=== PATIENT | male | born 1985 | race Caucasian/White ===

== ENCOUNTER 2016-09-21 17:49 | Inpatient (IN) | payer OTHER ==
[~2016-09-21] VITALS: Ht 182.9 cm; Wt 104.3 kg
--- NOTE | 2016-09-21 18:42 | ED PSYCHIATRIC COMPLAINT ---
History of Present Illness General Chief Complaint: Psychiatric Related Complaint Stated Complaint: PER PT DEPRESSED AND +SI Source: patient Exam Limitations: no limitations Allergies Coded Allergies: chlorpromazine (From THORAZINE) (Severe, ANAPHYLAXIS 09/21/16) fluphenazine (From PROLIXIN) (Severe, ANAPHYLAXIS 09/21/16) haloperidol (From HALDOL) (Severe, ANAPHYLAXIS 09/21/16) Uncoded Allergies: RESPERIDOL (Severe, ANAPHYLAXIS 09/21/16) Triage Note: PT TO ED WITH C/O "I HAVE BEEN VERY DEPRESSED AND HAVE BEEN PLANNING SUICIDE THE LAST WEEK OR TWO, I HAVE ATTEMPTED SUICIDE IN THE PAST BY TAKING ALL OF MY PILLS AND THEY FOUND ME UNRESPONSIVE, I HAVE BEEN LIVING IN A TENT, I CAN'T EVEN TALK TO MY 6 YEAR OLD SON, NO ONE SEEMS TO CAR, I WENT TO THE [email or web address] AND USED THE 3D PRINTER TO MAKE A PLASTIC GUN, THE ONLY THING I NEED TO GET IS BULLETS". Triage Nurses Notes Reviewed? yes HPI: This patient is a 30-year-old male with a past medical history including depression and anxiety who presented to the emergency department today for evaluation of suicidal ideations. The patient reported that his depression has been worsening over the last month. He reported that he did attempt suicide in the past by overdosing on Seroquel and prazosin. He was seen at [facility] at this time for an overdose when he was found unresponsive. He was seen a week later at [place] for continued symptoms of weakness after his overdose. The patient reported that [facility]. 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 The patient did admit that he still, "smokes crack." The patient reported that in June it was the anniversary of his father's from an overdose of alcohol, heroin, and benzodiazepine use. The patient reported that he has a mother who he does not talk to because, "she also has mental problems and it seems like when I'm around eye always make it worse for her." He reported that he has a sister who lives in [place], "but I burned some bridges but I was a heroin abuser and we do not talk very much anymore." The patient reported that he has a [id number] son, but he has not spoken to him in approximately 2 years because his son's mother won't let him. The patient reported, "I have been assembling a gun using the 3-D printer at the [employer] which I finished yesterday. I Only need the bullets." The patient reported that he was planning on committing suicide on [place]. The patient denied any homicidal ideation or audiovisual hallucinations. Patient denied any chest pain, difficulty breathing, abdominal pain, fevers, or chills. (DARIANA ROSALES,JJ) Vital Signs & Intake/Output Vital Signs & Intake/Output Vital Signs Date Time Temp Pulse Resp B/P Pulse O2 O2 Flow FiO2 Ox Delivery Rate 09/22 1236 97.0 62 18 132/65 96 Room Air 09/22 0906 98.7 74 20 108/70 96 Room Air 09/22 0646 98.5 65 18 118/66 98 Room Air 09/21 2244 98.3 54 18 110/54 93 09/21 2101 98.0 53 16 128/60 90 Room Air 09/21 2008 98 Room Air 09/21 1802 98.2 78 20 115/82 98 Room Air Room Air ED Intake and Output 09/22 0000 09/21 1200 Intake Total Output Total Balance Patient 230 lb Weight Reconcile Medications Escitalopram Oxalate (Lexapro) 20 MG TABLET 1 TAB PO DAILY DEPRESSION ( Reported) Ibuprofen 800 MG TABLET 1 TAB PO TID ANKLE PAIN (Reported) Three Rivers Carbonate (Three Rivers Carbonate ER) 450 MG TABLET.ER 1 TAB PO BID DEPRESSION (Reported) Lubiprostone (Amitiza) 24 MCG CAPSULE 1 CAP PO BID CONSTIPATION (Reported) Methadone Hydrochloride (Methadone HCl) 10 MG TABLET 1 TAB PO DAILY MOOD STABILITY (Reported) Pantoprazole Sodium (Protonix) 40 MG TABLET.DR 1 TAB PO DAILY GERD (Reported) Pantoprazole Sodium (Protonix) 40 MG TABLET.DR 1 TAB PO DAILY gastritis Prazosin HCl (Minipress) 5 MG CAPSULE 1 CAP PO QPM NIGHTMARES (Reported) Quetiapine Fumarate (Seroquel) 200 MG TABLET 1 TAB PO QPM DEPRESSION ( Reported) (DELMY FROST DO) Past History Travel History Traveled to [place] past 21 day No Medical History Any Pertinent Medical History? 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 No (JJ WESTBROOK PA-C) Review of Systems Review of Systems Constitutional: Reports: no symptoms. EENTM: Reports: no symptoms. Respiratory: Reports: no symptoms. Cardiovascular: Reports: no symptoms. GI: Reports: no symptoms. Genitourinary: Reports: no symptoms. Musculoskeletal: Reports: no symptoms. Skin: Reports: no symptoms. Neurological/Psychological: Reports: see HPI. All Other Systems: Reviewed and Negative (JJ WESTBROOK PA-C) Physical Exam Physical Exam General Appearance: well developed/nourished, alert, awake Neurological/Psychiatric: no motor/sensory deficits, awake, alert, calm, senior cognos developer II- XII nml as tested, depressed affect, oriented x 3 Comments: Well-developed well-nourished person in no acute distress HEENT: Normal EENT exam, head normocephalic, moist mucous membranes Pupils equally round and reactive to light. Nose is atraumatic. Neck: Supple Back: Normal gait Respiratory: No respiratory distress. Speaking in full sentences Extremity: Normal and equal pulses Neuro: Alert oriented x3, cranial nerves II through XII grossly intact. Skin: No appreciable rash on exposed skin, skin is warm and dry. Psych: Mood and affect is normal SAD PERSONS Done? yes (JJ WESTBROOK PA-C) Progress Differential Diagnosis: drug intoxication, drug overdose, drug withdrawal, electrolyte abnormality, encephalitis, hypoglycemia, IC hem/mass/tumor, ALCOHOL INTOXICATION, MAJOR DEPRESSIVE DISORDER, GENERALIZED ANXIETY DISORDER, BIPOLAR DISORDER, SCHIZOPHRENIA Hand-Off Endorsed To: MANDI GERBER,JAQUELIN Drake Endorsed Time: 1999 Pending: consult, labs (JJ WESTBROOK PA-C) Plan of Care: Orders Procedure Date/time Status Regular Diet 09/22 D Active Regular Diet 09/22 B Complete Patient Data - inpatient psych 09/22 1118 Active Admit to inpatient psych 09/22 1118 Active EKG 09/22 1118 Active Continuous Observation Monitor 09/22 0930 Active Continuous Observation Monitor 09/22 0534 Active Add-on Test (ER Only) 09/22 0316 Active Vital Signs 09/22 UNK Active Alternative Nursing Therapy 09/22 UNK Active Activity/Ambulation 09/22 UNK Active LITHIUM 09/21 1915 Complete ED CRISIS PSYCH CONSULT 09/21 1911 Active Continuous Observation Monitor 09/21 1814 Active URINE DRUGS OF ABUSE 09/21 1814 Complete ETHANOL 09/21 1814 Complete COMPREHENSIVE METABOLIC PANEL 09/21 1814 Complete CBC WITHOUT DIFFERENTIAL 09/21 1814 Complete Laboratory Tests 09/21/161914: Anion Gap 8, Estimated GFR > 60, BUN/Creatinine Ratio 18.8, Glucose 83, Calcium 9.4, Total Bilirubin 0.4, AST 62 H, ALT 128 H, Alkaline Phosphatase 77, Total Protein 7.1, Albumin 4.1, Globulin 3.0, Albumin/Globulin Ratio 1.4, CBC w Diff NO MAN DIFF REQ, RBC 4.67 L, MCV 91.9, MCH 30.4, RDW 15.1 H, MPV 10.2, Gran % 53.4, Lymphocytes % 34.7, Monocytes % 8.4, Eosinophils % 2.9, Basophils % 0.6, Absolute Granulocytes 3.6, Absolute Lymphocytes 2.4, Absolute Monocytes 0.6, Absolute Eosinophils 0.2, Absolute Basophils 0, PUBS MCHC 33.1, Three Rivers 0.4 L, Serum Alcohol < 10.0 09/21/16 1850: Urine Opiates Screen < 100.00, Methadone Screen > 735 H, Barbiturate Screen < 60, Ur Phencyclidine Scrn < 6.00, Amphetamines Screen < 100, U Benzodiazepines Scrn > 800 H, Urine Cocaine Screen 131, Urine Cannabis Screen 25.20 Hand-Off Endorsed To: DELMY FROST DO Endorsed Time: 0700 Pending: consult, labs (MANDI GERBER,JAQUELIN Drake) Initial ED EKG: SINUS BRADYCARDIA (DELMY FROST DO) Departure Departure Disposition: STILL A PATIENT Condition: Stable Clinical Impression Primary Impression: Suicidal ideation Referrals: ROSEANNA GERBER,DANDY Ndiaye (PCP/Family) Referred to [facility] as new patient No Departure Forms: Customer Survey General Discharge Information Psych Admission Note Psychiatric Admission: I have seen and evaluated CRISTHIAN ARAGON. I have also reviewed all the pertinent lab results and diagnostic results. CRISTHIAN ARAGON will be admitted to our inpatient Psychiatric unit for treatment and care. (DARIANA ROSALES,JJ) Departure Prescriptions: Current Visit Scripts Pantoprazole Sodium (Protonix) 1 TAB PO DAILY #30 TAB Comments 09/22/16 11 AM The patient has a abrasion between his second digit and the midfoot of the right foot. He also has some excoriated areas between the toes on the right foot. The findings are consistent with tinea pedis Psych Admission Note Psychiatric Admission: I have seen and evaluated CRISTHIAN ARAGON. I have also reviewed all the pertinent lab results and diagnostic results. CRISTHIAN ARAGON will be admitted to our inpatient Psychiatric unit for treatment and care. 09/22/16 Patient was admitted Inpatient Psychiatry. (DELMY FROST DO)
[2016-09-21 19:25] LABS: ABSOLUTE BASOPHIL COUNT 0 /CUMM (0.0-0.2); ABSOLUTE EOSINOPHIL COUNT 0.2 /CUMM (0.0-0.7); ABSOLUTE GRANULOCYTE CT 3.6 /CUMM (1.4-6.5); ABSOLUTE LYMPH COUNT 2.4 /CUMM (1.2-3.4); ABSOLUTE MONOCYTE COUNT 0.6 /CUMM (0.10-0.60); BASOPHIL % 0.6 % (0.0-2.0); EOSINOPHIL % 2.9 % (0-5); GRANULOCYTE % 53.4 % (42.2-75.2); HEMATOCRIT 42.9 % (42-52); MEAN CORPUSCULAR HGB 30.4 PG (27.0-31.0); MEAN CORPUSCULAR HGB CONC 33.1 G/DL (33.0-37.0); MEAN CORPUSCULAR VOLUME 91.9 FL (80.0-94.0); MEAN PLATELET VOLUME 10.2 FL (7.4-10.4); PLATELET COUNT 150 /CUMM (130-400); RBC DISTRIBUTION WIDTH 15.1 % (11.5-14.5); RED BLOOD CELL CT 4.67 /CUMM (4.70-6.10); WHITE BLOOD CELL COUNT 6.8 /CUMM (4.8-10.8)
[2016-09-21] MEDS ORDERED: IBUPROFEN800 M1 PO (19:49)
[2016-09-21] MEDS ORDERED: LITHIUM CARBON450 M1 PO (20:28)
[2016-09-21] MEDS ORDERED: SEROQUEL200 M1 PO (20:29)
[2016-09-21] MEDS ORDERED: LEXAPRO20 M1 PO (20:29)
[2016-09-21] MEDS ORDERED: PROTONIX40 M3 PO (20:30)
[2016-09-21] MEDS ORDERED: METHADONE HCL10 M1 PO (20:32)
[2016-09-21] MEDS ORDERED: MINIPRESS5 MG PO (20:42)
[2016-09-21] MEDS ORDERED: AMITIZA24 MC1 PO (20:43)
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
[2016-09-22 03:36] LABS: LITHIUM 0.4 mmol/L (0.6-1.2)
[2016-09-22] MEDS ORDERED: PROTONIX40 M3 PO (05:33)
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
[2016-09-22 15:33] VITALS: BP 120/77
--- NOTE | 2016-09-22 19:04 | CPS MD/APRN INITIAL ASSE PSYCH ---
Psychiatric Admission Tunnel Inspector's Note Reviewed: Yes Patient Seen and Examined: Yes Identifying Information: 30 y/o single, undomiciled, unemployed man Chief Complaint: "I'm really not doing well" Reaction to Hospitalization: Relieved History of Present Illness Onset of Illness: Chronic depressed mood and PTSD symptoms, insidious worsening of depression over past few weeks Circumstances Leading to Admission: Per notes, aj time is very challenging for him due to memories of spending holiday with his father. Also attempted to arrange contact with his 3 year old son but was not allowed by his son's mother Problem(s) Justifying Need for Admission: Suicidal ideation with plan and intent to harm himself; severe depressive symptoms Other HPI: See crisis SW note for additional information Past Psychiatric History Past Diagnosis(es)- if any: PTSD Major depressive disorder, severe, recurrent Opioid use disorder Benzodiazepine use disorder Past Precipitating Factors- if any: Homelessness, poor psychosocial supports, substance abuse - Include inpatient and outpatient treatment Treatment History: Multiple previous hospitalizations for depression with suicidal ideation. Currently in outpatient treatment at [facility] with Dr. Chidi Sandoval. Multipel previous inpatient substance abuse rehab episodes. History of Suicide Attempts or Gestures Yes: overdose on psych and medical meds Substance Abuse History: Opioid use disorder, last used 7 years ago, has been on methadone maintenance through [facility], now 90 mg daily Intermittent benzodiazepine use, no recent chronic use Denies EtOH or other substances currently Allergies: Coded Allergies: chlorpromazine (From THORAZINE) (Severe, ANAPHYLAXIS 09/21/16) fluphenazine (From PROLIXIN) (Severe, ANAPHYLAXIS 09/21/16) haloperidol (From HALDOL) (Severe, ANAPHYLAXIS 09/21/16) Uncoded Allergies: RESPERIDOL (Severe, ANAPHYLAXIS 09/21/16) Home Med List: Escitalopram Oxalate (Lexapro) 20 MG TABLET 1 TAB PO DAILY DEPRESSION ( Reported) Entered as Reported by LEONEL GOMEZ on 09/21/162028 Ibuprofen 800 MG TABLET 1 TAB PO TID ANKLE PAIN (Reported) Entered as Reported by ASHANTI CONDE on 09/21/161948 [place] Carbonate ([place] Carbonate ER) 450 MG TABLET.ER 1 TAB PO BID DEPRESSION (Reported) Entered as Reported by LEONEL GOMEZ on 09/21/162027 Lubiprostone (Amitiza) 24 MCG CAPSULE 1 CAP PO BID CONSTIPATION (Reported) Entered as Reported by LEONEL GOMEZ on 09/21/162042 Methadone Hydrochloride (Methadone HCl) 10 MG TABLET 1 TAB PO DAILY MOOD STABILITY (Reported) Entered as Reported by LEONEL GOMEZ on 09/21/162031 Pantoprazole Sodium (Protonix) 40 MG TABLET. 1 TAB PO DAILY GERD (Reported) Entered as Reported by LEONEL GOMEZ on 09/21/162029 Pantoprazole Sodium (Protonix) 40 MG TABLET. 1 TAB PO DAILY gastritis #30 TAB [facility] Prazosin HCl (Minipress) 5 MG CAPSULE 1 CAP PO QPM NIGHTMARES (Reported) Entered as Reported by LEONEL GOMEZ on 09/21/162041 Quetiapine Fumarate (Seroquel) 200 MG TABLET 1 TAB PO QPM DEPRESSION ( Reported) Entered as Reported by LEONEL GOMEZ on 09/21/162028 - Include any medical condition(s) that may - impact the patient's recovery/remission Past Medical History: Headaches, chronic MSK pain, IBS, opioid induced constipation Past History Medical History Neurological: seizure, (WITHDRAWL TO BENZOS) MIGRIAINE EENT: sinusitis, HX MRSA Cardiovascular: NONE Respiratory: asthma Gastrointestinal: constipation, GERD, irritable bowel syndrome Hepatic: NONE Renal: NONE Musculoskeletal: NONE Psychiatric: anxiety, depression, substance abuse, PTSD Endocrine: NONE Blood Disorders: NONE Cancer(s): NONE SUPERVISOR PAIRING AND INSPECTING/Reproductive: NONE History of MRSA: Yes Active MRSA Infection: No History of VRE: No History of CDIFF: No Isolation History: Standard Pneumonia Vaccine: 09/13/16 Influenza Vaccine: 09/13/16 Surgical History Surgical History: NONE Psychiatric Family/Social Hx Family History Psychiatric Illness: Unknown Substance Use: Father with opioid use disorder and from substance overdose Suicides: Unknown - father from substance overdose, unclear if suicide Social History Living Situation: Homeless - lives in tent [place] [facility] Significant Relationships (family/friends): None Education: Unknown Vocation/Occupation: Unemployed. Legal: None known. No records on [place] Judicial Other Social History: Has three year old son with whom he is not in contact Healthly Behaviors Screening Tobacco Screening Tobacco Use from ED Docu: Current Daily Use Daily Tobacco Use Amount/Type: => 5 Cigarettes daily - If tobacco counseling indicated - the following topics are required. - #1 Recognizing dangerous situations. - #2 Coping Skills. - #3 Basic information about quitting. Status of Tobacco Cessation Counseling: #1, #2 AND #3 Completed Cessation Med Status: Nicotine Patch Ordered Alcohol Screening - ETOH screen POS if BAL >=80 or Audit-C>= M4/F3 Audit-C Score from Diag Assess: 1 Blood Alcohol Level: Laboratory Tests 09/21 1915 Toxicology Serum Alcohol (<10 MG/DL) < 10.0 Alcohol Use Screening Results: Neg per Audit C &/or BAL - If ETOH counseling indicated - the following topics are required. - #1 Express concern about the patient's - drinking at unhealthy levels, include informing - of national norms for moderate drinking: - men <= 14 drinks/week, max 4 drinks/occasion - women <= 7 drinks/week, max 3 drinks/occasion - #2 Providing feedback, including linking alcohol to - negative physical effects (liver injury, hypertension) - negative emotional effects (relationship problems and - depression) - negative occupational consequences (reduced work - performance) - #3 Advising the patient to abstain from alcohol or - to drink below national norms for moderate drinking - (as listed above). Status of ETOH Use Counseling: N/A B/C NO ETOH Use Metabolic Screening - Screen if on a Neuroleptic Medication - Metabolic screening should include: - Blood Pressure, BMI, Glucose or Hgb A1c, & a - Lipid profile from within the past 365 days. Metabolic Screening () Patient on a neuroleptic(s) . Enter below results for Glucose or Hemoglobin A1C, and lipid panel if obtained during the last 365 days. BMI: Blood Pressure: 120/77 Laboratory Results (If applicable): Will order lipid panel - pending Exam and Plan Mental Status Examination Ambulation Status: Stable Appearance: Disheveled Attitude towards examiner: Pleasant and cooperative Psychomotor activity: Slowed Behavior: WNL Quality of speech: quiet, o/w wnl Affect: Blunted Mood: "depressed" Suicidal Ideation: Present Homicidal Ideation: Denies Hallucinations: Denies Paranoid/Delusional Material: Denies Difficulties with thought organization: None evidenced Insight: Fair Judgment: Fair Orientation: x4 Cognition: Intact Memory Function: Intact Estimate of intellectual functioning: Average Assets/Strengths Patient Identified Assets/Strengths: Involved with outpatient treatment at [facility] Impression/Plan Impression and Plan: 30 y/o man with severe recurrent major depressive disorder presenting with suicidal ideation with plan with essentially no protective factors or psychosocial supports. - Include all active medical diagnosis that require tx DSM 5 Diagnosis(es): Major depressive disorder, recurrent, severe PTSD Opioid use disorder (methadone maintenance) Benzodiazepine use disorder, moderate - Initial Tx Plan for Active Psych & Medical Conditions Treatment Plan: -admit CPS, 15 min checks -regular diet -f/u admit labs, order cholesterol panel -continue outpatient medications. His psychiatrist at [facility] is Dr. Chidi Sandoval - will be important to consult with her on Saturday regarding medication changes -social work assistance -monitor for improvement in mood - Factors that would help patient function - in a less restrictive setting. Factors: -improved mood, abolition of suicidal ideation
--- NOTE | 2016-09-23 00:07 | Admission Certification ---
Admission Certification Certification Statement - As attending physician, I certify that at the time of - admission, based on clinical presentation, severity of - symptoms, need for further diagnostic testing and - therapeutic interventions, and risk of adverse outcomes - without in-hospital treatment, in my clinical assessment, - this patient requires an acute hospital stay for a minimum - of two nights or longer. I have also considered psychsocial - factors such as support system, advanced age, financial - issues, cognitive issues, and failed out-patient treatments, - past re-admission history, safety of patient, and lack of - compliance as applicable. Specific rationale supporting this admission is: Depression, SI.
--- NOTE | 2016-09-23 00:15 | History & Physical ---
General Information and HPI MD Statement: I have seen and personally examined CRISTHIAN ARAGON and documented this H&P. The patient is a 30 year old M who presented with a patient stated chief complaint of [depression, SI]. Source of Information: patient Exam Limitations: no limitations History of Present Illness: 30 yo M with h/o IBS constipation type, activity induced asthma, polysubstance abuse on methadone, PTSD, is admitted to [facility] for depression and suicidal ideation. Patient is homeless, lives in a tent in [place]. Please check Psych H and P for further details. He reports a recent admission to [facility] for ankle sprain for which he is using Ibuprofen TID. He has a h/o MRSA infections to his face/nose. He has a h/o migraine but has not had an episode for many years now. He also reports that his seizure episode was secondary to withdrawal from benzos. He denies chest pain, dyspnea, nausea, vomiting, abdominal pain, chills, diarrhea or urinary symptoms. Allergies/Medications Allergies: Coded Allergies: chlorpromazine (From THORAZINE) (Severe, ANAPHYLAXIS 09/21/16) fluphenazine (From PROLIXIN) (Severe, ANAPHYLAXIS 09/21/16) haloperidol (From HALDOL) (Severe, ANAPHYLAXIS 09/21/16) Uncoded Allergies: RESPERIDOL (Severe, ANAPHYLAXIS 09/21/16) Home Med list Escitalopram Oxalate (Lexapro) 20 MG TABLET 1 TAB PO DAILY DEPRESSION ( Reported) Ibuprofen 800 MG TABLET 1 TAB PO TID ANKLE PAIN (Reported) [place] Carbonate ([place] Carbonate ER) 450 MG TABLET.ER 1 TAB PO BID DEPRESSION (Reported) Lubiprostone (Amitiza) 24 MCG CAPSULE 1 CAP PO BID CONSTIPATION (Reported) Pantoprazole Sodium (Protonix) 40 MG TABLET.DR 1 TAB PO DAILY gastritis Prazosin HCl (Minipress) 5 MG CAPSULE 1 CAP PO QPM NIGHTMARES (Reported) Quetiapine Fumarate (Seroquel) 200 MG TABLET 1 TAB PO QPM DEPRESSION ( Reported) Testosterone (Androgel) 20.25/1.25 GEL..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 MACHINE FEEDER 1.262 % TOP DAILY LOW TESTOSTERONE (Reported) Compliance With Home Meds: POOR Past History Travel History Traveled to [place] past 21 day No Medical History Neurological: seizure, (WITHDRAWL TO BENZOS) MIGRIAINE EENT: sinusitis, HX MRSA Cardiovascular: NONE Respiratory: asthma Gastrointestinal: constipation, GERD, irritable bowel syndrome Hepatic: NONE Renal: NONE Musculoskeletal: NONE Psychiatric: anxiety, depression, substance abuse, PTSD Endocrine: NONE Blood Disorders: NONE Cancer(s): NONE BACK TENDER CYLINDER/Reproductive: NONE History of MRSA: Yes Active MRSA Infection: No History of VRE: No History of CDIFF: No Isolation History: Standard Pneumonia Vaccine: 09/13/16 Influenza Vaccine: 09/13/16 Surgical History Surgical History: non-contributory Past Family/Social History Family History Relations & Conditions if any Relation not specified for: *No pertinent family history Psychosocial History Where do you live? Other Who Do You Live With? self Services at Home: None Primary Language: Croatian Smoking Status: Current Everyday Smoker ETOH Use: denies use Illicit Drug Use: benzodiazepines Functional Ability ADLs Independent: dressing, eating, toileting, bathing. Ambulation: independent IADLs Independent: telephone, medication admin. 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 EENTM: Reports: no symptoms. Cardiovascular: Denies: chest pain, edema, palpitations, syncope. Respiratory: Denies: cough, orthopnea, short of breath, wheezing. GI: Denies: abdominal pain, diarrhea, nausea, vomiting. Genitourinary: Denies: dysuria, frequency, nocturia. Musculoskeletal: Reports: no symptoms. Neurological/Psychological: Reports: see HPI. All Other Systems: Reviewed and Negative Exam & Diagnostic Data Last 24 Hrs of Vital Signs/I&O Vital Signs Date Time Temp Pulse Resp B/P Pulse O2 O2 Flow FiO2 Ox Delivery Rate 09/22 2126 61 120/77 09/22 1533 96.7 61 120/77 09/22 1236 97.0 62 18 132/65 96 Room Air 09/22 0906 98.7 74 20 108/70 96 Room Air 09/22 0646 98.5 65 18 118/66 98 Room Air Intake & Output 09/23 0800 09/23 0000 09/22 1600 Intake Total Output Total Balance Patient 230 lb Weight Physical Exam General Appearance Alert, Oriented X3, Cooperative, No Acute Distress Skin No Breakdown, No Significant Lesion HEENT PERRLA, EOMI, Mucous Membr. moist/pink Neck Supple Cardiovascular Regular Rate, Normal S1, Normal S2, No Murmurs Lungs Clear to Auscultation, Normal Air Movement Abdomen Normal Bowel Sounds, Soft, No Tenderness Neurological Exam Findings: Normal Gait, Normal Speech, Sensation Intact, Cranial Nerves 3 -12 NL, Reflexes 2+ Cranial Nerves II through XII: Intact Extremities No Edema, Normal Pulses, No Tenderness/Swelling Last 24 Hrs of Labs/Ward: Laboratory Tests 09/21 09/21 1915 1850 Chemistry Sodium (137 - 145 mmol/L) 140 Potassium (3.5 - 5.1 mmol/L) 4.8 Chloride (98 - 107 mmol/L) 99 Carbon Dioxide (22 - 30 mmol/L) 32 H Anion Gap (5 - 16) 8 BUN (9 - 20 mg/dL) 15 Creatinine (0.7 - 1.2 mg/dL) 0.8 Estimated GFR (>60 ml/min) > 60 BUN/Creatinine Ratio (7 - 25 %) 18.8 Glucose (65 - 99 mg/dL) 83 Calcium (8.4 - 10.2 mg/dL) 9.4 Total Bilirubin (0.2 - 1.3 mg/dL) 0.4 AST (17 - 59 U/L) 62 H ALT (21 - 72 U/L) 128 H Alkaline Phosphatase (< 127 U/L) 77 Total Protein (6.3 - 8.2 g/dL) 7.1 Albumin (3.5 - 5.0 g/dL) 4.1 Globulin (1.9 - 4.2 gm/dL) 3.0 Albumin/Globulin Ratio (1.1 - 2.2 %) 1.4 Hematology CBC w Diff NO MAN DIFF REQ WBC (4.8 - 10.8 /CUMM) 6.8 RBC (4.70 - 6.10 /CUMM) 4.67 L Hgb (14.0 - 18.0 G/DL) 14.2 Hct (42 - 52 %) 42.9 MCV (80.0 - 94.0 FL) 91.9 MCH (27.0 - 31.0 PG) 30.4 RDW (11.5 - 14.5 %) 15.1 H Plt Count (130 - 400 /CUMM) 150 MPV (7.4 - 10.4 FL) 10.2 Gran % (42.2 - 75.2 %) 53.4 Lymphocytes % (20.5 - 51.1 %) 34.7 Monocytes % (1.7 - 9.3 %) 8.4 Eosinophils % (0 - 5 %) 2.9 Basophils % (0.0 - 2.0 %) 0.6 Absolute Granulocytes (1.4 - 6.5 /CUMM) 3.6 Absolute Lymphocytes (1.2 - 3.4 /CUMM) 2.4 Absolute Monocytes (0.10 - 0.60 /CUMM) 0.6 Absolute Eosinophils (0.0 - 0.7 /CUMM) 0.2 Absolute Basophils (0.0 - 0.2 /CUMM) 0 PUBS MCHC (33.0 - 37.0 G/DL) 33.1 Toxicology Urine Opiates Screen (>2000 NG/ML) < 100.00 Methadone Screen (>300 NG/ML) > 735 H Barbiturate Screen (>200 NG/ML) < 60 Ur Phencyclidine Scrn (>25 NG/ML) < 6.00 Amphetamines Screen (>1000 NG/ML) < 100 U Benzodiazepines Scrn (>200 NG/ML) > 800 H [place] (0.6 - 1.2 mmol/L) 0.4 L Urine Cocaine Screen (>300 NG/ML) 131 Urine Cannabis Screen (>50 NG/ML) 25.20 Serum Alcohol (<10 MG/DL) < 10.0 Diagnostic Data EKG Results Sinus rhythm. CXR Results -- Assessment/Plan Assessment: 30 yo M with h/o IBS constipation type, activity induced asthma, polysubstance abuse on methadone, PTSD, is admitted to [facility] for depression and suicidal ideation. 1. Management per Psych team. Ct. methadone 90 (which he gets from [facility]). 2. IBS constipation type. Ct. Amitiza. 3. Activity induced asthma. Ct. albuterol as needed. Patient reports he has not used one for many years. 4. GERD. Ct. protonix. 5. Ankle sprain. Ct. Tylenol PRN for pain. Hold off on ibuprofen. DVT prophylaxis - low risk, early ambulation. As Ranked By This Provider Problem List: 1. Suicidal ideation 2. Irritable bowel syndrome with constipation 3. GERD (gastroesophageal reflux disease) 4. Depression Miscellaneous Miscellaneous Documentation Attending Case Discussed With: ERNA GERBER PHD,VERONA GARDNER Primary Care Physician: ROSEANNA GERBER,DANDY Ndiaye Patient sees these Specialists -- Level of Patient Care: ESMER Antonio Attending MD Review Statement Attending Statement Attending MD Statement: examined this patient
[2016-09-23 12:16] VITALS: BP 149/68
--- NOTE | 2016-09-23 16:14 | CP SOUTH PROGRESS NOTE PSYCH ---
Psych (Inpt) Progress Note Progress Note Include the following elements, when applicable: Involvement in the active treatment of the patient with behavioral observations of the patient and the patient's response to the treatment. Review of the ongoing treatment process in the context of the treatment plan. Indication of how multi-disciplinary staff members are carrying out the treatment plan. Plans for future interventions and recommendations for revision of the treatment plan. Liaison with other physicians/providers. Progress Note: D/w nursing staff. Examined this morning. Sleeping. SAys having intense ankle pain for which as outpatient he takes chronic ibuprofen 800 mg TID. Otherwise continues to have thoughts of being and feels he has nothing to live for. We discussed whether he has ever had ECT which he denies having though he is interested in trying for his depression. Vitals wnl. Labs reviewed with hypertriglyceridemia. MSE: Disheveled CM resting on hospital bed, cooperative with interview with poor eye contact. Speech wnl. Mood "still really down". Affect blunted, mildly irritable. TP log/dillon, content with + SI without plan, denies HI. Cognition grossly intact. I/J fair. A/P: Continue current medications. Contact hatch tender at [facility] on Saturday. Consider ECT for prolonged, treatment refractory depression. Re: ibuprofen, patient states takes on chronic basis as outpatient without detriment to lithium level. Appreciate that NSAIDs can impair lithium clearance - will order ibuprofen for short time period to treat acute ankle pain then d/c.
[2016-09-23 20:15] VITALS: BP 151/68
[2016-09-24 07:59] VITALS: BP 115/64
--- NOTE | 2016-09-24 11:34 | CP SOUTH PROGRESS NOTE PSYCH ---
Psych (Inpt) Progress Note Progress Note Include the following elements, when applicable: Involvement in the active treatment of the patient with behavioral observations of the patient and the patient's response to the treatment. Review of the ongoing treatment process in the context of the treatment plan. Indication of how multi-disciplinary staff members are carrying out the treatment plan. Plans for future interventions and recommendations for revision of the treatment plan. Liaison with other physicians/providers. Progress Note: D/w nursing staff. Examined this morning. Sleeping. Ankle pain has improved. Continues to feel depressed and has frequent thoughts of without a plan to kill self. Vitals wnl. Labs reviewed. MSE: Disheveled, slightly malodorous CM resting on hospital bed, cooperative with interview with poor eye contact. Speech wnl. Mood "still depressed". Affect blunted, mildly irritable. TP log/dillon, content with + SI without plan, denies HI. Cognition grossly intact. I/J fair. A/P: Continue current medications. Contact house designer at [facility] on Saturday. Consider ECT for prolonged, treatment refractory depression. Might be good candidate for [facility] 5th floor transitional living program.
[2016-09-24 12:28] VITALS: BP 119/65
--- NOTE | 2016-09-24 14:28 | SOCIAL WORKER PROG NOTE PSYCH ---
Social Work Progress Note Progress Note Patient seen in his room where he retreated after lunch. He seemed calm, and was likely happy to be in a bed, after having slept outside for some time. He said his mood was much better today than it had been yesterday, when he said he felt it had been a big mistake coming here in first place, and wished that he had completed effort to suicide. Patient said that he met a fellow patient that he had known from a previous psych admission at [facility], and that, plus listening to others talk has given him some optimistic feelings which he cant really explain, but he said he is glad that he came here and that he is not feeling suicidal at present. Patient said that he wanted to get in touch with his treaters at [facility], but he knew it was holiday, so he was not able to do so. Patient did not mention whether yesterday being [place] had anything to do with negative feelings yesterday; however talking with someone he knew seemed to have a positive effect, Patient also has a state [facility] rn case mgr; but [facility] it difficult for people to get him engaged. Wonder if a penitentiary is possible for this man who is so disconnected, but it does not seem to be his choice, as much as circumstances.
[2016-09-24 16:39] VITALS: BP 102/60
[2016-09-24 19:59] VITALS: BP 133/76
[2016-09-25 07:54] VITALS: BP 103/75
[2016-09-25 12:19] VITALS: BP 133/68
--- NOTE | 2016-09-25 14:24 | CP SOUTH PROGRESS NOTE PSYCH ---
Psych (Inpt) Progress Note Progress Note Include the following elements, when applicable: Involvement in the active treatment of the patient with behavioral observations of the patient and the patient's response to the treatment. Review of the ongoing treatment process in the context of the treatment plan. Indication of how multi-disciplinary staff members are carrying out the treatment plan. Plans for future interventions and recommendations for revision of the treatment plan. Liaison with other physicians/providers. Progress Note: [I discussed this patient's progress to date, current mental status, treatment process in the context of the treatment plan, and discharge planning with staff/ team in the daily morning inpatient team meeting. I also met with the patient myself in individual session.] SUBJECTIVE: "I'm not taking Trail anymore." OBJECTIVE: Current Medications Sig/Mike Start time Last Medication Dose Route Stop Time Status Admin Clotrimazole 1 AUSTIN BID 09/22 1311 AC 09/23 TOP 1033 Escitalopram Oxalate 20 MG DAILY 09/23 1000 AC 09/25 PO 0931 Ibuprofen 400 MG TID PRN 09/25 1530 UNVr PO Ibuprofen 800 MG TID PRN 09/23 1430 DC 09/[address] Carbonate 450 MG BID 09/22 2200 DC 09/25 PO 0931 Lubiprostone 24 MCG BID 09/22 1000 AC 09/25 PO 0931 Methadone HCl 90 MG DAILY 09/23 1000 AC 09/25 PO 0933 Nicotine 21 MG DAILY 09/23 1000 AC 09/25 TOP 0931 Nicotine 4 MG Q2 HRS NEEDED PRN 09/22 1645 AC 09/25 PO 1253 Omeprazole 40 MG DAILY AC 09/23 0700 AC 09/25 PO 0656 Prazosin HCl 5 MG QPM 09/22 2200 AC 09/24 PO 2135 Quetiapine Fumarate 50 MG 0800,1400 09/26 0800 UNVr PO Quetiapine Fumarate 200 MG AT BEDTIME 09/22 2200 AC 09/24 PO 2135 Sodium Chloride 2 SPRAY Q4P PRN 09/24 1945 AC 09/25 ROMERO 0933 Vital Signs Date Time Temp Pulse Resp B/P Pulse O2 O2 Flow FiO2 Ox Delivery Rate 09/25 1219 74 133/68 09/25 0754 96.6 66 103/75 09/24 2135 78 133/76 09/24 1959 97.5 78 133/76 09/24 1639 93 102/60 ASSESSMENT: Patient is a 30-year old single, male with a history of PTSD, MDD recurrent severe, Benzodiazepine use disorder moderate, and opiate use disorder severe (on Methadone maintenance from [facility]), who presented to ED with suicidal ideation in the context of multiple stressors, including Lee approaching and his father being x 8 years;having no contact with his 3 year old son; homelessness and living in a tent in [facility]. He reported using a 3D printer at a [employer] in [place] to print a pistol, which he assembled and wanted to use to shoot himself. He reported he did not use the pistol because he had no bullets. The patient spoke about this nonchalantly, and could not identify protective factors to live. He expressed reduced motivation, reduced energy, anxiety and depression. He reported being on multiple trials of Trail since 16 years old, with maximum daily dose up to 1800mg. He reported Trail had been ineffective on targeting his depression, since starting at 16 years old. He reported previous failed trials of Depakote, Tegretol, Abilify, Zoloft and other SSRIs (unknown to patient) and Wellbutrin. He was not agreeable to trial any of these again, given past failed efficacy. Patient however did report a past efficacious trial on Prozac approx 7 years ago and is willing to retrial. This was this commercial real estate underwriter's first encounter with the patient today, since initial [facility] hospitalization. He appeared A&Ox4. Speech was normal in rate, tone and volume. Eye contact was appropriate. He reported passive suicidal ideation, denied plans or intent. He denied feeling worthless or helpless, but reported feeling hopeless. He reported reduced motivation and energy. He reported his sleep and appetite were good. There was no evidence of underlying psychotic thought process, or evidence of paranoia or nadira delusions. He denied auditory and visual hallucinations. IVONE was obtained by this commercial real estate underwriter to contact the patient's outpatient psychiatrist Dr. Chidi Sandoval from [facility]. Collateral was obtained from Dr. Sandoval (T#[phone]) who reported the patient has a history of PTSD, Borderline personality disorder, and Cocaine use disorder. She reported that he has a history of homelessness and refused to stay at shelters. Because of this, [facility] had discontinued his visiting nurse service. He had been in treatment as an outpatient at [facility] over the past year, and treated by Dr. Sandoval. She reported that he historically has not responded well to current psychotropic medications (Trail 450mg BID, Prazosin 5mg at HS, Seroquel 200mg at HS, Lexparo 20mg QAM), and questioned his medication adherence, as well as the efficacy of Trail on the patient's depression. Dr. Sandoval reported that much of his stress is related to his unstable housing situation. This commercial real estate underwriter expressed to Dr. Sandoval, that the patient was refusing to continue Trail. Dr. Sandoval denied that the patient had a known history of bipolar disorder, and reported that Trail had been used to target the patient's depression. She additionally added that the patient's housing dispo would likely be a problem on discharge for the patient. PLAN: 1. Discontine Trail, as the patient adamently refuses to continue taking it. Patient additonally refused to start alternative mood stabilizers such as Depakote or Tegretol despite this commercial real estate underwriter's recommendation to further target depression, and questionable mood instability. 2. Trail level ordered for tomorrow morning at 0600, as the patient had been receiving Ibuprofen 800mg TID for pain concomitantly with Trail over the weekend. 3. Increase Seroquel to 50mg BID, and 200mg at HS for mood stabilization. 4. Continue other medications for now. Will consider switching from Lexapro to Prozac to further target depression given patient's report of past positive efficacy on Prozac. 5. Continue monitoring the patient on unit for safety, mood, and suicidal ideation. 6. Dispo planning per primary team.
[2016-09-25 15:46] VITALS: BP 138/68
[2016-09-25 20:28] VITALS: BP 143/79
[2016-09-26 08:10] VITALS: BP 111/74
--- NOTE | 2016-09-26 11:25 | CP SOUTH PROGRESS NOTE PSYCH ---
Psych (Inpt) Progress Note Progress Note Include the following elements, when applicable: Involvement in the active treatment of the patient with behavioral observations of the patient and the patient's response to the treatment. Review of the ongoing treatment process in the context of the treatment plan. Indication of how multi-disciplinary staff members are carrying out the treatment plan. Plans for future interventions and recommendations for revision of the treatment plan. Liaison with other physicians/providers. Progress Note: [I discussed this patient's progress to date, current mental status, treatment process in the context of the treatment plan, and discharge planning with staff/ team in the daily morning inpatient team meeting. I also met with the patient myself in individual session.] SUBJECTIVE: "I guess I'm okay." OBJECTIVE: Current Medications Sig/Mike Start time Last Medication Dose Route Stop Time Status Admin Clotrimazole 1 AUSTIN BID 09/22 1311 DC 09/23 TOP 1033 Escitalopram Oxalate 20 MG DAILY 09/23 1000 DC 09/26 PO 0844 Fluoxetine HCl 20 MG 0800 09/27 0800 AC PO Ibuprofen 600 MG TID PRN 09/26 1530 AC PO Ibuprofen 400 MG TID PRN 09/25 1530 DC 09/26 PO 1314 Lubiprostone 24 MCG BID 09/22 1000 AC 09/26 PO 0845 Methadone HCl 90 MG DAILY 09/23 1000 AC 09/26 PO 0847 Nicotine 21 MG DAILY 09/23 1000 AC 09/26 TOP 0845 Nicotine 4 MG Q2 HRS NEEDED PRN 09/22 1645 AC 09/26 PO 1315 Omeprazole 40 MG DAILY AC 09/23 0700 AC 09/26 PO 0844 Prazosin HCl 5 MG QPM 09/22 2200 AC 09/25 PO 2136 Quetiapine Fumarate 50 MG Q8P PRN 09/26 1245 AC PO Quetiapine Fumarate 50 MG 0800,1400 09/26 0800 DC PO Quetiapine Fumarate 200 MG AT BEDTIME 09/22 2200 AC 09/25 PO 2136 Sodium Chloride 2 SPRAY Q4P PRN 09/24 1945 AC 09/26 ROMERO 0849 Testosterone 5 GM 0800 09/26 1400 AC 09/26 TOP 1523 Vital Signs Date Time Temp Pulse Resp B/P Pulse O2 O2 Flow FiO2 Ox Delivery Rate 09/26 1224 76 121/65 09/26 0810 96.2 78 111/74 12/27 2136 84.0 84 18 143/79 09/25 2028 84.0 84 143/79 09/25 1546 98 138/68 ASSESSMENT: Met with the patient today, who presented A&Ox4. Speech was normal in rate, tone and volume. Eye contact was appropriate. He reported his sleep and appetite were good. He reported attending accupuncture group today, which had a positive effect on his depression. He reported current depression of 6/10 (10 being the worst) and anxiety of 0/10 (10 being the worst). He reported much of his depression is related to unstable housing and having no contact with his 3 y/o son. He expressed motivation to work on obtaining an apartment (and reported previously initiating this process with Dianne from [facility] in [place]) , and had some insight into the possibility of his ex allowing him to see his son, if he stayed on the right track. He denied feeling worthless, and expressed some feelings of hopelessness and helplessness. He denied passive and active suicidal ideation today, denied plans and intent. He further denied homicidal ideation, plans and intent. There was no evidence of an underlying psychotic process. Thought content was appropriate. He denied auditory and visual hallucinatons. Patient reported that since admission he has not been receiving prescribed Androgel 1.62% topical. Medication was last prescribed by Dr. Sandoval at [facility]. Medication was verified by [facility] in [place], [place]. Patient last filled and picked up prescription on 09/06/16. Spoke to inpatient pharmacist Idris who reported hospital only has 1% topical. Order placed. Reviewed with the patient psychotropic options to further target his depression. Patient reported having a positive response to Prozac (up to 40mg daily) during his late teens and early 20's. Patient was agreeable to discontinue Lexapro, and retrial Prozac. The risk/benefit/SE profiles of Prozac were reviewed with the patient. The patient verbalized understanding of all education and was agreeable to trial. PLAN: 1. Discontinue Lexapro 20mg daily. 2. Start Prozac 20mg daily to further target anxiety/depression. 3. Continue current medications. 4. Start Androgel 1% topical every morning as prescribed. 5. Continue monitoring the patient on unit for safety, mood and suicidal ideation. 6. Dispo planning per primary team.
[2016-09-26 12:24] VITALS: BP 121/65
[2016-09-26 16:15] VITALS: BP 118/61
[2016-09-27 08:13] VITALS: BP 111/71
[2016-09-27 12:15] VITALS: BP 125/71
--- NOTE | 2016-09-27 14:45 | SOCIAL WORKER PROG NOTE PSYCH ---
Social Work Progress Note Progress Note Mark expressed a decrease in his suicidal thoughts today. He states that this change has happened since yesterday. He attributes this to attending groups here on the unit and doing accupuncture. He would like increased services from [facility] when he leaves here. He stated that he goes there for med management, but that is all that is offered to him right now. He used to have a therapist there , but that was taken away after cut backs from the state. He feels he does well one on one. There are groups there as well that he seems interested in, but he stated that he was told he can't participate in those groups without having a clinician. He is open to me contacting [facility] to see what can be worked out. He told me that he has been working with a woman Dianne Jacobs from [facility] that is supposedly helping him with housing. He signed a release for me to call her, as well as his [facility] worker Joy. He reports that he is depressed often and that he has experienced this on and off for the last 7 and half years. Basically since his Dad , he feels his life has changed for the worse. Dad of an overdose of medications. He does have a sister, but they don't have a close relationship and she lives in [place]. Mark reports living on the [address] over the past few years. He currently lives in a tent [facility] in [place] and shares it with a 70 something year old man. Mark has a 6 year old son, but he has not talked with him in 2 1/2 years. He reports that his Mother had stopped communication with him and he has not had contact since. He has not pursued anything legally. Mark goes to [facility] in [place] for Methadone daily. He admits to sporadic benzo use and crack cocaine. 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 He does not have any outstanding legal issues at this point in time. I gave him some information about [facility] in [place], which offers a variety of housing options for homeless individuals. He does not have an income though, other than the food stamps he receives. I called and left a message for Dianne at [facility] [phone].
--- NOTE | 2016-09-27 14:45 | SOCIAL WORKER TX PLAN PSYCH ---
Treatment Plan - Please Document: - Evidence that there is ongoing collaboration between - the patient and the interdisciplinary team, - including the patient's active participation and - responsibility for engaging in the treatment regimen, - and that the treatment plan is individualized and - relevant to the patient's conditions. - Treatment plan should reflect documentation indicating - that all active therapeutic efforts are included. Strengths/Capabilities: Pt is motivated for treatment Physical Limitations (Interventions): None reported Patient Identified Trmt Goals: I need help with my depression Discharge Plan: Patient will return to [facility] in [place] Problem/Goals #1 Problem #1: suicidal ideation Goal (Short Term): Patient will be able to verbalize diminished thoughts of suicide Goal (Grab Operator): patient will be able to identify resources to use for ongoing support in the community Interventions: patient will be offered medication management, groups on symptom management, coping skills group, focus group, accupuncture, recovery, relaxation. Adhesion Tester will help coordinate aftercare needs. DSM5/PS Stressors/Medical Prob Diagnosis' (DSM 5, Stressors, Medical): Major Depression recurrent, severe, F33.1, Cocaine Use Disorder Mild, F43.12 PTSD [id number] Inadequate Housing, Z63.4 Uncomplicated Bereavement Current GAF: 20 Treatment Team - Responsibilities of members of the treatment team include: - Medication Management- MD or GLASS VIAL FILLER - Medication Administration and Monitoring- Nurse - Group Therapy- Occupational Therapist - 1:1 Therapy,Disch Planning,family involvement-Adhesion Tester
--- NOTE | 2016-09-27 15:12 | CP SOUTH PROGRESS NOTE PSYCH ---
Psych (Inpt) Progress Note Progress Note Include the following elements, when applicable: Involvement in the active treatment of the patient with behavioral observations of the patient and the patient's response to the treatment. Review of the ongoing treatment process in the context of the treatment plan. Indication of how multi-disciplinary staff members are carrying out the treatment plan. Plans for future interventions and recommendations for revision of the treatment plan. Liaison with other physicians/providers. Progress Note: Medication list reviewed. Case and treatment plan discussed in team meeting. Staff reports that the patient is entitled. Irritable and rude toward staff. Withdrawn and isolative. Refused labs. Complained of ankle pain. Requesting change in Motrin order. Remains depressed, withdrawn and irritable. Patient seen at 1:47 pm. Ambulatory WM. States he is here because "well I've been struggling with suicidality and depression for almost the past 8 years." Talked about father dying from polydrug overdose. Affect is depresssed. Reports SI and depression returned about 2 weeks ago but he has had SI only once in the past 2 days. Notices no change off of lithium. Started Prozac today. Sad ~4/10. Anxiety 2/10. Denies feeling hopeless, helpless or guilty. Feels worthless. Denies active SI. Has intermittent passive SI. Denies HI, AH and VH. Reports he had some bad dreams last night about his father. Ox3. Sleep: reports MNA due to weird dreams. Appetite okay. Energy groggy in the mornings. Reports he hs homeless and lives in a tent. IMPRESSION: Slow progress. Continue present treatment plan. Monitor response to initiation of Prozac. Continues to require inpatient level of care. I have changed Motrin to 800 mg q6h prn NTE 3x/24 hours.
[2016-09-27 15:52] VITALS: BP 125/69
[2016-09-27 20:29] VITALS: BP 132/76
[2016-09-28 08:32] VITALS: BP 116/69
--- NOTE | 2016-09-28 10:53 | CP SOUTH PROGRESS NOTE PSYCH ---
Psych (Inpt) Progress Note Progress Note Include the following elements, when applicable: Involvement in the active treatment of the patient with behavioral observations of the patient and the patient's response to the treatment. Review of the ongoing treatment process in the context of the treatment plan. Indication of how multi-disciplinary staff members are carrying out the treatment plan. Plans for future interventions and recommendations for revision of the treatment plan. Liaison with other physicians/providers. Progress Note: [I discussed this patient's progress to date, current mental status, treatment process in the context of the treatment plan, and discharge planning with staff/ team in the daily morning inpatient team meeting. I also met with the patient myself in individual session.] SUBJECTIVE: "I'm hanging in." OBJECTIVE: Current Medications Sig/Mike Start time Last Medication Dose Route Stop Time Status Admin Fluoxetine HCl 20 MG 0800 09/27 0800 AC 09/28 PO 0823 Ibuprofen 800 MG Q6P PRN 09/27 1400 AC 09/27 PO 1547 Ibuprofen 600 MG Q8P PRN 09/26 1830 DC 09/27 PO 0759 Lubiprostone 24 MCG BID 09/22 1000 AC 09/28 PO 0823 Methadone HCl 90 MG DAILY 09/23 1000 AC 09/28 PO 0823 Nicotine 21 MG DAILY 09/23 1000 AC 09/28 TOP 0822 Nicotine 4 MG Q2 HRS NEEDED PRN 09/22 1645 AC 09/28 PO 0828 Omeprazole 40 MG DAILY AC 09/23 0700 AC 09/28 PO 0823 Prazosin HCl 5 MG QPM 09/22 2200 AC 09/27 PO 2117 Quetiapine Fumarate 50 MG Q8P PRN 09/26 1245 AC PO Quetiapine Fumarate 200 MG AT BEDTIME 09/22 2200 AC 09/27 PO 2117 Sodium Chloride 2 SPRAY Q4P PRN 09/24 1945 AC 09/28 ROMERO 0829 Testosterone 5 GM 0800 09/26 1400 AC 09/28 TOP 0823 Vital Signs Date Time Temp Pulse Resp B/P Pulse O2 O2 Flow FiO2 Ox Delivery Rate 09/28 0832 97.1 77 116/69 09/27 2117 96.9 61 18 132/76 09/27 2029 96.9 61 132/76 09/27 1552 60 125/69 09/27 1215 64 125/71 Lab ALT 128 U/L H 09/21/16 1915 AST 62 U/L H 09/21/161914 ASSESSMENT: Met with the patient today, who was A&Ox4. Speech was normal in rate, tone and volume. Eye contact was mostly appropriate. He reported intermittent passive suicidal ideation, denied plans and intent. He reported feeling hopeless, helpless, and worthless. He was unable to clearly identify the triggers to these feelings, and reported "it's just my life situation." He reported sleep and appetite were good. He reported his depression as 4-5/10 (10 being the worst), and anxiety of 0/10 (10 being the worst). He denied homicidal ideation, plans and intent. He denied auditory and visual hallucinations. He reported improved energy on Prozac, and denied symptoms of hypomania/annita. There was no evidence of signs/symptoms of hypomania/annita. There was no evidence of paranoia or of nadira delusions. Thought process was organized and linear. Thought content was appropriate. Insight and judgement were poor. The patient reported tolerating all medications well and denied untoward medications effects. He reported that increased Ibuprofen to 800mg TID had good effect on ankle pain. Patient was agreeable to continue current medications. Reviewed with the patient elevated ALT and AST lab results (see results in above objective section) from hospital admission. Patient reported no prior history of hepatic disorder or Hepatits. He reported a past history of IVDU, but denied current IVDU. Patient was educated on hepatitis testing, verbalized understanding of education and verbally consented to hepatitis testing. Order placed. PLAN: 1. Continue current medications. 2. Continue monitoring the patient on unit for safety, mood and suicidal ideation. 3. Hepatitis panel, repeat ALT/AST ordered. TSH ordered as it was not collected on admission. 4. Dispo planning per primary team.
--- NOTE | 2016-09-28 11:24 | SOCIAL WORKER PROG NOTE PSYCH ---
Social Work Progress Note Progress Note Called [facility] [phone] to try and speak with someone in regards to Mark's treatment. I was transferred to a wet pour supervisor's voicemail (Jennifer Maxwell? ). I left a message. Also left another message for Dianne Jacobs. Prompted Mark out of bed to meet. He was not asleep, but resting due to having a bad headache. I encouraged him not to isolate today and to get to some groups. He said he would, he was just hoping his headache would go away. Encouraged him to stay hydrated, as he said he had a nose bleed and the air in here is dry. Informed him of the follow up phone calls I've made. He said he has been trying to call his [facility] worker as well and has not gotten an answer. I told him that the treatment team at this point is looking at Saturday as a possible discharge. We talked about what the plan would be if he didn't have a place to go. He said he will most likely go to an overflow care home again in [place]. I asked if he had gone through . He said that he did that a couple of months ago, but they didn't do anything for him and he doesn't have a phone for them to contact him. He doesn't want to call them again. Asked about his mood today, he stated it's getting better. Denies any suicidal thoughts today. Received a call from Evelyn Johnson at [facility]. She works with Dr. Sandoval. She is not a therapist, she's a nurse. I asked about additional services for Mark, stating he could benefit from a therapist and case management. She said she will pass this along to Dr. Sandoval. They don't have counter caser right now and she and the therapists help out in that way. We talked about housing and there didn't seem to be anything they could help with. He is allowed to come to their groups without having a clinician and she can refer him to any group he feels he would benefit from. She and Dr. Sandoval will see him on 10/04 at 1pm. Mark spoke with Dianne Jacobs and came to my office frustrated after the call, stating that Dianne is giving him the "run around". Apparently she told him that she will need to get records from the hospitals and all the places he has been in the past year to verify that he has been homeless. He reported giving her a timeline of all of this history and felt frustrated that things haven't progressed at this point.
[2016-09-28 12:15] VITALS: BP 115/73
[2016-09-28 15:59] VITALS: BP 123/88
[2016-09-28 19:49] VITALS: BP 130/63
[2016-09-29 07:57] VITALS: BP 122/72
[2016-09-29 12:11] VITALS: BP 111/62
--- NOTE | 2016-09-29 12:30 | CP SOUTH PROGRESS NOTE PSYCH ---
Psych (Inpt) Progress Note Progress Note Include the following elements, when applicable: Involvement in the active treatment of the patient with behavioral observations of the patient and the patient's response to the treatment. Review of the ongoing treatment process in the context of the treatment plan. Indication of how multi-disciplinary staff members are carrying out the treatment plan. Plans for future interventions and recommendations for revision of the treatment plan. Liaison with other physicians/providers. Progress Note: Medication list reviewed. Patient known to me from my having recently rounded on him. Case discussed with nurse, who reported that the patient was out in the milieu last night. Staff asked him to change the channel on the TV because there was content with drugs and violence. Patient became verbally abusive towards staff. He was isolating in his room this morning. TSH this morning was high at 4.8. Patient was asleep in his room at 11:06 AM but was easily awakened and met with me in the office. Reports he is okay. Appears mildly fatigued. Reports he was taking a nap and is feeling tired. Complains of dry air and dry mouth. Affect is calm and blunted. Mood is good. Reports he had brief suicidal ideation yesterday; it lasted a couple of minutes. He reports he was stressed because a staff member irritated the patient about needing to change the TV channel. Mood is okay. Rates sad mood 4/10 and anxiety 2/10. Denies feeling hopeless, helpless, worthless or guilty. Denies active and passive suicidal ideation. Denies homicidal ideation. Denies auditory and visual hallucinations and paranoid ideation. Reports sleep was okay but he still has some nightmares, dreams about his father. Nonetheless, patient thinks that his prazosin is helping. Appetite is good. Describes energy as "it's actually been a lot better lately." Tolerating medications except for constipation. MiraLAX is helping and patient has been continued on Amitiza, a home medication. IMPRESSION: Slow progress. Continue present treatment plan. Continues to require inpatient level of care. Patient will need follow-up for elevated TSH.
[2016-09-29 15:56] VITALS: BP 134/62
[2016-09-29 19:51] VITALS: BP 138/82
[2016-09-30 07:44] VITALS: BP 127/71
--- NOTE | 2016-09-30 11:25 | CP SOUTH PROGRESS NOTE PSYCH ---
Psych (Inpt) Progress Note Progress Note Include the following elements, when applicable: Involvement in the active treatment of the patient with behavioral observations of the patient and the patient's response to the treatment. Review of the ongoing treatment process in the context of the treatment plan. Indication of how multi-disciplinary staff members are carrying out the treatment plan. Plans for future interventions and recommendations for revision of the treatment plan. Liaison with other physicians/providers. Progress Note: Case discussed with RN, who reported that the patient slept well but awoke with irritable affect. Patient seen at 10:27 a.m. Was asleep in bed but got up and met with me in office. Reports doing ok. Has no complaints besides dry nose (despite saline spray). Appears to have bilateral perleches and reports using Vaseline for them. Affect is calm and blunted. Reports mood is good. Sad 3/10. Anxiety 0/ 10. Denies feeling hopeless, helpless, worthless or guilty. Denies active and passive SI, HI, AH, VH and PI. Reports he slept but still had really weird dreams. Appetite good. Energy "pretty good." IMPRESSION: Slow progress. Continue present treatment plan. Will increase prazosin to 6 mg qhs to address nightmares.
[2016-09-30 12:20] VITALS: BP 116/65
[2016-09-30 15:29] VITALS: BP 127/82
[2016-09-30 20:14] VITALS: BP 125/76
[2016-10-01 07:54] VITALS: BP 131/64
[2016-10-01 12:04] VITALS: BP 123/76
--- NOTE | 2016-10-01 14:20 | CP SOUTH PROGRESS NOTE PSYCH ---
Psych (Inpt) Progress Note Progress Note Include the following elements, when applicable: Involvement in the active treatment of the patient with behavioral observations of the patient and the patient's response to the treatment. Review of the ongoing treatment process in the context of the treatment plan. Indication of how multi-disciplinary staff members are carrying out the treatment plan. Plans for future interventions and recommendations for revision of the treatment plan. Liaison with other physicians/providers. Progress Note: Case and treatment plan discussed in team meeting. Staff reports that the patient has been refusing groups. Refused blood work this morning. Interacts with peers. Patient seen. He was resting in bed 11:31 AM but got up and met with me in the office. Affect is calm and blunted to euthymic. Reports he is doing all right. Reports he did not get a lot of sleep last night. Reports he was up and down a lot, about 4-5 times, and he does not know why. He did not recall any nightmares. Reports that dry mouth might have awakened him. Mood is decent. Rates sad mood 3/10 and anxiety 1/10. Denies feeling hopeless, helpless, worthless or guilty. Denies active and passive suicidal ideation. Denies homicidal ideation. Denies auditory and visual hallucinations and paranoid ideation. Reports appetite is decent, normal. Describes energy as normal. Tolerating medications well, without complaint. Patient is reluctant to discharge tomorrow. I reviewed patient's high TSH with him, and he is now agreeable to having a blood draw. IMPRESSION: Slow progress. Continue present treatment plan. Anticipate likely discharge tomorrow.
[2016-10-01 15:41] VITALS: BP 131/79
--- NOTE | 2016-10-01 15:42 | SOCIAL WORKER PROG NOTE PSYCH ---
Social Work Progress Note Progress Note Patient reports feeling better. He stays to himself much of the time, and I spoke to him in his room. Patient states not a lot was able to be accomplished due to State holidays, and so, no contact with [facility] or [facility] worker. Patient is hopeful to get appointments; and respite housing if he can, as opposed to having to stay in the [facility]. He hopes bernard more progress tomorrow.
[2016-10-01 19:51] VITALS: BP 141/77
[2016-10-02 07:59] VITALS: BP 128/77
--- NOTE | 2016-10-02 08:17 | CP SOUTH PROGRESS NOTE PSYCH ---
Psych (Inpt) Progress Note Progress Note Include the following elements, when applicable: Involvement in the active treatment of the patient with behavioral observations of the patient and the patient's response to the treatment. Review of the ongoing treatment process in the context of the treatment plan. Indication of how multi-disciplinary staff members are carrying out the treatment plan. Plans for future interventions and recommendations for revision of the treatment plan. Liaison with other physicians/providers. Progress Note: [Chart, medications, and labs reviewed.I discussed this patient's progress to date, current mental status, treatment process in the context of the treatment plan, and discharge planning with staff/ team in the daily morning inpatient team meeting. I also met with the patient myself in individual session.] SUBJECTIVE: "I feel good." OBJECTIVE: Current Medications Sig/Mike Start time Last Medication Dose Route Stop Time Status Admin Fluoxetine HCl 20 MG 0800 09/27 0800 AC 10/02 PO 0810 Ibuprofen 800 MG Q6P PRN 09/27 1400 AC 10/02 PO 1109 Lubiprostone 24 MCG BID 09/22 1000 AC 10/02 PO 0810 Methadone HCl 90 MG DAILY 10/01 1000 AC 10/02 PO 0810 Nicotine 21 MG DAILY 09/23 1000 AC 10/02 TOP 0811 Nicotine 4 MG Q2 HRS NEEDED PRN 09/22 1645 AC 10/02 PO 1110 Omeprazole 40 MG DAILY AC 09/23 0700 AC 10/02 PO 0703 Polyethylene Glycol 17 GM 0800 PRN 10/02 1126 AC PO Polyethylene Glycol 17 GM 0800 10/01 0800 DC PO Prazosin HCl 6 MG QPM 09/30 2200 AC 10/01 PO 2222 Quetiapine Fumarate 50 MG Q8P PRN 09/26 1245 AC 09/28 PO 1213 Quetiapine Fumarate 200 MG AT BEDTIME 09/22 2200 AC 10/01 PO 2222 Sodium Chloride 2 SPRAY Q4P PRN 09/24 1945 AC 10/02 ROMERO 0904 Testosterone 5 GM 0800 09/26 1400 AC 10/02 TOP 0811 Vital Signs Date Time Temp Pulse Resp B/P Pulse O2 O2 Flow FiO2 Ox Delivery Rate 10/02 1230 81 138/79 10/02 0759 97.0 88 128/77 10/01 2222 97.0 76 18 141/77 10/01 1951 97.0 76 141/77 10/01 1541 67 131/79 ASSESSMENT: Met with the patient today, on the date of discharge. He appeared alert and oriented to person, place, time and situation. He had no complaints. He reported his mood as "good." Affect appeared calm and blunted. He showed appropriate eye contact. He reported his depression 0/10 (10 being the worst) and his anxiety 2/ 10 (10 being the worst). He denied feeling hopeless, helpless, and worthless. He denied passive and active suicidal ideation, plans and intent. He identified the protective factors of his "son" and to "work toward getting an apartment." He denied homicidal ideation. He stated and also believes he will not harm himself or others. There was no evidence of psychosis, paranoid ideation or nadira delusions. Thought process was organized, linear and goal-directed. Thought content was appropriate. Patient denied auditory and visual hallucinations. The patient appeared motivated to continue taking prescribed medications, and to follow-up with Dr. Sandoval at [facility] on , 10/04/16 at 1PM for medication management. He was also scheduled an appointment with PCP Dr. Saenz at [facility] in [place], [place] on 10/10/16 at 10:40AM to follow-up regarding abnormal TFTs. The patient verbalized understanding of all scheduled appointments. He reported tolerating all medications well, and denied untoward medication effects. Patient reported feeling safe and ready for discharge. PLAN: 1. [facility]. 2. Follow-up for medication management at [facility] on , 10/04/16 at 1PM. 3. Follow-up with PCP Dr. Saenz at [facility] in [place], [place] on at 10:40AM for abnormal TFTs. 4. All discharge prescriptions were printed, reviewed, and provided to the patient on discharge. 5. In the event of an emergency, call [phone] to nearest emergency department. Patient verbalized understanding of all instruction.
--- NOTE | 2016-10-02 10:34 | SOCIAL WORKER PROG NOTE PSYCH ---
Social Work Progress Note Progress Note Mark was in bed this morning. I talked with him about discharging today. He seemed slightly irritated and stated nothing has been set up for him yet. I told him about the conversation that I had with his clinician at [facility] on Saturday and informed him that I did advocate for him to get an individual therapist. Informed him that he can attend any groups there and that he will need to be referred by his clinician. She said she would be happy to do that for him and she will see him at his appt. this 10/[address] Sandoval. He [facility] I told him that I didn't realize that he wanted a referral there and I thought he had refused when I asked him last week. I told him we could make the referral today, but he would need to follow up after discharge. A call was made to [facility] in [place] and we were told that Mark was not welcome back to their program or [facility], but they did not give the specific as to why. I mentioned this to Mark, who seemed surprised and stated he didn't know why. He was ok with the idea of needing to go to the [facility] today. He was given bus fare and a bus schedule. He said he probably would head over to [facility] and to the [facility]. He was also given a follow up appt. for Dr. Saenz at [facility] in [place]. Appt. is 10/10/16 10:40am.
[2016-10-02] MEDS ORDERED: FLUOXETINE HCL20 M2 PO (11:21)
[2016-10-02] MEDS ORDERED: PRAZOSIN HCL2 M1 PO (11:21)
[2016-10-02] MEDS ORDERED: OMEPRAZOLE20 M2 PO (11:21)
[2016-10-02] MEDS ORDERED: QUETIAPINE FUM100 M1 PO (11:21)
[2016-10-02] MEDS ORDERED: IBUPROFEN800 M1 PO (11:21)
[2016-10-02] MEDS ORDERED: NICOTINE PATCH1 EAC3 TOP (11:21)
[2016-10-02] MEDS ORDERED: NICORELIEF4 MG PO (11:21)
[2016-10-02] MEDS ORDERED: AMITIZA24 MC1 PO (11:21)
[2016-10-02] MEDS ORDERED: PROTONIX40 M3 PO (11:24)
--- NOTE | 2016-10-02 11:38 | DISCHARGE SUMMARY REPORT-PSYCH ---
Visit Information Visit Dates/Diagnosis' Admission Date: 09/22/16 Discharge Date: 10/02/16 Reason for Admission: Suicidal ideation Psy Discharge Primary Diag: MDD, recurrent, severe Psy Discharge Secondary Diag: PTSD; Opioid use disorder, severe (on methadone maintenance); Benzodiazepine use disorder, moderate; IBS; GERD. Hospital Course Significant Lab Findings: Lab Cholesterol 217 MG/DL H 09/23/16 0632 Free T4 0.74 ng/dL L 10/01/16 1158 TSH 4.800 uIU/mL H 09/29/16 0645 TSH &T3 &Free T4 Intrp 4.980 uIU/mL H 10/01/16 1158 Triglycerides 258 mg/dL H 09/23/16 0632 Hep B Core IgM Ab Conf NONREACTIVE 09/29/16 0645 Hep Bs Antigen NONREACTIVE 09/29/16 0645 Hepatitis A IgM Ab NONREACTIVE 09/29/16 0645 Hepatitis C Antibody NONREACTIVE 09/29/16 0645 Course Complications: None. Consultations: The patient was seen for admission history and physical by Dr. Jasmin Mccarthy. Please see MD note for additional information. Allergies: Coded Allergies: chlorpromazine (From THORAZINE) (Severe, ANAPHYLAXIS 09/21/16) fluphenazine (From PROLIXIN) (Severe, ANAPHYLAXIS 09/21/16) haloperidol (From HALDOL) (Severe, ANAPHYLAXIS 09/21/16) Uncoded Allergies: RESPERIDOL (Severe, ANAPHYLAXIS 09/21/16) Hospital Course/TX Response: The patient was monitored on the unit for safety, suicidal ideation, and mood. He participated in multimodal treatments on the unit. Once admitted to [facility], he refused to continue Marblemount Carbonate 450mg BID, as he felt it was not effective on targeting his depression. Marblemount Carbonate 450mg BID was discontinued, in addition to Lexapro 20mg every morning, as he felt Lexapro was also not helping target his depression. He had expressed that in the past he did well on Prozac ( up to 40mg daily). Prozac 20mg was started and maintained during hospital course. Additionally, the patient's home medications including Methadone 90mg daily, Seroquel 200mg at bedtime, Amitiza 24mcg twice a day and Androgel topical were continued. Home Prazosin was increased from 5mg to 6mg at bedtime to target nightmares. Prilosec 40mg was substituted for home Protonix 40mg due to being non-formulary in hospital. The patient tolerated medication well and denied untoward medication effects. During hospital course, the patient's mood and affect improved. Suicidal ideation remitted. He could not identify any family or friends to be involved in a family meeting. Collateral information was obtained from his outpatient psychiatrist at [facility] Dr. Sandoval. Please see this movie writer's progress notes for additional information on collateral. The patient was in favor of continuing aftercare treatment at [facility] with Dr. Sandvoal for medication management, and returning to a snf in [place], [place]. An appointment was scheduled for the patient with Dr. Sandoval at [facility] on 10/04/16 at 1PM. The patient was agreeable to following up with [facility], and continuing Methadone maintenance at [facility] in [place], [place]. On the date of discharge, 10/02/16, the patient was alert and oriented to person, place, time and situation. He had no complaints. He reported his mood as "good. " Affect appeared calm and blunted. He showed appropriate eye contact. He reported his depression 0/10 (10 being the worst) and his anxiety 2/10 (10 being the worst). He denied feeling hopeless, helpless, and worthless. He denied passive and active suicidal ideation, plans and intent. He identified the protective factors of his "son" and to "work toward getting an apartment." He denied homicidal ideation. He stated and also believed he will not harm himself or others. There was no evidence of psychosis, paranoid ideation or nadira delusions. Thought process was organized, linear and goal-directed. Thought content was appropriate. Patient denied auditory and visual hallucinations. The patient appeared motivated to continue taking prescribed medications, and to follow-up with Dr. Sandoval at [facility] on , 10/04/16 at 1PM for medication management. He was also scheduled an appointment with PCP Dr. Saenz at [facility] in [place], [place] on 10/10/16 at 10:40AM to follow-up regarding abnormal TFTs and elevated cholesterol and triglycerides. The patient verbalized understanding of all scheduled appointments. He reported tolerating all medications well, and denied untoward medication effects. Patient reported feeling safe and ready for discharge. Discharge HBIPS - Tobacco Use Treatment Offered Post DC Medications Offered: Script Given-See Med List Post DC Tobacco Treatment Plan: Refused Tobcco Tx Pgm - EtOH/Drug Use D/O Treatment Offered Post DC Medications Offered: Med Not Indicated for D/O Post DC EtOH/SubAbuse TX Plan: Other SubAbuse/Dual Pgm Program Appt Date: 10/04/16 Program Appt Time: 1300 Metabolic Screening - Screen if on a Neuroleptic Medication - Metabolic screening should include: - Blood Pressure, BMI, Glucose or Hgb A1c, & a - Lipid profile from within the past 365 days. Metabolic Screening () Not Applicable, patient not on a neuroleptic. OR ([X]) Patient on a neuroleptic(s) . Enter below results for Glucose or Hemoglobin A1C, and lipid panel if obtained during the last 365 days. BMI: Blood Pressure: 138/79 Laboratory Results (If applicable): Lab Cholesterol 217 MG/DL H 09/23/16 0632 Cholesterol/HDL Ratio 5 % H 09/23/16 0632 Glucose 83 mg/dL 09/21/16 1915 HDL Cholesterol 47 mg/dL 09/23/16 0632 LDL Cholesterol, Calc 119 mg/dL 09/23/16 0632 Triglycerides 258 mg/dL H 09/23/16 0632 Discharge Instructions General Discharge Information Discharge Medications: Discharge Medications- (Dose, route, freq, indication): HOME MEDICATION LIST START taking these NEW Home Medications: Nicotine Polacrilex Dose: ORAL, EVERY 2 HOURS Qty: 30 Printed (Nicorelief) 4 MG 4 Milligram NEEDED as needed for Refills: 0 GUM tobacco craving Take 1 piece by mouth every 2 hours as needed for tobacco craving. Last Taken:10/02/16 Time:1110 Nicotine (Nicotine Dose: On the skin, DAILY for Qty: 14 Printed Patch) 21 MG/24 HOUR 21 Milligram smoking cessation Refills: 0 PATCH.TD24 Apply 1 patch topically every morning and remove before bedtime. Last Taken:10/02/16 Time:0810 Prazosin HCl Dose: ORAL, Every night for Qty: 42 Printed (Prazosin HCl) 2 MG 6 Milligram nightmares Refills: 0 CAPSULE Take 3 capsules (6mg) by mouth at bedtime. Last Taken:10/01/16 Time:2222 Ibuprofen Dose: ORAL, EVERY SIX HOURS Qty: 42 Printed (Ibuprofen) 800 MG 800 Milligram NEEDED as needed for Refills: 0 TABLET PAIN SCALE 4-6 (MODERATE) Take 1 tablet (800mg) by mouth every 6 hours as needed for moderate pain. Do not exceed 3 doses in 24 hours. Last Taken:10/02/16 Time:1109 Fluoxetine HCl Dose: ORAL, DAILY @8 AM for Qty: 14 Printed (Fluoxetine HCl) 20 20 Milligram depression/anxiety Refills: 0 MG CAPSULE Take 1 capsule by mouth every morning. Last Taken:10/02/16 Time:0810 Quetiapine Fumarate Dose: ORAL, AT BEDTIME for Qty: 28 Printed (Quetiapine 200 Milligram insomnia/mood Refills: 0 Fumarate) 100 MG stabilization TABLET Take 2 tablets (200mg) by mouth at bedtime. Last Taken:10/01/16 Time:2221 Lubiprostone Dose: ORAL, TWICE DAILY for IBS Qty: 28 Printed (Amitiza) 24 MCG 24 Microgram Take 1 capsule by mouth Refills: 0 CAPSULE twice a day. Last Taken:10/02/16 Time:08 Pantoprazole Sodium Dose: ORAL, DAILY BEFORE Qty: 14 Printed (Protonix) 40 MG 40 Milligram BREAKFAST for GERD Refills: 0 TABLET.DR Take 1 tablet by mouth every morning before breakfast. NOT TAKEN IN HOSPITAL All above prescription were printed and reviewed with patient today, 10/02/16, prior to discharge. Patient verbalized understanding of all prescriptions. CONTINUE taking these Home Medications: Testosterone (Androgel) Dose: On the skin, DAILY for 20.25/1.25 GEL..[employer] 1.262 Percent LOW TESTOSTERONE Last Taken:10/02/16 Time:0810 Methadone HCl (Methadone Dose: ORAL, DAILY for HCl) 5 MG TABLET 90 Milligram methadone maintenance Last Taken:10/02/16 Time:08 STOP taking these DISCONTINUED Home Medications: Methadone Hydrochloride Dose: ORAL, DAILY for MOOD STABILITY (Methadone HCl) 10 MG TABLET 1 Tablet Reason Stopped: Changed Dose Marblemount Carbonate (Marblemount Dose: ORAL, TWICE DAILY for DEPRESSION Carbonate ER) 450 MG TABLET.ER 1 Tablet Reason Stopped: Per Doctor Decision Escitalopram Oxalate (Lexapro) Dose: ORAL, DAILY for DEPRESSION 20 MG TABLET 1 Tablet Reason Stopped: Per Doctor Decision Multiple Neuroleptics: ([X]) Not Applicable OR Document below three failed attempts at monotherapy, or a plan to taper to monotherapy, or augmentation of Clozapine. () Patient's Diet: Regular. Patient's Activity: No restrictions. DC Disposition: Patient to return to snf in [place], [place]. Recommendations: The patient was advised to please take medications. He was advised to abstain from all substances. He was advised to follow-up with [facility] in [place], [place] to continue methadone manitenance. He was advised to follow-up with appointment with Dr. Sandoval on 10/04/16 at 1PM. He was advised to follow-up with PCP Dr. Campa at [facility] in [place], [place] on 10/10/16 at 10:40AM regarding abnormal TFTs and elevated cholesterol and triglycerides. Patient was advised that in the event of an emergency, to call 211/[phone]/ or go to nearest emergency department. Patient verbalized understanding of all instructions. Referred To: [facility] [address] [place] [address] (t) [phone] Medication management appointment scheduled on 10/04/[address] Sandoval. [facility] [address] [place] [address] [phone])[phone] Appointment scheduled on 10/10/16 at 10:40AM with PCP Dr. Saenz. [address] [address] [phone])[phone] Walk-in to resume daily methadone maintenance on 10/03/16. Copies To: [facility]; Dr. Sandoval; Dr. Saenz
[2016-10-02] MEDS ORDERED: METHADONE HCL5 MG PO (11:54)
[2016-10-02 12:30] VITALS: BP 138/79
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
== END 2016-10-02 13:30 | DRG 751 ==
LOC: ERH 17:49 → CP SOUTH 09-22 11:18 → ERHI 09-22 11:18 → CP SOUTH 09-22 14:58
PROVIDERS: Physician Assistant; Psychiatry & Neurology Psychiatry; ADMIT Psychiatry & Neurology Psychiatry
DX: F33.9 Major depressive disorder, recurrent, unspecified (principal); F43.10 Post-traumatic stress disorder, unspecified; F11.90 Opioid use, unspecified, uncomplicated; F13.90 Sedative, hypnotic, or anxiolytic use, unspecified, uncomplicated; K58.9 Irritable bowel syndrome, unspecified; K21.9 Gastro-esophageal reflux disease without esophagitis
CPT/HCPCS: 36415; 93005; 93010; G0463; G0479; G0480; J1885

== ENCOUNTER 2017-01-11 13:36 | Inpatient (IN) | payer OTHER ==
[~2017-01-11] VITALS: Ht 184.2 cm; Wt 116.3 kg
[~2017-01-11 13:36] MED LIST: AMITIZA24 MC1 PO; FLUOXETINE HCL20 M2 PO; IBUPROFEN800 M1 PO; LEXAPRO20 M1 PO; LITHIUM CARBON450 M1 PO; METHADONE HCL10 M1 PO; METHADONE HCL5 MG PO; MINIPRESS5 MG PO; NICORELIEF4 MG PO; NICOTINE PATCH1 EAC3 TOP; OMEPRAZOLE20 M2 PO; PRAZOSIN HCL2 M1 PO; PROTONIX40 M3 PO; QUETIAPINE FUM100 M1 PO; SEROQUEL200 M1 PO
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
--- NOTE | 2017-01-11 13:59 | NUR ---
Informed waiting has been performed.
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
[2017-01-11 14:51] LABS: ABSOLUTE BASOPHIL COUNT 0 /CUMM (0.0-0.2); ABSOLUTE EOSINOPHIL COUNT 0.1 /CUMM (0.0-0.7); ABSOLUTE MONOCYTE COUNT 0.2 /CUMM (0.10-0.60); BASOPHIL % 0.4 % (0.0-2.0); EOSINOPHIL % 1.6 % (0-5); GRANULOCYTE % 55.8 % (42.2-75.2); MEAN CORPUSCULAR HGB 29.7 PG (27.0-31.0); MEAN CORPUSCULAR HGB CONC 33.3 G/DL (33.0-37.0); MEAN CORPUSCULAR VOLUME 89.1 FL (80.0-94.0); MEAN PLATELET VOLUME 9.4 FL (7.4-10.4); PLATELET COUNT 164 /CUMM (130-400); RBC DISTRIBUTION WIDTH 15.2 % (11.5-14.5); WHITE BLOOD CELL COUNT 5.4 /CUMM (4.8-10.8)
--- NOTE | 2017-01-11 14:57 | NUR ---
PT EVALUATED BY DR MAXWELL. BLOODWORK AND URINE TRIO SENT TO LAB BY [facility] [[email or web address] PT REMAINS CALM AND COOPERATIVE, NO COMPLAINTS AT THIS TIME.
[2017-01-11] MEDS ORDERED: PROZAC40 M1 PO (15:22)
[2017-01-11] MEDS ORDERED: MIRTAZAPINE15 M2 PO (15:23)
[2017-01-11] MEDS ORDERED: HYDROXYZINE HCL50 M1 PO (15:25)
[2017-01-11] MEDS ORDERED: NICOTINE LOZENGE4 MG PO (15:28)
--- NOTE | 2017-01-11 15:30 | NUR ---
RECEIVED REPORT ON PT FROM NURSE KRUSE, PT NOTED RESITING ON STRETCHER AND REQUESTING FOR SOMETHING TO EAT. PT INFORMED MEAL WILL BE GIVEN SOON AT ABOUT 1600
--- NOTE | 2017-01-11 15:52 | NUR ---
PT OFFERED MEAL TRAY AND REQUESTING A NICOTINE PATCH WILL INFORM
--- NOTE | 2017-01-11 17:47 | NUR ---
PT MEDICATED ORDERED WITH INCOTINE PATCH TO RT SHOULDER
--- NOTE | 2017-01-11 19:06 | NUR ---
CRISTHI[facility] ARAGON Nurse Note by: STEPHANIA MILTON I agree with the LASTING ROOM MACHINE OPERATOR findings/evaluation of this patient's condition. Entered by: STEPHANIA MILTON Date: 01/11/17 Time: 2125
--- NOTE | 2017-01-11 19:20 | NUR ---
PT LYING ON SIDE OF BED. NO COMPLAINTS OFFERED AT THIS TIME. SITTER IN PLACE. WILL CONTINUE TO MONITOR.
--- NOTE | 2017-01-11 19:32 | NUR ---
CRISIS COUNSELOR AT BEDSIDE.
--- NOTE | 2017-01-11 20:04 | NUR ---
BOXED LUNCH GIVEN
--- NOTE | 2017-01-11 20:05 | ED PSYCH CRISIS CONSULTATION ---
See Addendum Crisis Consult Basic Assessment Date of Consult: 01/11/17 Responsible Person/Accompanied By: Self Insurance Authorization: Insurance #1: Insurance name: KRISTOPHER CAUSEY Phone number: Policy number: [id number] Group number: Authorization number: ED Provider: Patient's ED Provider: DELMY MAXWELL MD Primary Care Physician: Patient's PCP: DANDY CONDON MD PCP's Current Psychiatrist: Dr. Delmy Horowitz Chief Complaint: Psychiatric Related Complaint Patient's Quote: " I will take pills and kill myself" Present Illness: Pt is a 31 year old homeless single male BIBA for suicidal ideation. Pt reports he will overdose by taking medication" I will go to and gets pills and kill myself". Pt has was recently treated at [facility] for suicide ideation on Sunday January 08, 2017. He reports being treated and discharge, the PT then reports returning to the emergency room for suicidal ideation discharge and then went to the Methadone clinic [facility] to be medicated for Opiate addiction. He reports being on 90 mg of Methadone. Pt reports still having suicidal ideation and the [facility] called 911 BIBA to the emergency room. Pt denies any homicidal ideation, denies and auditory or visual hallucination. He was oriented x3. Pt reports a history of Opiate use, Cocaine use, and Benzodiazepine use. Patient's Address: [address] [place] [address] Other Phone Number: Who Do You Live With? Other (see notes) (homeless) Family/Informants Interviewed: cannot be obtained due to (Pt homeless and reports no fa) Allergies - Coded Allergies: chlorpromazine (From THORAZINE) (Severe, ANAPHYLAXIS 01/11/17) fluphenazine (From PROLIXIN) (Severe, ANAPHYLAXIS 01/11/17) haloperidol (From HALDOL) (Severe, ANAPHYLAXIS 01/11/17) risperidone (TUNNEL VISION 01/11/17) Current Medications - Scheduled Medications Fluoxetine HCl (Prozac) 40 MG CAPSULE 1 CAP PO DAILY MENTAL HEALTH (Reported) Entered as Reported by JAVON FLORES on 01/11/17 3750 Lubiprostone (Amitiza) 24 MCG CAPSULE 24 MCG PO BID IBS #28 CAP Prescribed by LEYDI RYAN APRN on 10/02/16 Methadone HCl 5 MG TABLET 90 MG PO DAILY methadone maintenance (Reported) Entered as Reported by LEYDI RYAN APRN on 10/02/16 1154 Mirtazapine 15 MG TABLET 1 TAB PO QPM SLEEP (Reported) Entered as Reported by JAVON FLORES on 01/11/17 1523 Last Taken: 01/10/17 Nicotine (Nicotine Patch) 21 MG/24 HOUR PATCH.TD24 21 MG TOP DAILY smoking cessation #14 PATCH Prescribed by LEYDI RYAN APRN on 10/02/16 Nicotine Polacrilex (Nicotine Lozenge) 4 MG LOZENGE 10 ALAN PO DAILY SMOKING CESSATION (Reported) Entered as Reported by JAVON FLORES on 01/11/17 1528 Pantoprazole Sodium (Protonix) 40 MG TABLET.DR 40 MG PO DAILY AC GERD #14 TAB Prescribed by LEYDI RYAN APRN on 10/02/16 Prazosin HCl 2 MG CAPSULE 6 MG PO QPM nightmares #42 CAP Prescribed by LEYDI RYAN APRN on 10/02/16 Last Taken: Unknown Dose at an unknown date and time Quetiapine Fumarate 100 MG TABLET 200 MG PO AT BEDTIME insomnia/mood stabilization #28 TAB Prescribed by LEYDI RYAN APRN on 10/02/16 Last Taken: Unknown Dose at an unknown date and time Testosterone (Androgel) (Unknown Strength) 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[place] TOP DAILY LOW TESTOSTERONE (Reported) Entered as Reported by DEREK GEIGER on 09/22/16 1602 Scheduled PRN Medications Hydroxyzine HCl 50 MG TABLET 1 TAB PO TID PRN ANXIETY (Reported) Entered as Reported by JAVON FLORES on 01/11/17 1525 Ibuprofen 800 MG TABLET 800 MG PO Q6P PRN PAIN SCALE 4-6 (MODERATE) #42 TAB Prescribed by LEYDI RYAN APRN on 10/02/16 Laboratory Results: Laboratory Tests 01/11/17 1450: Urine Opiates Screen < 100.00, Methadone Screen > 735 H, Barbiturate Screen < 60, Ur Phencyclidine Scrn 7.60, Amphetamines Screen < 100, U Benzodiazepines Scrn < 85, Urine Cocaine Screen 94, Urine Cannabis Screen < 5.00 01/11/17 1440: Anion Gap 12, Estimated GFR > 60, BUN/Creatinine Ratio 20.0, Glucose 126 H, Calcium 9.9, CBC w Diff NO MAN DIFF REQ, RBC 4.60 L, MCV 89.1, MCH 29.7, RDW 15.2 H, MPV 9.4, Gran % 55.8, Lymphocytes % 38.0, Monocytes % 4.2, Eosinophils % 1.6, Basophils % 0.4, Absolute Granulocytes 3.0, Absolute Lymphocytes 2.0, Absolute Monocytes 0.2, Absolute Eosinophils 0.1, Absolute Basophils 0, PUBS MCHC 33.3, Serum Alcohol < 10.0 Past History Past Medical History Neurological: migraine, seizure, (WITHDRAWL TO BENZOS) EENT: sinusitis, HX MRSA Cardiovascular: NONE Respiratory: asthma Gastrointestinal: constipation, GERD, irritable bowel syndrome Hepatic: NONE Renal: NONE Musculoskeletal: NONE Psychiatric: anxiety, depression, opioid dependence, substance abuse, PTSD SI Endocrine: NONE Blood Disorders: NONE Cancer(s): NONE 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 Past Surgical History Surgical History: non-contributory Psychosocial History Strengths/Capabilities: Pt is motivated for treatment Physical Limitations (Interventions): None reported Psychiatric Treatment History Psych Treatment Psychiatric Treatment Yes Inpatient Treatment Yes Outpatient Treatment Yes Location of Treatment [facility] Reason for Treatment Suicidal ideation and Opaite Use Dates of Treatment 01/08/2017 Response to Treatment poor return to the emeregency room (poor) Diagnosis by History: Major Depressive disorder, severe, recurrent F 32.2 Substance Use/Abuse History Drug Use/Abuse 1 Substances Used/Abused Yes Substance Used/Abused Crack Cocaine First Use 15 years old Last Used Sunday, January 08, 2017 How much used/taken 10.00 How often occassionally. For how long since age 15 Route of use smoking Drug Use/Abuse 2 Substances Used/Abused Yes Substance Used/Abused Benzodiazepines First Use 15 year old Last Used Sunday January 08, 2017 How much used/taken 8 mg Klonopin How often occassionally For how long since age 15 Route of use oral Drug Use/Abuse 3 Substances Used/Abused Yes Substance Used/Abused Heroin First Use 17 years old Last Used 2008 How much used/taken various amount IV How often OCCASSIONALLY For how long 16 YEARS TO 2009 Route of use IV Substance Abuse Treatment Substance Abuse Treatment Past Substance Abuse TX Yes Inpatient Treatment No Outpatient Treatment Yes Location of Treatment [place], [place] Reason for Treatment Opiate Dependence Dates of Treatment 2008 to the present Response to Treatment good affect with Methadone Treatment Current Mental Status Mental Status Orientation: Person, Place, Situation Affect: Depressed, Hopeless, Sad Speech: WNL Neuro-vegetative: Energy Decreased, Helpless, Loss of Interest, Sleep Disturbance Appearance Appearance- Dress/Hygiene: Dressed in hospital clothing Behaviors Thought Process: WNL Thought Content: WNL Memory: WNL Insight: Poor SI/HI Risk Assessment Past Suicidal Ideation/Attempts Yes Current Suicidal Ideation/Att Yes Past Homicidal Ideation/Att: No Current Homicidal Ideation/Attempts No Degree of Intent: Plan, States Intent, I will go to the pharmacy and gets my meds, and overdose Danger To: Self Gravely Disabled: Lack of Insight, Poor Impulse Control, Poor Judgment Risk Factors: history of suicide atmpts, SA/MH hospitalized, substance abuse, isolate/no social support, poor impulse control, lives alone, limited support Lethality Ratin PTSD Checklist PTSD Score: PTSD Score: Response Value Disturbing memories,thoughts,images of stressful experience? Quite a bit 4 Disturbing dreams of stressful experience from past? Quite a bit 4 Suddenly acting/feeling as if reliving stressful experience? Quite a bit 4 Total 12 PTSD Done? pt unable to participate ED Management Sitter: Yes Restraints: No DSM5/PS Stressors/Medical Prob Diagnosis' (DSM 5, Stressors, Medical): Major Depressive Daisorder, recurrent servere without psychotic symptoms F32.2. Opiod Dependence F11.21 treated with Methadone,. Current GAF: 23 Comments: Pt was BIBA into the emregency room for suicide ideation. Pt was previously treated this week at [facility] for suicide ideation, Pt reports he will committ suicide by taking pills today. Pt has suicide ideation with a plan, consulted with Dr. Delmy Horowitz for inpatient psychiatric treatment to be stabilzed. Departure Disposition Psych Medical Clearance Date: 01/11/17 Medically Cleared at: 1844 Time Started: 1844 Time Ended: 1944 Psychiatrist Consulted: Dr. Delmy Horowitz Date Disposition Established: 01/11/17 Time Disposition Established: 1944 Plan for Disposition - Modality: Inpatient Psychiatry Facility: [facility] Rationale for Disposition: Pt was BIBA into the emregency room for suicide ideation. Pt was previously treated this week at [facility] for suicide ideation, Pt reports he will committ suicide by taking pills today. Pt has suicide ideation with a plan, consulted with Dr. Delmy Horowitz for inpatient psychiatric treatment to be stabilzed. Type of IP Admission: Voluntary Referrals ROSEANNA GERBER,DANDY Ndiaye (PCP/Family)
--- NOTE | 2017-01-11 20:17 | NUR ---
PT EATING FOOD TRAY ON BED. OFFERS NO COMPLAINTS AT THIS TIME. VITALS STABLE. SITTER REMAINS IN PLACE. WILL CONTINUE TO MONITOR.
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
--- NOTE | 2017-01-11 20:42 | SOCIAL WORKER SOCIAL HX PSYCH ---
Social History Basic Assessment Insurance Authorization: Insurance #1: Insurance name: KRISTOPHER CAUSEY Phone number: Policy number: [id number] Group number: Authorization number: Curr Source of Income/Entitlements: food stamps Primary Care Physician: Patient's PCP: DANDY CONDON MD PCP's Present Problem: Pt is a 31 year old homeless single male BIBA for suicidal ideation with a plan. The pt presented as sad, depressed, tearful, hopless and helpless. Pt reports worsening depression, decreased energy and motivation, normal appetite and interrupted sleep (2-3 hours per night). Pt reports current suicidal ideation with a plan. He states that he will overdose by taking medications. "I will go to the pharmacy and get pills and kill myself". Pt was recently evaluated at [facility] for suicidal ideation today and released. He reports being treated in the [facility] on 01/08/2017 for sucidal ideation and discharged on 01/10/17. Following today's dicharge, he went to the [facility] for Methadone Maintenance. He reports being on "90 mg" of Methadone and the dose was verified with [facility]. Pt reported to clinicians at [facility] that he had suicidal ideation and the [facility] called 911. He was brought in by ambulance to the [facility] ED. Pt denies any homicidal ideation and auditory or visual hallucinations. Pt reports a history of Opiate use, Cocaine use, and Benzodiazepine use. The patient continues to report worsening depression and ongoing suicidal ideation. The patient is of acute risk to self and in need of inpatietn admission. This report prepared by Altagracia Ward MSW [employer]otive [employer] Counter Person and signed off by Tomeka Echeverria LCSW Primary Language? American Language(s) Spoken At Home: American Living Situation Other Living Arrangement: homeless living w/friend, homeless in snf, Patient reports he is homeless and stays in snf or with friends Residential Care/Treatment Fac N/A Feel Safe Where You Are Living Yes Feel Safe in Relationships? Yes Comments: N/A Allergies - Coded Allergies: chlorpromazine (From THORAZINE) (Severe, ANAPHYLAXIS 01/11/17) fluphenazine (From PROLIXIN) (Severe, ANAPHYLAXIS 01/11/17) haloperidol (From HALDOL) (Severe, ANAPHYLAXIS 01/11/17) risperidone (TUNNEL VISION 01/11/17) Current Medications - Scheduled Medications Fluoxetine HCl (Prozac) 40 MG CAPSULE 1 CAP PO DAILY MENTAL HEALTH (Reported) Entered as Reported by JAVON FLORES on 01/11/17 1522 Lubiprostone (Amitiza) 24 MCG CAPSULE 24 MCG PO BID IBS #28 CAP Prescribed by LEYDI RYAN APRN on 10/02/16 Methadone HCl 5 MG TABLET 90 MG PO DAILY methadone maintenance (Reported) Entered as Reported by LEYDI RYAN APRN on 10/02/16 1154 Mirtazapine 15 MG TABLET 1 TAB PO QPM SLEEP (Reported) Entered as Reported by JAVON FLORES on 01/11/17 1523 Last Taken: 01/10/17 Nicotine (Nicotine Patch) 21 MG/24 HOUR PATCH.TD24 21 MG TOP DAILY smoking cessation #14 PATCH Prescribed by LEYDI RYAN APRN on 10/02/16 Nicotine Polacrilex (Nicotine Lozenge) 4 MG LOZENGE 10 ALAN PO DAILY SMOKING CESSATION (Reported) Entered as Reported by JAVON FLORES on 01/11/17 1528 Pantoprazole Sodium (Protonix) 40 MG TABLET.DR 40 MG PO DAILY AC GERD #14 TAB Prescribed by LEYDI RYAN APRN on 10/02/16 Prazosin HCl 2 MG CAPSULE 6 MG PO QPM nightmares #42 CAP Prescribed by LEYDI RYAN APRN on 10/02/16 Last Taken: Unknown Dose at an unknown date and time Quetiapine Fumarate 100 MG TABLET 200 MG PO AT BEDTIME insomnia/mood stabilization #28 TAB Prescribed by LEYDI RYAN APRN on 10/02/16 Last Taken: Unknown Dose at an unknown date and time Testosterone (Androgel) (Unknown Strength) 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 2 [place] TOP DAILY LOW TESTOSTERONE (Reported) Entered as Reported by DEREK GEIGER on 09/22/16 1602 Scheduled PRN Medications Hydroxyzine HCl 50 MG TABLET 1 TAB PO TID PRN ANXIETY (Reported) Entered as Reported by JAVON FLORES on 01/11/17 1525 Ibuprofen 800 MG TABLET 800 MG PO Q6P PRN PAIN SCALE 4-6 (MODERATE) #42 TAB Prescribed by LEYDI RYAN APRN on 10/02/16 Consequences of Psych Med Use: N/A Comments: None Past History Past Medical History Neurological: migraine, seizure, (WITHDRAWL TO BENZOS) EENT: sinusitis, HX MRSA Cardiovascular: NONE Respiratory: asthma Gastrointestinal: constipation, GERD, irritable bowel syndrome Hepatic: NONE Renal: NONE Musculoskeletal: NONE Psychiatric: anxiety, depression, opioid dependence, substance abuse, PTSD SI Endocrine: NONE Blood Disorders: NONE Cancer(s): NONE TELEHEALTH CASE MANAGER/Reproductive: NONE Past Surgical History Surgical History: non-contributory /Family History Place/Country of Origin: [place], [place] Childhood Family Constellation: mom dad and older sister Primary Childhood Caretakers: father, mother Family Life During Childhood: poor father in and out of fdc mother depressed and isolated both used drugs wound up in DCF care and iresidential DCF Involvement? Yes Explain: Parents when he was in 3rd grade and he stopped caring about school Mother's Age (Current/): 62 Relationship w/Mother: None for years. Never good Father's Age (Current/): 50 () Relationship w/Father: on/off father jailed many times father wound up taking pt to [facility] where he facilitated pts relapse to drugs Any Sibling(s)? Yes Sibling's Gender(s)/Age(s): female Sibling 1:, female Sibling 2: Relationship w/Sibling(s): Estranged from older sister who cared for him for a while, but he relapsed and she kicked him out and no contact Relationship w/Friends: No friends Family Psych/Sub Abuse/Add Hx: drug of choice Other Comments: N/A Abuse/Trauma History Trauma History/Current Trauma: PTSD symptoms, witnessed Victim or Perpretator? victim Patient's Age at Time of Trauma: 26 History of Trauma/Abuse Treatment? Yes Abuse/Trauma Treatment: Not specifically Legal History Legal Guardian/Address/Phone: Past was DCF Current Legal Status: none Pending Court Dates: None Have you ever been arrested No Number of Arrests: 0 Hx of Juvenile Legal Charges? No Hx of Adult Legal Charges? No If Yes: N/A List/Date Most Recent Lgl Chgs: N/A Chgs/Dts/Incarcerations/Sentnc N/A Civil Proceedings: None noted Domestic Relations Court: N/A Child Protective Serv Involvmnt Patient was in DCF care for years starting at age 15 Yarn Inspector none Psychosocial History Primary Support System: [facility] Strengths/Capabilities: Pt is motivated for treatment Weaknesses: Patient has lack of insight into triggers and lack of coping skills. Physical Limitations (Interventions): None reported Last Physical: 2 months ago History of Seizures? Yes (2012 benzos) Last Seizure: 2013 History of Blackouts? 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 No Patient's Ethnicity: Turkish, Maltese Cultural/Ethnic Issues: None Are There Developmental Issues? No Milestones Achieved: WNL Psychiatric Treatment History Psych Treatment Inpatient Treatment Yes Outpatient Treatment Yes Location of Treatment [place], [facility], [facility] Reason for Treatment Suicidal ideation and Opaite Use Dates of Treatment 01/08/2017 Response to Treatment poor return to the emeregency room (poor) Precipitating Factors: Homeless Current Webfocus Developer: [facility] Treatment of Prior Episodes: Multiple hospitalizations over 12 yr period Diagnosis: F 32.2 Major Depressive disorder, severe, recurrent Psychodynamic Issues: Homeless and not attached to treaters as hard to contact Risk Factors: history of suicide atmpts, SA/MH hospitalized, substance abuse, isolate/no social support, poor impulse control, lives alone, limited support Substance Use/Abuse History Drug Use/Abuse 1 Substance Used/Abused Heroin First Use 17 years old Last Used 2008 How much used/taken various amount IV How often OCCASSIONALLY For how long 16 YEARS TO 2009 Route of use IV Drug Use/Abuse 2 Substance Used/Abused Crack Cocaine First Use 15 years old Last Used Saturday01/08/17 How much used/taken $10 worth How often Occassionally For how long Since age 15 Route of use Smoke Drug Use/Abuse 3 Substance Used/Abused Benzodiazepines First Use 15 years old Last Used Saturday01/08/17 How much used/taken 8mg Klonipin How often Occassionally For how long Since age 15 Route of use Oral Have Had Periods of Sobriety? Yes Explain: Patient has been abstinent from heroin since 2008 sicne being on Methadone Maintenance Relapse History? Yes Explain: Patient has relapsed currently on benzodiazepines and crack cocaine Have You Ever Attended AA? Yes Do You Attend AA Currently? No Do You Have a Sponsor? No Other Community Resources Used: None noted Symptoms of Use: Patient reports anxiety/depression partially attributable to substance use Substance Abuse Treatment Substance Abuse Treatment Inpatient Treatment No Outpatient Treatment Yes Location of Treatment [place], [place] Reason for Treatment Opiate Dependence, Methadone Maintenance Dates of Treatment 2008 to the present Response to Treatment Good affect with Methadone Treatment. Pateient reports to have not used heroin since 2008. Comments: None Sexual History Sexually Active Yes # of partners 0 Sexual Orientation Heterosexual Use of Protection Yes Sometimes Sexual Concerns: No partner now but has had several in past Education History Highest Level of Education: high school/GED Highest Grade Completed: GED-no school since 8th grade then computer Vocational Year Completed: computer training Number of College Years: 0 College Degree/Major: N/A Other Degree(s): knowledge of computer Preferred Learning Style: auditory HX of Learning Difficulties: None reported Barriers to Learning: homeless Special Communication Needs: None reported Employment History Employment Unemployed Not in Labor Force: Not in labor force Vocation/Occupational Hx: N/A No. of Jobs in Last 5 Years: 0 Attendance: Absenteeism Performance: Below Average Comments: None History Have You Been in The ? No If Yes, Explain: N/A Type of Discharge: N/A Date of Discharge: N/A Current Mental Status Mental Status Orientation: Person, Place, Situation Affect: Depressed, Hopeless, Sad Speech: WNL Neuro-vegetative: Energy Decreased, Helpless, Loss of Interest, Sleep Disturbance Appearance Appearance- Dress/Hygiene: Dressed in hospital clothing Behaviors Thought Process: WNL Thought Content: WNL Memory: WNL Insight: Poor SI/HI Risk Assessment Past Suicidal Ideation/Attempts Yes Current Suicidal Ideation/Att Yes (Pt. reports current SI w/plan) Past Homicidal Ideation/Att: No Current Homicidal Ideation/Attempts No Degree of Intent: Plan, States Intent, I will go to the pharmacy and gets my meds, and overdose Danger To: Self Gravely Disabled: Lack of Insight, Poor Impulse Control, Poor Judgment Risk Factors: High Anxiety/Distress, SA/MH Hospitalization(s), Hx of suicide attempt(s), Isolated/no social suppor, Lives alone, Male, Poor impulse control, Substance Abuse Lethality Ratin - Conclusion and Recommendations for treatment - and discharge planning Summary: Patient presents with worsening depression and suicidal ideation with plan. Patient found to be of acute risk to self requiring inpatient hospitalization. Patient will undergo psychiatric evaluation, medication evaluation, group therapy, individual therapy and discharge planning.
--- NOTE | 2017-01-11 22:15 | NUR ---
REPORT GIVEN TO CHANCE REED ON [facility].
--- NOTE | 2017-01-11 22:26 | NUR ---
SECURITY CALLED FOR TRANSPORT TO [facility]. 1 VALUABLE BAG AND 2 BELONGING BAGS IN ATTENDANCE.
[2017-01-11 22:49] VITALS: BP 124/57
[2017-01-12] VITALS (7 sets, daily range): BP systolic 118–137; BP diastolic 57–70
--- NOTE | 2017-01-12 01:45 | NUR ---
31 YEAR OLD MALE PATIENT ADMITTED TO [facility] WITH DIAGNOSIS OF MAJOR DEPRESSION AND SUICIDAL IDEATION; PATIENT PRESENTS HOPELESS, FLAT; HE DENIES INTENT TO HARM HIMSELF WHILE IN THE HOSPITAL; PATIENT WAS TREATED BY [facility] RECENTLY AND DISCHARGED; PATIENT ATTEMPTED TO OVERDOSE YESTERDAY ON SEVERAL OF HIS MEDICATIONS; PATIENT WAS EVALUATED IN THE EMERGENCY DEPARTMENT BUT APPEARED TO BE MEDICALLY STABLE WITH NO AFTER-EFFECTS; PATIENT IS HOMELESS, AND IS ON METHADONE MAINTENANCE FOR OPIATE DEPENDENCE; HE REPORTED USING A SMALL TO MODERATE AMOUNT OF BENZODIAZEPINES; ADMISSION VITAL SIGNS WNL; PATIENT IS MEDICALLY STABLE AT THIS TIME; SKIN INTACT; SMALL BRUISES ON LEFT ANTECUBITAL AREA FROM PERIPHERAL BLOOD DRAWS; DR. FONTANA NOTIFIED FOR H&P; DR. RAUSCH WRITING ADMISSION ORDERS.
--- NOTE | 2017-01-12 05:45 | NUR ---
PATIENT SLEPT ALL NIGHT.
--- NOTE | 2017-01-12 11:46 | CPS MD/APRN INITIAL ASSE PSYCH ---
Psychiatric Admission Spa Director/Finance's Note Reviewed: Yes Patient Seen and Examined: Yes Identifying Information: 31yoM with MDD Chief Complaint: "I just want to " Reaction to Hospitalization: positive History of Present Illness Onset of Illness: age 22yo Circumstances Leading to Admission: worsening depression Problem(s) Justifying Need for Admission: +SI Other HPI: Pt with hx of MDD who notes that mood sx started after the of his father by OD on alcohol, cocaine, and heroin when pt was 22yo. He [facility] his [facility] family [facility] in [place]. He continues to feel guilty about buying the cocaine and heroin for his dad (dad got DUI two days before and not allowed to drive). He also feels guilty that he did not give his CPR though notes he was "cold, he was ." Pt cannot seem to get this ruminative thoughts out of his head. He notes that recently at [facility] for SI and discharged. Feels continues SI and overdosed but sought help immediately. Denies active SI but notes, "I just want to , I'm not going to do thing to kill myself, I just want to ." Denies AVHs. Notes NMs with trazodone. Wants to restart home meds as were helpful but then pt got overwhelmed. Past Psychiatric History Past Diagnosis(es)- if any: MDD PSD- alcohol, BDZ, opiates, cocaine Past Precipitating Factors- if any: homelessness and no employent few supports - Include inpatient and outpatient treatment Treatment History: APT History of Suicide Attempts or Gestures Overdose Substance Abuse History: Tobacco: smokes daily Alcohol: denies Illicts: +klonopin up to 8-10mg daily past month until four days ago, heroin, clean for years on MM, + mj, cocaine in the past Allergies: Coded Allergies: chlorpromazine (From THORAZINE) (Severe, ANAPHYLAXIS 01/11/17) fluphenazine (From PROLIXIN) (Severe, ANAPHYLAXIS 01/11/17) haloperidol (From HALDOL) (Severe, ANAPHYLAXIS 01/11/17) loxapine (ANAPHYLAXIS 01/11/17) risperidone (TUNNEL VISION 01/11/17) Home Med List: see ED note - Include any medical condition(s) that may - impact the patient's recovery/remission Past Medical History: GERD Past History Medical History Neurological: migraine, seizure, (WITHDRAWL TO BENZOS) EENT: sinusitis, HX MRSA Cardiovascular: NONE Respiratory: asthma Gastrointestinal: constipation, GERD, irritable bowel syndrome Hepatic: NONE Renal: NONE Musculoskeletal: NONE Psychiatric: anxiety, depression, opioid dependence, substance abuse, PTSD SI Endocrine: NONE Blood Disorders: NONE Cancer(s): NONE 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: LOW TESTOSTERONE History of MRSA: Yes History of VRE: No History of CDIFF: No Isolation History: Standard Influenza Vaccine: 07/31/16 Surgical History Surgical History: NONE Psychiatric Family/Social Hx Family History Psychiatric Illness: depression and anxiety in father Substance Use: father by OD of alcohol cocaine and heroin Suicides: denied Social History Living Situation: homeless Significant Relationships (family/friends): none Education: HS Vocation/Occupation: unemployed Legal: denied Health[employer] Behaviors Screening Tobacco Screening Tobacco Use from ED Docu: Current Daily Use Daily Tobacco Use Amount/Type: Smokeless tobacco daily - If tobacco counseling indicated - the following topics are required. - #1 Recognizing dangerous situations. - #2 Coping Skills. - #3 Basic information about quitting. Status of Tobacco Cessation Counseling: #1, #2 AND #3 Completed Cessation Med Status: Nicotine Patch Ordered Alcohol Screening - ETOH screen POS if BAL >=80 or Audit-C>= M4/F3 Audit-C Score from Diag Assess: 0 Blood Alcohol Level: Laboratory Tests 01/11 1440 Toxicology Serum Alcohol (<10 MG/DL) < 10.0 Alcohol Use Screening Results: Neg per Audit C &/or BAL - If ETOH counseling indicated - the following topics are required. - #1 Express concern about the patient's - drinking at unhealthy levels, include informing - of national norms for moderate drinking: - men <= 14 drinks/week, max 4 drinks/occasion - women <= 7 drinks/week, max 3 drinks/occasion - #2 Providing feedback, including linking alcohol to - negative physical effects (liver injury, hypertension) - negative emotional effects (relationship problems and - depression) - negative occupational consequences (reduced work - performance) - #3 Advising the patient to abstain from alcohol or - to drink below national norms for moderate drinking - (as listed above). Status of ETOH Use Counseling: N/A B/C NO ETOH Use Metabolic Screening - Screen if on a Neuroleptic Medication - Metabolic screening should include: - Blood Pressure, BMI, Glucose or Hgb A1c, & a - Lipid profile from within the past 365 days. Metabolic Screening () Not Applicable, patient not on a neuroleptic. OR () Patient on a neuroleptic(s) . Enter below results for Glucose or Hemoglobin A1C, and lipid panel if obtained during the last 365 days. BMI: 34.300 Blood Pressure: 118/57 Labs Laboratory Tests 01/11 01/11 1450 1440 Chemistry Sodium (137 - 145 mmol/L) 142 Potassium (3.5 - 5.1 mmol/L) 4.7 Chloride (98 - 107 mmol/L) 100 Carbon Dioxide (22 - 30 mmol/L) 29 Anion Gap (5 - 16) 12 BUN (9 - 20 mg/dL) 16 Creatinine (0.7 - 1.2 mg/dL) 0.8 Estimated GFR (>60 ml/min) > 60 BUN/Creatinine Ratio (7 - 25 %) 20.0 Glucose (65 - 99 mg/dL) 126 H Calcium (8.4 - 10.2 mg/dL) 9.9 Hematology CBC w Diff NO MAN DIFF REQ WBC (4.8 - 10.8 /CUMM) 5.4 RBC (4.70 - 6.10 /CUMM) 4.60 L Hgb (14.0 - 18.0 G/DL) 13.7 L Hct (42 - 52 %) 41.0 L MCV (80.0 - 94.0 FL) 89.1 MCH (27.0 - 31.0 PG) 29.7 RDW (11.5 - 14.5 %) 15.2 H Plt Count (130 - 400 /CUMM) 164 MPV (7.4 - 10.4 FL) 9.4 Gran % (42.2 - 75.2 %) 55.8 Lymphocytes % (20.5 - 51.1 %) 38.0 Monocytes % (1.7 - 9.3 %) 4.2 Eosinophils % (0 - 5 %) 1.6 Basophils % (0.0 - 2.0 %) 0.4 Absolute Granulocytes (1.4 - 6.5 /CUMM) 3.0 Absolute Lymphocytes (1.2 - 3.4 /CUMM) 2.0 Absolute Monocytes (0.10 - 0.60 /CUMM) 0.2 Absolute Eosinophils (0.0 - 0.7 /CUMM) 0.1 Absolute Basophils (0.0 - 0.2 /CUMM) 0 PUBS MCHC (33.0 - 37.0 G/DL) 33.3 Toxicology Urine Opiates Screen (>2000 NG/ML) < 100.00 Methadone Screen (>300 NG/ML) > 735 H Barbiturate Screen (>200 NG/ML) < 60 Ur Phencyclidine Scrn (>25 NG/ML) 7.60 Amphetamines Screen (>1000 NG/ML) < 100 U Benzodiazepines Scrn (>200 NG/ML) < 85 Urine Cocaine Screen (>300 NG/ML) 94 Urine Cannabis Screen (>50 NG/ML) < 5.00 Serum Alcohol (<10 MG/DL) < 10.0 Exam and Plan Mental Status Examination Ambulation Status: freely without impairment Appearance: younger than stated age Attitude towards examiner: cooperative Psychomotor activity: retardation Behavior: cooperative, engaged Quality of speech: low volume, nl r/r/p Affect: sad, depressed, non-labile, appropriate Mood: "OK..." Suicidal Ideation: + passive SI Homicidal Ideation: denied Hallucinations: denied Paranoid/Delusional Material: denied Difficulties with thought organization: none noted Insight: limited Judgment: fair Orientation: a/o x4 Cognition: grossly intact Memory Function: grossly intact Estimate of intellectual functioning: average Assets/Strengths Patient Identified Assets/Strengths: wishes for improvement Impression/Plan Impression and Plan: A/P: Pt with MDD with worsening SI in the setting of mulitple psychosocial stressors and extreme guilt over the of his father. - Restart fluoxetine at 10mg daily, can increase to 20mg on Saturday - Restarted mirtazapine at 15mg nightly - D/C trazodone as +NMs - Continue other home meds - Needs SW with housing placement and IOP - Encourage groups - Include all active medical diagnosis that require tx DSM 5 Diagnosis(es): Major Depressive Disorder - Initial Tx Plan for Active Psych & Medical Conditions Treatment Plan: as above - Factors that would help patient function - in a less restrictive setting. Factors: homelessness, unemployment, no support
--- NOTE | 2017-01-12 12:46 | NUR ---
PT HAS BEEN ISOLATIVE TO ROOM AND WITHDRAWN YET ABLE TO VERBALIZE NEEDS, VITALS HAVE BEEN STABLE IS ON CIWA Q4WA WITH NO SCORING THUS FAR, RESTING OFTEN IN BEST, DID NOT ATTEND ANY GROUPS TODAY, MOOD OVERALL APPEARS STABLE WITH CONSTRICTED AFFECT.
--- NOTE | 2017-01-12 12:47 | NUR ---
DR. RAUSCH AWARE OF EKG RESULTS, NO FURTHER ORDERS.
--- NOTE | 2017-01-12 13:49 | NUR ---
HOD DR. GRANDE NOTIFIED (REMINDED) FOR THE NEED OF H&P.
--- NOTE | 2017-01-12 17:35 | History & Physical ---
General Information and HPI MD Statement: I have seen and personally examined CRISTHIAN ARAGON and documented this H&P. The patient presented on the day of admission in the ED with C/O depression and suicidal ideation. Source of Information: patient, old records Exam Limitations: no limitations History of Present Illness: The patient is a 31 yo male with h/o IBS, asthma, PTSD, and polysubstance abuse (on methadone maintenance) who presented on the day of admission in the [place] ED with c/o severe depression and suicidal ideation. He had recently been admitted to [facility] and discharged. He is homeless and after discharge again called 911 with c/o suicidal ideation. At present the patient has no c/o other than some mild constipation. Allergies/Medications Allergies: Coded Allergies: chlorpromazine (From THORAZINE) (Severe, ANAPHYLAXIS 01/11/17) fluphenazine (From PROLIXIN) (Severe, ANAPHYLAXIS 01/11/17) haloperidol (From HALDOL) (Severe, ANAPHYLAXIS 01/11/17) loxapine (ANAPHYLAXIS 01/11/17) risperidone (TUNNEL VISION 01/11/17) Home Med list Fluoxetine HCl (Prozac) 40 MG CAPSULE 1 CAP PO DAILY MENTAL HEALTH (Reported) Hydroxyzine HCl 50 MG TABLET 1 TAB PO TID PRN ANXIETY (Reported) Ibuprofen 800 MG TABLET 800 MG PO Q6P PRN PAIN SCALE 4-6 (MODERATE) Take 1 tablet (800mg) by mouth every 6 hours as needed for moderate pain. Do not exceed 3 doses in 24 hours. Lubiprostone (Amitiza) 24 MCG CAPSULE 24 MCG PO BID IBS Take 1 capsule by mouth twice a day. Methadone HCl 5 MG TABLET 90 MG PO DAILY methadone maintenance (Reported) Mirtazapine 15 MG TABLET 1 TAB PO QPM SLEEP (Reported) Compliance With Home Meds: UNKNOWN Past History Travel History Traveled to [place] past 21 day No Medical History Neurological: migraine, seizure, (WITHDRAWL TO BENZOS) EENT: sinusitis, HX MRSA Cardiovascular: NONE Respiratory: asthma Gastrointestinal: constipation, GERD, irritable bowel syndrome Hepatic: NONE Renal: NONE Musculoskeletal: NONE Psychiatric: anxiety, depression, opioid dependence, substance abuse, PTSD SI Endocrine: NONE Blood Disorders: NONE Cancer(s): NONE SENIOR MEDICAL TECHNOLOGIST/Reproductive: LOW TESTOSTERONE History of MRSA: Yes History of VRE: No History of CDIFF: No Isolation History: Standard Influenza Vaccine: 07/31/16 Surgical History Surgical History: non-contributory Past Family/Social History Family History Relations & Conditions if any Relation not specified for: *No pertinent family history Psychosocial History Where do you live? Other Who Do You Live With? self Services at Home: None Primary Language: Wallisian Smoking Status: Current Everyday Smoker ETOH Use: denies use Illicit Drug Use: cocaine, benzodiazepines Functional Ability ADLs Independent: dressing, eating, toileting, bathing. Ambulation: independent IADLs Independent: telephone, medication admin. Employment History Employment Unemployed Profession/Employer N/A Review of Systems Review of Systems Constitutional: Denies: no symptoms. EENTM: Denies: no symptoms, visual changes. Cardiovascular: Denies: no symptoms. Respiratory: Denies: no symptoms. GI: Reports: constipation. Genitourinary: Denies: no symptoms. Musculoskeletal: Denies: no symptoms, neck pain. Skin: Denies: no symptoms. Neurological/Psychological: Reports: anxiety. Hematologic/Endocrine: Denies: no symptoms. Immunologic/Allergic: Denies: no symptoms. Exam & Diagnostic Data Last 24 Hrs of Vital Signs/I&O Vital Signs Date Time Temp Pulse Resp B/P Pulse O2 O2 Flow FiO2 Ox Delivery Rate 01/12 1951 75 137/70 01/12 1950 96.5 75 137/70 01/12 1612 76 132/69 01/12 1606 76 132/69 01/12 1216 72 127/63 01/12 1201 72 127/63 01/12 0804 97.8 71 118/57 01/11 2249 96.9 75 124/57 Intake & Output 01/12 1600 01/12 0800 01/12 0000 Intake Total Output Total Balance Patient 116.346 kg 116.346 kg Weight Physical Exam General Appearance Alert, Oriented X3, Cooperative, Mild Distress Skin No Rashes, No Breakdown, No Significant Lesion HEENT Atraumatic, PERRLA, EOMI, Mucous Membr. moist/pink Neck Supple, No JVD, No thryomegaly, +2 Carotid Pulse wo Bruit, No LAD Cardiovascular Regular Rate, Normal S1, Normal S2, No Murmurs Lungs Clear to Auscultation, Normal Air Movement Abdomen Normal Bowel Sounds, Soft, No Tenderness, No Hepatospenomegaly, No Masses Neurological Exam Findings: Normal Gait, Normal Speech, Strength at 5/5 X4 Ext, Normal Tone, Sensation Intact, Cranial Nerves 3-12 NL, Reflexes 2+ Cranial Nerves II through XII: INTACT Extremities No Clubbing, No Cyanosis, No Edema, Normal Pulses, No Tenderness/ Swelling Vascular Normal Pulses, Pulses Symmetrical Assessment/Plan Assessment: Impression/Plan: #Depression/Suicidal Ideation- seen by crisis intervention. Recent [place] admit for same. Plan: As per psychiatry. #GERD/Constipation- constipation caused by Methadone and other chronic meds. Plan: Will continue PPI and use prn stool sofene, etc. #Polysubstance Abuse- recently used. Doing well with detox. Plan: Continue detox using Methadone. Will need to decide on further plan. Will discuss with family. #IBS- on chronic meds for this. Plan: Continue his Amitza. As Ranked By This Provider Problem List: 1. Suicidal ideation 2. Depression Qualifiers Depression Type: unspecified Qualified Code: F32.9 - Major depressive disorder, single episode, unspecified 3. GERD (gastroesophageal reflux disease) 4. Irritable bowel syndrome with constipation 5. Anxiety Miscellaneous Miscellaneous Documentation Attending Case Discussed With: MIRACLE GERBER,IJEOMA Clark Primary Care Physician: ROSEANNA GERBER,DANDY Ndiaye Patient sees these Specialists none Level of Patient Care: ESMER Antonio Resident Review Statement Resident Statement: examined this patient, discussed with help desk internship, agreed with help desk internship, discussed with family, reviewed EMR data (avail), discussed with nursing , amended to note Attending MD Review Statement Attending Statement Attending MD Statement: examined this patient, discussed with nursing, amended to note Attending Assessment/Plan: The patient was seen as above.
--- NOTE | 2017-01-12 20:21 | NUR ---
PT IS APPROPRIATE TO THE UNIT, COMPLIANT, COOPERATIVE. WITHDRAWN AND ISOLATED IN HIS ROOM. PT WILL COME OUT INTO THE COMMUNITY FOR FOOD AND THEN RETURN TO HIS ROOM IMMEDIATELY AFTER. MINIMALLY INTERACTS WITH PEERS/STAFF MEMBERS. VS ARE STABLE AND DENIES ANY SI/HI TO THIS MHW.
[2017-01-13] VITALS (8 sets, daily range): BP systolic 104–132; BP diastolic 61–72
--- NOTE | 2017-01-13 06:08 | NUR ---
PATIENT SLEPT ALL NIGHT.
--- NOTE | 2017-01-13 09:45 | CP SOUTH PROGRESS NOTE PSYCH ---
Psych (Inpt) Progress Note Progress Note Include the following elements, when applicable: Involvement in the active treatment of the patient with behavioral observations of the patient and the patient's response to the treatment. Review of the ongoing treatment process in the context of the treatment plan. Indication of how multi-disciplinary staff members are carrying out the treatment plan. Plans for future interventions and recommendations for revision of the treatment plan. Liaison with other physicians/providers. Progress Note: Pt notes that he did not sleep as well as he had hoped. He notes DIAS as well. Still reporting passive wish for . Denies active SI. Denies AVHs. Current Medications Sig/Mike Start time Last Medication Dose Route Stop Time Status Admin Al Hydroxide/Mg 30 ML .STK-MED ONE 01/12 1036 DC Hydroxide PO 01/12 1037 Al Hydroxide/Mg 30 ML Q4-6 PRN PRN 01/12 1030 AC 01/12 Hydroxide PO 1041 Calcium Carbonate 500 MG Q8P PRN 01/12 1030 AC 01/12 PO 1517 Fluoxetine HCl 20 MG DAILY 01/14 1000 AC PO Fluoxetine HCl 10 MG DAILY 01/12 1000 AC 01/13 PO 01/13 1200 0752 Hydroxyzine HCl 50 MG TID PRN 01/12 0900 AC PO Ibuprofen 800 MG Q8P PRN 01/12 0900 AC 01/13 PO 0550 Lubiprostone 24 MCG BID 01/12 1000 AC 01/13 PO 0752 Melatonin 5 MG AT BEDTIME 01/13 2200 UNVr PO Methadone HCl 90 MG DAILY AC 01/12 0700 AC 01/13 PO 0550 Mirtazapine 15 MG QPM 01/12 2200 AC 01/12 PO 2127 Nicotine 21 MG DAILY 01/12 1000 AC 01/13 TOP 0751 Nicotine 2 MG Q2P PRN 01/11 1930 AC 01/13 PO 0836 Omeprazole 40 MG DAILY AC 01/12 0849 AC 01/13 PO 0551 Testosterone 5 GM DAILY 01/12 1400 AC 01/13 TOP 0753 Trazodone HCl 100 MG AT BEDTIME 01/12 2200 CAN PO Laboratory Tests 01/11 01/11 1450 1440 Chemistry Sodium (137 - 145 mmol/L) 142 Potassium (3.5 - 5.1 mmol/L) 4.7 Chloride (98 - 107 mmol/L) 100 Carbon Dioxide (22 - 30 mmol/L) 29 Anion Gap (5 - 16) 12 BUN (9 - 20 mg/dL) 16 Creatinine (0.7 - 1.2 mg/dL) 0.8 Estimated GFR (>60 ml/min) > 60 BUN/Creatinine Ratio (7 - 25 %) 20.0 Glucose (65 - 99 mg/dL) 126 H Calcium (8.4 - 10.2 mg/dL) 9.9 Hematology CBC w Diff NO MAN DIFF REQ WBC (4.8 - 10.8 /CUMM) 5.4 RBC (4.70 - 6.10 /CUMM) 4.60 L Hgb (14.0 - 18.0 G/DL) 13.7 L Hct (42 - 52 %) 41.0 L MCV (80.0 - 94.0 FL) 89.1 MCH (27.0 - 31.0 PG) 29.7 RDW (11.5 - 14.5 %) 15.2 H Plt Count (130 - 400 /CUMM) 164 MPV (7.4 - 10.4 FL) 9.4 Gran % (42.2 - 75.2 %) 55.8 Lymphocytes % (20.5 - 51.1 %) 38.0 Monocytes % (1.7 - 9.3 %) 4.2 Eosinophils % (0 - 5 %) 1.6 Basophils % (0.0 - 2.0 %) 0.4 Absolute Granulocytes (1.4 - 6.5 /CUMM) 3.0 Absolute Lymphocytes (1.2 - 3.4 /CUMM) 2.0 Absolute Monocytes (0.10 - 0.60 /CUMM) 0.2 Absolute Eosinophils (0.0 - 0.7 /CUMM) 0.1 Absolute Basophils (0.0 - 0.2 /CUMM) 0 PUBS MCHC (33.0 - 37.0 G/DL) 33.3 Toxicology Urine Opiates Screen (>2000 NG/ML) < 100.00 Methadone Screen (>300 NG/ML) > 735 H Barbiturate Screen (>200 NG/ML) < 60 Ur Phencyclidine Scrn (>25 NG/ML) 7.60 Amphetamines Screen (>1000 NG/ML) < 100 U Benzodiazepines Scrn (>200 NG/ML) < 85 Urine Cocaine Screen (>300 NG/ML) 94 Urine Cannabis Screen (>50 NG/ML) < 5.00 Serum Alcohol (<10 MG/DL) < 10.0 Vital Signs Date Time Temp Pulse Resp B/P Pulse O2 O2 Flow FiO2 Ox Delivery Rate 01/13 0757 97.0 86 104/70 01/13 0748 97.0 86 104/70 01/12 1951 75 137/70 01/12 1950 96.5 75 137/70 01/12 1612 76 132/69 01/12 1606 76 132/69 01/12 1216 72 127/63 01/12 1201 72 127 MSE Appears as stated age. Cooperative behavior, good, appropriate eye contact. Nl speech rate and prosody. + psychomotor retardation . Mood didn't sleep well Affect very irritable, depressed, constricted, appropriate, non-liable. Linear and goal directed thought process. Denies SI or HI. Does not appear to be responding to internal stimuli. Denies AVHs, paranoia, or delusions. I/J: limited A/P: Pt with MDD with worsening SI in the setting of mulitple psychosocial stressors and extreme guilt over the of his father. - Restart fluoxetine at 10mg daily, increase to 20mg on Saturday - Continue mirtazapine at 15mg nightly - D/C trazodone as +NMs - Melatonin 5mg qhs added - Continue other home meds - Needs SW with housing placement and IOP - Encourage groups
--- NOTE | 2017-01-13 13:41 | NUR ---
PT HAS BEEN LESS IRRITABLE & ISOLATIVE COMPARED TO YESTERDAY, NO ISSUES OR COMPLAINTS REPORTED OR OBSERVED, + APPETITE, MOOD STABLE WITH APPROPRIATE AFFECT, MEDICATION COMPLAINT ALTHOUGH DID NOT ATTEND GROUPS, VITAL SIGNS STABLE, MINIMAL INTERACTIONS WITH PEERS AND STAFF.
--- NOTE | 2017-01-13 19:40 | NUR ---
PT IS WITHDRAWN AND ISOLATED TO PT ROOM, MINIMAL INTERACTIONS WITH PEERS/STAFF, REMAINS ON THE PERIPHERY OF THE COMMUNITY WHEN HE IS OUT. PT IS APPROPRIATE YET RESPONDS VAGUELY AND SUPERFICIALLY TO ANY QUESTIONS. VS ARE STABLE, PT IS NOT SCORING ON CIWA, DENIES ANY SI/HI TO THIS MHW.
[2017-01-14] VITALS (8 sets, daily range): BP systolic 137–145; BP diastolic 60–73
--- NOTE | 2017-01-14 07:07 | NUR ---
PATIENT SLEPT ALL NIGHT.
--- NOTE | 2017-01-14 11:14 | SOCIAL WORKER PROG NOTE PSYCH ---
Social Work Progress Note Progress Note CRISTHIAN ARAGON [id number] 1985 CRISTHIAN ARAGON [id number] Pended Authorization # Client Authorization # Type of Request [id number] CONCURRENT
--- NOTE | 2017-01-14 11:41 | CP SOUTH PROGRESS NOTE PSYCH ---
Psych (Inpt) Progress Note Progress Note Include the following elements, when applicable: Involvement in the active treatment of the patient with behavioral observations of the patient and the patient's response to the treatment. Review of the ongoing treatment process in the context of the treatment plan. Indication of how multi-disciplinary staff members are carrying out the treatment plan. Plans for future interventions and recommendations for revision of the treatment plan. Liaison with other physicians/providers. Progress Note: I discussed this patient's progress to date, current mental status, treatment process in the context of the treatment plan, and discharge planning with staff/ team in the daily morning inpatient team meeting. I also met with the patient myself in individual session. S: "I feel more depressed today." Patient is a 31-year old male with a history of PTSD, MDD and polysubstance abuse who presented to ED on 01/11/17 endorsing SI with plan to OD on pills. Patient with a history of prior suicide attempts by overdose; was previously hospitalized on [facility] from 09/22/16 - 10/02/16. Primary stressors include unemployment, homelessness and treatment nonadherence. Reported nonadherence to Prozac for approximately 4 weeks. Today, patient reports feeling "more depressed." Reports lethargy, despite sleeping "ok" overnight. Denied anxiety. Remains concerned over housing post- discharge and where he will go. Feels hopeless and helpless over homelessness. Reported being on a waiting list for a housing voucher but unclear when he will receive it. Attending some groups, reported (+) participation in accupuncture. Denied passive and active suicidal ideation, plans and intent. Denied homicidal ideation, auditory and visual hallucinations. Denied PI, AVH, delusions. Reported tolerating medications well and denied untoward medication effects. He is agreeable to continue taking meds. O: Current Medications Sig/Mike Start time Last Medication Dose Route Stop Time Status Admin Al Hydroxide/Mg 30 ML Q4-6 PRN PRN 01/12 1030 AC 01/12 Hydroxide PO 1041 Calcium Carbonate 500 MG Q8P PRN 01/12 1030 AC 01/12 PO 1517 Fluoxetine HCl 20 MG DAILY 01/14 1000 AC 01/14 PO 0756 Hydroxyzine HCl 50 MG TID PRN 01/12 0900 AC PO Ibuprofen 800 MG Q8P PRN 01/12 0900 AC 04/17 PO 0756 Lubiprostone 24 MCG BID 01/12 1000 AC 01/13 PO 2205 Melatonin 5 MG AT BEDTIME 01/13 2200 AC 01/13 PO 2205 Methadone HCl 90 MG .STK-MED ONE 01/14 0557 DC PO 01/14 0558 Methadone HCl 90 MG DAILY AC 01/12 0700 AC 01/14 PO 0603 Mirtazapine 15 MG QPM 01/12 2200 AC 01/13 PO 2205 Nicotine 21 MG DAILY 01/12 1000 AC 01/14 TOP 0756 Nicotine 2 MG Q2P PRN 01/11 1930 AC 01/14 PO 1513 Omeprazole 40 MG DAILY AC 01/12 0849 AC 01/14 PO 0603 Testosterone 5 GM DAILY 01/12 1400 AC 01/14 TOP 0758 Vital Signs Date Time Temp Pulse Resp B/P Pulse O2 O2 Flow FiO2 Ox Delivery Rate 01/14 1224 84 137/60 01/14 1207 84 137/60 01/14 0802 97.4 82 145/73 01/14 0756 97.4 82 145/73 01/13 1931 97.0 80 112/72 01/13 1928 97.0 80 112/72 01/13 1559 72 132/66 01/13 1557 72 132/66 Lab TSH 1.180 uIU/mL 01/11/17 1440 A: Chart, progress notes, labs, VS and medication list reviewed. Vital signs within normal limits. Add-on TSH resulted within normal limits. Patient appears to be making slow progress. A&Ox3. Speech normal in rate, tone and volume. Affect calm and constricted. Showed good behavioral and physical control. Mood "more depressed" but cooperative on encounter. Thought process was linear, goal-directed. Motivated to make changes surrounding his outpatient treatment, however feels hopeless and helpless over current homelessness. Denied SI/HI/AVH/PI. No evidence of paranoia or nadira delusions. Prozac was increased from 10mg daily to 20mg daily today. Will continue to monitor patient's response and if well tolerated will increase on for depression. P: 1. Continue monitoring patient on unit for safety, mood and suicidal ideation. 2. Prozac increased to 20mg QAM today for depression. 3. Continue all other home and psychotropic meds. 4. Will consider IOP and housing options if patient agreeable. 5. Encourage milieu therapy.
--- NOTE | 2017-01-14 13:49 | NUR ---
PT ISOLATES IN HIS ROOM MOST OF THIS SHIFT. HE DID NOT ATTEND GROUPS. HE IS COMPLIANT WITH HIS MED REGIME AND WHEN ASKED HE DENIED ANY THOUGHTS OF SUICIDE OR SELF HARM
--- NOTE | 2017-01-14 14:35 | SOCIAL WORKER PROG NOTE PSYCH ---
Social Work Progress Note Progress Note Pt continues to have suicidal thoughts and is sad, not hopeful. Pt wants to get back tog group. States he may have been approved for a voucher, and is hoping once he has a place to live he will be able to deal with his depression and would like to work. He states he has chronic reoccurring thoughts of suicide and was his 5th si attempt, "because I have no one and its so lonely". His father and his Mom and sister he doesn't speak with.
--- NOTE | 2017-01-14 16:36 | SOCIAL WORKER PROG NOTE PSYCH ---
Social Work Progress Note Progress Note Received voicemail from Jeannette at 2:19pm, indicating she needed more information regarding the concurrent review or Auth. I called her back and left a voicemail that I am here (although I didn't follow patient today), and Hollie Hudson LCSW is returning tomorrow, 01/15/17.
--- NOTE | 2017-01-14 21:23 | NUR ---
PT IS AT TIMES COOPERATIVE WITH STAFF AND PEERS. AT TIMES PT BECOMES EASILY AGIATED BY STAFF, ESPECIALLY WHEN BEING ASKED QUESTIONS DURING VITALS. PT REMAINS IN MILIEU FOR EXTENDED PERIODS OF TIME SOCIALIZING WITH OTHERS, BUT WILL RETIRE TO PT ROOM, ISOLATING AT TIMES. MOOD IS STABLE, AFFECT IS EUTHYMIC TO FULL RANGE, COMMUNICATION IS ORGANIZED AND APPEARS NORMAL IN ALL RESPECTS, AND APPETITE IS NORMAL. PT DENIES SI AT THIS TIME.
--- NOTE | 2017-01-15 06:27 | NUR ---
PT UP X 1. PT APPEARED TO SLEEP, THOUGH HE REPORTS HIS SLEEP "SO-SO". PT RECEIVED METHADONE 90 AT 0615.
--- NOTE | 2017-01-15 11:05 | SOCIAL WORKER PROG NOTE PSYCH ---
Social Work Progress Note Progress Note aMrk was in bed this morning. Got up when prompted around 10:15 to meet. Shared/ talked about the frequency of his instability being homeless. Discussed the stess/ depression that he is experiencing. Wasn't taking medications as prescribed due to his instability. He reports having been accepted for a housing voucher, but there are none available right now and he needs to keep checking in. Reported that he got a therapist at [facility], but then missed his appt. at the end of Oct/ early November and hasn't gone back since due to feeling embarrassed/ ashamed over missing his appt. He signed a release for [facility] and would like appts. to be scheduled to go back. I told him I will check to see if he can go to the [facility]. I remember the last time he was here there was a problem with referring him there. He is feeling a little sick to his stomach today and reports a headache. These symptoms are new for him. Mood is down, reports SI over the weekend, but not today. I gave him the number for the [facility] so he could speak with the medical staffing coordinator there Dianne Jacobs. She will be able to let him know where he is on the voucher list. I called and left a message for Joshua at [facility]. Patient signed releases for [facility], [facility], and [facility]. Left a message for clinician at [facility].
--- NOTE | 2017-01-15 11:43 | NUR ---
PT IS STABLE WITH FULL RANGE OF AFFECT, PRESENT WITHIN THE COMMUNITY, INTERACTS MINIMALLY WITH PEERS/STAFF MEMBERS, APPROPRIATE, COMPLIANT, COOPERATIVE. PT REFUSED PLANNING MEETING AND FOCUS GROUP BUT IS CURRENTLY ATTENDING ACUPUNCTURE. VS ARE STABLE AND DENIES ANY SI/HI TO THIS MHW.
[2017-01-15 12:08] VITALS: BP 138/68
[2017-01-15 12:09] VITALS: BP 138/68
--- NOTE | 2017-01-15 14:41 | CP SOUTH PROGRESS NOTE PSYCH ---
Psych (Inpt) Progress Note Progress Note Include the following elements, when applicable: Involvement in the active treatment of the patient with behavioral observations of the patient and the patient's response to the treatment. Review of the ongoing treatment process in the context of the treatment plan. Indication of how multi-disciplinary staff members are carrying out the treatment plan. Plans for future interventions and recommendations for revision of the treatment plan. Liaison with other physicians/providers. Progress Note: I discussed this patient's progress to date, current mental status, treatment process in the context of the treatment plan, and discharge planning with staff/ team in the daily morning inpatient team meeting. I also met with the patient myself in individual session. S: "I feel like I want to crawl out of my skin." Patient noted to feel internally restless and more anxious today. Reported first occurence of nightmares last night on unit of prior traumatic events involving encounters with police. Patient was agreeable to retrial Prazosin for nightmares. Patient was also informed of ordered prn Atarax which he has not used to date for anxiety. He reported minimal effect from prn Atarax in the past and was agreeable to discontinuing and starting prn gabapentin for anxiety. Patient remains focused on housing issues and aftercare plans. Attended accupuncture today, but no other groups. Reported feeling physically unwell, nausea, lightheadedness and diarrhea. Informed patient that symptoms may be SEs from restarting Prozac. He verbalized understanding, was agreeable to continue taking; reported in the past experiencing SEs when restarting Prozac. Reported continued depression. Expressed suicidal ideation today with plan to overdose on pills. Denied suicidal intent. Gave safety promise on unit. Denied homicidal ideation, auditory and visual hallucinations. O: Current Medications Sig/Mike Start time Last Medication Dose Route Stop Time Status Admin Al Hydroxide/Mg 30 ML Q4-6 PRN PRN 01/12 1030 AC 01/15 Hydroxide PO 0838 Calcium Carbonate 500 MG Q8P PRN 01/12 1030 AC 01/15 PO 1014 Fluoxetine HCl 20 MG DAILY 01/14 1000 AC 01/15 PO 0833 Gabapentin 300 MG Q8P PRN 01/15 1445 AC PO Hydroxyzine HCl 50 MG TID PRN 01/12 0900 DC PO Ibuprofen 800 MG .STK-MED ONE 01/14 1954 DC PO 01/14 1955 Ibuprofen 800 MG Q8P PRN 01/12 0900 AC 01/15 PO 0832 Loperamide HCl 2 MG Q6P PRN 01/15 1445 AC PO Lubiprostone 24 MCG BID 01/12 1000 AC 01/14 PO 2149 Melatonin 5 MG AT BEDTIME 01/13 2200 AC 01/14 PO 2149 Methadone HCl 90 MG .STK-MED ONE 01/15 0611 DC PO 01/15 0612 Methadone HCl 90 MG DAILY AC 01/12 0700 AC 01/15 PO 0617 Mirtazapine 15 MG QPM 01/12 2200 AC 01/14 PO 2149 Nicotine 21 MG DAILY 01/12 1000 AC 01/15 TOP 0832 Nicotine 2 MG Q2P PRN 01/11 1930 AC 01/15 PO 1445 Omeprazole 40 MG DAILY AC 01/12 0849 AC 01/15 PO 0617 Prazosin HCl 1 MG AT BEDTIME 01/15 2200 AC PO Sodium Chloride 2 SPRAY Q4P PRN 01/15 1145 AC 01/15 ROMERO 1445 Testosterone 5 GM DAILY 01/12 1400 AC 01/15 TOP 0834 Vital Signs Date Time Temp Pulse Resp B/P Pulse O2 O2 Flow FiO2 Ox Delivery Rate 01/15 1209 78 138/68 01/15 1208 78 138/68 01/14 1944 96.8 83 142/65 01/14 1938 96.8 83 142/65 01/14 1626 80 145/73 01/14 1621 80 145/73 A: Chart, progress notes, VS, labs, and medication list were reviewed. No new lab results today. Vital signs within normal limits. Patient remained isolated in room today with c/o of GI issues. Likey due to restarting prozac. Ox3. Speech soft, somewhat mumbled. Mood "depressed." Affect constricted. Anxiety: 5/10 (10 being worst). Depression: 6/10 (10 being worst). Endorsed SI and plan since early this morning to overdose on pills. Denied intent to act on plan. Gave safety promise on unit. Expressed hopelessness over housing situation. Denied helplessness, however appears helpless. Little motivation to engage in milieu or groups. Denied HI/AVH. Denied PI. No evidence of delusions. Insight and judgement limited. P: 1. Continue monitoring patient on unit for safety, mood and suicidal ideation. 2. Monitor response to medications. Continue Prozac at 20mg daily. If tolerating Prozac will consider increase on to further target mood symptoms. 3. Discontinue Atarax prn, start Gabapentin prn for anxiety. 4. Start prn Imodium for diarrhea. 5. Start Prazosin 1mg QHS for nightmares. 6. Dispo planning per primary team.
[2017-01-15 20:23] VITALS: BP 118/64
[2017-01-15 20:24] VITALS: BP 118/64
--- NOTE | 2017-01-15 21:49 | NUR ---
PT IS COOPERATIVE MOST OF THE TIME WITH STAFF AND PEERS, AND COMPLIANT WITH UNIT RULES. PT IS BOTH IN AND OUT OF MILIEU, AT TIMES IOSLATING IN PT ROOM. WHEN IN MILIEU PT IS SOCIAL AND INTERACTS WELL WITH PEERS. AT TIMES PT CAN BECOME AGIATED WITH STAFF. MOOD IS STBALE, AFFECT IS EUTHYMIC TO FULL RANGE, COMMUNICATION IS ORGANIZED AND APPEARS NORMAL IN ALL RESPECTS, AND APPETITE IS NORMAL. PT DENIES SI AT THIS TIME.
--- NOTE | 2017-01-16 03:01 | NUR ---
Slept well, no complaints offered.
[2017-01-16 07:58] VITALS: BP 138/71
[2017-01-16 08:00] VITALS: BP 138/71
--- NOTE | 2017-01-16 10:59 | NUR ---
PT IS ISOALTIVE IN ROOM FOR MOST OF THE DAY, SLEEPING IN BED. PT IS COMPLIANT WITH STAFF WHEN ASKED BUT DOES HAVE AN IRRITABLE MOOD AT TIMES. PT IS NOT ATTENDING GROUPS. PT MOOD IS STABLE WTIH A CONSTRICTED AFFECT. PT DENIES SI THOUGHTS.
--- NOTE | 2017-01-16 11:57 | SOCIAL WORKER PROG NOTE PSYCH ---
Social Work Progress Note Progress Note Mark was in bed around 10:30a. He got up when prompted to meet. Still have a migraine that is bothering him and a stuffy/ congested nose. Stated he got little sleep last night. He was encouraged to stay out of bed a majority of the day today, so he can get better sleep tonight. He restarted minipress last night and he was concerned that it was causing his stuffiness. Apparently this was a symptom that he felt he had last time he took it. He opened up today about his reoccurring nightmares. Talked about some specifics of them and then shared how he has flashbacks of them during the day, which cause increased fear and anxiety. Talked about his intrusive suicidal thoughts that have worsened over the past several months. He says he thinks about ways he can kill himself by buying pills and overdosing. He can often work past these thoughts and tell himself that "it's a crazy thought" and not rational. He has acted on the thought though 2x's in the past 6 months. Spent alot of time talking about how trauma effects our brain and that we have to work on retraining the brain to think differently. Mark was tearful during the meeting. He feels that individual therapy will be good for him. He talked about how he needs to work on getting past his anxiety, feelings of embarrasment/ shame regarding avoiding certain situations.
[2017-01-16 12:18] VITALS: BP 108/52
--- NOTE | 2017-01-16 14:09 | CP SOUTH PROGRESS NOTE PSYCH ---
Psych (Inpt) Progress Note Progress Note Include the following elements, when applicable: Involvement in the active treatment of the patient with behavioral observations of the patient and the patient's response to the treatment. Review of the ongoing treatment process in the context of the treatment plan. Indication of how multi-disciplinary staff members are carrying out the treatment plan. Plans for future interventions and recommendations for revision of the treatment plan. Liaison with other physicians/providers. Progress Note: Case and treatment plan discussed in team meeting. The patient is a 31-year-old white male admitted on 01/11/17 with suicidal ideation. The patient carries the diagnosis of major depressive disorder. Medication list reviewed. Staff reported that CIWA scores were low, so I discontinued CIWA. Described as irritable and somatic. Complained of stomach ache, headache and diarrhea. Amitiza was held yesterday. Patient seen at 12:43 PM. He is an ambulatory, overweight, casually dressed, bearded white male sitting in a chair in no acute distress. He is calm, polite and cooperative. There is no psychomotor agitation or retardation. Speech is normal in volume, rate and tone. Affect is calm and blunted. Patient reports he feels so-so today. He is feeling kind of anxious. Reports he has been dealing with really bad headaches despite ibuprofen 800 mg. States he has been having headaches all week. He thinks headaches could be due to restarting medications or from being stressed out or from not eating the greatest. Reports he resumed prazosin last night for nightmares but he states that prazosin clogs his nose. Nonetheless, wants to take prazosin 1 mg again tonight. Reports he had a good talk with Hollie Hudson LCSW today. Rates sad mood and anxiety both / 10. Feels hopeless but not helpless. Denies feeling worthless. Feels ashamed of the things he has done in his life. States he has no family anymore. Talked about his father dying from heart failure and from overdosing with drugs that the patient had gotten for him. Reports he gets suicidal thoughts when his mind becomes stagnant, for example while in acupuncture. I informed Madison Diehl RN about this. Patient gives a safety promise for here. Denies homicidal ideation. Denies auditory and visual hallucinations and paranoid ideation. Reports sleep is not very great. He had middle of the night awakenings 2 and reports that he has been up since 4:15 AM. Reports appetite is okay, normal. Reports energy is low. IMPRESSION: Slow progress. Continue present treatment plan. Continues to require inpatient level of care.
[2017-01-16 16:17] VITALS: BP 140/73
[2017-01-16 19:37] VITALS: BP 126/74
--- NOTE | 2017-01-16 21:24 | NUR ---
PT IS VISIBLE ON UNIT, SOCIALIZING WITH PEERS AND WATCHING TV IN KITCHEN. COOPERATIVE AND COMPLIANT WITH STAFF. ATTENDED WRAP UP MEETING. NO COMPLAINTS OR SI REPORTED. PT HAS A STABLE MOOD AND FULL RANGE AFFECT.
--- NOTE | 2017-01-17 07:21 | NUR ---
PATIENT AWAKE X1 DUE TO HEADACHE, GIVEN PRN IBUPROFEN AND NASAL SPRAY AT 0412, RETURNED TO SLEEP.
[2017-01-17 08:21] VITALS: BP 138/76
[2017-01-17 12:01] VITALS: BP 138/77
--- NOTE | 2017-01-17 13:12 | NUR ---
PT IS CONPLIANT AND COOPERATIVE WITH UNIT RULES. PT IS OUT IN COMMUNITY INTERACTING WELL WITH STAFF AND PEERS. PT IS ACTIVE IN MOST GROUPS. PT MOOD IS STABLE WITH A FULL RANGE AFFECT. PT IS STARTING TO FIGURE OUT DISCHARGE PLANS. PT DENIES SI THOUGHTS.
--- NOTE | 2017-01-17 15:58 | SOCIAL WORKER PROG NOTE PSYCH ---
Social Work Progress Note Progress Note Talked to Lavonne at [facility], who gave Mark an appt. to see Dr. Sandoval and his clinician Nighat on 01/23 at 10am. Lavonne will try and see Mark tomorrow if possible. Spoke with Mark, who reports having a better day today than yesterday. Less SI, but did have a discussion with another peer on the unit about choosing assisted if he had the choice. He talked about not have anything in his life to give him meaning. Brought up the fact that he has a 6 year old son that needs a Dad. He talked about feeling like he wanted to have a home and not look like a "jerk" in front of the molecular biology professor. He would have to go to court to try and have contact with his son. He was tearful. Talked about the pattern of avoidance in his life and how he needs to start acting on things in order to make change. Doing nothing doesn't change anything for him. Worked on the referral to [facility]. Faxed it to the program late this afternoon.
[2017-01-17 16:04] VITALS: BP 139/83
--- NOTE | 2017-01-17 16:05 | CP SOUTH PROGRESS NOTE PSYCH ---
Psych (Inpt) Progress Note Progress Note Include the following elements, when applicable: Involvement in the active treatment of the patient with behavioral observations of the patient and the patient's response to the treatment. Review of the ongoing treatment process in the context of the treatment plan. Indication of how multi-disciplinary staff members are carrying out the treatment plan. Plans for future interventions and recommendations for revision of the treatment plan. Liaison with other physicians/providers. Progress Note: I discussed this patient's progress to date, current mental status, treatment process in the context of the treatment plan, and discharge planning with staff/ team in the daily morning inpatient team meeting. I also met with the patient myself in individual session. S: "Talking about my son today got me upset." O: Current Medications Sig/Mike Start time Last Medication Dose Route Stop Time Status Admin Al Hydroxide/Mg 30 ML Q4-6 PRN PRN 01/12 1030 AC 01/15 Hydroxide PO 0838 Calcium Carbonate 500 MG Q8P PRN 01/12 1030 AC 01/15 PO 1014 Fluoxetine HCl 20 MG DAILY 01/14 1000 AC 01/17 PO 0806 Gabapentin 300 MG Q8P PRN 01/15 1445 DC 01/17 PO 1449 Ibuprofen 800 MG .STK-MED ONE 01/17 0406 DC PO 01/17 0407 Ibuprofen 800 MG Q8P PRN 01/12 0900 AC 01/17 PO 0412 Loperamide HCl 2 MG Q6P PRN 01/15 1445 AC 01/15 PO 1732 Lubiprostone 24 MCG BID 01/12 1000 AC 01/17 PO 0806 Melatonin 5 MG AT BEDTIME 01/13 2200 AC 01/16 PO 2145 Methadone HCl 90 MG DAILY AC 01/17 0700 AC 01/17 PO 0638 Mirtazapine 15 MG QPM 01/12 2200 AC 01/16 PO 2145 Nicotine 21 MG DAILY 01/12 1000 AC 01/17 TOP 0805 Nicotine 2 MG Q2P PRN 01/11 1930 AC 01/17 PO 1449 Olanzapine 2.5 MG 01/17 2200 UNVr PO Omeprazole 40 MG DAILY AC 01/12 0849 AC 01/17 PO 0637 Prazosin HCl 1 MG AT BEDTIME 01/15 2200 DC 01/15 PO 2214 Propranolol HCl 10 MG Q8P PRN 01/17 1615 UNVr PO Sodium Chloride 2 SPRAY Q4P PRN 01/15 1145 AC 01/17 ROMERO 0412 Testosterone 5 GM DAILY 01/12 1400 AC 01/17 TOP 0806 Vital Signs Date Time Temp Pulse Resp B/P B/P Pulse O2 O2 Flow FiO2 Mean Ox Delivery Rate 01/17 1201 74 138/77 01/17 0821 96.9 83 138/76 01/16 2146 97.6 81 16 126/74 01/16 1937 97.6 81 126/74 01/16 1617 67 140/73 A: Chart, progress notes, VS and medication list were reviewed. Patient presented alert and oriented x 3 on encounter. Speech was normal in rate , tone and volume. Affect was mostly constricted with episodic periods of crying. Mood was sad/depressed. He shared a conversation he had with another patient today about choosing assisted suicide if he had the choice. He also reported sharing this conversation with Hollie Hudson LCSW. He reported that sometimes he feels this way. He reported passive intermittent SI, no plan or intent today. He reported his son as being a protective factor; reported he woud not want his son to be fatherless like he had after his own father's overdose and . The patient however reported feeling overwhelmed by the court process of obtaining visiting privileges, and additionally expressed fear of being judged for being homeless by the court. He reported sleeping poorly last night and having a nightmare which he chose not to elaborate on. Of note, patient last took prazosin on 01/15/17. When this was brought up, he stated prazosin clogged his nose. He additionally stated that gabapentin was ineffective on his anxiety. He elected to discontinue both gabapentin and prazosin. He stated in the past inderal was helpful for anxiety/insomnia and elected to retrial. Also recommended a trial of low-dose Zyprexa at bedtime to adjunct prozac for tx resistent MDD. Reviewed the risk/benefit/se profiles of Zyprexa and Inderal with the patient. Patient verbalized understanding and was agreeable to trials. He denied AVH, HI and PI. There was no evidence of paranoia or nadira delusions. He reported stable appetite. He also reported low energy which he attributed to sleeping poorly last night. Thought process was linear. Cognition was grossly intact. He reported tolerating medications well and denied untoward medication effects. P: 1. Continue monitoring patient on unit for safety, mood and suicidal ideation. 2. Discontinue Gabapentin prn for anxiety given poor effect. Discontinue Prazosin 1mg QHS for nightmares given reported intolerance. 3. 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 SE of sedation may target insomnia. 4. Start Inderal 10mg Q8H prn for anxiety per pt request. 5. Dispo planning per primary team.
[2017-01-17 20:00] VITALS: BP 117/72
--- NOTE | 2017-01-17 21:47 | NUR ---
PT IS CALM, COOPERATOVE WITH STAFF AND PEERS, AND COMPLIANT WITH UNIT RULES. PT IS OFTEN IN MILIEU AND INTERACTING WELL WITH OTHERS. MOOD IS STBALE, AFFECT IS EUTHYMIC TO FULL RNAGE, COMMUNICATION IS ORGANIZED AND APPEARS NORMAL IN ALL RESPECTS, AND DENIES SI AT THIS TIME.
[2017-01-18 07:51] VITALS: BP 133/73
--- NOTE | 2017-01-18 11:49 | CP SOUTH PROGRESS NOTE PSYCH ---
See Addendum Psych (Inpt) Progress Note Progress Note Include the following elements, when applicable: Involvement in the active treatment of the patient with behavioral observations of the patient and the patient's response to the treatment. Review of the ongoing treatment process in the context of the treatment plan. Indication of how multi-disciplinary staff members are carrying out the treatment plan. Plans for future interventions and recommendations for revision of the treatment plan. Liaison with other physicians/providers. Progress Note: I discussed this patient's progress to date, current mental status, treatment process in the context of the treatment plan, and discharge planning with staff/ team in the daily morning inpatient team meeting. I also met with the patient myself in individual session. S: "I'm feeling a little down today, probably from the rainy weather." O: Vital Signs Date Time Temp Pulse Resp B/P B/P Pulse O2 O2 Flow FiO2 Mean Ox Delivery Rate 01/18 0751 98.4 87 133/73 01/17 2216 83 117/72 01/18 2000 97.6 83 117/72 01/17 1723 86 139/83 01/17 1604 86 139/83 01/17 1201 74 138/77 Current Medications Sig/Mike Start time Last Medication Dose Route Stop Time Status Admin Al Hydroxide/Mg 30 ML Q4-6 PRN PRN 01/12 1030 AC 01/15 Hydroxide PO 0838 Calcium Carbonate 500 MG Q8P PRN 01/12 1030 AC 01/15 PO 1014 Fluoxetine HCl 20 MG DAILY 01/14 1000 AC 01/18 PO 0808 Gabapentin 300 MG Q8P PRN 01/15 1445 DC 01/17 PO 1449 Ibuprofen 800 MG .STK-MED ONE 01/18 1956 DC PO 01/17 195 Ibuprofen 800 MG Q8P PRN 01/12 0900 AC 01/17 PO 2002 Loperamide HCl 2 MG Q6P PRN 01/15 1445 DC 01/15 PO 1732 Lubiprostone 24 MCG BID 01/12 1000 AC 01/18 PO 0807 Melatonin 5 MG AT BEDTIME 01/13 2200 AC 01/17 PO 2216 Methadone HCl 90 MG DAILY AC 01/17 0700 AC 01/18 PO 0619 Mirtazapine 15 MG QPM 01/12 2200 AC 01/17 PO 2216 Nicotine 21 MG DAILY 01/12 1000 AC 01/18 TOP 0807 Nicotine 2 MG Q2P PRN 01/11 1930 AC 01/18 PO 1010 Olanzapine 2.5 MG 2200 01/17 2200 AC 01/17 PO 2216 Omeprazole 40 MG DAILY AC 01/12 0849 AC 01/18 PO 0618 Prazosin HCl 1 MG AT BEDTIME 01/15 2200 DC 01/15 PO 2214 Propranolol HCl 10 MG Q8P PRN 01/17 1615 AC 01/17 PO 2216 Psyllium Hydrophilic 1 PAC BID 01/18 1200 UNVr Mucilloid PO Sodium Chloride 2 SPRAY Q4P PRN 01/15 1145 AC 01/17 ROMERO 1722 Testosterone 5 GM DAILY 01/12 1400 AC 01/18 TOP 0808 A: Chart, progress notes, labs, VS and medication list were reviewed. Vital signs within normal limits. No new lab results tody. Met with patient individually at 11:45 AM. He presented A&Ox3. Speech was normal in rate, tone and volume. Affect was calm and constricted. Mood was "a little down." Eye contact was appropriate. He reported not having a BM x 3 days. Believes this is due to lack of exercise on unit. Reported staying well hydrated. Appeared less somatic today. Denied N/V/D/DIAS. Reported sleep was "ok. " Energy level "so-so." Denied NMAs last night. Reported stable appetite. He shared that a case manager from [facility] visited him today and will get him a voucher for eyeglasses. He appeared hopeful for this. No psychomotor retardation or agitation was noted. Reported sadness/depression and anxiety both a 5/10 (10 being the worst). He reported feeling helpess and hopeless surrounding chronic lack of housing. Continues to feel ashamed over homelessness. Denied feeling worthless. He denied passive/active suicidal ideation, plans and intent. Denied homicidal ideation, auditory and visual hallucinations. He denied paranoid thoughts. There was no evidence of delusions. Thought process was linear, organized. Cognition was grossly intact. He reported tolerating medications well and denied untoward medication effects. P: 1. Continue monitoring patient on unit for safety, mood, suicidal ideation. 2. Continue meds. Consider increasing Prozac. 3. Start Metamucil BID for constipation. 4. Dispo planning per primary team - likely d/c Saturday with f/u to [facility] services.
--- NOTE | 2017-01-18 12:04 | SOCIAL WORKER PROG NOTE PSYCH ---
Social Work Progress Note Progress Note Lavonne from [facility] came to see Mark this morning. Asked how the visit went? He said it was short, but good. He stated she explained some services at [facility] that he could take advantage of that would help with some case management. She also informed him that she would prefer that if he misses an appt. to continue to reach out and not feel ashamed/ embarrassed. Mark is experiencing some constipation today. Waiting to get something prescribed to help his stomach feel better. He talked to Tracey Waldrop APRN about it. Asked if he wanted to give [facility] a call about their residential rehab today? He said he would. I provided him with the phone number. I also told him I would follow up with [facility] to see about doing his phone screening. Left a message with Joshua from [facility] to follow up on Mark's screening. Mark was not able to speak with anyone from [facility] residential, the person was out today. He will call back on Saturday.
[2017-01-18 12:08] VITALS: BP 129/59
--- NOTE | 2017-01-18 12:52 | NUR ---
PT HAS VISIBLE SOME OF THE DAY IN THE [place]. HE DID NOT ATTEND PLANNING MEETING THIS MORNING BUT DID GO TO [employer]. PT HAS SOME INTERACTIONS WITH HIS PEERS, AND STAFF. IN THE MILIEU PT HAS BEEN COOPERATIVE WITH THE RULES OF THE UNIT, AND DENIES THOUGHTS OF HURTING HIMSELF WHEN ASKED.
[2017-01-18 18:02] VITALS: BP 133/72
[2017-01-18 20:19] VITALS: BP 123/85
--- NOTE | 2017-01-18 22:23 | NUR ---
PT HAD SOME OUTBURTS WITH STAFF REGARDING THE TV CHANNEL AND GETTING VITALS. WAS UPSET THAT [facility] COULD NOT BE ON AND THAT HE WAS DENIED GETTING A PRN BECAUSE HIS VITALS WERE NOT TAKEN. SPENT TIME WATCHING TV OR ASLEEP IN BED. PT CLAIMED TO NOT FEEL GOOD AND THAT HE HAD A HEADACHE. PT DENIES ANY THOUGHTS OF SI AT THIS TIME.
[2017-01-19 07:58] VITALS: BP 111/72
[2017-01-19 12:24] VITALS: BP 139/90
--- NOTE | 2017-01-19 13:17 | CP SOUTH PROGRESS NOTE PSYCH ---
Psych (Inpt) Progress Note Progress Note Include the following elements, when applicable: Involvement in the active treatment of the patient with behavioral observations of the patient and the patient's response to the treatment. Review of the ongoing treatment process in the context of the treatment plan. Indication of how multi-disciplinary staff members are carrying out the treatment plan. Plans for future interventions and recommendations for revision of the treatment plan. Liaison with other physicians/providers. Progress Note: Stated that he is tired, that he has trouble staying asleep. Gets up at same time in middle of the night. Declined anything else to help him sleep frustrated w/ his progress, irritable and dismissive at times. Stated that he continues to have passive suicidal thoughts, that they have been largely unchangewd. Stated that he feels comfortable here, no intention of trying to when probed more about suicide currently; but that if given a choice, he would prefer to re-evaluated his active thoughts and he continued to deny active thoughts, stating that these are always there, look at my chart and that he has had no significant change. MSE: young aged man, fair hygiene and grooming. Poor eye contact, irritable at times. No psychomotor changes noted. Affect constricted to blunted, mood neutral to dysphoric, appears irritable. Speech is wnl. Thought process is linear. Thought content positive for depressed mood, passive thoughts of not wanting to be alive, anhedonia. Denied hallucinations currently. Fair insight; fair judgment. A: 31 y/o man w/ hx dx of MDD, substance use hx, withdrawn, depressed overall. P: Target risk factors/active sx (residual depressive sx,) w// medication changes (increase prozac back to 40mg/day); re-eval regularly, engage in groups. Also discussed increasing day time activity; avoiding day time sleeping. Re-eval self harm and depressive thoughts regularly.
[2017-01-19 16:08] VITALS: BP 113/58
[2017-01-19 19:47] VITALS: BP 142/66
--- NOTE | 2017-01-19 21:27 | NUR ---
PT IS OFTEN COOPERATIVE WITH STAFF AND PEERS, AND COMPLIANT WITH UNIT RULES. PT CAN BE SLIGHTLY IRRITABLE, ABD BECOME AGIATED AT TIMES, THOUGH THIS QUICKLY PASSES. OFTEN IN MILIEU, INTERACTING WELL WITH PEERS. PT ONCE IN A WHILE WILL ISOLATE IN PT ROOM. MOOD IS STABLE, AFFECT IS EUTHYMIC TO FULL RANGE, COMMUNICATION IS ORGANIZED AND APPEARS NORMAL IN ALL RESPECTS, AND APPETITE IS NORMAL. PT DENIES SI AT THIS TIME.
--- NOTE | 2017-01-20 05:36 | NUR ---
PT APPEARED TO SLEEP. PT COMPLAINS OF STOMACH UPSET. MAALOX PRN. PT C REGULAR NICOTINE GUM REQUESTS.
[2017-01-20 07:47] VITALS: BP 119/73
--- NOTE | 2017-01-20 11:55 | NUR ---
Mark was slightly irritable this shift. Denies SH/HI/SI. Was informed his testerone cream needed to be re-ordered and this is still pending. Both groups were not attended today. Isolative and spent all am in his room despite encouragement.
[2017-01-20 12:11] VITALS: BP 130/69
--- NOTE | 2017-01-20 13:02 | CP SOUTH PROGRESS NOTE PSYCH ---
Psych (Inpt) Progress Note Progress Note Include the following elements, when applicable: Involvement in the active treatment of the patient with behavioral observations of the patient and the patient's response to the treatment. Review of the ongoing treatment process in the context of the treatment plan. Indication of how multi-disciplinary staff members are carrying out the treatment plan. Plans for future interventions and recommendations for revision of the treatment plan. Liaison with other physicians/providers. Progress Note: Feels better today compared to yesterday; said that he slept better than he had since admission, only waking once. C/o constipation, said he generally has a problem but being here makes it worse. Mood is even, denied suicidal thuoghts today - Said that he has suicidal thoughts when he is stagnant and has nothign else to concentrate on; that he has been telling staff when he is more upset and depressed and feels comfortable telling staff about suicidal thoughts as well. Said that prozac usually makes him more irritable initially then improves his mood. No issues w/ increased prozac dose. MSE: young aged man, well groomed, adequate hygiene. Eye contact better today, better related. Some psychomotor slowing. AFfect more full and reactive though still constricted; mood neutral. Speech normal. Thought process is linear. Thought content negative for depressed mood or SI/HI. No evidence of internal preoccupation or AH/VH. Fair insight; fair judgment. A: 31 y/o man w/ hx dx of MDD, substance use hx, withdrawn, depressed overall. P: Target risk factors/active sx (residual depressive sx,) w// medication changes (increased prozac back to 40mg/day); re-eval regularly, engage in groups. Constipation - increased colace to tid; prune juice and exercise to stimulate bowels.
[2017-01-20 15:58] VITALS: BP 142/75
[2017-01-20 20:03] VITALS: BP 137/81
--- NOTE | 2017-01-20 22:00 | NUR ---
PT IS COOPERATIVE WITH STAFF AND PEERS, AND COMPLIANT WITH UNI8T RULES. PT IS BOTH IN AND OUT OF MILIEU, SOMETIMES ISOLATING IN PT ROOM. WHILE IN MILIEU, PT INETRACTS WELL WITH OTHERS. PT CAN BE IRRIATBLE AT TIME. MOOD IS STABLE, AFFECT IS EUTHYMIC TO FULL RANGE, COMMUNICATION IS ORGANZIED AND APPEARS NORMAL IN ALL RESPECTS, AND APPETITE IS NORMAL. PT DENIES SI AT THIS TIME.
--- NOTE | 2017-01-21 07:11 | NUR ---
PT APPEARED TO SLEEP WELL. PT CONTINUES SOMATIC. PT COMPLAINS OF CONSTIPATION CONTINUING- 2 GLASSES OF PRUNE JUICE ON EVENINGS.
[2017-01-21 07:44] VITALS: BP 139/68
--- NOTE | 2017-01-21 11:43 | NUR ---
PT HAS BEEN ISOATLIVE IN ROOM FOR THE WHOLE SHIFT. PT DOES COME OUT WHEN ASKED FOR VITALS AND MEALS. PT MOOD IS STABLE WITH A CONSTRICTED AFFECT. PT IS NOT ATTENDING GROUPS TODAY. PT DENIES SI THOUGHTS.
[2017-01-21 12:20] VITALS: BP 136/61
--- NOTE | 2017-01-21 13:41 | CP SOUTH PROGRESS NOTE PSYCH ---
Psych (Inpt) Progress Note Progress Note Include the following elements, when applicable: Involvement in the active treatment of the patient with behavioral observations of the patient and the patient's response to the treatment. Review of the ongoing treatment process in the context of the treatment plan. Indication of how multi-disciplinary staff members are carrying out the treatment plan. Plans for future interventions and recommendations for revision of the treatment plan. Liaison with other physicians/providers. Progress Note: I discussed this patient's progress to date, current mental status, treatment process in the context of the treatment plan, and discharge planning with staff/ team in the daily morning inpatient team meeting. I also met with the patient myself in individual session. S: "I'm feeling alright today." O: Current Medications Sig/Mike Start time Last Medication Dose Route Stop Time Status Admin Al Hydroxide/Mg 30 ML .STK-MED ONE 01/21 0233 DC Hydroxide PO 01/21 0234 Al Hydroxide/Mg 30 ML Q4-6 PRN PRN 01/12 1030 AC 01/21 Hydroxide PO 1213 Calcium Carbonate 500 MG Q8P PRN 01/12 1030 AC 01/15 PO 1014 Docusate Sodium 100 MG TID 01/20 1600 AC 01/21 PO 0840 Fluoxetine HCl 40 MG DAILY 01/20 1000 AC 01/21 PO 0840 Ibuprofen 800 MG .STK-MED ONE 01/21 0236 DC PO 01/21 0237 Ibuprofen 800 MG Q8P PRN 01/12 0900 AC 01/21 PO 0242 Lubiprostone 24 MCG BID 01/12 1000 AC 01/21 PO 0840 Melatonin 5 MG AT BEDTIME 01/13 2200 AC 01/20 PO 2216 Methadone HCl 90 MG DAILY AC 01/17 0700 AC 01/21 PO 0621 Mirtazapine 15 MG QPM 01/12 2200 AC 01/20 PO 2215 Nicotine 21 MG DAILY 01/12 1000 AC 01/21 TOP 0841 Nicotine 2 MG Q2P PRN 01/11 1930 AC 01/21 PO 1213 Olanzapine 2.5 MG 2200 01/17 2200 AC 01/20 PO 2215 Omeprazole 40 MG DAILY AC 01/12 0849 AC 01/21 PO 0619 Polyethylene Glycol 17 GM DAILY 01/18 1900 DC 01/20 PO 0801 Propranolol HCl 10 MG Q8P PRN 01/17 1615 AC 01/20 PO 2215 Senna/Docusate Sodium 1 TAB BID 01/21 1345 UNVr PO Senna/Docusate Sodium 1 TAB BID 01/21 1315 CAN PO Sodium Chloride 2 SPRAY Q4P PRN 01/15 1145 AC 01/20 ROMERO 2230 Testosterone 5 GM DAILY 01/20 1130 AC 01/21 TOP 0841 Vital Signs Date Time Temp Pulse Resp B/P B/P Pulse O2 O2 Flow FiO2 Mean Ox Delivery Rate 01/21 1220 75 136/61 01/21 0744 97.4 86 139/68 01/20 2215 97.9 100 16 137/81 01/20 2003 97.9 100 137/81 01/20 1558 91 142/75 A: Chart, progress notes, labs, VS and medication list were reviewed. Met with patient today, together with Hollie Hudson LCSW. Patient initially complained of constipation. Reported difficulty passing stool over the weekend, despite regimen of miralax and colace. Colace was increased to 100mg TID (from BID). He reported passing "small" BMs on Saturday and Saturday of "hard" stool. He has been drinking prune juice daily since the weekend. Reported feeling abd pressure, however abd did not appear distended. He shared that his mood over the weekend was irritable, stated temporary irritability frequently occurs with increase in Prozac. Denied present irritability. Reported his mood as somewhat improved. Rated depression today a 2 /10 (10 being the worst) and anxiety today a 3/10 (10 being the worst). He denied passive and active suicidal ideation, plans and intent. He denied homicidal ideation. He reported his 6 y/o son as a protective factor, and shared he would like to be present in his life. He reported fair sleep over the weekend with intermittent nightmares which he cannot remember. He had no interest in restarting Prazosin for NMAs given reported SE of "nasal clogging." Thought process was linear and goal-directed. He denied auditory and visual hallucinations and paranoid thoughts. There was no evidence of delusions. He reported tolerating medications well and denied untoward effects. P: 1. Continue monitoring patient on unit for safety, mood and suicidal ideation. 2. Discontinue Miralax daily. Start Senna-S 1 tab BID for constipation. Continue Colace 100mg TID, prune juice, increased po fluids for bowel support. 3. Continue current psych meds. 4. Discharge likely tomorrow with f/u at [facility]. Awaiting bed availability at [facility].
--- NOTE | 2017-01-21 13:42 | SOCIAL WORKER PROG NOTE PSYCH ---
Social Work Progress Note Progress Note Mark has been in his room most of the morning. He is complaining of abdominal pain related to consitipation. Met with Tracey Waldrop APRN and I together. Tracey may start him on a new laxative. Mark reports that his mood was somewhat irritable on Saturday, but improving yesterday and today. No SI today and reports minimal depression and worry. He was able to say that thoughts about his son came up for him when he had some SI yesterday. Stated he wouldn't want to do that to his son. He feels that gives him some more meaning in his life. Encouraged him to reach out to [facility] again today regarding a referral for rehab. I told him I was still in the process of trying to connect with the [employer] from [facility]. He is feeling somewhat anxious about where he would go tomorrow once discharged. Reminded him of his appt. on at [facility] and that from there, he would schedule one on one sessions with his therapist. He is looking forward to receiving those services. Mark called [facility], but the person was already gone for the day. He will try again tomorrow morning. Left another message with Joshua from [facility].
[2017-01-21 15:49] VITALS: BP 128/92
[2017-01-21 20:07] VITALS: BP 121/75
--- NOTE | 2017-01-22 04:53 | NUR ---
Slept well, no complaints offered.
[2017-01-22 07:48] VITALS: BP 118/69
--- NOTE | 2017-01-22 10:25 | CP SOUTH PROGRESS NOTE PSYCH ---
Psych (Inpt) Progress Note Progress Note Include the following elements, when applicable: Involvement in the active treatment of the patient with behavioral observations of the patient and the patient's response to the treatment. Review of the ongoing treatment process in the context of the treatment plan. Indication of how multi-disciplinary staff members are carrying out the treatment plan. Plans for future interventions and recommendations for revision of the treatment plan. Liaison with other physicians/providers. Progress Note: I discussed this patient's progress to date, current mental status, treatment process in the context of the treatment plan, and discharge planning with staff/ team in the daily morning inpatient team meeting. I also met with the patient myself in individual session. S:"Having no place to go is like having a black hole in my mind." O: Current Medications Sig/Mike Start time Last Medication Dose Route Stop Time Status Admin Al Hydroxide/Mg 30 ML .STK-MED ONE 01/21 1207 DC Hydroxide PO 01/21 1208 Al Hydroxide/Mg 30 ML Q4-6 PRN PRN 01/12 1030 AC 01/21 Hydroxide PO 1213 Calcium Carbonate 500 MG Q8P PRN 01/12 1030 AC 01/15 PO 1014 Docusate Sodium 100 MG TID 01/20 1600 AC 01/22 PO 0802 Fluoxetine HCl 40 MG DAILY 01/20 1000 AC 01/22 PO 0801 Ibuprofen 800 MG Q8P PRN 01/12 0900 AC 01/21 PO 0242 Lubiprostone 24 MCG BID 01/12 1000 AC 01/22 PO 1025 Melatonin 5 MG AT BEDTIME 01/13 2200 AC 01/21 PO 2249 Methadone HCl 90 MG DAILY AC 01/17 0700 AC 01/22 PO 0627 Mirtazapine 15 MG QPM 01/12 2200 AC 01/21 PO 2249 Nicotine 2 MG .STK-MED ONE 01/21 2014 DC PO 01/21 2015 Nicotine 2 MG .STK-MED ONE 01/21 1730 DC PO 01/21 1731 Nicotine 21 MG DAILY 01/12 1000 AC 01/22 TOP 0802 Nicotine 2 MG Q2P PRN 01/11 1930 AC 01/22 PO 1005 Olanzapine 5 MG 01/22 2200 AC PO Olanzapine 2.5 MG 01/17 2200 DC 01/21 PO 2251 Omeprazole 40 MG DAILY AC 01/12 0849 AC 01/21 PO 2246 Polyethylene Glycol 17 GM DAILY 01/18 1900 DC 01/20 PO 0801 Propranolol HCl 10 MG Q8P PRN 01/17 1615 AC 01/20 PO 2215 Senna/Docusate Sodium 1 TAB BID 01/21 1345 AC 01/22 PO 0802 Senna/Docusate Sodium 1 TAB BID 01/21 1315 CAN PO Sodium Chloride 2 SPRAY Q4P PRN 01/15 1145 AC 01/21 ROMERO 2319 Sodium Phosphate 1 UNIT ONCE ONE 01/21 2200 DC 01/21 DC 01/21 2201 2247 Testosterone 5 GM DAILY 01/20 1130 AC 01/22 TOP 0801 Vital Signs Date Time Temp Pulse Resp B/P B/P Pulse O2 O2 Flow FiO2 Mean Ox Delivery Rate 01/23 748 97.2 87 118/69 01/21 2007 98.5 85 121/75 01/21 1549 81 128/92 01/21 1220 75 136/61 A: Chart, progress notes, labs, VS, and medication list reviewed. Patient received a 1 x fleet enema last evening with good effect. Patient reported having adequate BM last night. Met with patient today together with Hollie Hudson LCSW at 10:10AM. Patient shared he felt nervous about not having a place to return to post-discharge. Reported not sleeping at all last night due to racing thoughts/anxiety. Reported he spent all night planning suicide once discharged. He endorsed suicidal ideation with plan to overdose on pills and intent if he were discharged today. He gave a safety promise while on unit and reported feeling safe here. Denied homicidal ideation. Mood was depressed. Affect was constricted and tearful at times. Speech was normal in rate, tone and volume. Thought process linear. Thought content depressed. Denied AH/VH/PI. No evidence of delusions. Appetite stable. Reported tolerating medications well and denied untoward medication effects. Discussed option of increasing Zyprexa to 5mg QHS to target racing thoughts, adjunct antidepressant effect of Prozac, and SE of sedation which may help with insomnia. Med education was provided including the risks/benefits/SEs of increasing Zyprexa. Patient was initially hesitant, then agreed to increase in Zyprexa. P: 1. Continue monitoring patient on unit for mood, racing thoughts, suicidal ideation, safety. 2. Increase Zyprexa from 2.5mg QHS to 5mg QHS for racing thoughts/adjunct antidepressant effect/insomnia. 3. Continue other medications. 4. Continue to explore placement options - [facility] residential, [facility].
--- NOTE | 2017-01-22 11:48 | SOCIAL WORKER PROG NOTE PSYCH ---
Social Work Progress Note Progress Note Tracey Waldrop APRN and I met with Mark this morning. Mark said the constipation was improving. He reported not sleeping last night, due to anxiety over where he would be going to stay today and thoughts of how he would end his life. He said he has been over the steps and would overdose on his medications. Mostly these feelings are stemmed from his lack of housing. Mark was tearful during the meeting. Tracey explored raising the Zyprexa that he is currently on to 5mg at night, to help with racing thoughts and anxiety. He is fearful of side effects, but agreed to the increase at this time. Tracey and I agreed that he was not safe to discharge today. Encouraged him to attend group and call [facility]. I called [facility] and left a message with Lavonne Kim about canceling Mark's appt. for tomorrow and rescheduling it. Called Joshua a couple of times to do the phone screening for [facility], but was still unable to connect.
[2017-01-22 12:13] VITALS: BP 141/69
--- NOTE | 2017-01-22 13:15 | NUR ---
PT IS ISOALTIVE IN ROOM, SLEEPING FOR MOST OF THE SHIFT. PT IS OUT IN COMMUNITY AT TIMES, ATTENDING SOME GROUPS. PT MOOD IS STABLE WITH A CONSTRIACTED AFFECT. PT DENIES SI THOUGHTS.
[2017-01-22 15:54] VITALS: BP 118/80
[2017-01-22 20:35] VITALS: BP 131/68
--- NOTE | 2017-01-22 22:30 | NUR ---
PATIENT ISOLATIVE IN ROOM ALL SHIFT; VITAL SIGNS WNL; PATIENT DENIES S/I AT THIS TIME; CALM, COOPERATIVE MOOD WHEN APPROACHED.
--- NOTE | 2017-01-23 07:11 | NUR ---
PATIENT AWAKE AT 0200 WITH [facility]; GIVEN PRN MAALOX FOR INDIGESTION AND NICOTINE GUM; PATIENT SLEPT REST OF NIGHT.
[2017-01-23 08:11] VITALS: BP 138/77
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
[2017-01-23 12:41] VITALS: BP 117/69
--- NOTE | 2017-01-23 13:35 | NUR ---
PT HAS BEEN WITHDRAWN AND ISOLATIVE IN ROOM, SLEEPING MUCH OF DAY. PT MOOD IS STABLE WITH A EUTHYMIC AFFECT. PT DENIES SI AT THIS TIME, NO COMPLAINTS OFFERED. PT PRESENT ON UNIT FOR MEALS AND VITALS. PT HAS MINIMAL INTERACTION WITH PEERS AND STAFF. PT HAS REFUSED GROUPS. VITALS ARE STABLE, APPETITE IS GOOD.
[2017-01-23 16:27] VITALS: BP 135/77
[2017-01-23 20:04] VITALS: BP 126/56
--- NOTE | 2017-01-23 21:31 | NUR ---
PT IS VISIBLE ON UNIT, SOCIAL WITH PEERS AND WATCHING TV IN KITCHEN. COOPERATIVE AND COMPLAINT WITH STAFF. REFUSED WRAP UP MEETING. NO COMPLAINTS OR SI REPORTED. PT HAS A STABLE MOOD AND FULL RANGE AFFECT.
--- NOTE | 2017-01-24 06:12 | NUR ---
PT UP X 1. SOMATIC. PT APPEARED TO SLEEP. PPD PLACE RIGHT FOREARM.
[2017-01-24 07:55] VITALS: BP 130/68
--- NOTE | 2017-01-24 12:01 | NUR ---
PT ATTENDED 2 GROUPS THIS MORNING AND VERBALIZED HIS CONVCERNS APPROPRIATELY. HE DENIED ANY THOUGHTS OF SUICIDE OR SELF HARM AT THIS TIME. HE IS COMPLIANT WITH HIS MED REGIME
[2017-01-24 12:12] VITALS: BP 110/74
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
--- NOTE | 2017-01-24 14:42 | CP SOUTH PROGRESS NOTE PSYCH ---
Psych (Inpt) Progress Note Progress Note Progress Note: I discussed this patient's progress to date, current mental status, treatment process in the context of the treatment plan, and discharge planning with staff/ team in the daily morning inpatient team meeting. I also met with the patient myself in individual session. SUBJECTIVE: "I'm not having suicidal thoughts today. Suicide would be my easy way out. If I could, I'd rather be . I've lost hope." OBJECTIVE: Current Medications Sig/Mike Start time Last Medication Dose Route Stop Time Status Admin Al Hydroxide/Mg 30 ML Q4-6 PRN PRN 01/12 1030 AC 01/24 Hydroxide PO 1216 Calcium Carbonate 500 MG Q8P PRN 01/12 1030 AC 01/15 PO 1014 Docusate Sodium 100 MG TID 01/20 1600 AC 01/23 PO 2203 Fluoxetine HCl 40 MG DAILY 01/20 1000 AC 01/24 PO 1014 Ibuprofen 800 MG Q8P PRN 01/12 0900 AC 01/24 PO 1337 Lubiprostone 24 MCG BID 01/12 1000 AC 01/24 PO 1014 Magnesium Citrate 300 ML ONE ONE 01/24 1400 DC PO 01/24 1401 Melatonin 5 MG AT BEDTIME 01/13 2200 AC 01/23 PO 2203 Methadone HCl 90 MG DAILY AC 01/17 0700 AC 01/24 PO 0717 Mirtazapine 15 MG 01/24 2100 UNVr PO Mirtazapine 15 MG QPM 01/12 2200 DC 01/23 PO 2203 Nicotine 21 MG DAILY 01/12 1000 AC 01/24 TOP 1014 Nicotine 2 MG Q2P PRN 01/11 1930 AC 01/24 PO 1415 Olanzapine 5 MG 01/24 2100 UNVr PO Olanzapine 5 MG 01/22 2200 DC 01/23 PO 2203 Omeprazole 40 MG DAILY AC 01/12 0849 AC 01/24 PO 1014 Prazosin HCl 2 MG 01/24 2100 UNVr PO Prazosin HCl 1 MG AT BEDTIME 01/23 2200 DC 01/23 PO 2203 Senna/Docusate Sodium 1 TAB BID 01/21 1345 AC 01/22 PO 0802 Sodium Chloride 2 SPRAY Q4P PRN 01/15 1145 AC 01/24 ROMERO 1216 Testosterone 5 GM DAILY 01/20 1130 AC 01/24 TOP 1014 Vital Signs Date Time Temp Pulse Resp B/P B/P Pulse O2 O2 Flow FiO2 Mean Ox Delivery Rate 01/24 1212 94 110/74 01/24 0755 97.2 78 130/68 01/23 2203 126/56 01/24 2004 96.7 77 12656 01/23 1627 73 135/77 ASSESSMENT: Patient's chief complaint today is lower abdominal pain/ constipation. Reports having one small bowel movement yesterday. States has been feeling constipated for the past few days. Patient requesting additional medications. After discussion with Dr. Howell, we will prescribe one bottle of magnesium citrate today for continuing constipation. Patient presents today as calm and cooperative, tearful. Patient recounted stories about his relationship with his father, and his father's 8 years ago from drug overdose. The patient and his father had long history of substance abuse together. Depression:5/10; Anxiety:5/10 (with 10 the worst.) Denies suicidal ideation, homicidal ideation, auditory hallucinations, visual hallucinations, paranoid ideation. He reports that he has a long history of depression, "I'm always depressed." Although the patient states that he would rather be , he has no current plan or intent to harm himself. Denies having suicidal thoughts today. Complains of nightmares since prazosin was discontinued prior to arrival in the hospital. We will increase prazosin from 1 mg to 2 mg tonight. Speech is well articulated, goal-directed, average in rate, volume and tone. Alert and oriented to person, place, time and situation. Logical. Cooperative. The patient understands the risks/benefits/side effects of the medication and is agreeable to continue taking them. PLAN: Anticipate discharge in the near future. Patient has an approved state housing voucher, otherwise he is homeless, considering living in a tent after discharge. Prazosin 2 mg at bedtime for nightmares. Continue with current management as patient is improving. Continue to provide support and encouragement.
[2017-01-24 15:31] VITALS: BP 111/65
[2017-01-24 20:08] VITALS: BP 140/72
--- NOTE | 2017-01-24 22:29 | NUR ---
PT IS CALM, COOPERATIVE WITH STAFF AND PEERS, AND COMPLIANT WITH UNIT RULES. PT IS OFTEN IN [place], INTERACTING WELL WITH OTHERS. CAN AT TIMES BE SLIGHTLY IRRITABLE, BUT THIS QUICKLY PASSES. MOOD IS STABLE, AFFECT APPEARS EUTHYMIC TO FULL RANGE, COMMUNICATION IS ORGANIZED AND APPEARS NORMAL IN ALL RESPECTS, AND APPETITE IS NORMAL. PT DENIES SI AT THIS TIME.
--- NOTE | 2017-01-25 05:35 | NUR ---
PT SAD, FORLORN LOOKING. PT COMPALINS OF BOWEL BACKUP. PT UP X 2. PT SLEPT- UP EARLY.
[2017-01-25 08:15] VITALS: BP 117/60
[2017-01-25 12:45] VITALS: BP 123/80
--- NOTE | 2017-01-25 13:56 | SOCIAL WORKER PROG NOTE PSYCH ---
Social Work Progress Note Progress Note Mark participated in groups this morning. Early afternoon he was reading in his room. He continues to complain of sharp pains in his lower abdominal area. Mood seems a little better today. He reported no nightmares, which seems to help his day go better. Continues to complain of nasal congestion, possibly from the minipress. I told him that I continue to have difficulty connecting with Joshua at [facility]. I told him that I left a message with [facility] about follow up on his referral. Encouraged him to try [facility] again. I told him that we will look at discharge for Saturday. He seemed ambivalent stating he won't have his foodstamps until Saturday. I reminded him that his new appt. with Dr. Sandoval is Tuesday 01/30. Mark talked about groups he has been doing. He described the art group he went to. Focus was on drawing things that he would like to nourish/ grow and the other side is drawing the things to trash/ dump. He seemed to enjoy this project and another one that was done. He said he has been doing more drawing since he has been here. Mark went for an xray later of his abdominal area.
--- NOTE | 2017-01-25 14:10 | NUR ---
PT HAS BEEN WITHDRAWN AND ISOLATIVE IN ROOM FOR THE MAJORITY OF THE DAY, SLEEPING. PT DENIES SI AT THIS TIME, NO COMPLAINTS OFFERED. PT HAS A FLAT AFFECT WITH AN IRRITABLE EDGE. PT PRESENT MORE ON UNIT AFTER LUNCH. PT HAS SOME INTERACTION WITH PEERS AND STAFF. PT HAS ATTENDED ONE GROUP TODAY. VITALS ARE STABLE, APPETITE IS GOOD.
--- NOTE | 2017-01-25 14:13 | CP SOUTH PROGRESS NOTE PSYCH ---
Psych (Inpt) Progress Note Progress Note Include the following elements, when applicable: Involvement in the active treatment of the patient with behavioral observations of the patient and the patient's response to the treatment. Review of the ongoing treatment process in the context of the treatment plan. Indication of how multi-disciplinary staff members are carrying out the treatment plan. Plans for future interventions and recommendations for revision of the treatment plan. Liaison with other physicians/providers. Progress Note: OBJECTIVE: Current Medications Sig/Mike Start time Last Medication Dose Route Stop Time Status Admin Al Hydroxide/Mg 30 ML .STK-MED ONE 01/25 0219 DC Hydroxide PO 01/25 0220 Al Hydroxide/Mg 30 ML Q4-6 PRN PRN 01/12 1030 AC 01/25 Hydroxide PO 0916 Calcium Carbonate 500 MG Q8P PRN 01/12 1030 AC 01/15 PO 1014 Docusate Sodium 100 MG TID 01/20 1600 AC 01/25 PO 0916 Fluoxetine HCl 40 MG DAILY 01/20 1000 AC 01/25 PO 0916 Ibuprofen 800 MG Q8P PRN 01/12 0900 AC 01/25 PO 1109 Lubiprostone 24 MCG BID 01/12 1000 AC 01/25 PO 0916 Melatonin 5 MG AT BEDTIME 01/13 2200 AC 01/24 PO 2216 Methadone HCl 90 MG DAILY AC 01/17 0700 AC 01/25 PO 0631 Mirtazapine 15 MG 01/24 2100 AC 01/24 PO 2018 Mirtazapine 15 MG QPM 01/12 2200 DC 01/23 PO 2203 Nicotine 2 MG .STK-MED ONE 01/24 1801 DC PO 01/24 1802 Nicotine 2 MG .STK-MED ONE 01/24 1410 DC PO 01/24 1411 Nicotine 21 MG DAILY 01/12 1000 AC 01/25 TOP 0916 Nicotine 2 MG Q2P PRN 01/11 1930 AC 01/25 PO 1231 Olanzapine 5 MG 01/24 AC 01/24 PO 2018 Olanzapine 5 MG 01/22 2200 DC 01/23 PO 2203 Omeprazole 40 MG DAILY AC 01/12 0849 AC 01/25 PO 0631 Prazosin HCl 2 MG 01/24 2100 AC 01/24 PO 2018 Prazosin HCl 1 MG AT BEDTIME 01/23 2200 DC 01/23 PO 2203 Senna/Docusate Sodium 1 TAB BID 01/21 1345 AC 01/25 PO 0916 Sodium Chloride 2 SPRAY Q4P PRN 01/15 1145 01/25 ROMERO 1230 Testosterone 5 GM DAILY 01/20 1130 01/25 TOP 0915 Vital Signs Date Time Temp Pulse Resp B/P B/P Pulse O2 O2 Flow FiO2 Mean Ox Delivery Rate 01/25 1245 75 123/80 01/25 0815 97.0 84 117/60 01/24 2018 75 140/72 01/25 2008 97.2 75 140/72 01/24 1531 72 111/65 ASSESSMENT: Chart, progress notes, labs, VS and medication list were reviewed. Patient reported continued abd pain and constipation as of yesterday. Received dose of magnesium citrate yesterday for constipation. Reported this morning having small , hard BM, still c/o abd pain. Reviewed in team with Dr. Howell, will order an abd xr. Met with patient this afternoon. He presented alert and oriented x 3. Speech was average in rate, tone and volume. Eye contact was overall appropriate. Affect was blunted. He had no complaints besides for bowel issues and nasal "stuffiness ". Asked to switch from saline nasal spray to Afrin nasal spray given past positive efficacy. Denied presence of NMAs last night on increased Prazosin (2mg QHS) and this being the result of his "better" mood today; reported that typically his NMAs linger throughout the day and he has difficulty letting them go. Depression: 3/10 (10 being the worst). Anxiety: 3/10 (10 being the worst). Denied feeling helpless and worthless. Reported feeling hopeless over homelessnes. Denied passive and active suicidal ideation, plans, intent. Reported last endorsing SI on 01/23/17. Denied homicidal ideation, racing thoughts, auditory/visual hallucinations, paranoid thoughts. No evidence of delusions. Reported sleep was fair and appetite was good. Thought process was linear. Cognition grossly intact. Reported tolerating medications well and denied untoward medication effects; agreeable to continue taking. PLAN: 1. Continue monitoring on unit for safety, suicidal ideation, mood and constipation. 2. ABD XR ordered to r/o bowel impaction. 3. Discontinue saline nasal spray. Start Afrin nasal spray bid for nasal congestion. 4. Continue current psych meds. 5. Discharge likely Saturday with f/u to [facility].
[2017-01-25 16:08] VITALS: BP 120/75
--- NOTE | 2017-01-25 16:08 | RADIOLOGY REPORT ---
EXAMINATION: XR ABDOMEN CLINICAL INDICATION: Constipation, abdominal pain. COMPARISON: None TECHNIQUE: AP view of the abdomen. FINDINGS: Extensive fecal residual is noted throughout the entire large bowel. There is nonspecific bowel gas pattern present. No abnormal soft tissue mass or calcification present. Incidental note is made of partial sacralization of the right-sided L5 transverse process. IMPRESSION: Partial sacralization of L5 on the right. Extensive fecal residual within the large bowel.
[2017-01-25 20:05] VITALS: BP 139/77
--- NOTE | 2017-01-25 21:45 | NUR ---
Pt is out in the community affect is flat interacts with his peers. No behavioral issues noted during the day. Vital signs are stable appetite good. Will continue to monitor the pt overnight.
--- NOTE | 2017-01-26 06:41 | NUR ---
PATIENT GIVEN IBUPROFEN 800MG FOR PAIN AND NICOTINE GUM AT 0030 HOURS, AND SLEPT ALL NIGHT AFTER 0100.
[2017-01-26 07:47] VITALS: BP 134/78
[2017-01-26 12:15] VITALS: BP 122/63
--- NOTE | 2017-01-26 13:44 | CP SOUTH PROGRESS NOTE PSYCH ---
Psych (Inpt) Progress Note Progress Note Include the following elements, when applicable: Involvement in the active treatment of the patient with behavioral observations of the patient and the patient's response to the treatment. Review of the ongoing treatment process in the context of the treatment plan. Indication of how multi-disciplinary staff members are carrying out the treatment plan. Plans for future interventions and recommendations for revision of the treatment plan. Liaison with other physicians/providers. Progress Note: Pt notes that having some trouble sleeping but it has been getting better. Does not want further action. Denies SI or HI. Denies AVHs. Requested nasal spray. Current Medications Sig/Mike Start time Last Medication Dose Route Stop Time Status Admin Al Hydroxide/Mg 30 ML Q4-6 PRN PRN 01/12 1030 AC 01/25 Hydroxide PO 0916 Calcium Carbonate 500 MG Q8P PRN 01/12 1030 AC 01/15 PO 1014 Docusate Sodium 100 MG TID 01/20 1600 AC 01/25 PO 0916 Fluoxetine HCl 40 MG DAILY 01/20 1000 01/26 PO 0901 Ibuprofen 800 MG .STK-MED ONE 01/26 0023 DC PO 01/26 0024 Ibuprofen 800 MG Q8P PRN 01/12 0900 01/26 PO 0028 Lubiprostone 24 MCG BID 01/12 1000 01/26 PO 0901 Melatonin 5 MG AT BEDTIME 01/13 2200 AC 01/25 PO 2220 Methadone HCl 90 MG DAILY AC 01/17 0700 AC 01/26 PO 0609 Mirtazapine 15 MG 01/24 2100 01/25 PO 2159 Nicotine 2 MG .STK-MED ONE 01/25 1724 DC PO 01/25 1725 Nicotine 21 MG DAILY 01/12 1000 01/26 TOP 0901 Nicotine 2 MG Q2P PRN 01/11 1930 01/26 PO 1218 Olanzapine 5 MG 01/24 2100 01/25 PO 2158 Omeprazole 40 MG DAILY AC 01/12 0849 01/26 PO 0609 Oxymetazoline HCl 2 SPRAY BID 01/25 1414 01/26 ROMERO 0901 Prazosin HCl 2 MG 01/24 2100 01/25 PO 2217 Senna/Docusate Sodium 1 TAB BID 01/21 1345 AC 01/25 PO 0916 Sodium Chloride 2 SPRAY TIDPRN 01/26 1345 UNVr ROMERO Sodium Chloride 2 SPRAY Q4P PRN 01/15 1145 DC 01/25 ROMERO 1230 Testosterone 5 GM DAILY 01/20 1130 AC 01/26 TOP 0902 Vital Signs Date Time Temp Pulse Resp B/P B/P Pulse O2 O2 Flow FiO2 Mean Ox Delivery Rate 01/26 1215 93 122/63 01/26 0747 97.7 72 134/78 01/25 2005 97.2 96 139/77 01/25 1608 81 120/75 01/25 1420 Room Air Room Air MSE Appears as stated age. Cooperative behavior, good, little eye contact. Nl speech rate and prosody. No psychomotor retardation or agitation. Mood fine Affect flat, constricted, appropriate, non-liable. Linear and goal directed thought process. Denies SI or HI. Does not appear to be responding to internal stimuli. Denies AVHs, paranoia, or delusions. I/J: limited A/P: Pt with MDD and recent SI as well as polysubstance use now with improved mood. - Continue current medication regimen - Added nasal spray PRN - Encourage groups
--- NOTE | 2017-01-26 14:30 | NUR ---
PT ISOLATIVE IN ROOM FOR MOST OF THE SHIFT. PT DOES COME OUT WHEN ASKED AND FOR MEALS/VITALS. PT IS NOT ATTENDING GROUPS. PT MOOD IS STABLE WITH A CONSTRICTED AFFECT. PT DENIES SI THGOUHTS.
[2017-01-26 15:37] VITALS: BP 132/78
--- NOTE | 2017-01-26 18:58 | NUR ---
PT HAS BEEN ISOALTIVE IN ROOM FOR MOST OF THE SHIFT. PT IS OUT IN THE COMMUNITY FOR VITALS AND MEALS. PT MOOD IS STABLE WITH A CONSTICTED AFFECT. PT DENIES SI THOUGHTS
[2017-01-26 20:28] VITALS: BP 122/76
--- NOTE | 2017-01-27 05:22 | NUR ---
PATIENT SLEPT ALL NIGHT.
[2017-01-27 07:48] VITALS: BP 108/67
--- NOTE | 2017-01-27 11:40 | CP SOUTH PROGRESS NOTE PSYCH ---
Psych (Inpt) Progress Note Progress Note Include the following elements, when applicable: Involvement in the active treatment of the patient with behavioral observations of the patient and the patient's response to the treatment. Review of the ongoing treatment process in the context of the treatment plan. Indication of how multi-disciplinary staff members are carrying out the treatment plan. Plans for future interventions and recommendations for revision of the treatment plan. Liaison with other physicians/providers. Progress Note: Pt notes that he slept well with "fine" mood. Spending day reading in room. Denies SI or HI. Current Medications Sig/Mike Start time Last Medication Dose Route Stop Time Status Admin Al Hydroxide/Mg 30 ML .STK-MED ONE 01/27 0121 DC Hydroxide PO 01/27 0122 Al Hydroxide/Mg 30 ML Q4-6 PRN PRN 01/12 1030 AC 01/27 Hydroxide PO 0127 Calcium Carbonate 500 MG Q8P PRN 01/12 1030 AC 01/15 PO 1014 Docusate Sodium 100 MG TID 01/20 1600 AC 01/27 PO 0753 Fluoxetine HCl 40 MG DAILY 01/20 1000 AC 01/27 PO 0752 Ibuprofen 800 MG Q8P PRN 01/12 0900 AC 01/27 PO 1103 Lubiprostone 24 MCG BID 01/12 1000 AC 01/27 PO 0753 Melatonin 5 MG AT BEDTIME 01/13 2200 AC 01/26 PO 2204 Methadone HCl 90 MG DAILY AC 01/17 0700 AC 01/27 PO 0610 Mirtazapine 15 MG 2100 01/24 2100 AC 01/26 PO 2204 Nicotine 21 MG DAILY 01/12 1000 AC 01/27 TOP 0755 Nicotine 2 MG Q2P PRN 01/11 1930 AC 01/27 PO 1102 Olanzapine 5 MG 2100 01/24 2100 AC 01/26 PO 2204 Omeprazole 40 MG DAILY AC 01/12 0849 AC 01/27 PO 0610 Oxymetazoline HCl 2 SPRAY BID 01/25 1414 AC 01/27 ROMERO 0751 Prazosin HCl 2 MG 01/24 2100 AC 01/26 PO 2208 Senna/Docusate Sodium 1 TAB BID 01/21 1345 AC 01/25 PO 0916 Sodium Chloride 2 SPRAY TIDPRN PRN 01/26 1345 AC 01/26 ROMERO 2205 Testosterone 5 GM DAILY 01/28 1000 UNVr TOP Testosterone 5 GM DAILY 01/20 1130 DC 01/27 TOP 0755 Vital Signs Date Time Temp Pulse Resp B/P B/P Pulse O2 O2 Flow FiO2 Mean Ox Delivery Rate 01/27 0748 98.7 98 108/67 01/26 2208 88 122/76 01/26 2028 98.7 88 122/76 01/26 1537 95 132/78 01/26 1215 93 122/63 MSE Appears as stated age. Cooperative behavior, good, little eye contact. Nl speech rate and prosody. No psychomotor retardation or agitation. Mood fine Affect flat, constricted, appropriate, non-liable. Linear and goal directed thought process. Denies SI or HI. Does not appear to be responding to internal stimuli. Denies AVHs, paranoia, or delusions. I/J: limited A/P: Pt with MDD and recent SI as well as polysubstance use now with improved mood. - Continue current medication regimen - Encourage groups
[2017-01-27 12:28] VITALS: BP 127/79
--- NOTE | 2017-01-27 12:53 | NUR ---
PT IS COMPLIANT AND COOPERATIVE WITH UNIT RULES. PT IS ISOLATIVE IN ROOM FOR MOST OF THE MORNING SHIFT. PT IS NOT ACTIVE IN GROUPS. PT MOOD IS STABLE WITH A CONSTRICTED AFFECT. PT DENIES SI THOUGHTS.
[2017-01-27 15:50] VITALS: BP 135/77
[2017-01-27 20:10] VITALS: BP 130/76
--- NOTE | 2017-01-27 22:28 | NUR ---
Pt is out of his room at times for vital signs and meals and to watch some TV, no issues or complaints reported or observed, mood is overall stable with constricted affect, vital signs stable, + appetite.
--- NOTE | 2017-01-28 06:23 | NUR ---
PATIENT SLEPT ALL NIGHT.
[2017-01-28 07:53] VITALS: BP 121/71
--- NOTE | 2017-01-28 10:21 | CP SOUTH PROGRESS NOTE PSYCH ---
Psych (Inpt) Progress Note Progress Note Include the following elements, when applicable: Involvement in the active treatment of the patient with behavioral observations of the patient and the patient's response to the treatment. Review of the ongoing treatment process in the context of the treatment plan. Indication of how multi-disciplinary staff members are carrying out the treatment plan. Plans for future interventions and recommendations for revision of the treatment plan. Liaison with other physicians/providers. Progress Note: I discussed this patient's progress to date, current mental status, treatment process in the context of the treatment plan, and discharge planning with staff/ team in the daily morning inpatient team meeting. I also met with the patient myself in individual session. OBJECTIVE: Current Medications Sig/Mike Start time Last Medication Dose Route Stop Time Status Admin Al Hydroxide/Mg 30 ML .STK-MED ONE 01/28 0024 DC Hydroxide PO 01/28 0025 Al Hydroxide/Mg 30 ML Q4-6 PRN PRN 01/12 1030 AC 01/28 Hydroxide PO 0031 Calcium Carbonate 500 MG Q8P PRN 01/12 1030 AC 01/15 PO 1014 Docusate Sodium 100 MG TID 01/20 1600 AC 01/28 PO 0759 Fluoxetine HCl 40 MG DAILY 01/20 1000 AC 01/28 PO 0759 Ibuprofen 800 MG .STK-MED ONE 01/27 1057 DC PO 01/27 1058 Ibuprofen 800 MG Q8P PRN 01/12 0900 AC 01/27 PO 1103 Lubiprostone 24 MCG BID 01/12 1000 01/28 PO 0758 Melatonin 5 MG AT BEDTIME 01/13 2200 01/27 PO 2149 Methadone HCl 90 MG DAILY AC 01/17 0700 AC 01/28 PO 0612 Mirtazapine 15 MG 01/24 2100 01/27 PO 2149 Nicotine 2 MG .STK-MED ONE 01/28 0025 DC PO 01/28 0026 Nicotine 21 MG DAILY 01/12 1000 01/28 TOP 0758 Nicotine 2 MG Q2P PRN 01/11 1930 AC 01/28 PO 0612 Olanzapine 5 MG 01/24 2100 01/27 PO 2150 Omeprazole 40 MG DAILY AC 01/12 0849 AC 01/28 PO 0612 Oxymetazoline HCl 2 SPRAY BID 01/25 1414 AC 01/28 ROMERO 0758 Prazosin HCl 2 MG 01/24 2100 AC 01/27 PO 2149 Senna/Docusate Sodium 1 TAB BID 01/21 1345 AC 01/25 PO 0916 Sodium Chloride 2 SPRAY TIDPRN PRN 01/26 1345 AC 01/26 ROMERO 2205 Testosterone 5 GM DAILY 01/28 1000 AC 01/28 TOP 0758 Testosterone 5 GM DAILY 01/20 1130 DC 01/27 TOP 0755 Vital Signs Date Time Temp Pulse Resp B/P B/P Pulse O2 O2 Flow FiO2 Mean Ox Delivery Rate 01/28 075 97.5 92 121/71 01/27 2149 94 130/76 01/27 2010 97.6 94 130/76 01/27 1550 96 135/77 01/27 1228 92 127/79 ASSESSMENT: Chart, progress notes, labs, VS and medication list were reviewed. Vital signs within normal limits. Patient reported daily BMs over last 4-5 days. Denied abdominal pain/discomfort. Met with the patient today on the date of discharge. He presented alert and oriented to person, place, time and situation. He reported having an uneventful weekend. He had no complaints. He reported his sleep and appetite were improved. He also reported nightmares were improved. He reported feeling anxious today with anxiety of 5/10 (10 being the worst) and depression of 3/10 (10 being the worst). He denied passive and active suicidal ideation, plans and intent. He denied homicidal ideation. He stated and also believed he will not harm himself or others. He denied feeling hopeless, helpless, or worthless. He appeared motivated to follow-up at [facility] for therapy and medication management. He denied auditory and visual hallucinations. He denied paranoid ideation. There was no evidence of delusions. Thought process was linear and goal-directed. Cognition was grossly intact. He reported tolerating all medications well and denied untoward medication effects. He reported feeling safe and ready for discharge. 1. Discharge today into self-care. 2. F/u at [facility] on 01/30/17 at [address] Sandoval and Clinician Nighat. 3. F/u at [facility] in [place], [place] with PCP. 4. Abstain from all illict substances. F/u with [facility] in [place] to resume methadone maintenance. 5. All discharge prescriptions were printed, reviewed with patient and provided to him on discharge. 6. In the event of an emergency, call 911/go to nearest emergency department. Patient verbalized understanding of instructions.
--- NOTE | 2017-01-28 10:49 | SOCIAL WORKER PROG NOTE PSYCH ---
Social Work Progress Note Progress Note Called [facility] this morning to follow up on Mark's referral. Left a message. MarkTracey APRN and I met this morning. Mark reported that he still has some abdominal pain, but he is passing his bowels. Xray showed a build up of stool. Nightmares have improved some on the minipress. He reported 1 nightmare over the weekend. He reports some fleeting SI thoughts yesterday, but able to work through it. Is able to have some hope over the thought that he will be getting individual therapy and will eventually get a housing voucher. He is worried about where he will stay tonight. Advocates to discharge earlier today, rather than later so he can try and make arrangements of some kind. [facility] not [facility] the [facility]. Talked about following up at [facility] in [place] for his abdominal pain. He signed a relase for me to set up an appt., but I was not able to get through and needed to leave a message. I told Mark he would need to follow up. 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 Mark is planning to take the bus to [place]. Given bus fare from here.
[2017-01-28] MEDS ORDERED: REMERON15 M2 PO (10:52)
[2017-01-28] MEDS ORDERED: NICOTINE PATCH1 EAC3 TOP (10:52)
[2017-01-28] MEDS ORDERED: FLUOXETINE HCL40 M1 PO (10:52)
[2017-01-28] MEDS ORDERED: DOCUSATE SODIU100 M3 PO (10:52)
[2017-01-28] MEDS ORDERED: OMEPRAZOLE20 M2 PO (10:52)
[2017-01-28] MEDS ORDERED: OLANZAPINE5 M2 PO (10:52)
[2017-01-28] MEDS ORDERED: NASAL DECONGEST30 M1 NAS (10:52)
[2017-01-28] MEDS ORDERED: NICORELIEF2 MG PO (10:52)
[2017-01-28] MEDS ORDERED: PRAZOSIN HCL2 M1 PO (10:52)
[2017-01-28] MEDS ORDERED: MELATONIN5 M7 PO (10:52)
[2017-01-28] MEDS ORDERED: SENNA PLUS TAB1 EACH PO (10:52)
[2017-01-28] MEDS ORDERED: ANDROGEL75 G1 TOP (10:55)
--- NOTE | 2017-01-28 11:04 | DISCHARGE SUMMARY REPORT-PSYCH ---
See Addendum Visit Information Visit Dates/Diagnosis' Admission Date: 01/11/17 Discharge Date: 01/28/17 Reason for Admission: Exacerbation in depression and suicidal ideation. Psy Discharge Primary Diag: Major Depressive Disorder, recurrent, severe Psy Discharge Secondary Diag: R/O Bipolar Disorder; Opiate use disorder (on methadone maintenance); PTSD; IBS with intermittent constipation ; GERD; Hx Benzodiazepine use disorder. Hospital Course Significant Lab Findings: Lab Cholesterol 217 MG/DL H 09/23/16 0632 Cholesterol/HDL Ratio 5 % H 09/23/16 0632 Glucose 126 mg/dL H 01/11/17 1440 HDL Cholesterol 47 mg/dL 09/23/16 0632 Hemoglobin A1c 5.4 09/23/16 0632 LDL Cholesterol, Calc 119 mg/dL 09/23/16 0632 Triglycerides 258 mg/dL H 09/23/16 0632 Methadone Screen > 735 NG/ML H 01/11/17 1450 01/12/17 EKG: Sinus rhythm with rate of 60. IN: 164. QRSD: 100. QT: 452. QTc: 452. P: 37. QRS: 9. T: 11. 01/25/17 Abdominal XR: FINDING: Extensive fecal residual is noted throughout the large bowel. There is nonspecific bowel gas patter present. No abnormal soft tissue mass or calcification present. Partial sacralization of the right-sided L5 transverse process. IMPRESSION: Partial sacralization of L5 on the right. Extensive fecal residual within the large bowel. Course Complications: None. Consultations: The patient was seen for admission history and physical by magnetic prospector Dr. Odilon Cruz. Please see his note for additional information. Allergies: Coded Allergies: chlorpromazine (From THORAZINE) (Severe, ANAPHYLAXIS 01/11/17) fluphenazine (From PROLIXIN) (Severe, ANAPHYLAXIS 01/11/17) haloperidol (From HALDOL) (Severe, ANAPHYLAXIS 01/11/17) loxapine (ANAPHYLAXIS 01/11/17) risperidone (TUNNEL VISION 01/11/17) Hospital Course/TX Response: The patient was monitored on the unit for safety, mood and suicidal ideation. He participated minimally in multimodal treatments on the unit. He had been nonadherent to prescribed medications prior to this hospital admission. He was restarted on Prozac 10mg daily for depression which was gradually increased to 40mg daily. Zyprexa 2.5mg QHS was started for mood stabilization/racing thoughts and to augment antidepressant; this was increased to 5mg QHS. Mirtazapine 15mg was restarted for insomnia. Melatonin 5mg was started at bedtime for sleep induction/difficulty falling asleep. Prazosin 1mg QHS was additionally restarted for nightmares and increased to 2mg QHS. He was continued on home medications of Amitiza 24mcg BID for IBS, Androgel for low testosterone, and Methadone 90mg daily for opiate maintenance. Patient tolerated all medications well and denied untoward medication effects. During the hospital course, the patient's mood and affect improved. Suicidal ideation remitted. He did not allow any supports in his life to be involved during his inpatient level of care. He was resistent to discharging to [facility] level of care, but was in favor of resuming outpatient psychiatric services at [facility] in [place] for medication management and individual therapy. During his inpatient stay, he was referred to [facility] and residential rehab programs given that his major barrier of unstable housing. None of these referrals were successful prior to discharge. He was strongly advised to call 211 and discharge to a detention. However, he was resistent to discharging to a [place] detention. On the date of discharge, 01/28/17, the patient presented alert and oriented to person, place, time and situation. He reported having an uneventful weekend. He had no complaints. He reported his sleep and appetite were improved. He also reported nightmares were improved with retrial of Prazosin. He reported feeling anxious today with anxiety of 5/10 (10 being the worst) and depression of 3/10 ( 10 being the worst). He denied passive and active suicidal ideation, plans and intent. He denied homicidal ideation. He stated and also believed he will not harm himself or others. He denied feeling hopeless, helpless, or worthless. He appeared motivated to follow-up at [facility] for therapy and medication management. He denied auditory and visual hallucinations. He denied paranoid ideation.He denied racing thoughts. There was no evidence of delusions. Thought process was linear and goal-directed. Cognition was grossly intact. He reported tolerating all medications well and denied untoward medication effects. He reported feeling safe and ready for discharge. Discharge HBIPS - Tobacco Use Treatment Offered Post DC Medications Offered: Script Given-See Med List Post DC Tobacco Treatment Plan: Refused Tobcco Tx Pgm - EtOH/Drug Use D/O Treatment Offered Post DC Medications Offered: Med Not Indicated for D/O Post DC EtOH/SubAbuse TX Plan: Refused Post DC Tx Pgm Metabolic Screening - Screen if on a Neuroleptic Medication - Metabolic screening should include: - Blood Pressure, BMI, Glucose or Hgb A1c, & a - Lipid profile from within the past 365 days. Metabolic Screening () Not Applicable, patient not on a neuroleptic. OR ([X]) Patient on a neuroleptic(s) . Enter below results for Glucose or Hemoglobin A1C, and lipid panel if obtained during the last 365 days. BMI: 34.300 Blood Pressure: 121/71 Laboratory Results (If applicable): Lab Cholesterol 217 MG/DL H 09/23/16 0632 Cholesterol/HDL Ratio 5 % H 09/23/16 0632 Glucose 126 mg/dL H 01/11/17 1440 HDL Cholesterol 47 mg/dL 09/23/16 0632 Hemoglobin A1c 5.4 09/23/16 0632 LDL Cholesterol, Calc 119 mg/dL 09/23/16 0632 Triglycerides 258 mg/dL H 09/23/16 0632 Discharge Instructions General Discharge Information Discharge Medications: Discharge Medications- (Dose, route, freq, indication): HOME MEDICATION LIST START taking these NEW Home Medications: Nicotine Dose: ORAL, EVERY 2 HOURS Qty: 30 Printed (Nicorelief) 2 MG 2 Milligram NEEDED as needed for Refills: 0 GUM nicotine cravings Nicotine (Nicotine Dose: On the skin, DAILY for Qty: 14 Printed Patch) 21 MG/24 HOUR 21 Milligram tobacco cessation Refills: 0 PATCH.TD24 Apply 1 patch topically QAM and remove before HS. Last Taken:01/28/17 Time:8am Prazosin HCl Dose: ORAL, 2100 for nightmares Qty: 14 Printed (Prazosin HCl) 2 MG 2 Milligram Take 1 cap po at bedtime. Refills: 0 CAPSULE Last Taken:01/27/17 Time:10pm Fluoxetine HCl Dose: ORAL, Every Morning for Qty: 14 Printed (Fluoxetine HCl) 40 40 Milligram depression/anxiety Refills: 0 MG CAPSULE Take 1 cap po every morning. Last Taken:01/28/17 Time:8am Mirtazapine Dose: ORAL, AT BEDTIME for Qty: 14 Printed (Remeron) 15 MG 15 Milligram depression/insomnia Refills: 0 TABLET Take 1 tablet po at bedtime. Last Taken:01/27/17 Time:10pm Olanzapine Dose: ORAL, 2100 for mood Qty: 14 Printed (Olanzapine) 5 MG 5 Milligram stabilization Refills: 0 TABLET Take 1 tablet po at bedtime. Last Taken:01/27/17 Time:10pm Oxymetazoline HCl Dose: In the nose, TWICE DAILY Qty: 1 Printed (Nasal Decongestant) 2 [place] for nasal congestion Refills: 0 0.05 % SPRAY Take 2 spray intranasally BID. Last Taken:01/28/17 Time:8am Docusate Sodium Dose: ORAL, THREE TIMES DAILY Qty: 42 Printed (Docusate Sodium) 100 Milligram for constipation Refills: 0 100 MG CAPSULE Take 1 cap po TID. Last Taken:01/28/17 Time:8am Omeprazole Dose: ORAL, DAILY BEFORE Qty: 28 Printed (Omeprazole) 20 MG 40 Milligram BREAKFAST for GERD Refills: 0 CAPSULE.DR Take 2 caps po daily AC. Last Taken:01/28/17 Time:6am Melatonin Dose: ORAL, AT BEDTIME for Qty: 14 Printed (Melatonin) 5 MG 5 Milligram sleep induction Refills: 0 TABLET Take 1 tab po at bedtime. 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 Do not exceed 3 doses in 24 hours. Last Taken:10/02/16 Time:1109 Lubiprostone (Amitiza) Dose: ORAL, TWICE DAILY for 24 MCG CAPSULE 24 Microgram IBS Take 1 capsule by mouth twice a day. Last Taken:01/28/17 Time:8am Methadone HCl (Methadone Dose: ORAL, DAILY for HCl) 5 MG TABLET 90 Milligram methadone maintenance Last Taken:01/28/17 Time:6am STOP taking these DISCONTINUED Home Medications: Prazosin HCl (Prazosin HCl) 2 Dose: ORAL, Every night for nightmares MG CAPSULE 6 Milligram Take 3 capsules (6mg) by mouth at bedtime. Reason Stopped: Pt Decision, not taking Quetiapine Fumarate Dose: ORAL, AT BEDTIME for (Quetiapine Fumarate) 100 MG 200 Milligram insomnia/mood stabilization TABLET Take 2 tablets (200mg) by mouth at bedtime. Reason Stopped: Pt Decision, not taking Pantoprazole Sodium (Protonix) Dose: ORAL, DAILY BEFORE BREAKFAST for 40 MG TABLET. 40 Milligram GERD Take 1 tablet by mouth every morning before breakfast. Reason Stopped: Med no longer needed Nicotine Polacrilex (Nicotine Dose: ORAL, DAILY for SMOKING CESSATION Lozenge) 4 MG LOZENGE 10 Lozenge Reason Stopped: Pt Decision, not taking Multiple Neuroleptics: ([X]) Not Applicable OR Document below three failed attempts at monotherapy, or a plan to taper to monotherapy, or augmentation of Clozapine. () Patient's Diet: Regular. Patient's Activity: No restrictions. DC Disposition: Patient to return to [place] into self care. He was strongly advised to call 211 for detention placement. Recommendations: The patient was advised to please take his medications as prescribed. He was advised to abstain from all substances. He was advised to resume daily Methadone maintenance at [facility] in [place] and to follow-up with outpatient psychiatric appointment at [facility]. Primary treatment team offered to make the patient an appointment with his PCP given intermittent bouts of constipation, however he reported he sees him on a weekly basis and would follow-up on his own. He was advised that in the event of an emergency to call 911/go to nearest emergency department. Patient verbalized understanding of instructions. Referred To: Post Discharge Referrals Provider Referral Service Date: 01/30/17 Referred To: [[facility]] Notes: [facility] Dr. Sandoval and Clinician Nighat 01/30/17 10:00am [address] [place] [address] Copies To: Dr. Sandoval
--- NOTE | 2017-01-28 11:27 | NUR ---
will be discharged today to [facility] with follow up at [facility]. mood is stable, euthymic affect. denied thoughts of self harm when asked. given education on suicide prevention, depression, benzo and cocaine abuse.
== END 2017-01-28 11:42 | DRG 751 ==
LOC: ENRESERVTM → ENRESERVDT → ERH 13:36 → CP SOUTH 22:25 → ERHI 22:25 → CP SOUTH 22:46
PROVIDERS: Emergency Medicine; ADMIT Student in an Organized Health Care Education/Training Program
DX: F33.2 Major depressive disorder, recurrent severe without psychotic features (principal); F11.90 Opioid use, unspecified, uncomplicated; F43.10 Post-traumatic stress disorder, unspecified; K58.9 Irritable bowel syndrome, unspecified; K21.9 Gastro-esophageal reflux disease without esophagitis
CPT/HCPCS: 74000; 80307; 93005; 93010; G0480

== ENCOUNTER 2017-01-30 10:57 | Inpatient (IN) | payer OTHER ==
[~2017-01-30] VITALS: Ht 182.9 cm; Wt 121.2 kg
[~2017-01-30 10:57] MED LIST changes: +ANDROGEL75 G1 TOP; +DOCUSATE SODIU100 M3 PO; +FLUOXETINE HCL40 M1 PO; +HYDROXYZINE HCL50 M1 PO; +MELATONIN5 M7 PO; +MIRTAZAPINE15 M2 PO; +NASAL DECONGEST30 M1 NAS; +NICORELIEF2 MG PO; +NICOTINE LOZENGE4 MG PO; +OLANZAPINE5 M2 PO; +PROZAC40 M1 PO; +REMERON15 M2 PO; +SENNA PLUS TAB1 EACH PO
[2017-01-30 11:27] LABS: ABSOLUTE BASOPHIL COUNT 0 /CUMM (0.0-0.2); ABSOLUTE EOSINOPHIL COUNT 0.1 /CUMM (0.0-0.7); ABSOLUTE GRANULOCYTE CT 4.2 /CUMM (1.4-6.5); ABSOLUTE LYMPH COUNT 1.9 /CUMM (1.2-3.4); ABSOLUTE MONOCYTE COUNT 0.7 /CUMM (0.10-0.60); BASOPHIL % 0.3 % (0.0-2.0); EOSINOPHIL % 1.1 % (0-5); GRANULOCYTE % 60.6 % (42.2-75.2); HEMATOCRIT 36.3 % (42-52); MEAN CORPUSCULAR HGB 30.2 PG (27.0-31.0); MEAN CORPUSCULAR VOLUME 88.7 FL (80.0-94.0); MEAN PLATELET VOLUME 9.2 FL (7.4-10.4); PLATELET COUNT 165 /CUMM (130-400); RED BLOOD CELL CT 4.09 /CUMM (4.70-6.10)
--- NOTE | 2017-01-30 13:06 | ED PSYCHIATRIC COMPLAINT ---
See Addendum History of Present Illness General Chief Complaint: Psychiatric Related Complaint Stated Complaint: BIBA DEPRESSION, +SI Source: patient Exam Limitations: no limitations Vital Signs & Intake/Output Vital Signs & Intake/Output Vital Signs Date Time Temp Pulse Resp B/P B/P Pulse O2 O2 Flow FiO2 Mean Ox Delivery Rate 01/31 0838 98.8 82 18 115/72 98 Room Air / 0608 98.6 52 18 108/53 96 Room Air / 0221 96.5 60 18 125/44 96 Room Air 05/ 2346 97.3 05/03 2333 Room Air 05/ 2250 97.3 69 18 105/56 96 Room Air 05/ 2053 Room Air 05/ 2053 98.0 78 16 111/64 99 Room Air 05/03 1805 97.0 80 18 108/58 96 Room Air 05/03 1555 96.0 70 20 112/60 100 Room Air 05/ 1444 97 Room Air 05/03 1444 95.4 75 18 100/40 97 Room Air 05/03 1230 97.0 80 20 110/66 96 Room Air 05/03 1101 99.0 100 22 128/69 96 Room Air ED Intake and Output 01/31 0000 01/30 1200 Intake Total Output Total Balance Patient 260 lb Weight Weight Reported by Patient Measurement Method Allergies Coded Allergies: chlorpromazine (From THORAZINE) (Severe, ANAPHYLAXIS 01/11/17) fluphenazine (From PROLIXIN) (Severe, ANAPHYLAXIS 01/11/17) haloperidol (From HALDOL) (Severe, ANAPHYLAXIS 01/11/17) loxapine (ANAPHYLAXIS 01/11/17) risperidone (TUNNEL VISION 01/11/17) Reconcile Medications Docusate Sodium 100 MG CAPSULE 100 MG PO TID constipation Take 1 cap po TID. Fluoxetine HCl 40 MG CAPSULE 40 MG PO QAM depression/anxiety Take 1 cap po every morning. Ibuprofen 800 MG TABLET 800 MG PO Q6P PRN PAIN SCALE 4-6 (MODERATE) Take 1 tablet (800mg) by mouth every 6 hours as needed for moderate pain. Do not exceed 3 doses in 24 hours. Lubiprostone (Amitiza) 24 MCG CAPSULE 24 MCG PO BID IBS Take 1 capsule by mouth twice a day. Melatonin 5 MG TABLET 5 MG PO AT BEDTIME sleep induction Take 1 tab po at bedtime. Methadone HCl 5 MG TABLET 90 MG PO DAILY methadone maintenance (Reported) Mirtazapine (Remeron) 15 MG TABLET 15 MG PO AT BEDTIME depression/insomnia Take 1 tablet po at bedtime. Nicotine (Nicorelief) 2 MG GUM 2 MG PO Q2P PRN nicotine cravings Nicotine (Nicotine Patch) 21 MG/24 HOUR PATCH.TD24 21 MG TOP DAILY tobacco cessation Apply 1 patch topically QAM and remove before HS. Olanzapine 5 MG TABLET 5 MG PO 2100 mood stabilization Take 1 tablet po at bedtime. Omeprazole 20 MG CAPSULE.DR 40 MG PO DAILY AC GERD Take 2 caps po daily AC. Oxymetazoline HCl (Nasal Decongestant) 0.05 % SPRAY 2 SPRAY ROMERO BID nasal congestion Take 2 spray intranasally BID. Prazosin HCl 2 MG CAPSULE 2 MG PO 2100 nightmares Take 1 cap po at bedtime. 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 STATES WAS DISCHARGED FROM [facility] ON SATURDAY. REPORTS FEELING DEPRESSED WITH SI. STATES THAT HE TAKES HIS MEDS. RESPIRATIONS EVEN UNLABORED. EVEN UNLABORED Triage Nurses Notes Reviewed? yes Onset: Abrupt Duration: week(s):, constant, continues in ED Timing: recent history Severity: moderate, severe HPI: 31-year-old male comes into the emergency room with complaints of suicidal ideation. Patient reports that he isn't feeling depressed for many weeks. Last night he had thoughts of taking all his medication dose. Patient has a history of previous suicide attempts. Patient is currently homeless. Denies any supportive care. Single. Drug use. Denies any alcohol use. Patient complains of some mild lower abdominal pain but reports that he has been constipated. Denies any other associated symptoms. (YAQUELIN SOUTH) Past History Travel History Traveled to [place] past 21 day No Medical History Any Pertinent Medical History? see below for history Neurological: migraine, seizure, (WITHDRAWL TO BENZOS) EENT: sinusitis, HX MRSA Cardiovascular: NONE Respiratory: asthma Gastrointestinal: constipation, GERD, irritable bowel syndrome Hepatic: NONE Renal: NONE Musculoskeletal: NONE Psychiatric: anxiety, depression, opioid dependence, substance abuse, PTSD SI Endocrine: NONE Blood Disorders: NONE Cancer(s): NONE PHARMACIST CRITICAL CARE/Reproductive: LOW TESTOSTERONE History of MRSA: Yes History of VRE: No History of CDIFF: No Isolation History: Standard Surgical History Surgical History: non-contributory Psychosocial History Who do you live with Other (see notes) Services at Home None What is your primary language Yi Tobacco Use: Current Daily Use Daily Tobacco Use Amount/Type: => 5 Cigarettes daily ETOH Use: denies use Illicit Drug Use: cocaine, AND CLONOPIN Family History Family History, If Any: Relation not specified for: *No pertinent family history Hx Contributory? No (YAQUELIN SOUTH) Review of Systems Review of Systems Constitutional: Reports: no symptoms. EENTM: Reports: no symptoms. Respiratory: Reports: no symptoms. Cardiovascular: Reports: no symptoms. GI: Reports: see HPI. Genitourinary: Reports: no symptoms. Musculoskeletal: Reports: no symptoms. Skin: Reports: no symptoms. Neurological/Psychological: Reports: see HPI. Hematologic/Endocrine: Reports: no symptoms. Immunologic/Allergic: Reports: no symptoms. All Other Systems: Reviewed and Negative (YAQUELIN SOUTH) Physical Exam Physical Exam General Appearance: well developed/nourished, mild distress Head: atraumatic Eyes: Bilateral: normal appearance, EOMI. Ears, Nose, Throat: normal ENT inspection, hearing grossly normal Neck: normal inspection, supple Respiratory: no respiratory distress Cardiovascular: regular rate/rhythm Gastrointestinal: soft, mild tenderness left lower abdomen Extremities: normal range of motion Neurological/Psychiatric: awake, alert, normal mood/affect, calm Appearance/Memory/Insight: appropriate appearance Skin: intact, normal color, warm/dry SAD PERSONS SAD PERSONS Response Value Male Sex? yes 1 Depression/Hopelessness? yes 2 Previous Attempts/Psych Care yes 1 Excessive Ethanol/Drug Use? yes 1 Rational Thinking Loss? yes 2 Single//? yes 1 Social Support? has no support 1 Total 9 SAD PERSONS Done? yes (YAQUELIN SOUTH) Progress Differential Diagnosis: dementia, drug intoxication, drug overdose, drug withdrawal, electrolyte abnormality, encephalitis, hypoglycemia, hypothyroidism, IC hem/mass/tumor, meningitis, diverticulitis Plan of Care: Orders Procedure Date/time Status Regular Diet 01/31 B Active Continuous Observation Monitor 01/30 1221 Active ED CRISIS PSYCH CONSULT 01/30 1148 Active URINE DRUGS OF ABUSE 01/30 1103 Complete ETHANOL 01/30 1103 Complete COMPREHENSIVE METABOLIC PANEL 01/30 1103 Complete CBC WITHOUT DIFFERENTIAL 01/30 1103 Complete Current Medications Sig/Mike Start time Last Medication Dose Stop Time Status Admin Melatonin 5 MG AT BEDTIME 01/31 2200 UNVr (Melatonin) Mirtazapine 15 MG AT BEDTIME 01/31 2200 UNVr (Remeron) Laboratory Tests 01/30/17 1113: Anion Gap 14, Estimated GFR > 60, BUN/Creatinine Ratio 31.1 H, Glucose 109 H, Calcium 9.0, Total Bilirubin 0.5, AST 110 H, ALT 59, Alkaline Phosphatase 71, Total Protein 7.0, Albumin 4.2, Globulin 2.8, Albumin/Globulin Ratio 1.5, CBC w Diff NO MAN DIFF REQ, RBC 4.09 L, MCV 88.7, MCH 30.2, RDW 15.0 H, MPV 9.2, Gran % 60.6, Lymphocytes % 27.8, Monocytes % 10.2 H, Eosinophils % 1.1, Basophils % 0.3, Absolute Granulocytes 4.2, Absolute Lymphocytes 1.9, Absolute Monocytes 0.7 H, Absolute Eosinophils 0.1, Absolute Basophils 0, PUBS MCHC 34.0 , Serum Alcohol < 10.0 01/30/17 1110: Urine Opiates Screen < 100.00, Methadone Screen > 735 H, Barbiturate Screen < 60, Ur Phencyclidine Scrn < 6.00, Amphetamines Screen < 100, U Benzodiazepines Scrn < 85, Urine Cocaine Screen > 1000 H, Urine Cannabis Screen < 5.00 7:42 PM PATIENT SIGNED OUT TO ME BY SARY PEARSON. PENDING CRISIS EVALUATION. (IBAN JAVIER MD) Hand-Off Endorsed To: IBAN JAVIER MD Endorsed Time: 1724 Pending: consult (crisis) (YAQUELIN SOUTH) Hand-Off Endorsed To: JAVIER ANDERSON MD Endorsed Time: 2331 Pending: consult (IBAN JAVIER MD) Hand-Off Endorsed To: DELMY FROST DO Endorsed Time: 0700 Pending: consult (JAVIER ANDERSON MD) Departure Departure Disposition: STILL A PATIENT Condition: Stable Clinical Impression Primary Impression: Major depression Secondary Impressions: Suicidal ideation Referrals: DANDY CONDON MD (PCP/Family) Departure Forms: Customer Survey General Discharge Information (YAQUELIN SOUTH) PA/MANAGER ELECTRICAL Co-Sign Statement Statement: ED Attending supervision documentation- [X] I saw and evaluated the patient. I have also reviewed all the pertinent lab results and diagnostic results. I agree with the findings and the plan of care as documented in the PA's/MANAGER ELECTRICAL's documentation. [X] I have reviewed the ED Record and agree with the PA's/MANAGER ELECTRICAL's documentation. [] Additions or exceptions (if any) to the PAs/MANAGER ELECTRICAL's note and plan are summarized below: [] (CONCEPCION GERBER,IBAN) Departure Comments 01/31/17 10 AM Patient signed out to me by Dr. Anderson. He is pending disposition and evaluation by crisis. (DELMY FROST DO)
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
[2017-02-01] MEDS ORDERED: COLACE100 M1 PO (19:03)
[2017-02-01] MEDS ORDERED: FLUOXETINE HCL40 M1 PO (19:06)
[2017-02-01] MEDS ORDERED: IBUPROFEN800 M1 PO (19:07)
[2017-02-01] MEDS ORDERED: AMITIZA24 MC1 PO (19:09)
[2017-02-01] MEDS ORDERED: MELATONIN3 M4 PO (19:12)
[2017-02-01] MEDS ORDERED: REMERON15 M2 PO (19:13)
[2017-02-01] MEDS ORDERED: NICORELIEF2 MG PO (19:14)
[2017-02-01] MEDS ORDERED: NICOTINE PATCH1 EAC3 TOP (19:15)
[2017-02-01] MEDS ORDERED: ZYPREXA5 M1 PO (19:17)
[2017-02-01] MEDS ORDERED: OMEPRAZOLE40 M1 PO (19:18)
[2017-02-01] MEDS ORDERED: AFRIN15 ML NAS (19:19)
[2017-02-01] MEDS ORDERED: MINIPRESS2 M1 PO (19:21)
[2017-02-01 20:00] VITALS: BP 143/69
[2017-02-02 08:07] VITALS: BP 135/66
[2017-02-02 12:23] VITALS: BP 136/66
--- NOTE | 2017-02-02 13:42 | CPS MD/APRN INITIAL ASSE PSYCH ---
Psychiatric Admission Foundation Director's Note Reviewed: Yes Patient Seen and Examined: Yes Identifying Information: 31yoM with hx of unspecified mood disorder likely MDD and PSD Chief Complaint: "everything fell apart" Reaction to Hospitalization: positive History of Present Illness Onset of Illness: years Circumstances Leading to Admission: substance use, unstable housing, and poor support Problem(s) Justifying Need for Admission: +SI Other HPI: Pt notes that "everything fell apart" when discharged from [facility]. The plan was for him to take meds, obtain a tent, and life in the [facility] and f/u with [facility]. The pt insisted on d/c to live in the [facility]. Pt did not fill prescriptions but had old ones except zyprexa and did take meds this week. He spent night of discharge walking around [place]. He eventually sold his food stamps and bought cocaine and 6mg klonopin, all of which he used at once. He then started to feel suicidal. He went to see Dr. Sandoval at [facility] and reported SI. Taken back to . Now wants treatment program and to find stable long-term housing (not in tent). Pt denies SI currently. Feels made mistake of relapse. Past Psychiatric History Past Diagnosis(es)- if any: MDD PSD Past Precipitating Factors- if any: unstable housing substance use - Include inpatient and outpatient treatment Treatment History: Multiple inpatient admissions recently Dr. Sandoval at [facility] History of Suicide Attempts or Gestures multiple times, mostly passive SI usually Substance Abuse History: Alcohol, crack, cocaine, heroin, opiates, and BDZ Most recent relapse on crack cocaine and klonopin Allergies: Coded Allergies: chlorpromazine (From THORAZINE) (Severe, ANAPHYLAXIS 01/11/17) fluphenazine (From PROLIXIN) (Severe, ANAPHYLAXIS 01/11/17) haloperidol (From HALDOL) (Severe, ANAPHYLAXIS 01/11/17) loxapine (ANAPHYLAXIS 01/11/17) risperidone (TUNNEL VISION 01/11/17) Home Med List: Discharged on 01/28: Psych meds Methadone 90mg daily Melatonin 5mg QHS Zyprexa 5mg nightly Mirtazapine 15mg nightly Prozac 40mg daily Prazosin 2mg nightly - Include any medical condition(s) that may - impact the patient's recovery/remission Past Medical History: see H&P Past History Medical History Neurological: migraine, seizure, (WITHDRAWL TO BENZOS) EENT: sinusitis, HX MRSA Cardiovascular: NONE Respiratory: asthma Gastrointestinal: constipation, GERD, irritable bowel syndrome Hepatic: NONE Renal: NONE Musculoskeletal: NONE Psychiatric: anxiety, depression, opioid dependence, substance abuse, PTSD SI Endocrine: NONE Blood Disorders: NONE Cancer(s): NONE CASHIER ASSOCIATE/Reproductive: LOW TESTOSTERONE History of MRSA: Yes History of VRE: No History of CDIFF: No Isolation History: Standard Surgical History Surgical History: NONE Psychiatric Family/Social Hx Family History Psychiatric Illness: +dep/anxiety Substance Use: +PSD Suicides: denied Social History Living Situation: homeless, prefers to live in tent [place] the [facility] Significant Relationships (family/friends): none Education: completed HS Vocation/Occupation: unemployed Legal: denied [employer] Behaviors Screening Tobacco Screening Tobacco Use from ED Docu: Current Daily Use Daily Tobacco Use Amount/Type: => 5 Cigarettes daily - If tobacco counseling indicated - the following topics are required. - #1 Recognizing dangerous situations. - #2 Coping Skills. - #3 Basic information about quitting. Status of Tobacco Cessation Counseling: #1, #2 AND #3 Completed Cessation Med Status: Nicotine Patch Ordered Alcohol Screening - ETOH screen POS if BAL >=80 or Audit-C>= M4/F3 Audit-C Score from Diag Assess: 2 Blood Alcohol Level: none done Alcohol Use Screening Results: Pos per Audit C &/or BAL - If ETOH counseling indicated - the following topics are required. - #1 Express concern about the patient's - drinking at unhealthy levels, include informing - of national norms for moderate drinking: - men <= 14 drinks/week, max 4 drinks/occasion - women <= 7 drinks/week, max 3 drinks/occasion - #2 Providing feedback, including linking alcohol to - negative physical effects (liver injury, hypertension) - negative emotional effects (relationship problems and - depression) - negative occupational consequences (reduced work - performance) - #3 Advising the patient to abstain from alcohol or - to drink below national norms for moderate drinking - (as listed above). Status of ETOH Use Counseling: #1, #2 AND #3 Completed. Metabolic Screening - Screen if on a Neuroleptic Medication - Metabolic screening should include: - Blood Pressure, BMI, Glucose or Hgb A1c, & a - Lipid profile from within the past 365 days. Metabolic Screening () Not Applicable, patient not on a neuroleptic. OR () Patient on a neuroleptic(s) . Enter below results for Glucose or Hemoglobin A1C, and lipid panel if obtained during the last 365 days. BMI: 36.200 Blood Pressure: 136/66 Exam and Plan Mental Status Examination Ambulation Status: walking freely Appearance: disheveled Attitude towards examiner: cooperative Psychomotor activity: no retardation or agitation Behavior: cooperative, friendly Quality of speech: nl r/r/p/v Affect: slightly irritable, non-labile, appropriate, congruent Mood: "OK" Suicidal Ideation: passive SI resolved Homicidal Ideation: denied Hallucinations: denied Paranoid/Delusional Material: denied Difficulties with thought organization: none noted, linear and goal directed Insight: poor Judgment: very poor Orientation: a/o x4 Cognition: grossly intact Memory Function: grossly intact Estimate of intellectual functioning: average Assets/Strengths Patient Identified Assets/Strengths: able to communicate, able to seek help Impression/Plan Impression and Plan: Pt with MDD and PSD with poor mood and SI in the setting of medication noncompliance and relapse on substances. 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 - Pt now wants to go to treatment program and pursue stable housing illustrating better judgement than living in the [place]. - Need collateral from Dr. Sandoval. - Encourage intergration into the milieu. - Factors that would help patient function - in a less restrictive setting. Factors: more support
[2017-02-02 15:51] VITALS: BP 100/59
[2017-02-02 19:50] LABS: ABSOLUTE BASOPHIL COUNT 0 /CUMM (0.0-0.2); ABSOLUTE EOSINOPHIL COUNT 0.2 /CUMM (0.0-0.7); ABSOLUTE GRANULOCYTE CT 3.7 /CUMM (1.4-6.5); ABSOLUTE LYMPH COUNT 2.7 /CUMM (1.2-3.4); ABSOLUTE MONOCYTE COUNT 0.6 /CUMM (0.10-0.60); BASOPHIL % 0.3 % (0.0-2.0); EOSINOPHIL % 2.5 % (0-5); GRANULOCYTE % 51.9 % (42.2-75.2); HEMATOCRIT 40.8 % (42-52); MEAN CORPUSCULAR HGB 30.4 PG (27.0-31.0); MEAN CORPUSCULAR HGB CONC 33.3 G/DL (33.0-37.0); MEAN CORPUSCULAR VOLUME 91.2 FL (80.0-94.0); MEAN PLATELET VOLUME 9.9 FL (7.4-10.4); PLATELET COUNT 176 /CUMM (130-400); RBC DISTRIBUTION WIDTH 15.3 % (11.5-14.5); RED BLOOD CELL CT 4.48 /CUMM (4.70-6.10); WHITE BLOOD CELL COUNT 7.1 /CUMM (4.8-10.8)
[2017-02-02 19:51] VITALS: BP 144/66
--- NOTE | 2017-02-02 20:22 | PN- Att Addend ---
Attending Addendum Attending Brief Note 31M PMH IBS, asthma, PTSD, polysubstance abuse on Methadone admitted to [facility] for depression and suicidal ideation. No physical complaints at this time. No acute medical issues. ROS normal AFVSS NAD NCAT Supple RRR CTAB Soft No c/c/e Pulses intact A&Ox3 Current Medications Sig/Mike Start time Last Medication Dose Route Stop Time Status Admin Al Hydroxide/Mg 30 ML Q4-6 PRN PRN 02/02 1330 AC Hydroxide PO Al Hydroxide/Mg 30 ML ONCE ONE 02/02 0215 DC 02/02 Hydroxide PO 02/02 0216 0215 Docusate Sodium 100 MG TID 01/31 1140 AC 02/02 PO 1508 Fluoxetine HCl 40 MG DAILY 02/03 1000 AC PO Fluoxetine HCl 30 MG ONCE ONE 02/02 1330 DC 02/02 PO 02/02 1331 1414 Fluoxetine HCl 10 MG DAILY 02/02 1000 DC 02/02 PO 0955 Gabapentin 300 MG TID 02/03 1000 AC PO Gabapentin 300 MG BID 02/02 1326 AC 02/02 PO 02/02 2201 1414 Ibuprofen 800 MG Q12P PRN 02/02 1330 AC 02/02 PO 1415 Ibuprofen 800 MG ONCE ONE 02/01 2245 DC 02/01 PO 02/01 2246 2244 Lubiprostone 24 MCG BID 02/01 2245 AC 02/02 PO 0954 Lubiprostone 24 MCG BID 01/31 2258 DC 02/01 PO 1058 Melatonin 5 MG AT BEDTIME 01/31 2200 AC 02/01 PO 2230 Methadone HCl 90 MG 0700 02/02 0700 02/02 PO 0953 Mirtazapine 15 MG AT BEDTIME 01/31 2200 AC 02/01 PO 2230 Nicotine 2 MG Q2P PRN 02/02 1330 AC 02/02 PO 1952 Nicotine 21 MG DAILY 02/02 1000 AC 02/02 TOP 0955 Nicotine 2 MG .STK-MED ONE 02/02 05 DC PO 02/02 05 Nicotine 2 MG .STK-MED ONE 02/016 DC PO 02/01 2227 Nicotine 2 MG 4 TIMES/DAY PRN 01/31 1417 DC 02/02 PO 1306 Olanzapine 7.5 MG AT BEDTIME 02/02 220 AC PO Olanzapine 5 MG AT BEDTIME 02/01 220 DC 02/01 PO 2228 Omeprazole 40 MG DAILY AC 02/02 0700 AC 02/02 PO 0514 Oxymetazoline HCl 2 SPRAY BID 02/01 2200 AC 02/02 ROEMRO 02/04 2201 0954 Prazosin HCl 2 MG 02/02 DC PO Prazosin HCl 2 MG 02/01 223 AC 02/01 PO 2243 Senna 187 MG DAILY 02/02 1914 AC PO Testosterone 5 GM DAILY 02/02 1000 AC 02/02 TOP 0955 Laboratory Tests 02/02 1800 Chemistry Sodium (137 - 145 mmol/L) 139 Potassium (3.5 - 5.1 mmol/L) 4.7 Chloride (98 - 107 mmol/L) 98 Carbon Dioxide (22 - 30 mmol/L) 28 Anion Gap (5 - 16) 13 BUN (9 - 20 mg/dL) 21 H Creatinine (0.7 - 1.2 mg/dL) 0.9 Estimated GFR (>60 ml/min) > 60 BUN/Creatinine Ratio (7 - 25 %) 23.3 Hematology CBC w Diff NO MAN DIFF REQ WBC (4.8 - 10.8 /CUMM) 7.1 RBC (4.70 - 6.10 /CUMM) 4.48 L Hgb (14.0 - 18.0 G/DL) 13.6 L Hct (42 - 52 %) 40.8 L MCV (80.0 - 94.0 FL) 91.2 MCH (27.0 - 31.0 PG) 30.4 RDW (11.5 - 14.5 %) 15.3 H Plt Count (130 - 400 /CUMM) 176 MPV (7.4 - 10.4 FL) 9.9 Gran % (42.2 - 75.2 %) 51.9 Lymphocytes % (20.5 - 51.1 %) 37.4 Monocytes % (1.7 - 9.3 %) 7.9 Eosinophils % (0 - 5 %) 2.5 Basophils % (0.0 - 2.0 %) 0.3 Absolute Granulocytes (1.4 - 6.5 /CUMM) 3.7 Absolute Lymphocytes (1.2 - 3.4 /CUMM) 2.7 Absolute Monocytes (0.10 - 0.60 /CUMM) 0.6 Absolute Eosinophils (0.0 - 0.7 /CUMM) 0.2 Absolute Basophils (0.0 - 0.2 /CUMM) 0 PUBS MCHC (33.0 - 37.0 G/DL) 33.3 Plan - Admit to [facility] - Management by psychiatry - Ambulatory for DVT PPx
[2017-02-03 08:16] VITALS: BP 125/77
--- NOTE | 2017-02-03 12:06 | CP SOUTH PROGRESS NOTE PSYCH ---
Psych (Inpt) Progress Note Progress Note Include the following elements, when applicable: Involvement in the active treatment of the patient with behavioral observations of the patient and the patient's response to the treatment. Review of the ongoing treatment process in the context of the treatment plan. Indication of how multi-disciplinary staff members are carrying out the treatment plan. Plans for future interventions and recommendations for revision of the treatment plan. Liaison with other physicians/providers. Progress Note: Pt notes that very tired today and attributes it to increase dose of zyprexa but does not want to decrease dose. Plans to doing AA today. Feels that he is irritable today. Denies SI or HI. Denies AVHs. Current Medications Sig/Mike Start time Last Medication Dose Route Stop Time Status Admin Al Hydroxide/Mg 30 ML .STK-MED ONE 02/020 DC Hydroxide PO 02/02 2351 Al Hydroxide/Mg 30 ML Q4-6 PRN PRN 02/02 1330 AC 02/02 Hydroxide PO 2355 Docusate Sodium 100 MG TID 01/31 1140 AC 02/03 PO 0907 Fluoxetine HCl 40 MG DAILY 02/03 1000 AC 02/03 PO 0907 Fluoxetine HCl 30 MG ONCE ONE 02/02 1330 DC / PO 02/02 1331 1414 Fluoxetine HCl 10 MG DAILY 02/02 1000 DC 02/02 PO 0955 Gabapentin 300 MG TID 02/03 1000 AC 02/03 PO 0907 Gabapentin 300 MG BID 02/02 1326 DC 05/ PO 02/02 2201 2225 Ibuprofen 800 MG Q12P PRN 02/02 1330 AC 02/02 PO 1415 Lubiprostone 24 MCG BID 02/01 2245 AC 02/03 PO 0907 Melatonin 5 MG AT BEDTIME 01/31 2200 AC 02/02 PO 2225 Methadone HCl 90 MG 0700 02/02 0700 AC 02/03 PO 0632 Mirtazapine 15 MG AT BEDTIME 01/31 2200 AC 02/02 PO 2225 Nicotine 2 MG Q2P PRN 02/02 1330 AC 02/03 PO 1202 Nicotine 21 MG DAILY 02/02 1000 AC 02/03 TOP 0907 Nicotine 2 MG 4 TIMES/DAY PRN 01/31 1417 DC 02/02 PO 1306 Olanzapine 7.5 MG AT BEDTIME 02/02 2200 AC 02/02 PO 2225 Olanzapine 5 MG AT BEDTIME 02/01 2200 DC 02/01 PO 2228 Omeprazole 40 MG DAILY AC 02/02 07 AC 02/03 PO 0631 Oxymetazoline HCl 2 SPRAY BID 02/01 2200 AC 02/03 ROMREO 02/04 2201 09 Prazosin HCl 2 MG 02/02 DC PO Prazosin HCl 2 MG 02/01 223 AC 02/02 PO 2228 Senna 187 MG DAILY 02/02 1914 AC PO Testosterone 5 GM DAILY 02/02 1000 AC 02/03 TOP 0908 Laboratory Tests 02/02 1800 Chemistry Sodium (137 - 145 mmol/L) 139 Potassium (3.5 - 5.1 mmol/L) 4.7 Chloride (98 - 107 mmol/L) 98 Carbon Dioxide (22 - 30 mmol/L) 28 Anion Gap (5 - 16) 13 BUN (9 - 20 mg/dL) 21 H Creatinine (0.7 - 1.2 mg/dL) 0.9 Estimated GFR (>60 ml/min) > 60 BUN/Creatinine Ratio (7 - 25 %) 23.3 Hematology CBC w Diff NO MAN DIFF REQ WBC (4.8 - 10.8 /CUMM) 7.1 RBC (4.70 - 6.10 /CUMM) 4.48 L Hgb (14.0 - 18.0 G/DL) 13.6 L Hct (42 - 52 %) 40.8 L MCV (80.0 - 94.0 FL) 91.2 MCH (27.0 - 31.0 PG) 30.4 RDW (11.5 - 14.5 %) 15.3 H Plt Count (130 - 400 /CUMM) 176 MPV (7.4 - 10.4 FL) 9.9 Gran % (42.2 - 75.2 %) 51.9 Lymphocytes % (20.5 - 51.1 %) 37.4 Monocytes % (1.7 - 9.3 %) 7.9 Eosinophils % (0 - 5 %) 2.5 Basophils % (0.0 - 2.0 %) 0.3 Absolute Granulocytes (1.4 - 6.5 /CUMM) 3.7 Absolute Lymphocytes (1.2 - 3.4 /CUMM) 2.7 Absolute Monocytes (0.10 - 0.60 /CUMM) 0.6 Absolute Eosinophils (0.0 - 0.7 /CUMM) 0.2 Absolute Basophils (0.0 - 0.2 /CUMM) 0 PUBS MCHC (33.0 - 37.0 G/DL) 33.3 Vital Signs Date Time Temp Pulse Resp B/P B/P Pulse O2 O2 Flow FiO2 Mean Ox Delivery Rate 02/03 0816 97.8 96 125/77 05/06 2228 97.4 91 16 144/66 05/06 1951 97.4 91 144/66 05/06 1551 78 100/59 05/06 1223 95 136/66 MSE Appears as stated age. Cooperative behavior, good, appropriate eye contact. Nl speech rate and prosody. No psychomotor retardation or agitation. Mood ttired and irritable Affect irritable, depressed, constricted, appropriate, non- liable. Linear and goal directed thought process. Denies SI or HI. Does not appear to be responding to internal stimuli. Denies AVHs, paranoia, or delusions. I/J: limited Pt with MDD and PSD with poor mood and SI in the setting of medication noncompliance and relapse on substances. 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 - Senna and colace added for constipation, pt has small BM, does not want miralax or mag citrate - Pt now wants to go to treatment program and pursue stable housing illustrating better judgement than living in the [facility]. - Need collateral from Dr. Sandoval. - Encourage intergration into the milieu.
[2017-02-03 12:07] VITALS: BP 126/64
[2017-02-03 16:06] VITALS: BP 126/76
[2017-02-03 19:53] VITALS: BP 141/73
[2017-02-04 08:00] VITALS: BP 105/57
[2017-02-04 12:30] VITALS: BP 126/77
--- NOTE | 2017-02-04 14:43 | SOCIAL WORKER PROG NOTE PSYCH ---
Social Work Progress Note Progress Note Mark attended group this afternoon. Talked with him about what happened from the time he was discharged on Sunday 01/28 til he showed up in the ER Saturday. He said that Saturday he had no money and basically roamed around and slept outside. Come Saturday he got food stamps and sold his food stamps for glass with intent to by a tent. On his way he passed by some people who he got drugs from in the past and ended up using crack cocaine and some Klonopin. Saturday night he continued to have no where to go and reports he slept outside again on a card board box. He reported wanting to by OD on his meds. He reports that he had left over meds at the pharmacy that he had filled. He then knew he would be seeing Dr. Sandoval at [facility] the next day. He went into see her and shared he was feeling suicidal. She then requested an ambulance to have him brought to the hospital. Mark stated he requested to come to [place]. He signed releases for [facility], Alpesh Monterroso and said he would like to continue to follow up at [facility]. I gave him the number to call Alpesh Monterroso. He was able to get through to the admission coordinator and she shared that they may have an opening early next week and she said she will call back shortly to do his phone screening. I called Joshua at [facility] to see if he still had Mark's referral from a week ago. He did. We completed his screening. Joshua has no current openings and said to just start calling daily. Called Alpesh Monterroso and left a message. At 5pm Mark completed his phone screening.
--- NOTE | 2017-02-04 14:43 | SOCIAL WORKER TX PLAN PSYCH ---
Treatment Plan - Please Document: - Evidence that there is ongoing collaboration between - the patient and the interdisciplinary team, - including the patient's active participation and - responsibility for engaging in the treatment regimen, - and that the treatment plan is individualized and - relevant to the patient's conditions. - Treatment plan should reflect documentation indicating - that all active therapeutic efforts are included. Strengths/Capabilities: Pt is motivated for treatment Pt participates in outpatient services at [facility] in [place]. Physical Limitations (Interventions): None reported DSM5/PS Stressors/Medical Prob Diagnosis' (DSM 5, Stressors, Medical): F33.2 Major Depressive Disorder Severe, F14.10 Cocaine Use Disorder Mild, Benzos Use Disorder (Klonopin), Hx PTSD, (Methadone Maintainance current), Z59.9 Unspecified Housing & Economic Problems Z65.9 Unspecified Problems Related to Unspecified Psychosocial Circumstances Current GAF: 21 Treatment Team - Responsibilities of members of the treatment team include: - Medication Management- MD or CHOPPER OPERATOR - Medication Administration and Monitoring- Nurse - Group Therapy- Occupational Therapist - 1:1 Therapy,Disch Planning,family involvement-Direct Marketing Executive
--- NOTE | 2017-02-04 15:34 | CP SOUTH PROGRESS NOTE PSYCH ---
Psych (Inpt) Progress Note Progress Note Include the following elements, when applicable: Involvement in the active treatment of the patient with behavioral observations of the patient and the patient's response to the treatment. Review of the ongoing treatment process in the context of the treatment plan. Indication of how multi-disciplinary staff members are carrying out the treatment plan. Plans for future interventions and recommendations for revision of the treatment plan. Liaison with other physicians/providers. Progress Note: PSYCHIATRIST NOTE, 02/04/2017: I discussed this patient's (re-)presentation, progress thus far, current mental status, treatment and discharge planning with staff team today in the daily morning ITTM and also met with him myself in individual session after reviewing some of the clinical information from his two recent [facility] admissions, in 08/2016 and 12/2016 (most recently discharged on 01/28/2017), returning to the E.D. within 2 days, via ambulance directly FROM his initial f/u appointment with his psychiatrist at [facility], [place], [place]. Patient recounted to me that his first bout of depression was when he was only [id number] and that he had spent almost two years of his adolescence at [facility]. He had had multiple medication trials with less than striking results though recalled "doing best on Prozac at 40mg a day." His periods of depression are very anergic and amotivational with almost phobic avoidance of any activity which might improve his situation or even basic self-care and functioning; he denied ever having experienced any episodes which could be considered even hypomanic or even elated, much less manic; for him "even feeling regular" has been rare. Nonetheless, he has apparently had more than one trial on [place] for augmentation of anti-depressant therapy with indifferent results (though it is not clear that he was on enough long enough or his degree of compliance). Patient did report that he was feeling a little more positive and focused today and expressed positive motivation to enter residential treatment (?[facility] ) which he acknowledged not having during his recent [facility] admissions "though I don't know how long it will last." I have asked that the discharge summaries from patient's last 3 inpatient admissions prior to 08/2016 be requested once he signs [facility]'s for these records.
[2017-02-04 16:23] VITALS: BP 130/74
[2017-02-04 19:58] VITALS: BP 142/72
[2017-02-05 07:42] VITALS: BP 115/67
[2017-02-05 12:47] VITALS: BP 132/76
--- NOTE | 2017-02-05 15:14 | SOCIAL WORKER PROG NOTE PSYCH ---
Social Work Progress Note Progress Note Mark was in his room resting this afternoon. He reports feeling very drowsy. Attended groups this morning. Asked if he had an ID? He does have one that he uses for APT. Bhargavi at [facility] wanted to know, because it will help get him get methadone there. Encouraged Mark to call crisis and respite today to check bed availability. Having some stomach distress this afternoon, complaining of diahrrea.
--- NOTE | 2017-02-05 15:44 | CP SOUTH PROGRESS NOTE PSYCH ---
Psych (Inpt) Progress Note Progress Note Include the following elements, when applicable: Involvement in the active treatment of the patient with behavioral observations of the patient and the patient's response to the treatment. Review of the ongoing treatment process in the context of the treatment plan. Indication of how multi-disciplinary staff members are carrying out the treatment plan. Plans for future interventions and recommendations for revision of the treatment plan. Liaison with other physicians/providers. Progress Note: The patient is a 31-year-old white man who was admitted on 02/01/17. He is known to me from his prior treatment on [facility]. He carries the diagnosis major depressive disorder and polysubstance dependence. Case and treatment plan discussed in team meeting. Staff reports that the patient has been attending groups. Seeming more hopeful. sanitation worker is presenting the patient for screening by [facility] and by [facility]. Medication list reviewed. Patient was resting in bed at 1:23 p.m. He got up and met with me in the office. He feels tired/drowsy. Affect is calm and blunted. He is requesting Afrin because prazosin causes him congestion. I informed him that I am reluctant to order Afrin, because it can be addictive. I offered nasal saline, and he responded that saline does not work. Does not want to come off of prazosin. Reports tolerating medications except for nasal congestion. Affect is calm and blunted to depressed. Mood: "I would say good. I felt really good the last 2 days, to be honest. I'm just drowsy for some reason." Rates sad mood 3/10 and anxiety 2/10. Denies feeling hopeless, helpless or worthless. Feels guilty about his father's . Denies active suicidal ideation. Reports passive suicidal ideation. Gives a safety promise for here. Denies homicidal ideation. Denies auditory and visual hallucinations and paranoid ideation. Reports sleep is pretty good but he has some nightmares. Describes appetite as "I would say normal." Energy: groggy and he feels this may be due to a recent increase in Zyprexa dose. IMPRESSION: Slow progress. Continue present treatment plan.
[2017-02-05 15:59] VITALS: BP 126/64
[2017-02-05 19:52] VITALS: BP 138/77
[2017-02-06 08:04] VITALS: BP 133/84
[2017-02-06 12:16] VITALS: BP 150/66
--- NOTE | 2017-02-06 13:44 | SOCIAL WORKER PROG NOTE PSYCH ---
Social Work Progress Note Progress Note Talked to Mark this morning. He is continuing to complain of stomach ailments. He mentioned a fever last night as well. Encouraged him to get up and make some calls. I Called Bhargavi at [facility] this morning. She said Mark will most likely be accepted to the program, he's been there before but she will present his information to the clinical team today. She thinks that the first available male bed would be 02/18, although stated it could happen sooner. She asked me to fax physical, PPD, and copy of his ID. I checked in with him an hour later and he was still in his room. Prompted him to get up and meet. We called [facility] together and spoke with Joshua. There is still no bed availablilty and he is not sure when there would be. He was informed that Mark would most likely be going to [facility] when a bed opened. Mark and I then called his [facility] worker Joy Chong and left a message. Mark reports that he slept well last night. No nightmares and slept through the night. He reports some depression. On a scale of 1-10 (10 being worst) a 4. Anxiety a 3. I let him know that I called Lavonne at [facility] this morning and left a message about what we are working on. He talked about how [facility] has talked about getting him in on the 5th floor there, but they have never come through with that plan. I told him that I would ask about it. Encouraged him to go to groups today.
[2017-02-06 16:13] VITALS: BP 141/65
[2017-02-06 20:08] VITALS: BP 139/67
--- NOTE | 2017-02-06 20:58 | CP SOUTH PROGRESS NOTE PSYCH ---
Psych (Inpt) Progress Note Progress Note Include the following elements, when applicable: Involvement in the active treatment of the patient with behavioral observations of the patient and the patient's response to the treatment. Review of the ongoing treatment process in the context of the treatment plan. Indication of how multi-disciplinary staff members are carrying out the treatment plan. Plans for future interventions and recommendations for revision of the treatment plan. Liaison with other physicians/providers. Progress Note: PSYCHIATRIST NOTE, 02/06/2017: I discussed this patient's slow progress to date, current mental status, treatment and discharge planning with staff team today in the daily morning ITTM and also met with him again myself in individual session. Patient continues to experience low energy, inability to mobilize himself despite improving sleep; he continues to endorse suicidality if outside of a structured, supportive setting. Patient had told me previously that when he was younger Adderall had helped him to focus and get more done. I spoke with him about a possible trial of Wellbutrin augmentation of Prozac; he noted having been on Wellbutrin in the past (?to 300mg/day) but had not taken it together with Prozac (or any other SSRI). I discussed with him a possible retrial on Wellbutrin at this time; following further description of R/B/SE of Wellbutrin and possible interactions with Prozac patient agreed to start Wellbutrin tomorrow morning, 02/07/2017; I will begin him on 150mg of SR formulation daily.
[2017-02-07 08:26] VITALS: BP 126/63
[2017-02-07 12:04] VITALS: BP 129/82
--- NOTE | 2017-02-07 15:22 | SOCIAL WORKER PROG NOTE PSYCH ---
Social Work Progress Note Progress Note Mark went to some groups this afternoon. He shared that he was feeling emotional after the last group. Discussed looking at things that prevent people from moving forward. He feels his anxiety prevents him, but he often doesn't get to work through that because he hasn't felt comfortable with anyone to do that. He said his stomach feels a little better today. He was wondering what his labwork was, because he had a high white cell count when he came in. I told him to follow up with the doctor about it. He talked about his Mom having Celiac disease and he feels worried that he could develop something like that. Second night that he reports good sleep. Told me that he will be trying a new medication (Wellbutrin). He's hoping it will help with his level of motivation. Mark and I called Lavonne at [facility]. I left a message inquiring if she was working on anything for Mark as an interim placement until [facility]. Question 5th floor availability? Called Joshua at [facility]. Left a message asking about bed availability.
--- NOTE | 2017-02-07 15:52 | CP SOUTH PROGRESS NOTE PSYCH ---
Psych (Inpt) Progress Note Progress Note Include the following elements, when applicable: Involvement in the active treatment of the patient with behavioral observations of the patient and the patient's response to the treatment. Review of the ongoing treatment process in the context of the treatment plan. Indication of how multi-disciplinary staff members are carrying out the treatment plan. Plans for future interventions and recommendations for revision of the treatment plan. Liaison with other physicians/providers. Progress Note: PSYCHIATRIST NOTE, 02/07/2017: I discussed this patient's very slow progress to date, current mental status, treatment and discharge planning with staff team today in the daily morning ITTM and also met with him again myself in individual session. Patient coninues to sleep better at night despite starting on the Wellbutrin and said he actually feels "a little more energy" though this is undoubtedly a placebo effect this early on in the trial. Patient denied feeling jittery or overactivated and certainly did not present to me as in any way overstimulated or of his mood "shifting." After further discussion and description of the R/B/ SE of Wellbutrin at higher doses (including the risk of seizures) patient agreed to increase in dose of Wellbutrin SR to 200mg/day as of tomorrow morning, 2016. Ms. Hudson is working diligently on possible alternatives for short-term/ respite placement until a bed opens up for patient at [facility] in [place], [place].; she is looking at [facility] (venues in [place] as welll as [place]). Patient continues to express positive motivation to attend residential rehab at [facility], says he would be comfortable with the environment there.
[2017-02-07 16:13] VITALS: BP 138/67
[2017-02-07 19:49] VITALS: BP 149/90
[2017-02-08 07:56] VITALS: BP 127/60
--- NOTE | 2017-02-08 10:58 | SOCIAL WORKER PROG NOTE PSYCH ---
Social Work Progress Note Progress Note SW met with pt to discuss discharge planning. Pt was isolating in his room in bed and not participating in any groups. Pt presents as depressed and withdrawn. Pt expresses that he does not feel that he is ready for discharge today and says that he will kill himself by overdosing if discharged today. Pt is declining a referral to [facility] while he waits to get into [facility] and refused to sign the release, stating that he would not be able to get his methadone if he went there. Pt is agreeable to a referral to [facility] in [place] to wait for [facility] since the one in [place] is full, but he reinforced that he is not ready to go there today. Referral made and faxed to [facility] and places in paper chart with the release.
[2017-02-08 12:38] VITALS: BP 115/74
[2017-02-08 15:55] VITALS: BP 130/68
--- NOTE | 2017-02-08 17:45 | SOCIAL WORKER PROG NOTE PSYCH ---
Social Work Progress Note Progress Note Next appt. at [facility] with Dr. Sandoval is on 02/14 at 1pm.
--- NOTE | 2017-02-08 18:50 | CP SOUTH PROGRESS NOTE PSYCH ---
Psych (Inpt) Progress Note Progress Note Include the following elements, when applicable: Involvement in the active treatment of the patient with behavioral observations of the patient and the patient's response to the treatment. Review of the ongoing treatment process in the context of the treatment plan. Indication of how multi-disciplinary staff members are carrying out the treatment plan. Plans for future interventions and recommendations for revision of the treatment plan. Liaison with other physicians/providers. Progress Note: PSYCHIATRIST NOTE, 02/08/2017: I discussed this patient's slow progress to date, current mental status, treatment and discharge planning with staff team today in the daily morning ITTM and also met with him again myself in individual session. Staff report patient to be less somatizing, slightly more social and participatory generally and sleeping and eating well. Patient told me he has felt some sustained improvement in energy (though slight to this point) with introduction and upward titration of Wellbutrin SR (now at 200mg/day) but is still feeling suicidal and doesn't trust himself outside of a structured/protected setting at this time; he denies any side effects, increased anxiety, jitteriness, over stimulation/ overactivation, etc., and told me in the past he had been on Wellbutrin SR up to 300mg daily (as 150mg 2x/day) but without concomitant treatment on Prozac; after further discussion and description of possible R/B/SE of Wellbutrin at higher dosage, patient agreed to titrate up to a total of 300mg/day over the coming weekend. Patient continues to be positive about transition to [facility] until he can enter residential treatment at [facility]; he will be referred to their facilities both in [place] and [place]; patient is confident in being able to get from [place] to [place], if necessary.
[2017-02-08 19:57] VITALS: BP 112/72
[2017-02-09 08:09] VITALS: BP 147/67
[2017-02-09 12:20] VITALS: BP 149/71
--- NOTE | 2017-02-09 16:00 | CP SOUTH PROGRESS NOTE PSYCH ---
Psych (Inpt) Progress Note Progress Note Include the following elements, when applicable: Involvement in the active treatment of the patient with behavioral observations of the patient and the patient's response to the treatment. Review of the ongoing treatment process in the context of the treatment plan. Indication of how multi-disciplinary staff members are carrying out the treatment plan. Plans for future interventions and recommendations for revision of the treatment plan. Liaison with other physicians/providers. Progress Note: The patient was seen for follow-up during continuum of care. He was discussed with the unit staff and seen 1:1. He continues to complain of depressed mood, feeling worthless, helpless, hopeless. He expresses the wish to change his life but is not sure how. He seems to be motivated for sobriety and recovery and we discussed about this as being a good place to start his "new life". According to the nursing staff, the patient has been appropriate with peers and staff members, nevertheless having limited interactions with them. He sleeps and eats well, VS have bee WNL. The patient denies suicidal/homicidal ideation, auditory/visual hallucinations or side effects from the medications. The patient agrees to participate more in activities on the unit, and to continue discharge planning to work on intensive outpatient or inpatient rehabilitation. Continues to need observation, symptom monitoring and medication management on an inpatient unit. He will be followed up daily.
[2017-02-09 16:07] VITALS: BP 149/67
--- NOTE | 2017-02-09 16:14 | CP SOUTH PROGRESS NOTE PSYCH ---
Psych (Inpt) Progress Note Progress Note Include the following elements, when applicable: Involvement in the active treatment of the patient with behavioral observations of the patient and the patient's response to the treatment. Review of the ongoing treatment process in the context of the treatment plan. Indication of how multi-disciplinary staff members are carrying out the treatment plan. Plans for future interventions and recommendations for revision of the treatment plan. Liaison with other physicians/providers. Progress Note: The patient is a 31 years old, , single male, unemployed, currently homeless, was admitted for depressed mood with suicidal ideation and plan. The patient was discussed with unit staff and interviewed individually. As per the nursing staff he has been appropriately interacting with staff members, has limited interactions with peers, is compliant with medication and does not have any physical complaints. He has been having normal vital signs, eating and sleeping well, only complaining of depression. The patient is a tall, strongly built male looking stated age, fairly well groomed, reports depressed mood, feeling worthless, hopeless and helpless. He feels that the medication he has started is helpful and currently denies suicidal ideation. He does not have any homicidal ideation. The patient's thought process is linear, there is no delusional ideation, he denies auditory/visual hallucinations, does not have any side effects from the medication and is willing to continue taking it as prescribed. He has an extensive history of substance use/abuse/dependence, has been clean and sober since he was admitted into the hospital . He states: " I don't want to do this anymore. I don't like where I am, I really want to do something with my life, it's just that I don't seem to be able to go anywhere." The patient is willing to pursue recovery and outpatient psychiatric treatment. We will continue present management, observation, symptom monitoring. The patient is slowly improving, he continues to need inpatient care. We will follow-up daily.
[2017-02-09 20:09] VITALS: BP 138/70
[2017-02-10 07:52] VITALS: BP 100/61
[2017-02-10 12:01] VITALS: BP 126/58
--- NOTE | 2017-02-10 13:38 | CP SOUTH PROGRESS NOTE PSYCH ---
Psych (Inpt) Progress Note Progress Note Include the following elements, when applicable: Involvement in the active treatment of the patient with behavioral observations of the patient and the patient's response to the treatment. Review of the ongoing treatment process in the context of the treatment plan. Indication of how multi-disciplinary staff members are carrying out the treatment plan. Plans for future interventions and recommendations for revision of the treatment plan. Liaison with other physicians/providers. Progress Note:
[2017-02-10 15:47] VITALS: BP 133/72
[2017-02-10 20:31] VITALS: BP 144/78
[2017-02-11 08:08] VITALS: BP 141/79
[2017-02-11 12:13] VITALS: BP 136/75
--- NOTE | 2017-02-11 13:31 | SOCIAL WORKER PROG NOTE PSYCH ---
Social Work Progress Note Progress Note Faxed referral to [facility]. Mark went to group this morning. When we met in the afternoon, he presented as hopeless about his life and tearful. He is worried about not being able to have a place to stay inbetween here and bed at [facility]. He stated he has been thinking about just ending his life, stating "I feel like a fuck up." States he can't do anything and he becomes paralyzed. Tried to provide some hope reminding him that he is close to going to a rehab and that he has been approved for a housing voucher that he is waiting for. He asked for his [facility] worker's number and for [facility]'s number to speak with the humidifier maintenance worker there. Mark reports that he is feeling restless/ jittery. He thinks this is from the Wellbutrin that was started. He is interested in speaking with Dr. Howell further about it. I also encouraged him to follow up with Bhargavi at [facility] to see if the bed availability as changed. Mark was given numbers to follow up with. Mark was able to reach his [facility] Worker Joy. He said she would like to see him here. He asked me to also give her a call, which I did. I left a voicemail. Mark was also able to get a hold of Dianne Jacobs the humidifier maintenance worker at [facility] and she would like to see him as well.
[2017-02-11 16:36] VITALS: BP 123/59
[2017-02-11 19:58] VITALS: BP 137/80
--- NOTE | 2017-02-11 21:37 | CP SOUTH PROGRESS NOTE PSYCH ---
Psych (Inpt) Progress Note Progress Note Include the following elements, when applicable: Involvement in the active treatment of the patient with behavioral observations of the patient and the patient's response to the treatment. Review of the ongoing treatment process in the context of the treatment plan. Indication of how multi-disciplinary staff members are carrying out the treatment plan. Plans for future interventions and recommendations for revision of the treatment plan. Liaison with other physicians/providers. Progress Note: PSYCHIATRIST NOTE, 02/11/2017: I discussed this patient's slow progress to date, current mental status, treatment and discharge planning with staff team today in the daily morning ITTM and also met with him again myself in individual session. Patient noted feeling more jittery over the weekend after dose of Wellbutrin SR was titrated up from 200mg to 300mg daily; dose has been returned to 200mg with some improvement in overstimulated feeling already; I split up the dose at well, to 100mg 2x/day. Otherwise, patient feels the addition of Wellbutrin to the Prozac may be helpful ; other than a restless feeling he has been generally a little less sullen and depressed, amotivated and negativistic (though only slightly so by objective outside observations). Patient reports persistent nasal stuffiness despite saline nasal spray, Flonase; he told me that in the past Afrin has worked better for him; after cautioning him about possible rebound nasal stuffiness from prolonged Afrin use I, with his agreement I prescribed a dose Q12H PRN for now.
[2017-02-12 08:18] VITALS: BP 131/72
[2017-02-12 12:31] VITALS: BP 122/90
--- NOTE | 2017-02-12 13:29 | SOCIAL WORKER PROG NOTE PSYCH ---
Social Work Progress Note Progress Note Called [facility]. Spoke with Gisele (director). Gisele offered to do his screening, but then added that he wouldn't be accepted to the program based on past hx there. I asked what specific problems there were? She couldn't answer that and said that the "team" would not approve of his admission there. I didn't bother doing the screening. Mark had a visit from his [facility] worker Joy today. I spoke with Lavonne at [facility]. She received the consent that Mark signed yesterday for [facility] to talk at their community care meeting to other providers about his current situation. Mark, Dr. Howell, Lizeth Gutierrez LINE ASSEMBLER, and I met together today. Mark reports doing better today. He feels more hopeful than yesterday. Stated he has not had any suicidal thoughts today. He slept well and felt that his depression was minimal. He feels the medication is ok were it is. Denied any restlessness today. Reported that he slept well and that he hasn't experienced any nightmares. Talked about wanting to lose weight and that he had gained 70 pounds over the last year or so. Talked about his denial from [facility]. He recalled an argument that he had with one of the consulting manager's there. We will continue to focus on calling the [place] program. He tried to reach out to the admission's coordinator at [facility] today to check bed availability, but couldn't reach her.
[2017-02-12 15:56] VITALS: BP 134/66
[2017-02-12 16:24] VITALS: BP 134/66
--- NOTE | 2017-02-12 16:56 | CP SOUTH PROGRESS NOTE PSYCH ---
Psych (Inpt) Progress Note Progress Note Include the following elements, when applicable: Involvement in the active treatment of the patient with behavioral observations of the patient and the patient's response to the treatment. Review of the ongoing treatment process in the context of the treatment plan. Indication of how multi-disciplinary staff members are carrying out the treatment plan. Plans for future interventions and recommendations for revision of the treatment plan. Liaison with other physicians/providers. Progress Note: PSYCHIATRIST NOTE, 02/12/2017: I discussed this patient's slow progress to date, current mental status, treatment and discharge planning with staff team today in the daily morning MARINO and Hollie Hudson LCSW (and our orienting BOTTOM STAINER, Laverne Gutierrez) and I met together with patient in individual session. Patient noted continuing positive trends in his mood and declining suicidal preoccupation. He denied side effects on current doses of Wellbutrin SR (200mg/day) and Prozac (40mg/day) and was satisfied to continue on current doses of both for another day. His sleep is improving but appetite "too good;" patient described gaining 70+ pounds over the past year and very much wanting to start taking it off again, exercising more, eating better, avoiding medications highly associated with large amounts of weight gain; he is aware that Zyprexa can be associated with weight gain, sometimes significant amounts, but is content to stay on a low dose for the present given that he is beginning to feel better; however, he patient is not requiring doses of PRN Zyprexa. There has been frustration in trying to find "bridging" housing/residence until a bed opens at [facility].
[2017-02-12 19:57] VITALS: BP 133/73
[2017-02-13 07:36] VITALS: BP 116/60
[2017-02-13 12:35] VITALS: BP 126/73
--- NOTE | 2017-02-13 12:55 | SOCIAL WORKER PROG NOTE PSYCH ---
Social Work Progress Note Progress Note Called Bhargavi at [facility] to check on bed availability. Left a detailed message on [employer].
--- NOTE | 2017-02-13 15:09 | SOCIAL WORKER PROG NOTE PSYCH ---
Social Work Progress Note Progress Note SW met with pt and he reported that he has been making calls to the care [facility], [facility] to work on his discharge plan. Pt expresses that he has been feeling better over all, but at times feels irritable which leads him toward some suicidal thinking. However, pt identified that today when that happend he was able to redirect his thoughts by reading, and he expresses that he is feeling better and is not having any active SI.
[2017-02-13 15:56] VITALS: BP 139/81
--- NOTE | 2017-02-13 19:28 | CP SOUTH PROGRESS NOTE PSYCH ---
Psych (Inpt) Progress Note Progress Note Include the following elements, when applicable: Involvement in the active treatment of the patient with behavioral observations of the patient and the patient's response to the treatment. Review of the ongoing treatment process in the context of the treatment plan. Indication of how multi-disciplinary staff members are carrying out the treatment plan. Plans for future interventions and recommendations for revision of the treatment plan. Liaison with other physicians/providers. Progress Note: PSYCHIATRIST NOTE, 02/13/2017: I discussed this patient's slow progress to date, current mental status, treatment and discharge planning with staff team today in the daily morning ITTM and also met with patient again myself in individual session. Patient telephoned both [facility] in [place] and [facility] in [place] today to check on bed availability. Ms. Hudson also called and left a message. Patient said though the rest of the day was better he woke up today rather irritable and took a PRN of Neurontin and eventually felt better in an hour or more; I encouraged him to utilize the Zyprexa PRN for irritability and see if response is more rapid. Patient continues to appear a little less sullen and depressed each day and does report a gradual improvement in mood. He denies any jittery feelings during the day since dose of Wellbutrin SR was reduced back to 200mg daily (from 300mg/day). He is sleeping well at night but also napping at times during the day; I encouraged him to try to keep from napping and go to bed earlier if he feels really tired at the end of the day.
[2017-02-13 19:47] VITALS: BP 138/72
[2017-02-14 07:49] VITALS: BP 119/58
[2017-02-14 12:31] VITALS: BP 131/96
--- NOTE | 2017-02-14 16:05 | CP SOUTH PROGRESS NOTE PSYCH ---
Psych (Inpt) Progress Note Progress Note Include the following elements, when applicable: Involvement in the active treatment of the patient with behavioral observations of the patient and the patient's response to the treatment. Review of the ongoing treatment process in the context of the treatment plan. Indication of how multi-disciplinary staff members are carrying out the treatment plan. Plans for future interventions and recommendations for revision of the treatment plan. Liaison with other physicians/providers. Progress Note: PSYCHIATRIST NOTE, 02/14/2017: I discussed this patient's slow progress to date, current mental status, treatment and discharge planning with staff team today in the daily morning ITTM and also met with him again myself in individual session. Given patient's continuing intermittent but at times startling irritability I would like to introduce a primary mood stabilizer, Medina or Depakote; unfortunately, patient is not willing to take Medina at this time and has gained 70 pounds in the past 6 months, so the latter would seem to be ruled out for the present as well. Patient did not sleep well last night, awoke several times feeling as if he had just started to snore, wonders if he may have sleep apnea and particularly given his massive weight gain over a short period of time and his overall body habitus this may be a possibility though no other patient has complained and no nursing staff member reported heavy, interrupted snoring; patient has also had persistent nasal congestion which may contribute. Patient was a bit less sullen and irritable, more reflective today. He and Ms. Hudson have both been diligently pursuing a bed for him at [facility] ([place] or [place]) and the latter has been repeatedly calling but not able to connect with the director at [facility] and admission date for patient.
[2017-02-14 16:13] VITALS: BP 137/69
--- NOTE | 2017-02-14 16:41 | SOCIAL WORKER PROG NOTE PSYCH ---
Social Work Progress Note Progress Note Called [facility] and left a couple of messages. The coordinator has returned my call and left me a voicemail, but she couldn't answer my question about firming up a discharge date stating she will get the list of discharges on Saturday. Mark continues to have physical complaints, stating today that he was concerned that when he was sleeping he was waking up and catching himself having a problem in his airway as if he had sleep apnea. He has never had a sleep study. He didn't sleep well last night due to that and a creaky door that kept opening in his room. He is developing more insight into the things that work for him when he is feeling down. He stated that he typically isolates and has found that if he does the opposite and goes out to talk to people he ususally will start feeling better. He was able to say he had some SI last night, but that he let the thought pass and he is working on distraction from that. Talked about "move a muscle change a thought" which is a saying from AA.
[2017-02-14 19:29] VITALS: BP 141/67
[2017-02-15 07:47] VITALS: BP 107/59
[2017-02-15 12:32] VITALS: BP 142/81
--- NOTE | 2017-02-15 14:42 | SOCIAL WORKER PROG NOTE PSYCH ---
Social Work Progress Note Progress Note Dr. Howell and I spent a good hour this morning attempting to get Mark screened by [facility]. Spoke with Gisele about his referral again and she continued to say that she doesn't know the details of why the team doesn't want him back at the program, but it was something behavior. She refused to speak with Dr. Howell about him, stating she was not comfortable. I asked for her crossing supervisor's number? She said Lizeth Gilliam was off, but next would be Margaret Lopez [phone]. Dr. Howell was able to speak with Margaret and advocate for Mark to be screened and given an opportunity. Margaret was agreeable to screen him with me at 2pm today. Mark and I called together. He did a nice job with the screening. He asked if there was a bed open today? She said no and that she will be in touch with me regarding his referral. Mark then called the [facility] and asked for Joshua, but he was not in today and was told there was no bed availability. We called Bhargavi (admisssion coordinator) at [facility]. I left a detailed message about wanting to hear when he would be accepted into the program.
[2017-02-15 16:22] VITALS: BP 129/78
[2017-02-15 19:47] VITALS: BP 127/90
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
[2017-02-16 08:04] VITALS: BP 123/59
[2017-02-16 12:26] VITALS: BP 118/72
[2017-02-16 16:09] VITALS: BP 111/71
--- NOTE | 2017-02-16 16:10 | CP SOUTH PROGRESS NOTE PSYCH ---
Psych (Inpt) Progress Note Progress Note patient's record reviewed, RN (Maryann) gave a verbal report I reviewed VS, Labs, Sleep log BP 118/72, Pulse 99/min, Temp 97.8 No new labs in past 24 hours Sleep log indicated patient "slept fair, out of bed a few times to fountain, sat in lounge" 31-year-old white man who was admitted on 02/01/17. He is known to [facility] staff from his prior treatment on [facility]. Diagnoses of record: He carries the diagnosis major depressive disorder and polysubstance dependence. Mental Status Update: c/o nightmares, sleep disruption alert and oriented coherent, no delusions and denied hallucinations isolative/did not attend groups denied thoughts of suicide, denied thoughts of violence/homicide Plan: Increase Prazosin to 4 mg at bedtime Follow up tomorrow
[2017-02-16 20:04] VITALS: BP 136/70
[2017-02-17 07:49] VITALS: BP 115/64
[2017-02-17 12:30] VITALS: BP 125/75
--- NOTE | 2017-02-17 14:49 | CP SOUTH PROGRESS NOTE PSYCH ---
Psych (Inpt) Progress Note Progress Note BP 125/75, Pulse 95/min, Temp 97.8 No new labs in past 24 hours Sleep log indicated patient "slept in long intervalas, up at 3:40 AM for PRN Motrin, up at 5:00 AM, 'whiny' when needs are not met immediately." 31-year-old white man who was admitted on 02/01/17. He is known to [facility] staff from his prior treatment. Diagnoses of record: major depressive disorder polysubstance dependence. Mental Status Update: denied nightmares, still having sleep disruption alert and oriented coherent, no delusions and denied hallucinations denied thoughts of suicide, denied thoughts of violence/homicide c/o grain intertrigo, said Nystatin not helping Plan: D/C Nystatin Lotrimin cream to groin Follow up with regular team tomorrow
[2017-02-17 16:05] VITALS: BP 128/78
[2017-02-17 19:39] VITALS: BP 137/71
[2017-02-18 07:58] VITALS: BP 120/72
--- NOTE | 2017-02-18 10:46 | SOCIAL WORKER PROG NOTE PSYCH ---
Social Work Progress Note Progress Note Called Bhargavi at [facility] today and left a message about bed availability. Received a call back stating they can take him today. He will need to come with 30 days worth of meds in hand. Tried setting up [facility] for transport, but they were already booked for today. [facility] was in bed this morning. Informed him of the news that the bed was open for him today. He seemed happy. Told him I was trying to work on transportation there. I asked how his weekend was? He said it was ok. I told him that I heard he was in his room alot. He said he was tired. Encouraged him to go to group this morning. He chose to return to his room, stating was tired. Reminded him that going to rehab was structured and it would be good for him to get into the routine. Set up [facility] for transport to rehab today. Mark left a little after 1pm. Faxed r-10.
--- NOTE | 2017-02-18 11:44 | CP SOUTH PROGRESS NOTE PSYCH ---
Psych (Inpt) Progress Note Progress Note Include the following elements, when applicable: Involvement in the active treatment of the patient with behavioral observations of the patient and the patient's response to the treatment. Review of the ongoing treatment process in the context of the treatment plan. Indication of how multi-disciplinary staff members are carrying out the treatment plan. Plans for future interventions and recommendations for revision of the treatment plan. Liaison with other physicians/providers. Progress Note: PSYCHIATRIST NOTE (DISCHARGE), 02/18/2017: I discussed this patient's slow progress to date, current mental status, treatment and discharge plans with staff team today in the daily morning ITTM and also met with him again myself in individual session prior to discharging him directly to residential substance abuse rehab with [facility] in [place], [place].; he is very pleased with this disposition, has been in treatment there previously and had a good experience with that program, said they had come to trust him sufficiently while he was there to allow him to provide urines for drug testing without direct supervision/observation; [facility] will be providing continuity for patient to receive his daily methadone maintenance dose. Currently, patient is overall less irritable, mood improved generally; he is future-oriented and goal-directed (to achieve full remission from drugs of abuse, as well as to lose the "70 pounds" he has gained over the past year); there is no current evidence of suicidal or homicidal ideation, plans, intent or impulses and patient is well aware of his safety plan should he ever in future become concerned that he is at acute risk of self-harm or of harming others. For medications prescribed at discharge, see the Discharge Summary from this admission in the electronic medical record. Patient was given an appointment card for the next [place] [facility] on 02/27/2017 at 4pm, facilitated by Marlys Mack LCSW, and encouraged to attend that group or subsequently the groups scheduled for every 2 weeks (the next group when he is out of residential rehab set to take place on 03/13/2017 at 4pm). Patient was urged to contnue to utilize the nicotine patch, 21mg OTC to help reduce craving for cigarettes/tobacco; he is aware that while using the patch he should not smoke cigarettes or utilize other sources of nicotine.
[2017-02-18] MEDS ORDERED: PRAZOSIN HCL2 M1 PO (11:47)
[2017-02-18] MEDS ORDERED: WELLBUTRIN SR100 M2 PO (11:48)
[2017-02-18] MEDS ORDERED: REMERON15 M2 PO (11:49)
[2017-02-18] MEDS ORDERED: FLUOXETINE HCL20 M2 PO (11:49)
[2017-02-18] MEDS ORDERED: OLANZAPINE10 M1 PO (11:50)
[2017-02-18 12:03] VITALS: BP 135/84
--- NOTE | 2017-02-18 19:59 | DISCHARGE SUMMARY REPORT-PSYCH ---
Visit Information Visit Dates/Diagnosis' Admission Date: 02/01/17 Discharge Date: 02/18/17 Reason for Admission: "Everything fell apart." Psy Discharge Primary Diag: Major Depressive Disorder Recurrent; severe, with persistent suicidality R/O Unspecified Bipolar Disorder; MRE Depressed Opioid Use Disorder; in remission on methadone maintenance therapy Sedative/hypnotic/ anxiolytic Use Disorder (benzodiazepines)\\ (also IBS--intermittent constipation; GERD Psy Discharge Secondary Diag: hx of PTSD Hospital Course Significant Lab Findings: glucose = 109; BUN = 21; AST = 110; VICKI = less than 10.0; urine for drugs of abuse--positive for cocaine (greater than 1,000ng/ml) and methadone (greater than 735ng/ml; patient is currently on methadone maintenance) (for listing of all normal range laboratory data from this admission, see electronic medical record) Course Complications: none Consultations: patient was seen for an admission medical H&P by Yesica Adams M.D., and followed medically during this admission by the hospitalist staff/[facility] medical attending physicians Allergies: Coded Allergies: chlorpromazine (From THORAZINE) (Severe, ANAPHYLAXIS 01/11/17) fluphenazine (From PROLIXIN) (Severe, ANAPHYLAXIS 01/11/17) haloperidol (From HALDOL) (Severe, ANAPHYLAXIS 01/11/17) loxapine (ANAPHYLAXIS 01/11/17) risperidone (TUNNEL VISION 01/11/17) Hospital Course/TX Response: (see also, all initial/admission assessments and daily M.D./BLOCK BOLTER MULE OPERATOR and EDUCATIONAL RESOURCE COORDINATOR progress notes for this admission in the electronic medical record) Patient had had two recent [facility] admissions, in 08/2016 and 12/2016 (most recently discharged on 01/28/2017), returning to the E.D. within 2 days, via ambulance directly FROM his initial f/u appointment with his psychiatrist at [facility], [place], [place]. Patient recounted to me that his first bout of depression was when he was only [id number] and that he had spent almost two years of his adolescence at [facility]. He had had multiple medication trials with less than striking results though recalled "doing best on Prozac at 40mg a day." His periods of depression are very anergic and amotivational with almost phobic avoidance of any activity which might improve his situation or even basic self-care and functioning; he denied ever having experienced any episodes which could be considered even hypomanic or even elated, much less manic; for him "even feeling regular" has been rare. Nonetheless, he has apparently had more than one trial on [place] for augmentation of anti- depressant therapy with indifferent results (though it is not clear that he was on enough long enough or his degree of compliance). Patient did report that he was feeling a little more positive and focused today and expressed positive motivation to enter residential treatment (?[facility]) which he acknowledged not having during his recent [facility] admissions "though I don't know how long it will last." I have asked that the discharge summaries from patient's last 3 inpatient admissions prior to 08/2016 be requested once he signs [facility]'s for these records. Patient was discharged directly to residential substance abuse rehab with [facility] in [place], [place].; he is very pleased with this disposition, has been in treatment there previously and had a good experience with that program, said they had come to trust him sufficiently while he was there to allow him to provide urines for drug testing without direct supervision/observation; [facility] will be providing continuity for patient to receive his daily methadone maintenance dose. Currently, patient is overall less irritable, mood improved generally; he is future-oriented and goal-directed (to achieve full remission from drugs of abuse, as well as to lose the "70 pounds" he has gained over the past year); there is no current evidence of suicidal or homicidal ideation, plans, intent or impulses and patient is well aware of his safety plan should he ever in future become concerned that he is at acute risk of self-harm or of harming others. Patient was given an appointment card for the next [facility] on 02/27/2017 at 4pm, facilitated by Marlys Mack LCSW, and encouraged to attend that group or subsequently the groups scheduled for every 2 weeks (the next group when he is out of residential rehab set to take place on 03/13/2017 at 4pm). Patient was urged to contnue to utilize the nicotine patch, 21mg OTC to help reduce craving for cigarettes/tobacco; he is aware that while using the patch he should not smoke cigarettes or utilize other sources of nicotine. Discharge HBIPS - Tobacco Use Treatment Offered Post DC Medications Offered: Script Given-See Med List Post DC Tobacco Treatment Plan: [facility] (biweekly group after rehab) Program Appt Date: 03/27/17 - EtOH/Drug Use D/O Treatment Offered Post DC Medications Offered: Ref Med EtOH/Drug Use D/O Post DC EtOH/SubAbuse TX Plan: Other SubAbuse/Dual Pgm Program Appt Date: 02/18/17 Metabolic Screening - Screen if on a Neuroleptic Medication - Metabolic screening should include: - Blood Pressure, BMI, Glucose or Hgb A1c, & a - Lipid profile from within the past 365 days. Metabolic Screening () Not Applicable, patient not on a neuroleptic. OR ([x]) Patient on a neuroleptic(s) . Enter below results for Glucose or Hemoglobin A1C, and lipid panel if obtained during the last 365 days. BMI: 36.200 Blood Pressure: 135/84 Laboratory Results (If applicable): [x] glucose = 109 (on 01/30/2017) cholesterol = 217 (all drawn on 09/23/2016) triglycerides = 258 HDL = 47 LDL = 119 Discharge Instructions General Discharge Information Discharge Medications: DI called into the [facility] on date of dischargae, 02/18/2017: Zyprexa, 10mg: i tab nightly at HS (10mg/night); #30 with no refill (to clarify and control racing thoughts) Prozac, 40mg: i tab daily in AM (40mg/day); #30 with no refill (anti- depressant) Wellbutrin SR, 200mg: i tab daily in AM (200mg/day); #30 with no refill (anti -depressant augmentation) Remeron, 15mg: i nightly at HS (15mg/night); #30 with no refill (sleep induction/reduce bedtime anxiety) Prazosin, 2mg: ii tabs nightly at HS (4mg/night); #60 with no refill (help reduce/control nightmares) patient was also encouraged to continue to utilize nicotine patch, 21mg OTC to help reduce craving for cigarettes/tobacco and well aware that he should not use the patch and smoke cigarettes at the same time; he was also given an appointment card for the next [facility] meeting scheduled for 02/27/2017 at 4pm, facilitated by Marlys Mack LCSW and urged to attend this or another of the regular biweekly groups at that time (the next group after his completes residential rehab will take place on 2016 at 4pm). patient was also going to continue to take (as arranged by [facility]): methadone, 90mg daily in AM (to reduce craving for heroin/morphine) patient has adequate supplies to continue taking: omeprazole, 40mg/day AC breakfast (to reduce stomach acid) testosterone (Androgel), 5gm 2x/day applied topically (male hormone) Multiple Neuroleptics: ([X]) Not Applicable OR Document below three failed attempts at monotherapy, or a plan to taper to monotherapy, or augmentation of Clozapine. () Patient's Diet: heart healthy Patient's Activity: without restrictions DC Disposition: to residential rehab at [facility] in [place], [place]. Recommendations: Following an interval of outpatient stabilization I would recommend attempting to taper down the current dose of Zyprexa. Referred To: Patient was discharged directly to residential substance abuse rehab with [facility] in [place], [place].; he is very pleased with this disposition, has been in treatment there previously and had a good experience with that program, said they had come to trust him sufficiently while he was there to allow him to provide urines for drug testing without direct supervision/observation; [facility] will be providing continuity for patient to receive his daily methadone maintenance dose. Patient was given an appointment card for the next [facility] on 02/27/2017 at 4pm, facilitated by Marlys Mack LCSW, and encouraged to attend that group or subsequently the groups scheduled for every 2 weeks (the next group when he is out of residential rehab set to take place on 03/13/2017 and 03/27/2017 at 4pm). Patient was urged to contnue to utilize the nicotine patch, 21mg OTC to help reduce craving for cigarettes/tobacco; he is aware that while using the patch he should not smoke cigarettes or utilize other sources of nicotine. Copies To: YVONNE STEINBERG,DIETER
== END 2017-02-18 13:20 | DRG 751 ==
LOC: ERH 10:57 → CP SOUTH 02-01 15:49 → ERHI 02-01 15:49 → ENRESERV 02-01 16:30 → CP SOUTH 02-01 17:50 → ENPENDDIS 02-18 14:00
PROVIDERS: Physician Assistant Medical; Student in an Organized Health Care Education/Training Program; ADMIT Psychiatry & Neurology Addiction Medicine
DX: F33.2 Major depressive disorder, recurrent severe without psychotic features (principal); R45.851 Suicidal ideations; F11.20 Opioid dependence, uncomplicated; F13.90 Sedative, hypnotic, or anxiolytic use, unspecified, uncomplicated; K58.1 Irritable bowel syndrome with constipation; K21.9 Gastro-esophageal reflux disease without esophagitis
CPT/HCPCS: 36415; 80307; 82436; G0463; G0480; J3490

== ENCOUNTER 2017-10-13 17:09 | Inpatient (IN) | payer OTHER ==
[~2017-10-13] VITALS: Ht 182.9 cm; Wt 120.2 kg
[~2017-10-13 17:09] MED LIST changes: +AFRIN15 ML NAS; +COLACE100 M1 PO; +MELATONIN3 M4 PO; +MINIPRESS2 M1 PO; +OLANZAPINE10 M1 PO; +OMEPRAZOLE40 M1 PO; +WELLBUTRIN SR100 M2 PO; +ZYPREXA5 M1 PO
--- NOTE | 2017-10-13 17:15 | ED PSYCHIATRIC COMPLAINT ---
History of Present Illness General Chief Complaint: Psychiatric Related Complaint Stated Complaint: BIBA +SI Source: patient, EMS Exam Limitations: no limitations Vital Signs & Intake/Output Vital Signs & Intake/Output Vital Signs Date Time Temp Pulse Resp B/P B/P Pulse O2 O2 Flow FiO2 Mean Ox Delivery Rate 10/13 1932 98.3 88 18 125/70 98 Room Air 10/13 1931 Room Air 10/13 1739 98.2 112 20 150/90 99 Room Air Allergies Coded Allergies: chlorpromazine (From THORAZINE) (Severe, ANAPHYLAXIS 01/11/17) fluphenazine (From PROLIXIN) (Severe, ANAPHYLAXIS 01/11/17) haloperidol (From HALDOL) (Severe, ANAPHYLAXIS 01/11/17) loxapine (ANAPHYLAXIS 01/11/17) risperidone (TUNNEL VISION 01/11/17) Triage Note: PT BIBA +SI WITH PLAN. PT WAS FOUND AT PSYCH FACILITY STATING HE WANTED TO USE A KNIFE AND STAB HIMSELF IN THE NECK. PT IS HOMELESS, WAS SEEN AT [facility] YESTERDAY FOR SAME, WAS DISCHARGED. PT ARRIVES CALM AND COOPERATIVE. +SI, -HI. PT STATES HE HAD HIS MEDICATIONS STOLEN. CURRENTLY ON 100MG METHADONE THAT HE DID RECIEVE TODAY. PT CHANGED INTO [facility]. SECURITY AT BEDSIDE FOR WANDING. Triage Nurses Notes Reviewed? yes HPI: This is a 32-year-old male who presents to the ER by ambulance for chief complaint of feeling suicidal with plan to kill himself with his own knife. Patient states that on morning he was smoking K2 after which she had a question of seizure. He was brought in to [facility] and was there until today first as a medical observation and then as a psychiatric observation. In addition he had been living in a tent and had been moving and lost track of his medications and had been off his medications for a few weeks. While in the hospital he told me a plan to hurt himself. He states they gave him a dose of cervical but did not restart him on medications. They offered to keep him until getting him into an IUP program but the patient became frustrated because they would not restart his medications. He feels suicidal and was briefly homicidal. When they were discharging him or when he wanted to leave he threatened to burn on the hospital but states he doesn't feel any longer. History of multiple suicide attempts last was a few years ago with an overdose on his medications. Patient states that his father overdose and kill himself 10 years ago and the patient had brought the drugs for him and he blames himself for the event. He states it is 10 years later today is his birthday and he feels like he is gone nor in his life. He does not have any contact with his mother, older or younger sister. He states he has no support in the community (Keerthi Fisher MD) Reconcile Medications Bupropion HCl (Wellbutrin Sr) 100 MG TABLET.ER 100 MG PO 0800,1200 anti- depressant Fluoxetine HCl 20 MG CAPSULE 40 MG PO DAILY anti-depressant Methadone HCl 5 MG TABLET 100 MG PO DAILY methadone maintenance (Reported) Mirtazapine (Remeron) 15 MG TABLET 1.5 TAB PO QPM SLEEP (Reported) Nicotine Polacrilex (Nicotine Lozenge) 4 MG LOZENGE 1 ALAN PO Q2H PRN SMOKING CESSATION (Reported) Olanzapine 10 MG TABLET 10 MG PO 2200 organized racing thoughts Pantoprazole Sodium 40 MG TABLET.DR 1 TAB PO DAILY GI (Reported) Prazosin HCl (Minipress) 2 MG CAPSULE 8 MG PO QPM NIGHTMARES (Reported) Quetiapine Fumarate (Seroquel) 200 MG TABLET 1 TAB PO QPM SLEEP (Reported) Testosterone (Androgel) (Unknown Strength) GEL..ENROLLMENT SPECIALIST 2 [place] TOP DAILY LOW TESTOSTERONE (Reported) (Burak GERBER,Ace Drake) Past History Medical History Any Pertinent Medical History? 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 No (Keerthi Fisher MD) Review of Systems Review of Systems Constitutional: Denies: chills, fever. EENTM: Reports: no symptoms. Respiratory: Reports: no symptoms. Cardiovascular: Reports: no symptoms. GI: Reports: no symptoms. Genitourinary: Reports: no symptoms. Musculoskeletal: Reports: no symptoms. Skin: Reports: no symptoms. Neurological/Psychological: Reports: anxiety, depressed, emotional problems. Hematologic/Endocrine: Reports: no symptoms. Immunologic/Allergic: Reports: no symptoms. All Other Systems: Reviewed and Negative (Keerthi Fisher MD) Physical Exam Physical Exam General Appearance: well developed/nourished, alert, awake, anxious, mild distress, moderate distress, obese Head: atraumatic Eyes: Bilateral: PERRL, EOMI. Ears, Nose, Throat: normal pharynx, normal ENT inspection, hearing grossly normal Neck: normal inspection, supple Respiratory: normal breath sounds Cardiovascular: regular rate/rhythm Gastrointestinal: soft, non-tender Extremities: normal range of motion Neurological/Psychiatric: no motor/sensory deficits, alert, anxious Appearance/Memory/Insight: appropriate insight, disheveled Behavoir/Eye Contact/Speech: avoids eye contact, cooperative, normal speech Thoughts/Hallucinations: no apparent hallucination Skin: intact, normal color, warm/dry SAD PERSONS SAD PERSONS Response Value Male Sex? yes 1 Depression/Hopelessness? yes 2 Previous Attempts/Psych Care yes 1 Excessive Ethanol/Drug Use? yes 1 Single//? yes 1 Organized/Serious Attempt yes 2 Social Support? has no support 1 Stated Future Intent? yes 2 Total 11 SAD PERSONS Done? yes (Keerthi Fisher MD) Progress Differential Diagnosis: DEPRESSION, ANXIETY, SUICIDAL IDEATION Plan of Care: Orders Procedure Date/time Status Regular Diet 10/14 B Active Continuous Observation Monitor 10/13 1714 Active URINE DRUGS OF ABUSE 10/13 1714 Complete ETHANOL 10/13 1714 Complete COMPREHENSIVE METABOLIC PANEL 10/13 1714 Complete CBC WITHOUT DIFFERENTIAL 10/13 1714 Complete ED CRISIS PSYCH CONSULT 10/13 1714 Active Laboratory Tests 10/13/17 1744: Urine Opiates Screen < 100.00, Methadone Screen > 735 H, Barbiturate Screen < 60, Ur Phencyclidine Scrn < 6.00, Amphetamines Screen < 100, U Benzodiazepines Scrn < 85, Urine Cocaine Screen < 50, Urine Cannabis Screen < 5.00 10/13/17 1740: Anion Gap 18 H, Estimated GFR > 60, BUN/Creatinine Ratio 25.6 H, Glucose 92, Calcium 10.4 H, Total Bilirubin 0.3, AST 38, ALT 55, Alkaline Phosphatase 77, Total Protein 8.4 H, Albumin 5.0, Globulin 3.4, Albumin/Globulin Ratio 1.5, CBC w Diff NO MAN DIFF REQ, RBC 5.34, MCV 89.6, MCH 30.3, RDW 14.5, MPV 9.8, Gran % 60.8, Lymphocytes % 30.5, Monocytes % 6.6, Eosinophils % 1.8, Basophils % 0.3, Absolute Granulocytes 5.0, Absolute Lymphocytes 2.5, Absolute Monocytes 0.5, Absolute Eosinophils 0.1, Absolute Basophils 0, PUBS MCHC 33.8, Serum Alcohol < 10.0 Hand-Off Endorsed To: Burak GERBER,Ace Drake Endorsed Time: 1899 Pending: consult (CRISIS) (Keerthi Fisher MD) Departure Departure Disposition: STILL A PATIENT Condition: Stable Clinical Impression Primary Impression: Suicidal ideation Referrals: Shahid Campa MD Departure Forms: Customer Survey General Discharge Information (Keerthi Fisher MD) Psych Admission Note Psychiatric Admission: I have seen and evaluated CRISTHIAN ARAGON. I have also reviewed all the pertinent lab results and diagnostic results. CRISTHIAN ARAGON will be admitted to our inpatient Psychiatric unit for treatment and care. (Burak GERBER,Ace Drake)
[2017-10-13 17:49] LABS: ABSOLUTE BASOPHIL COUNT 0 /CUMM (0.0-0.2); ABSOLUTE EOSINOPHIL COUNT 0.1 /CUMM (0.0-0.7); ABSOLUTE LYMPH COUNT 2.5 /CUMM (1.2-3.4); ABSOLUTE MONOCYTE COUNT 0.5 /CUMM (0.10-0.60); BASOPHIL % 0.3 % (0.0-2.0); EOSINOPHIL % 1.8 % (0-5); GRANULOCYTE % 60.8 % (42.2-75.2); HEMATOCRIT 47.9 % (42-52); MEAN CORPUSCULAR HGB 30.3 PG (27.0-31.0); MEAN CORPUSCULAR HGB CONC 33.8 G/DL (33.0-37.0); MEAN CORPUSCULAR VOLUME 89.6 FL (80.0-94.0); MEAN PLATELET VOLUME 9.8 FL (7.4-10.4); PLATELET COUNT 176 /CUMM (130-400); RBC DISTRIBUTION WIDTH 14.5 % (11.5-14.5); RED BLOOD CELL CT 5.34 /CUMM (4.70-6.10); WHITE BLOOD CELL COUNT 8.2 /CUMM (4.8-10.8)
[2017-10-13] MEDS ORDERED: MINIPRESS2 M1 PO (19:48)
[2017-10-13] MEDS ORDERED: REMERON15 M2 PO (19:49)
[2017-10-13] MEDS ORDERED: SEROQUEL200 M1 PO (19:50)
[2017-10-13] MEDS ORDERED: NICOTINE LOZENGE4 MG PO (19:54)
[2017-10-13] MEDS ORDERED: PANTOPRAZOLE SO40 M1 PO (19:54)
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
[2017-10-13] MEDS ORDERED: WELLBUTRIN SR100 M2 PO (22:04)
[2017-10-13] MEDS ORDERED: PROZAC40 M1 PO (22:05)
[2017-10-14] MEDS ORDERED: METHADONE HCL10 M1 PO (01:49)
[2017-10-14 07:52] VITALS: BP 132/85
[2017-10-14 12:11] VITALS: BP 131/98
--- NOTE | 2017-10-14 14:17 | CPS PROVIDER INIT ASMT PSYCH ---
Psychiatric Admission Nut Sorter Operator's Note Reviewed: Yes Patient Seen and Examined: Yes Identifying Information: 32-year-old single white male admitted through the emergency room because of thoughts of suicide. Chief Complaint: "Bad reaction to K2, panic attacks every day Reaction to Hospitalization: The patient was admitted voluntarily History of Present Illness Onset of Illness: The patient reported increased anxiety with recurrent panic attacks after the use of synthetic Cannabinoids the patient reported that after using K2 he lost consciousness and he was told that he may have had a seizure. Circumstances Leading to Admission: The patient reportedly after having lost consciousness and arrived at the [facility] in [place] and reportedly an ambulance was called and alevism that he was considering hurting himself with a knife. Patient reported that he was confused after the incident that resulted in a possible seizure Problem(s) Justifying Need for Admission: Concern about suicidal ideation Past Psychiatric History Past Diagnosis(es)- if any: Reportedly the patient has had a diagnosis of major depressive disorder, sedative hypnotic use disorder, cocaine use disorder, opioid use disorder currently on methadone maintenance treatment Past Precipitating Factors- if any: Relapse to drug use - Include inpatient and outpatient treatment Treatment History: The patient has been previously worked with [facility] in [place] he is still with the [facility] in [place] for his methadone maintenance and it looks like he previously was actually admitted inpatient at [facility] History of Suicide Attempts or Gestures No actual attempts but it looks like the patient has had multiple admissions for reportedly having thoughts of suicide mostly passive suicidal ideation Substance Abuse History: Alcohol, crack, cocaine, heroine, sedative hypnotics. Allergies: Coded Allergies: chlorpromazine (From THORAZINE) (Severe, ANAPHYLAXIS 01/11/17) fluphenazine (From PROLIXIN) (Severe, ANAPHYLAXIS 01/11/17) haloperidol (From HALDOL) (Severe, ANAPHYLAXIS 01/11/17) loxapine (ANAPHYLAXIS 01/11/17) risperidone (TUNNEL VISION 01/11/17) Home Med List: He hasn't been on medications more recently he said that the last time he saw Dr. Sandoval was several months ago - Include any medical condition(s) that may - impact the patient's recovery/remission Past History Medical History Any Pertinent Medical History? unobtainable Neurological: migraine, seizure, (WITHDRAWL TO BENZOS) EENT: sinusitis, HX MRSA Cardiovascular: NONE Respiratory: asthma Gastrointestinal: constipation, GERD, irritable bowel syndrome Hepatic: NONE Renal: NONE Musculoskeletal: NONE Psychiatric: anxiety, depression, opioid dependence, substance abuse, PTSD SI Endocrine: NONE Blood Disorders: NONE Cancer(s): NONE TOBACCO DRUMMER/Reproductive: LOW TESTOSTERONE History of MRSA: Yes History of VRE: No History of CDIFF: No Isolation History: Standard Influenza Vaccine: 06/30/17 Surgical History Surgical History: NONE Psychiatric Family/Social Hx Family History Psychiatric Illness: Patient reported that there is family history of depression and anxiety Substance Use: The patient reported that it is some history of substance use on his paternal side Suicides: Patient denied completed suicides among his blood relations Social History Living Situation: Patient has been staying with friends/homeless Significant Relationships (family/friends): The patient has little contact with his mother or sister patient reportedly who has a son but he has no contact with him Education: The patient has a high school education Vocation/Occupation: Currently unemployed Legal: Denied legal entanglements Healthly Behaviors Screening Tobacco Screening Tobacco Use from ED Docu: Current Daily Use Daily Tobacco Use Amount/Type: => 5 Cigarettes daily - If tobacco counseling indicated - the following topics are required. - #1 Recognizing dangerous situations. - #2 Coping Skills. - #3 Basic information about quitting. Status of Tobacco Cessation Counseling: #1, #2 AND #3 Completed Cessation Med Status Nicotine Patch Ordered Alcohol Screening - ETOH screen POS if BAL >=80 or Audit-C>= M4/F3 Audit-C Score from Diag Assess: 0 Blood Alcohol Level: Laboratory Tests 10/13 1740 Toxicology Serum Alcohol (<10 MG/DL) < 10.0 Alcohol Use Screening Results: Neg per Audit C &/or BAL - If ETOH counseling indicated - the following topics are required. - #1 Express concern about the patient's - drinking at unhealthy levels, include informing - of national norms for moderate drinking: - men <= 14 drinks/week, max 4 drinks/occasion - women <= 7 drinks/week, max 3 drinks/occasion - #2 Providing feedback, including linking alcohol to - negative physical effects (liver injury, hypertension) - negative emotional effects (relationship problems and - depression) - negative occupational consequences (reduced work - performance) - #3 Advising the patient to abstain from alcohol or - to drink below national norms for moderate drinking - (as listed above). Status of ETOH Use Counseling: N/A B/C NO ETOH Use Metabolic Screening - Screen if on a Neuroleptic Medication - Metabolic screening should include: - Blood Pressure, BMI, Glucose or Hgb A1c, & a - Lipid profile from within the past 365 days. Metabolic Screening ([X]) Not Applicable, patient not on a neuroleptic. OR () Patient on a neuroleptic(s) . Enter below results for Hemoglobin A1C, and lipid panel if obtained during the last 365 days. BMI: 35.900 Blood Pressure: 131/98 Laboratory Results From [facility] (If applicable): Exam and Plan Mental Status Examination Ambulation Status: The patient has steady gait Appearance: Unremarkable Attitude towards examiner: Slightly fidgety Psychomotor activity: Slightly increased Behavior: Normal Quality of speech: Normal Affect: euthymic Mood: Very anxious Suicidal Ideation: On and off Homicidal Ideation: Denied Hallucinations: Denied Paranoid/Delusional Material: Denied Difficulties with thought organization: None Insight: Partial Judgment: Poor Orientation: Oriented to time place and person Cognition: No significant issues Memory Function: No impairment Estimate of intellectual functioning: Average Assets/Strengths Patient Identified Assets/Strengths: Likable Impression/Plan Impression and Plan: 32-year-old single white male who presents after he reportedly expressed suicidal ideation during a visit to [facility] [place] - Include all active medical diagnosis that require tx DSM 5 Diagnosis(es): Generalized anxiety disorder Opioid use disorder, on agonist therapy Other substance use disorder (synthetic marijuana) - Initial Tx Plan for Active Psych & Medical Conditions Treatment Plan: Inpatient psychiatric care Continue continue methadone 100 mg daily Nursing staff will provide education and mental status assessments every shift, vital signs Social work to coordinate discharge plan and aftercare plans Group therapy Milieu therapy Psychiatrist will meet with the patient daily - Factors that would help patient function - in a less restrictive setting. Factors: Stable housing and abstinence from drugs
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
[2017-10-14 16:15] VITALS: BP 136/78
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
[2017-10-14 19:42] VITALS: BP 141/65
[2017-10-15 07:41] VITALS: BP 129/78
--- NOTE | 2017-10-15 08:49 | SOCIAL WORKER PROG NOTE PSYCH ---
Social Work Progress Note Progress Note Called [facility] [phone] to connect to Lavonne Kim (Behavioral Health Home Medicaid Analyst). Left a message. Lavonne has called me back, but unfortunately we keep missing eachother today. Mark and I met this afternoon. He shared that he went to groups and found the topic of procrastination to be helpful to him. He feels that is a major problem of his. He said he has an interest in looking into other rehabs besides [facility]. He is open to a referral to [facility], [facility], and [facility]. He is also open to a referral to [facility]. Mark shared that he is open to staying at the [facility], but not at [facility]. He is also in need of clothes and boots. He has only the things that he is wearing here. He started to get tearful in sharing that information. We will explore clothing resources. Mark is connected to [facility] in [place] for primary care, so I don't think he would be eligible for A services.
--- NOTE | 2017-10-15 11:16 | CP SOUTH PROGRESS NOTE PSYCH ---
Psych (Inpt) Progress Note Progress Note The multidisciplinary treatment team discussed the patient's treatment and progress (team included: Nursing staff, Group Therapists, Social Work staff, and psychiatrists) Mental Status Examination The patient has steady gait, slightly fidgety, Slightly increased Psychomotor activity, No bizarre, behavior, Normal Quality of speech, Normal Affect, euthymic, Mood Very anxious, Suicidal Ideation, On and off, he denied homicidal Ideation, Denied Hallucinations, Denied Paranoid/Delusional Material, Mark denied Difficulties with thought organization, partial insight, poor judgment, Oriented to time place and person, No significant issues with memory/no impairment Impression and Plan: A 32-year-old single White male admitted through the emergency room because of thoughts of suicide. "Bad reaction to K2, panic attacks every dayThe patient reported increased anxiety with recurrent panic attacks after the use of synthetic Cannabinoids the patient reported that after using K2 he lost consciousness and he was told that he may have had a seizure. The patient reportedly after having lost consciousness and arrived at the [facility] in [place] and reportedly an ambulance was called and judaism that he was considering hurting himself with a knife. Patient reported that he was confused after the incident that resulted in a possible seizure DSM 5 Diagnosis(es): Generalized anxiety disorder Opioid use disorder, on agonist therapy Other substance use disorder (synthetic marijuana) Treatment Plan: Continue inpatient psychiatric care Continue methadone 100 mg daily Reduce Zyprexa to 5 mg at bedtime Reduce Remeron to 15 mg at bedtime Add Gabapentin 600 mg TID Nursing staff will provide education and mental status assessments every shift, vital signs Social work to coordinate discharge plan and aftercare plans Group therapy Milieu therapy Psychiatrist will meet with the patient daily
[2017-10-15 12:20] VITALS: BP 151/92
--- NOTE | 2017-10-15 12:28 | CP SOUTH PROGRESS NOTE PSYCH ---
Psych (Inpt) Progress Note Progress Note today's lab results Lab Anion Gap 14 10/15/17 0640 BUN 21 mg/dL H 10/15/17 0640 BUN/Creatinine Ratio 30.0 % H 10/15/17 0640 Carbon Dioxide 32 mmol/L H 10/15/17 0640 Chloride 100 mmol/L 10/15/17 0640 Creatinine 0.7 mg/dL 10/15/17 0640 Estimated GFR > 60 ml/min 10/15/17 0640 Potassium 4.8 mmol/L 10/15/17 0640 Sodium 146 mmol/L H 10/15/17 0640
--- NOTE | 2017-10-15 13:32 | SOCIAL WORKER PROG NOTE PSYCH ---
Social Work Progress Note Progress Note Pt has a PCP at [facility], awaiting ot here back from [facility] to see if this would qualify him for their program, if they are not in network, we could refer him to [facility].
[2017-10-15 15:48] VITALS: BP 143/86
[2017-10-15 21:31] VITALS: BP 122/71
[2017-10-16 07:52] VITALS: BP 137/86
--- NOTE | 2017-10-16 11:31 | CP SOUTH PROGRESS NOTE PSYCH ---
Psych (Inpt) Progress Note Progress Note The multidisciplinary treatment team (Nursing staff, Group Therapists, Social Work staff, and psychiatrist) discussed the patient's treatment and progress Mental Status Examination Mark reported that he thinks hes coming down with a cold (productive cough and congestion), afebrile in AM, steady gait, slightly fidgety/increased Psychomotor activity, no bizarre behaviors, normal speech, normal affect/euthymic, somewhat depressed and anxious, denied suicidal ideation, denied homicidal Ideation, Denied Hallucinations, denied feeling paranoid, no delusional material, Mark does not have difficulties with thought organization, partial insight, poor judgment, he is oriented to time place and person, no significant issues with memory/no impairment Impression and Plan: Mark is a 32-year-old single White male who was admitted through the emergency room because of thoughts of suicide. "Bad reaction to K2, panic attacks every day. The patient reported increased anxiety with recurrent panic attacks after the use of synthetic Cannabinoids the patient reported that after using K2 he lost consciousness and he was told that he may have had a seizure. The patient reportedly after having lost consciousness and arrived at the [facility] in [place] and reportedly an ambulance was called because he was considering hurting himself with a knife. Patient reported that he was confused after the incident that resulted in a possible seizure Diagnoses: Generalized anxiety disorder Unspecified mood disorder Opioid use disorder, on agonist therapy Other substance use disorder (synthetic marijuana) Treatment Plan Update: Continue inpatient psychiatric care Continue methadone 100 mg daily Continue Zyprexa 5 mg at bedtime Continue Remeron 15 mg at bedtime Continue Gabapentin 600 mg TID Add Sertraline 50 mg daily Increase prazosin to 4 mg at bedtime (2nd night reporting nightmares) Nursing staff will provide education and mental status assessments every shift, vital signs Social work to coordinate discharge plan and aftercare plans Group therapy Milieu therapy Psychiatrist will meet with the patient daily
[2017-10-16 12:13] VITALS: BP 122/66
--- NOTE | 2017-10-16 14:12 | SOCIAL WORKER PROG NOTE PSYCH ---
Social Work Progress Note Progress Note Completed [facility] Online review for continued stay. PLease check [facility] web for next review date.
--- NOTE | 2017-10-16 15:28 | SOCIAL WORKER PROG NOTE PSYCH ---
Social Work Progress Note Progress Note Pt remains agreeable to Rehabs, faxed over referral to [facility], [facility] A Telle[facility].
[2017-10-16 15:53] VITALS: BP 111/57
[2017-10-16 19:28] VITALS: BP 148/78
[2017-10-17 07:52] VITALS: BP 138/84
--- NOTE | 2017-10-17 12:03 | PN- Att Addend ---
Attending Addendum Attending Brief Note Patient seen and examined, was complaining of runny nose and coughing productive of yellowish greenish sputum. Patient had a temp spike of 102 this morning. Flu swab was ordered and it is negative. Vital Signs Date Time Temp Pulse Resp B/P B/P Pulse O2 O2 Flow FiO2 Mean Ox Delivery Rate 10/17 0752 102.8 104 138/84 10/17 0727 102.8 10/16 2124 87 148/78 10/16 1928 98.8 87 148/78 10/16 1553 78 111/57 10/16 1213 98.6 88 122/66 on exam,; aox3, nad. cv; s1,s2,rrr resp; clear abd; soft, nt, bs+ ext; no edema Laboratory Tests 10/17 0800 Serology Virus Culture Pending A/P; 32-year-old male with past medical history significant for GERD, takes Protonix, anxiety, depression, polysubstance use, PTSD who is admitted with SI, severe anxiety. Polysubstance use including synthetic cannabinoids. This morning patient was spiking fever and has respiratory symptoms. Flu swab negative. Will send for PCR. I will check a chest x-ray. I will check a sputum culture. I will start patient empirically on Tamiflu. If any of the cultures come out positive, will initiate antibiotics. Patient was encouraged to take by mouth fluids. Continue the rest of his medications and fever can be controlled with when necessary ibuprofen or Tylenol. If patient fever does not improve or condition gets worse, will consider transferring the patient to medicine floor.
[2017-10-17 12:23] VITALS: BP 130/79
--- NOTE | 2017-10-17 12:34 | SOCIAL WORKER PROG NOTE PSYCH ---
See Addendum Social Work Progress Note Progress Note Mark has been running a fever today and has been isolated to a single room. Visited him late morning while he was resting. He said he started having the chills last night. Now medicated with Tylenol and Motrin his fever is reducing. He said he called [facility] yesterday about their residential rehab and was told the waiting list is about 8 weeks. He is wondering if he can go to a short-term and then transfer there possibly. I told him we will send the referral. I let him know we are looking into clothing for him. He also shared that he only had 1 pair of socks and 1 pair of underwear. I told him I will see what we could do to help. Encouraged him to get some rest. He said he did have the flu shot this year. The doctor told him she will be treating him as if he had the flu and prescribe him some medicine. Despite not feeling well he was doing okay. [facility] wanted to do a phone screening today, but Mark was not feeling well enough to participate. Called Lavonne Del Real at [facility] back and left a message for her.
--- NOTE | 2017-10-17 14:46 | SOCIAL WORKER PROG NOTE PSYCH ---
Social Work Progress Note Progress Note [facility], will call Saturday to complete a screening, they do not have male beds today. [facility] will call back later today to complete a screening, if ptis available. Left a voicemail with [facility] A.
--- NOTE | 2017-10-17 14:51 | SOCIAL WORKER PROG NOTE PSYCH ---
Social Work Progress Note Progress Note Research Test Engine Operator faxed referrals to [facility] residential program on (10/17/17) and to [facility] on Saturday (10/16/17). Additionally handbook writer looked for resources for clothing for Mark. [facility] gives out clothes on Mondays and from 2-3:30. [facility] gives out coats and is open from 9am to 1PM daily.
--- NOTE | 2017-10-17 15:41 | CP SOUTH PROGRESS NOTE PSYCH ---
Psych (Inpt) Progress Note Progress Note The multidisciplinary treatment team (Nursing Staff, Group Therapists, Social Work Staff, and Psychiatrist) discussed the patient's treatment and progress Mental Status Examination Mark was feverish this morning steady gait, slightly fidgety/increased psychomotor activity, no bizarre behaviors, normal speech, normal affect/euthymic, somewhat depressed and anxious , denied suicidal ideation, denied homicidal Ideation, denied hallucinations, denied feeling paranoid, no delusional material, Mark does not have difficulties with thought organization, partial insight, poor judgment, he is oriented to time place and person, no significant issues with memory/no impairment Assessment: Mark is a 32-year-old single White male who was admitted through the emergency room because of thoughts of suicide. "Bad reaction to K2, panic attacks every day. The patient reported increased anxiety with recurrent panic attacks after the use of synthetic Cannabinoids the patient reported that after using K2 he lost consciousness and he was told that he may have had a seizure. The patient reportedly after having lost consciousness and arrived at the [facility] in [place] and reportedly an ambulance was called because he was considering hurting himself with a knife. Patient reported that he was confused after the incident that resulted in a possible seizure Diagnoses: Generalized anxiety disorder Unspecified mood disorder Opioid use disorder, on agonist therapy Other substance use disorder (synthetic marijuana) Treatment Plan Update: Continue inpatient psychiatric care Continue methadone 100 mg daily Continue Zyprexa 5 mg at bedtime Continue Remeron 15 mg at bedtime Increase Gabapentin to 900 mg TID Continue Sertraline 50 mg daily Prazosin 4 mg at bedtime (2nd night reporting nightmares) Nursing staff will provide education and mental status assessments every shift, vital signs Social work to coordinate discharge plan and aftercare plans Group therapy Milieu therapy Psychiatrist will meet with the patient daily
[2017-10-17 16:31] VITALS: BP 141/67
[2017-10-17 19:53] VITALS: BP 144/81
--- NOTE | 2017-10-17 20:01 | RADIOLOGY REPORT ---
EXAMINATION: XR CHEST CLINICAL INFORMATION: Cough and fever COMPARISON: None TECHNIQUE: 2 views of the chest were obtained. FINDINGS: No significant abnormality is noted involving the heart, lungs, mediastinum, bony thorax or soft tissues. IMPRESSION: Unremarkable examination.
[2017-10-18 08:23] VITALS: BP 142/73
--- NOTE | 2017-10-18 09:06 | SOCIAL WORKER PROG NOTE PSYCH ---
Social Work Progress Note Progress Note Phoned [facility] #[phone] - recording on vm stated no beds available as of today, and that if referral has been submitted (it has), patient is on a waitlist. Tried to leave a vm but call disconnected - no room for vm. Gave phone numbers to Mark to call [facility], [facility], [facility] for screenings. He stated he spoke with [facility] and 6 week waitlist. He stated VM was full for [facility]. Completed [facility] online review - check web for next review date.
--- NOTE | 2017-10-18 11:06 | SOCIAL WORKER PROG NOTE PSYCH ---
Social Work Progress Note Progress Note Clementina Browne from [facility] residential rehab ([phone])called to schedule a screening for Mark. Screening was scheduled for 9am. Informed Mark that this was set up. He was just waking up. He looked ambivalant about doing the screening and stated he is having second thoughts about rehab and was thinking maybe he should just go to crisis and respite and the [facility]. He also stated he couldn't go to rehab without any clothes. I told him we would check on donations. Encouraged him to wake up, splash some water on his face, eat some breakfast and then do the screening. Gave him the number to make the call. At 9am he did complete the screening. He said [facility] has a significant wait list, so he is thinking about continuing to try and get into a short term rehab first. Encouraged him to reach out to [facility], [facility], and [facility]. He said he tried the admission coordiator at [facility], but her voicemail is full. Mark is feeling better than yesterday, but complaining of some light headedness and weakness. Reports mood is low and energy is low. Appetite is good. Talked about if he was given the choice to or live he would choose . He feels like giving up. He doesn't feel motivated towards anything right now. Energy level is most likely impacting his motivation today. Also stated when he is alone he tends to have more negative thoughts. Encouraged him to connect with others on the unit. He said he is having trouble being around one other male peer who impacts him negatively. Encouraged him to ignore him and stay away from him. I gave him the number for the worker at [facility] that is supposed to help with housing.
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
--- NOTE | 2017-10-18 12:38 | CP SOUTH PROGRESS NOTE PSYCH ---
Psych (Inpt) Progress Note Progress Note The multidisciplinary treatment team (Nursing Staff, Group Therapists, Social Work Staff, and Psychiatrist) discussed the patient's treatment and progress Mental Status Examination Mark was afebrile today. He reported feeling dizzy when he stands up (most likely postural drop in BP). His gait was steady, slightly fidgety/increased psychomotor activity, no bizarre behaviors, normal speech, anxious looking, reported ongoing depressed mood and feeling somewhat anxious, reported wishing (if euthanasia was legal he would sign up) Denied active suicidal intent/plan, denied homicidal ideation, denied hallucinations, denied feeling paranoid, no delusional material, Mark does not have difficulties with thought organization, partial insight, his judgment is questionable, he is oriented to time place and person, no significant issues with memory Assessment: Mark is a 32-year-old single White male who was admitted through the emergency room because of thoughts of suicide after a bad reaction to K2, panic attacks every day. The patient reported increased anxiety with recurrent panic attacks after the use of synthetic Cannabinoids the patient reported that after using K2 he lost consciousness and he was told that he may have had a seizure. The patient reportedly after having lost consciousness and arrived at the [facility] in [place] and- reportedly- an ambulance was called because he was considering hurting himself with a knife. Patient reported that he was confused after the incident that resulted in a possible seizure Diagnoses: Generalized anxiety disorder Unspecified mood disorder Opioid use disorder, on agonist therapy Other substance use disorder (synthetic marijuana/K2) Treatment Plan Update: Continue inpatient psychiatric care Continue methadone 100 mg daily D/C Zyprexa D/C Remeron Change Gabapentin to 600 mg four times daily Increase Sertraline to 100 mg daily Continue Prazosin 4 mg at bedtime (for nightmares) Nursing staff will provide education and mental status assessments every shift, vital signs Social work to coordinate discharge plan and aftercare plans Group therapy Milieu therapy Psychiatrist will meet with the patient daily
[2017-10-18 12:58] VITALS: BP 140/65
[2017-10-18 15:54] VITALS: BP 126/75
[2017-10-18 19:54] VITALS: BP 145/86
[2017-10-19 07:52] VITALS: BP 133/79
--- NOTE | 2017-10-19 09:01 | CP SOUTH PROGRESS NOTE PSYCH ---
Psych (Inpt) Progress Note Progress Note Include the following elements, when applicable: Involvement in the active treatment of the patient with behavioral observations of the patient and the patient's response to the treatment. Review of the ongoing treatment process in the context of the treatment plan. Indication of how multi-disciplinary staff members are carrying out the treatment plan. Plans for future interventions and recommendations for revision of the treatment plan. Liaison with other physicians/providers. Progress Note: SUBJECTIVE: Patient reports that he "feels like crap," strep +, started on amoxicillin. Pt also taking tamiflu, flu neg. Patient reports sore throat, chills, mild fever, sweats. Able to take shower today. Sleeping adequately, able to eat and maintain fluid intake. In agreement with starting multivitamin and requesting laxative (on methadone), ordered. Denies SI/HI/AVH/SIB. No side effects to medications. No abnormal movements reported. OBJECTIVE: Per nursing, pt slept well overnight without any acute events. Pt remained in behavioral control, adherent with staff instructions and medications. Afebrile. CXR and Flu A/B neg, strep+. Temp 99-100 today. Current Medications Sig/Mike Start time Last Medication Dose Route Stop Time Status Admin Acetaminophen 650 MG Q6-PRN PRN 10/17 1100 AC 10/17 PO 2118 Amoxicillin 500 MG TID 10/18 1600 AC 10/19 PO 0756 Benzocaine 1 AUSTIN BID PRN 10/14 1600 AC 10/15 TOP 1816 Gabapentin 600 MG FOUR TIMES A DAY 10/18 1400 AC 10/19 PO 0756 Gabapentin 900 MG TID 10/17 2200 DC 10/18 PO 0806 Gabapentin 400 MG Q6P PRN 10/16 1130 AC PO Guaifenesin 600 MG Q12 10/16 1115 AC 10/19 PO 0756 Ibuprofen 600 MG .STK-MED ONE 10/18 1637 DC PO 10/18 1638 Ibuprofen 600 MG Q6P PRN 10/14 1430 AC 10/18 PO 1637 Lidocaine 15 ML Q6-PRN PRN 10/14 1215 AC 10/15 PO 2200 Lorazepam 2 MG Q6P PRN 10/16 1130 AC PO Methadone HCl 100 MG DAILY 10/15 1000 AC 10/19 PO 0756 Mirtazapine 15 MG AT BEDTIME 10/15 2200 DC 10/17 PO 2118 Nicotine 4 MG Q2 HRS NEEDED PRN 10/18 1115 AC 10/19 PO 0801 Nicotine 21 MG DAILY 10/14 1000 AC 10/19 TOP 0755 Nicotine 2 MG Q2P PRN 10/13 2030 DC 10/18 PO 0858 Olanzapine 5 MG AT BEDTIME 10/15 2200 NC 10/17 PO 2119 Omeprazole 40 MG DAILY AC 10/14 0700 AC 10/19 PO 0755 Oseltamivir Phosphate 75 MG BID 10/17 1046 AC 10/19 PO 10/21 1045 0756 Prazosin HCl 4 MG AT BEDTIME 10/16 2200 AC 10/18 PO 2154 Pseudoephedrine HCl 30 MG Q6P PRN 10/16 1130 AC 10/18 PO 2155 Quetiapine Fumarate 200 MG AT BEDTIME 10/13 2200 AC 10/18 PO 2154 Sertraline HCl 100 MG DAILY 10/19 1000 AC 10/19 PO 0756 Sertraline HCl 50 MG DAILY 10/16 1116 NC 10/18 PO 0806 Sodium Chloride 2 SPRAY Q4P PRN 10/15 2215 10/19 ROMERO 0755 Testosterone 5 GM DAILY 10/14 1209 10/19 TOP 0858 Vital Signs Date Time Temp Pulse Resp B/P B/P Pulse O2 O2 Flow FiO2 Mean Ox Delivery Rate 10/19 0752 98.8 97 133/79 10/18 2154 96 145/86 10/18 1954 98.2 96 145/86 10/18 1554 89 126/75 10/18 1258 86 140/65 MSE: GENERAL: Alert and oriented x3, good eye contact, well-groomed, no apparent distress, facial flushing and diaphoretic. SPEECH: Moderate rate and volume, normal prosody, fluent MOTOR: No tics, tremors, stereotypy, or abnormal movements MOOD: "Feel like crap" AFFECT: appears ill, mood congruent, constricted range, non-labile, well related THOUGHT PROCESS: Logical, linear and goal-directed THOUGHT CONTENT: No SI/HI/AVH/SIB, no apparent grandiosity, paranoia, delusions , obsessions, ruminations COGNITION: No apparent deficit in attention, memory or concentration JUDGMENT: fairsh INSIGHT: fair ASSESSMENT: Mark is a 32-year-old SWM with cannabis use disorder, anxiety, panic presetning to ED with SI following K2 synthetic cannbinoid bad reaction. Pt with LOC that may have been a seizure. Today, patient appears more psychiatrically stable however medically ill with strep throat, started on amoxicillin. Diagnoses: Generalized anxiety disorder Unspecified mood disorder Opioid use disorder, on agonist therapy Other substance use disorder (synthetic marijuana/K2) PLAN: -maintain safety, vs tid, q15min checks -cont methadone 100 mg daily, start senokot prn constipation -continue meds, tolerating regimen -Encourage by mouth fluids, starting multivitamin -continue plan PLAN: -maintain safety, vs tid, q15min checks -continue meds -continue plan
[2017-10-19 15:51] VITALS: BP 128/67
[2017-10-19 19:57] VITALS: BP 130/56
--- NOTE | 2017-10-20 02:11 | CP SOUTH PROGRESS NOTE PSYCH ---
Psych (Inpt) Progress Note Progress Note Include the following elements, when applicable: Involvement in the active treatment of the patient with behavioral observations of the patient and the patient's response to the treatment. Review of the ongoing treatment process in the context of the treatment plan. Indication of how multi-disciplinary staff members are carrying out the treatment plan. Plans for future interventions and recommendations for revision of the treatment plan. Liaison with other physicians/providers. Progress Note: SUBJECTIVE: Patient resting in room in the dark, easily awoken to voice. Patient states he feels "about the same" as yesterday, all with malaise, sweats, body aches. Reports mood is "okay" and denies SI/HI/AVH/SIB. Able to eat and maintain fluid intake. Senokot helping with constipation. No side effects to medications. No abnormal movements reported. OBJECTIVE: Per nursing, pt slept well overnight without any acute events. Pt remained in behavioral control, adherent with staff instructions and medications. Afebrile. CXR and Flu A/B neg, strep+, Amox day2. Temp max 99.5 today. Current Medications Sig/Mike Start time Last Medication Dose Route Stop Time Status Admin Acetaminophen 650 MG Q6-PRN PRN 10/17 1100 AC 10/20 PO 0751 Amoxicillin 500 MG TID 10/18 1600 AC 10/20 PO 0752 Benzocaine 1 AUSTIN BID PRN 10/14 1600 AC 10/19 TOP 1147 Gabapentin 600 MG FOUR TIMES A DAY 10/18 1400 AC 10/20 PO 0753 Gabapentin 400 MG Q6P PRN 10/16 1130 AC PO Guaifenesin 600 MG Q12 10/16 1115 AC 10/20 PO 0753 Ibuprofen 600 MG Q6P PRN 10/14 1430 AC 10/20 PO 1225 Lidocaine 15 ML Q6-PRN PRN 10/14 1215 AC 10/15 PO 2200 Lorazepam 2 MG Q6P PRN 10/16 1130 AC PO Methadone HCl 100 MG DAILY 10/15 1000 AC 10/20 PO 0754 Multivitamins 1 TAB DAILY 10/20 1000 AC 10/20 PO 0753 Nicotine 4 MG Q2 HRS NEEDED PRN 10/18 1115 AC 10/20 PO 1225 Nicotine 21 MG DAILY 10/14 1000 AC 10/20 TOP 0752 Omeprazole 40 MG DAILY AC 10/14 0700 AC 10/20 PO 0637 Oseltamivir Phosphate 75 MG BID 10/17 1046 AC 10/20 PO 10/21 1045 0752 Prazosin HCl 4 MG AT BEDTIME 10/16 2199 AC 10/19 PO 2115 Pseudoephedrine HCl 30 MG Q6P PRN 10/16 1130 AC 10/19 PO 2116 Quetiapine Fumarate 200 MG AT BEDTIME 10/13 2200 AC 10/19 PO 2115 Senna 187 MG BID PRN 10/19 1630 AC 10/19 PO 2116 Senna 187 MG ONCE ONE 10/19 1630 DC PO 10/19 1631 Sertraline HCl 100 MG DAILY 10/19 1000 AC 10/20 PO 0753 Sodium Chloride 2 SPRAY Q4P PRN 10/15 2215 AC 10/20 ROMERO 0638 Testosterone 5 GM DAILY 10/14 1209 AC 10/20 TOP 0754 Vital Signs Date Time Temp Pulse Resp B/P B/P Pulse O2 O2 Flow FiO2 Mean Ox Delivery Rate 10/20 1143 99.5 100 144/85 10/20 0816 99.3 100 143/82 10/20 0751 99.4 10/19 2115 97.9 91 18 130/56 10/19 1957 97.9 91 130/56 10/19 1551 92 128/67 MSE: GENERAL: Alert and oriented x3, resting in bed in the dark, good eye contact, appearing mildly ill. SPEECH: Moderate rate and volume, normal prosody, fluent MOTOR: No tics, tremors, stereotypy, or abnormal movements MOOD: "" AFFECT: about the same appears ill, mood congruent, constricted range, non- labile, well related THOUGHT PROCESS: Logical, linear and goal-directed THOUGHT CONTENT: No SI/HI/AVH/SIB, no apparent grandiosity, paranoia, delusions , obsessions, ruminations COGNITION: No apparent deficit in attention, memory or concentration JUDGMENT: fair INSIGHT: fair ASSESSMENT: Mark is a 32-year-old SWM with cannabis use disorder, anxiety, panic presetning to ED with SI following K2 synthetic cannbinoid bad reaction. Pt with LOC that may have been a seizure. Today, patient continues to psychiatrically improve however with slow recovery from strep throat on day 2 of amoxicillin. Diagnoses: Generalized anxiety disorder Unspecified mood disorder Opioid use disorder, on agonist therapy Other substance use disorder (synthetic marijuana/K2) Strep throat PLAN: -maintain safety, vs tid, q15min checks -cont methadone 100 mg daily, senokot prn constipation -continue meds, tolerating regimen -Encourage rest, po fluids, multivitamin -continue plan
[2017-10-20 08:16] VITALS: BP 143/82
[2017-10-20 11:43] VITALS: BP 144/85
[2017-10-20 15:57] VITALS: BP 147/88
[2017-10-20 19:10] VITALS: BP 143/79
[2017-10-21 07:30] VITALS: BP 139/78
--- NOTE | 2017-10-21 08:57 | SOCIAL WORKER PROG NOTE PSYCH ---
Social Work Progress Note Progress Note Spoke with [facility] at [facility]. I told her that Mark had disclosed about the incident with the Methadone and that he wasn't sure if they would reconsider him since it was a few years ago. She said she is looking at the past chart and will be discussing it with their team today. She will get back to me today on whether or not they will screen him. Called [facility] and attempted to speak with the admission coordinator or a staff member but no one answered and voicemail was full. Called [facility] and left a message for the admissions advisor there. Around 10:30am I saw Mark in his room. He was very anxious shaking his leg non -stop. He reported that he just started getting anxious in the last 45 minutes. He doesn't know why. He reports some physical sensations of being disconnected from his body, having some numbing/tingling in his arms. He does report having a nightmare last night, but doesn't really recall the content. Sometimes experiencing nightmares during the night, causes some increased anxiety for Mark through the day. Talked about some grounding techniques to utilize. It sounds like he has been trying to do some breath work. Encouraged him to try and relax and calm down and get to groups later today. He did seem interested in doing accupuncture. Received a call from Marisol at [facility]. They will not consider Mark at this time. Called [facility] again and left a message with the admission coordinator. Also left a message with the conference manager at the [facility].
[2017-10-21 12:14] VITALS: BP 121/63
--- NOTE | 2017-10-21 14:27 | CP SOUTH PROGRESS NOTE PSYCH ---
Psych (Inpt) Progress Note Progress Note Nursing Staff, Group Therapists, Social Work Staff, and Psychiatrist discussed the patient's treatment and progress Mark feeling very anxious when I saw him, gait was steady, tremulous, no bizarre behaviors, normal speech, anxious looking, reported wishing but denied active suicidal intent/plan, denied homicidal ideation, denied hallucinations, denied feeling paranoid, no delusional material, Mark does not have difficulties with thought organization, partial insight, his judgment is questionable, he is oriented to time place and person, no significant issues with memory Assessment: Mark is a 32-year-old single White male who was admitted because of thoughts of suicide after a bad reaction to K2, increased anxiety with recurrent panic attacks after the use of synthetic Cannabinoids and lost consciousness / he was told that he may have had a seizure. The patient reportedly after he arrived at the [facility] in [place] an ambulance was called because he was considering hurting himself with a knife. Diagnoses: Generalized anxiety disorder Unspecified mood disorder Opioid use disorder, on agonist therapy Other substance use disorder (synthetic marijuana/K2) Treatment Plan Update: Continue inpatient psychiatric care Continue 15 minute checks Continue methadone 100 mg daily Change Gabapentin to 900 mg three times daily Continue Sertraline 100 mg daily Continue Prazosin 4 mg at bedtime (for nightmares) Nursing staff will provide education and mental status assessments every shift, vital signs Social work to coordinate discharge plan and aftercare plans Group therapy Milieu therapy Psychiatrist will meet with the patient daily
[2017-10-21 15:54] VITALS: BP 141/77
[2017-10-21 19:44] VITALS: BP 132/89
[2017-10-22 08:02] VITALS: BP 130/68
--- NOTE | 2017-10-22 10:50 | SOCIAL WORKER PROG NOTE PSYCH ---
Social Work Progress Note Progress Note Mark was in bed around 10am. Prompted him to get up and meet. Asked why he wasn't in group? He said that he wasn't aware that group was happening, but he will go after we were done talking. He said due to the medications he received yesterday he had slept alot. Reports sleep was ok. Had some nightmares. Doesn 't remember the content of them. Missed breakfast this morning and feels that he is just waking up. Reported SI yesterday and bad anxiety. I asked if a bed was open at [facility] resp[facility] today if he would feel up to taking it and be able to be safe? He said he feels as if he needs a day or two of reduced anxiety and no SI before he would feel okay about taking the bed there. Reviewed referrals to rehab and encouraged him to continue to make calls. He went to group after we spoke. [facility] [place]. Spoke with Ricardo about Mark. We will keep in contact this week to see when Mark may be ready for discharge. I also spoke with Marisol the admission's coordinator at [facility]. She told me there was a male bed open today, but after further review with their clinical team of Mark's clinical information they felt it would be a better fit for him to go to [facility].
[2017-10-22 12:17] VITALS: BP 142/94
--- NOTE | 2017-10-22 12:47 | CP SOUTH PROGRESS NOTE PSYCH ---
Psych (Inpt) Progress Note Progress Note [place] of Nursing Staff, Group Therapists, Social Work Staff, and Psychiatrist discussed the patient's treatment and progress Mark is again reporting feeling very anxious He looked slightly tremulous, no bizarre behaviors, normal speech, anxious looking, He reported on and off wishing or thinking of suicidal (or both) but denied intent/plan, He denied homicidal ideation, denied hallucinations, denied feeling paranoid, no delusional material, Mark does not have difficulties with thought organization, partial insight, his judgment is questionable, he is oriented to time place and person Assessment: Mark is a 32-year-old single White male who was admitted the night of October 13 because of thoughts of suicide after a bad reaction to K2, increased anxiety with recurrent panic attacks after the use of synthetic Cannabinoids and lost consciousness / he was told that he may have had a seizure. The patient reportedly after he arrived at the [facility] in [place] an ambulance was called because he was considering hurting himself with a knife. Diagnoses: Generalized anxiety disorder Unspecified mood disorder Opioid use disorder, on agonist therapy Other substance use disorder (synthetic marijuana/K2) Treatment Plan Update: Continue inpatient psychiatric care Continue 15 minute checks Continue methadone 100 mg daily Change Gabapentin to 900 mg three times daily Continue Sertraline 100 mg daily Continue Prazosin 4 mg at bedtime (for nightmares) D/C Ativan for agitation as he has been asking for it for anxiety Seroquel 50 mg, propranolol 20 mg and Gabapentin 400 mg every 4 hours as needed for anxiety Nursing staff will provide education and mental status assessments every shift, vital signs Social work to coordinate discharge plan and aftercare plans Group therapy Milieu therapy Psychiatrist will meet with the patient daily
[2017-10-22 16:03] VITALS: BP 136/55
[2017-10-22 19:43] VITALS: BP 114/59
[2017-10-23 07:52] VITALS: BP 121/77
--- NOTE | 2017-10-23 10:37 | SOCIAL WORKER PROG NOTE PSYCH ---
Social Work Progress Note Progress Note Called Lavonne Del Real back from [facility] and provided her with an update.
[2017-10-23 12:41] VITALS: BP 127/81
--- NOTE | 2017-10-23 12:50 | CP SOUTH PROGRESS NOTE PSYCH ---
Psych (Inpt) Progress Note Progress Note Nursing Staff, Group Therapists, Social Work Staff, and Psychiatrist discussed the patient's treatment and progress Mark is again reporting feeling very anxious (third day in a row), no bizarre behaviors, normal speech, continues to report on and off wishing or thinking of suicidal He denied homicidal ideation, denied hallucinations, denied feeling paranoid, no delusional material, Mark was coherent/no thoughts disorder, partial insight, his judgment is questionable, he is oriented to time place and person Assessment: Mark is a 32-year-old single White male who was admitted October 13 because of thoughts of suicide after a bad reaction to K2, increased anxiety with recurrent panic attacks after the use of synthetic Cannabinoids and lost consciousness / he was told that he may have had a seizure. Diagnoses: Generalized anxiety disorder Unspecified mood disorder Opioid use disorder, on agonist therapy Other substance use disorder (synthetic marijuana/K2) Treatment Plan Update: Continue inpatient psychiatric care Continue 15 minute checks Continue methadone 100 mg daily Continue Gabapentin 900 mg three times daily Continue Sertraline 100 mg daily Increase Prazosin to 6 mg at bedtime (for nightmares) D/C PRN Seroquel 50 mg, and Gabapentin 400 mg PRN Thorazine 50 mg and Propranolol 20 mg [id number] Nursing staff will provide education and mental status assessments every shift, vital signs Social work to coordinate discharge plan and aftercare plans Group therapy Milieu therapy Psychiatrist will meet with the patient daily
[2017-10-23 16:12] VITALS: BP 117/57
--- NOTE | 2017-10-23 16:26 | SOCIAL WORKER PROG NOTE PSYCH ---
Social Work Progress Note Progress Note Regulation Supervisor met with Mark this afternoon in his room. Mark had just received some Thorazine for his continuing anxiety. He presented as anxious with pressured speech and fidgeting. Regulation Supervisor and Mark discussed possible reasons for this sudden onset of anxiety. Mark stated that he felt that some of the anxiety came being around some of the difficult patients on the unit. He also reported that taking the Thorazine was at that moment causing him more anxiety as he had a traumatic experience in a psychiatric hospital as an adolescent, during which he had received Thorazine. He stated that he had gone into the hospital for a catatonic episode and that the hospital had over medicated him as punishment for him laying in bed. Additionally, Mark shared that he worried about going [facility] while feeling so anxious. Specifically, he stated that he worried that [facility] would send him to [place] if he were to start feeling anxious, and that he would rather than go to [place]. He said that when he thinks about the possibility of going back to [place], he starts to think about the different bridges that he could jump off of to commit suicide. These specific bridges that he identified to this magazine writer are: the [facility] Bridge and the [facility] Bridge in [place] (possibly the [facility] bridge, Mark was unable to recall the name of the street). He reported to have these suicidal thoughts prior to speaking with this magazine writer. This discussion of his anxiety sparked conversation about the various traumas and tumultuous events of Mark's childhood, adolescence and teenage years. A brief overview of the topics discussed are: Mark's relationship with his father , the trauma of his father's , Mark'ss experiences with [employer], Mark's relationship with his mother, Mark's "fall from [place]" in middle school due to the onset of his mental health problems and the subsequent and/or resulting behavioral/mental health/social problems that have persisted into adulthood. Regulation Supervisor and Mark reflected on Mark's self-admitted inability to "finish anything" and his "procrastination". Mark gave several examples of how he takes initial steps towards bettering himself but then never follows through. Regulation Supervisor asked Mark if he felt that this pattern of behavior was due to poor self-esteem , or feeling like he does not deserve a better life. Mark stated that he had been thinking about this idea recently and felt that it was somewhat accurate. He stated that he is unable to take compliments and always has to add a "BUT" to a positive situation. He gave the example of someone giving him a compliment about his haircut, and him interjecting, "But it is too short here, so it doesn' t look that good". Regulation Supervisor pointed out that this was good insight into his own behaviors. He also stated that he feels that he procrastinates or does not follow through on things because he is scared and does not know what a happy and healthy life would feel or look like. Further discussion lead to the idea that moving forward would also feel like closing the door on his past life and as such, would feel like the loss of his father, or at least would mean letting go of the fantasy/hope of what could have been for him and his father. Regulation Supervisor asked Mark if he felt that his current anxiety was perhaps partially a subconscious reaction to beds becoming available at [facility] and at [facility]. Mark said that it may be, and that he would think about it more. Mark asked this magazine writer if she could look up the phone number for his DSS worker at [facility] so that he could work with her to fill out his redetermination paperwork for his food stamps, insurance and glass assistance. Martha Stern's number was given to Mark .
[2017-10-23 19:56] VITALS: BP 141/75
[2017-10-24 07:50] VITALS: BP 131/79
[2017-10-24 12:04] VITALS: BP 123/85
--- NOTE | 2017-10-24 14:20 | CP SOUTH PROGRESS NOTE PSYCH ---
Psych (Inpt) Progress Note Progress Note Nursing Staff, Group Therapists, Social Work Staff, and Psychiatrist discussed the patient's treatment and progress Mark made qualified statement (more like threats) to Ebonie Singh (SW actuarial internship ) yesterday, that if he was [facility] that he would kill himself by jumping off a bridge and named several bridges to Ebonie Flores c/o feeling tired, stuffed up nose, dry mouth and mouth-breathing ( possibly a combination on increase in Prazosin and switch to Thorazine) no bizarre behaviors, normal speech, He denied homicidal ideation, denied hallucinations, denied feeling paranoid, no delusional material, Mark was coherent/no thoughts disorder, partial insight, his judgment is questionable, he is oriented to time place and person Treatment Plan Update: Continue inpatient psychiatric care Continue 15 minute checks Continue methadone 100 mg daily Continue Gabapentin 900 mg three times daily Continue Sertraline 100 mg daily Decrease Prazosin back to 4 mg at bedtime (since it may be partly causing severe dryness of mucous membranes) Continue PRN Thorazine 50 mg and Propranolol 20 mg [id number] Nursing staff will provide education and mental status assessments every shift, vital signs Social work to coordinate discharge plan and aftercare plans Group therapy Milieu therapy Psychiatrist will meet with the patient daily
[2017-10-24 15:52] VITALS: BP 137/71
--- NOTE | 2017-10-24 16:40 | SOCIAL WORKER PROG NOTE PSYCH ---
Social Work Progress Note Progress Note Mark reported to be feeling anxious, but not as anxious yesterday. He told this investigative writer that this acutely worsened anxiety began three weeks ago. He stated that he had been waking up at 3AM every night and had been having panic attacks (muscle tingling, blurred vision, muscle stiffness/cramping, shortness of breath , inability to stop racing thoughts). He stated that during those three weeks he had been using a new, strong batch of K2 every day. In addition to the panic attacks, Mark had been experiencing "flashbacks" or "dissociative episodes" where he would be back in [facility]. He stated that he would hear the voices of the nurses, and see the [facility] lights. He said that the panic attack and flashbacks were not usual experiences/symptoms for him. Worm Picker asked Mark if his suicidal ideation was more "acute" as well. He stated no, that he has SI often. He said that the SI is due to "not having had the easiest life" and sometimes it feels like "everything is too much to deal with". He clarified, stating that by everything, he meant, getting services and trying to survive day to day. He said that he had acquired a knife some time ago with the plan to stab himself in the neck if things got too bad. Prior to coming to [place], he had gone to [facility] where they had taken the knife. He denied SI today. This discussion also lead Mark to talk about "out-of-body" experiences he has in which he feels that he is disconnected from everything. He stated that during these episodes his senses are dulled. He described a normal level of hearing/ feeling/seeing as a 10 and that during these episodes his senses are at a 2. With more discussion, Mark revealed these episodes occur at varying intervals and frenquencies. He stated that he started having the episodes at age 15 up to age 17, and then stopped experiencing them for some time. He noted that he began to have them after the of his father, when Mark was 22 and continues to have them. He stated that these episodes are very distressing to him as he worries that they are the beginnings of him slipping into a catatonic state again. He asked this investigative writer to ask the team if they felt that his described symptoms may warrant a neurological workup/consult. Worm Picker told Mark that she would relay the message but that the symptoms may also be due to his trauma. Worm Picker called Bhargavi at [facility] and left a message on her voicemail requesting a call back about the referral sent in for Mark.
[2017-10-24 19:54] VITALS: BP 147/84
[2017-10-25 07:49] VITALS: BP 138/79
--- NOTE | 2017-10-25 10:59 | SOCIAL WORKER PROG NOTE PSYCH ---
Social Work Progress Note Progress Note Completed P review for continued stay. [facility] wants to know if referrals to [facility] or [facility] can be made. [facility] may not accept patient due to dual presentation. Patient needs to call [facility] for screening and need to obtain AUTH for [facility] for resi-rehab 3.[facility] ([facility]).
[2017-10-25 12:14] VITALS: BP 128/89
--- NOTE | 2017-10-25 14:30 | CP SOUTH PROGRESS NOTE PSYCH ---
Psych (Inpt) Progress Note Progress Note Nursing Staff, Group Therapist, Social Work Staff, and Psychiatrist discussed the patient's treatment and progress Mark is back to feeling very anxious today. He also described at length what seemed dissociative symptoms (de-personalization, de-realization, altered perceptions, etc.) Mark still stuffed up nose, dry mouth and mouth-breathing (possibly a combination on increase in Prazosin and switch to Thorazine), it appears that I did not reduce his prazosin yesterday as I told him The patient does not exhibit bizarre behaviors. His speech is normal He denied homicidal ideation, denied hallucinations, denied feeling paranoid, no delusional material, Mark was coherent/no thought disorder, partial insight, Alert and oriented to time place and person Mark described twilight states at night (half awake-half asleep) Treatment Plan Update: Decrease Prazosin back to 4 mg at bedtime (I was supposed to do that yesterday, since it may be partly causing severe dryness of mucous membranes) Reduce Seroquel to 150 mg at bedtime Continue inpatient psychiatric care Continue 15 minute checks Continue methadone 100 mg daily Continue Gabapentin 900 mg three times daily Continue Sertraline 100 mg daily Continue PRN Thorazine 50 mg and Propranolol 20 mg [id number] Nursing staff will provide education and mental status assessments every shift, vital signs Social work to coordinate discharge plan and aftercare plans Group therapy Milieu therapy Psychiatrist will meet with the patient daily
[2017-10-25 16:14] VITALS: BP 129/72
--- NOTE | 2017-10-25 17:12 | SOCIAL WORKER PROG NOTE PSYCH ---
Social Work Progress Note Progress Note Called [facility] in [place]. Spoke with Alva (Director), who encouraged me to speak with Ricardo on Saturday about bed availability. She said Mark is part of the [place] [facility] and she will discuss his case there. She also said historically Mark doesn't follow up with the d/c plan for tx or a senior living. She didn't indicate that they would not accept his referral, but said they would be discussing him. Mark was in his room late afternoon. He shared that he had been talking more with the doctor and people about what he thinks may be dissociative symptoms. He is having sort of out of body experiences, like he hears himself talking as a third person. I talked with Mark about my contact with [facility]. He said he has always gone to rehab or somewhere from there. I asked if he called Bhargavi at [facility] today? He said he had, but couldn't get a hold of her. I also encouraged him to call Par[facility] again. I ended up speaking with Bhargavi and asked her to screen Mark. She said she will speak with him Saturday at 2pm.
[2017-10-25 19:47] VITALS: BP 146/80
[2017-10-26 08:04] VITALS: BP 138/79
--- NOTE | 2017-10-26 11:26 | CP SOUTH PROGRESS NOTE PSYCH ---
Psych (Inpt) Progress Note Progress Note Include the following elements, when applicable: Involvement in the active treatment of the patient with behavioral observations of the patient and the patient's response to the treatment. Review of the ongoing treatment process in the context of the treatment plan. Indication of how multi-disciplinary staff members are carrying out the treatment plan. Plans for future interventions and recommendations for revision of the treatment plan. Liaison with other physicians/providers. Progress Note: Still in bed at 11am, sleeping more but states his sleep at night is interrupted b/c of environment. Stated that he is fine but depressed still, withdrawn and poorly reactive, attributes it in part to me waking him. Has had last suicidal thoughts a few days ago. No friends or family or interest in finding any per him , states that he is also not interested in working, b/c he is applying for disability for ptsd, depression and anxiety sx. Attempted to engage him in discussion about working in the future or pursuing his interest in computers, he was not very interested/receptive. No voices, no thought disorder. Did not endorse the dissociative type sx he did earlier in the week. MSE: sedated, overweight man, fair grooming. Speech is normal. No movement disorder evident. Thought process concrete and linear. Content positive for anhedonia, depressed mood, denies SI. No voices or evidence of thought disorder. Insight fair to poor, judgment fair. Plan: continue current plan of care. Encourage less daytime sleeping and overall educate about sleep hygiene.
[2017-10-26 12:08] VITALS: BP 138/87
[2017-10-26 16:04] VITALS: BP 127/86
[2017-10-26 20:07] VITALS: BP 137/76
[2017-10-27 07:48] VITALS: BP 130/75
--- NOTE | 2017-10-27 11:18 | CP SOUTH PROGRESS NOTE PSYCH ---
Psych (Inpt) Progress Note Progress Note Include the following elements, when applicable: Involvement in the active treatment of the patient with behavioral observations of the patient and the patient's response to the treatment. Review of the ongoing treatment process in the context of the treatment plan. Indication of how multi-disciplinary staff members are carrying out the treatment plan. Plans for future interventions and recommendations for revision of the treatment plan. Liaison with other physicians/providers. Progress Note: Stated that he wakes up at the side of the bed, continues to feel in/out of sleep at night. Report noted that he slept but he stated it was not restful. This morning he is reading and awake which is better than yesterday. Requested seroquel back up to 200mg to facilitate his sleep and mood sx, stated he has been on higher doses in the past, feels that the 200mg is the more helpful for him has had 2 nights on lower dose with, at least according to him, less sleep. MSE: Young man, calm, cooperative, fair to minimal eye contact. His speech is regular rate and rhythm. There is no tic or tremor. Thought process logical and goal directed. Thought content positive for depressed mood and some withdrawal, but no evidence of delusional thought process, thoughts to harm self/others or any other acute concerns. Not hallucinating and not internally preoccupied. Insight fair to poor, judgment fair. Plan: Increase seroquel back up to 200mg for improved sleep and mood. educated about risk of custodial antipsychotic use on metabolic syndrome especially due to his weight and young age. Encouraged socialization and improved sleep hygiene profile. Continue current plan of care.
[2017-10-27 12:17] VITALS: BP 132/73
[2017-10-27 16:01] VITALS: BP 126/73
[2017-10-27 19:46] VITALS: BP 137/79
[2017-10-28 07:47] VITALS: BP 122/72
--- NOTE | 2017-10-28 09:12 | CP SOUTH PROGRESS NOTE PSYCH ---
Psych (Inpt) Progress Note Progress Note I reviewed the notes of Dr. Yuliya Caruso MD (covering psychiatrist for the weekend of Oct 26 & 2017) The Nursing Staff, Group Therapists, social work staff, and psychiatrist will discuss the patients progress, and review treatment/care plan team meeting MSE: The patient has been calm and cooperative. His speech is regular rate and rhythm. There is no tic or tremor. Thought process logical and goal directed. The patient reported that his mood remains depressed, no evidence of delusional thought process, The notes over the weekend (nursing notes as well as Dr. Mcallister) indicated that Mark was not having thoughts of suicide or violence Mark has not experienced any hallucinations throughout this episode of care; has not been internally preoccupied. insight fair to poor, judgment fair. Treatment Plan update: Increase Seroquel back to 200mg (as per Dr. Mcallister intent). Continue Prazosin 4 mg at bedtime Continue inpatient psychiatric care Continue 15 minute checks Continue methadone 100 mg daily Continue Gabapentin 900 mg three times daily Continue Sertraline 100 mg daily Continue PRN Thorazine 50 mg and Propranolol 20 mg [id number] Nursing staff will provide education and mental status assessments every shift, vital signs Social work to coordinate discharge plan and aftercare plans Group therapy Milieu therapy Psychiatrist will meet with the patient daily
[2017-10-28 12:20] VITALS: BP 128/76
--- NOTE | 2017-10-28 13:22 | SOCIAL WORKER PROG NOTE PSYCH ---
Social Work Progress Note Progress Note Received a message from Bhargavi at [facility] stating their team would not consider Mark for admission this time, due to property damage from the last time he was there. I talked to Mark about this and he was not sure what they were referring to. He said he would like to talk to Bhargavi about that. He had completed the program successfully. He tried calling her and left a message. Spoke with Ricardo at [facility]. We did the phone screening for Mark and then she later talked with Mark to confirm that he would follow up at [facility] and be willing to go to a prison. Mark would accept the bed there if there was one available. He is feeling less anxious than he had been. Shared thoughts and feelings regarding a conflict with a staff member here. He chose not to contact patient safety in regards to his complaint. He more or less seemed to just want to vent about it. Received a call from Ricardo who asked for this proposal writer to call her cell to discuss the referral. I called and left a message. Mark attempted to reach out to Micheal Uribe [facility] today, but I am not clear if he got through after a long wait.
[2017-10-28 16:06] VITALS: BP 117/56
[2017-10-28 20:40] VITALS: BP 137/67
[2017-10-29 07:52] VITALS: BP 130/74
--- NOTE | 2017-10-29 11:23 | SOCIAL WORKER PROG NOTE PSYCH ---
Social Work Progress Note Progress Note Spoke with Ricardo at [facility]. She stated she would like a revised discharge agreement from Mark stating he would go to any senior care and not just [facility]. She stated they will accept Mark into the program today. Dr. Day and I met with Mark together to discuss discharge. Mark presented himself as very hopeless about the plan. He stated he was tired of the idea of these placements being temporary and then he would just be out on the street again in 2 weeks. He stated he was continuing to have thoughts about jumping off a bridge and couldn't guarantee he would be safe if he discharged today. He started crying more and more the longer we met. He was told that unfortunately we could not solve the homeless problem he has been experiencing for the past several years. He was encouraged to keep making phone calls daily. He said he had a 211 CAN Assessment scheduled for at [facility] tomorrow. I told him that he needs to call and cancel that appt. so he doesn't burn his bridges there. Dr. Day told him he will give him until next week to gather himself and thoughts about d/c plans, but he needs to be making calls daily. I asked if he would still be considering [facility] as a viable option for d/c at another time? He said yes. Called Ricardo at [facility] and told her that Mark would not be taking the bed at this time.
[2017-10-29 12:23] VITALS: BP 136/99
--- NOTE | 2017-10-29 13:41 | CP SOUTH PROGRESS NOTE PSYCH ---
Psych (Inpt) Progress Note Progress Note The Nursing Staff, Group Therapists, social work staff, and psychiatrist will discuss the patients progress, and review treatment/care plan team meeting When told about bed available at [facility] he became dysregulated/labile/tearful/anxious, claims he is hopeless and still thinking of suicide, reported that his mood remains depressed, no evidence of delusional thought process, The notes over the weekend indicated that Mark was not having thoughts of suicide or violence, Mark has not experienced any hallucinations throughout this episode of care; Treatment Plan update: Seroquel 200mg Continue Prazosin 4 mg at bedtime Continue inpatient psychiatric care, Continue 15 minute checks Continue PRN Thorazine 50 mg and Propranolol 20 mg [id number] Nursing staff will provide education and mental status assessments every shift, vital signs Social work to coordinate discharge plan and aftercare plans Group therapy, Milieu therapy, Psychiatrist will meet with the patient daily, methadone 100 mg daily Continue Gabapentin 900 mg three times daily Continue Sertraline 100 mg daily
[2017-10-29 15:56] VITALS: BP 133/70
[2017-10-29 20:08] VITALS: BP 133/70
[2017-10-30 07:52] VITALS: BP 140/91
[2017-10-30 12:14] VITALS: BP 126/77
--- NOTE | 2017-10-30 12:30 | CP SOUTH PROGRESS NOTE PSYCH ---
Psych (Inpt) Progress Note Progress Note The Nursing Staff, Group Therapists, social work staff, and psychiatrist will discuss the patients progress, and review treatment/care plan team meeting Saniya was in more control his emotions today He was not tearful or labile. He is still reporting anxiety, but --relatively speaking--he is much less anxious than yesterday still feeling hopeless but less hopeless than yesterday He denied thoughts of suicide in the past 24 hours mood remains depressed, no evidence of delusional thought process, Denied thoughts of violence or homicide Mark has not experienced any hallucinations throughout this episode of care; I reviewed the difference past psychiatric history including history with stimulants, he reported that he was on stimulants from second grade until eighth grade, the reason I was considering the stimulants because of what seems to be significant executive dysfunction that may have been responsible for his significant functional impairment over the years including deficits in initiation, motivation, drive, energy, attention and concentration, and he met as he mentioned yesterday with a meeting with JAGRUTI Crawford and myself severe problem with procrastination which is usually indicative of severe executive dysfunction Treatment Plan update: Seroquel 200mg Continue Prazosin 4 mg at bedtime Continue inpatient psychiatric care, Continue 15 minute checks Continue PRN Thorazine 50 mg and Propranolol 20 mg [id number] Nursing staff will provide education and mental status assessments every shift, vital signs Social work to coordinate discharge plan and aftercare plans Group therapy, Milieu therapy, Psychiatrist will meet with the patient daily, methadone 100 mg daily Continue Gabapentin 900 mg three times daily Continue Sertraline 100 mg daily
--- NOTE | 2017-10-30 13:37 | SOCIAL WORKER PROG NOTE PSYCH ---
Social Work Progress Note Progress Note Spoke with Lavonne Kim from [facility]. Updated her on what was going on with Mark. She had heard he [facility] bed [facility]. Asked her if they could consider him for their 5th flr? She said she wasn't sure of the referral process and would get back to me. She didn't think Mark would be interested due to it possibly ruining his chances of getting a housing voucher. The 5th floor is considered transitional housing, which would exclude him from being homeless. She stated he usually never likes to stay in a place very long.
--- NOTE | 2017-10-30 14:27 | Event Note ---
Event Note Event Note: I was called as lucia still coughing. he has finishe the course of abx for strept throat. Per RN, patient not short of breaty and not requiring any O2. I have ordered a CXR to r/o PNA and in addistion to Mucinex that he is on, I have ordered Tesselon pearls for his cough. Will follow up CXR.
--- NOTE | 2017-10-30 14:30 | SOCIAL WORKER PROG NOTE PSYCH ---
Social Work Progress Note Progress Note Mark reported to be feeling "not great" today. He stated that he was feeling anxious, depressed and hopeless. His body language indicated these feelings as he made very little eye contact with scientific writer and picked at scabs on his hands . He stated that he was tired of going through the same process of coming to the hospital or rehab, going to a long-term or crisis and [facility], and ending up back on the street again. He spoke about wanting permanent housing and that he felt that once he had permanent housing, he might be able to go back to school so that he could eventually have a job with meaning. Outsole Handler asked Makr if he felt that he would need to work on his previously self-reported inability to follow- through with things in order to achieve the goals of permanent housing and/or a job with meaning. Mark agreed and stated that he had advocated for himself with Dr. Khan today, and had asked for to increase his Zoloft to help with his feelings of apathy. Outsole Handler commended Mark but also stressed the importance of going to regular visits at [facility] in order to get these goals accomplished. Outsole Handler also told Mark that while he is frustrated with the same process/cycle, that in order to get to where he eventually wants to be, he needs to go through this cycle again (hospital-->rehab-->outpatient services). Outsole Handler stated that the difference this time around is not the process, but what Mark makes of the process, and whether he chooses to follow-up with care. placed a call to Clementina Browne at [facility] to ask if Mark had been put on the waitlist. Clementina was not in today. was instructed to call back tomorrow. Outsole Handler attempted to call Lucas Chi at [facility] to inquire about the status of Lucas's efforts to help Mark with housing. called the main number at [facility] and was unable to reach an supervisor network control operators.
[2017-10-30 16:05] VITALS: BP 139/79
--- NOTE | 2017-10-30 16:19 | SOCIAL WORKER PROG NOTE PSYCH ---
Social Work Progress Note Progress Note Mark was able to reach someone at [facility] after waiting a half hour. He was told that we should refax his clinical packet. He was also told to call and check in at least once a week. They would not schedule a screening for Mark and told him that they only set it up once availablity gets closer. The wait time at this point is 3-5 weeks.
[2017-10-30 19:53] VITALS: BP 146/74
--- NOTE | 2017-10-30 21:54 | RADIOLOGY REPORT ---
EXAMINATION: XR CHEST CLINICAL INFORMATION: Pneumonia COMPARISON: Chest x-ray 10/17/2017 TECHNIQUE: 2 views of the chest were obtained. 9:25 PM FINDINGS: No significant abnormality is noted involving the heart, lungs, mediastinum, bony thorax or soft tissues. IMPRESSION: Unremarkable examination.
[2017-10-31 08:00] VITALS: BP 139/79
--- NOTE | 2017-10-31 11:29 | CP SOUTH PROGRESS NOTE PSYCH ---
Psych (Inpt) Progress Note Progress Note RN, Group Therapists, MARKETING COMMUNITY LIAISON, and psychiatrist will discuss the patients progress , and review treatment/care plan team meeting Mental Status Examination: not tearful or labile, reporting less anxiety, less hopeless, denied thoughts of suicide in the past 24 hours, mood remains depressed but feels better since the stimulant was added, no evidence of delusional thought process, denied thoughts of violence or homicide, Mark has not experienced any hallucinations throughout this episode of care; Less executive dysfunction Treatment Plan update: Reduce Gabapentin to just at bedtime Increase Ritalin to 15 mg BID Seroquel 200mg Continue Prazosin 4 mg at bedtime methadone 100 mg daily Continue Sertraline 100 mg daily Continue inpatient psychiatric care, Continue 15 minute checks Continue PRN Thorazine 50 mg and Propranolol 20 mg [id number] Nursing staff will provide education and mental status assessments every shift, vital signs Social work to coordinate discharge plan and aftercare plans Group therapy, Milieu therapy, Psychiatrist will meet with the patient daily,
[2017-10-31 12:13] VITALS: BP 137/87
--- NOTE | 2017-10-31 13:25 | SOCIAL WORKER PROG NOTE PSYCH ---
Social Work Progress Note Progress Note Holistic Nutritionist called [facility] to clarify if Mark was stilled enrolled with Housing Services/Case Management there. [facility] stated that the last time Mark was connected with this service was this past December and as such is not an active client of theirs. Additionally, technical writer and editor called Elva Kim at [facility] to follow up on trying to create a referral to [facility]'s 5th floor transitional living program. Holistic Nutritionist looked up the number for the head nurse of that program and spoke with her. She in turn referred technical writer and editor to Chinyere Nogueira, who she said handles the referrals to this program (Chinyere's #: [phone]). Holistic Nutritionist left a message for Chinyere and is awaiting a callback. Holistic Nutritionist met with Mark briefly in his room. He was lying down and reported to not be feeling well. He stated that he was nauseous, "queasy", and had a headache. He stated that the nurses told him that his symptoms may be side effects from taking a second dose of Ritalin. He said that the first dose of the Ritalin had helped him to feel more focussed this morning. He provided technical writer and editor with basic information needed to fill out an application/referral for [facility]'s transitional housing unit (5th floor of [facility]). Mark reported no SI. The application/referral was faxed to Ashley Chandler at , per Elva Kim' instruction.
--- NOTE | 2017-10-31 15:05 | SOCIAL WORKER PROG NOTE PSYCH ---
Social Work Progress Note Progress Note CRISTHIAN ARAGON [id number] 1985 CRISTHIAN ARAGON [id number] Pended Authorization # Client Authorization # Type of Request [id number] CONCURRENT Date of Admission/ Start of Services Requested From Submission Date 10/13/2017 10/31/2017 10/31/2017
[2017-10-31 16:04] VITALS: BP 144/72
[2017-10-31 19:53] VITALS: BP 137/78
[2017-11-01 07:44] VITALS: BP 130/73
[2017-11-01 12:23] VITALS: BP 136/77
--- NOTE | 2017-11-01 12:38 | CP SOUTH PROGRESS NOTE PSYCH ---
Psych (Inpt) Progress Note Progress Note RN, Group Therapists, PHYSICALLY IMPAIRED TEACHER, and psychiatrist will discuss the patients progress , and review treatment/care plan team meeting Mental Status Examination: Patient reported feeling nausea, not feeling well, did not sleep well, thinks it may Ritalin He was offered a bed at [facility] but does not feel ready for that (blaming the medication change yesterday and physical xomplaints) His vitals were stable He was not tearful or labile but irritable today, reported anxiety, denied thoughts of suicide in the past 24 hours, mood remains depressed, no evidence of delusional thought process, denied thoughts of violence or homicide, Mark has not experienced any hallucinations throughout this episode of care Treatment Plan update: Continue Gabapentin at bedtime D/C Ritalin ( Mark was back and forth between blaming the medication in one breath, and saying he is not sure in the other breath, Continue Seroquel 200mg Continue Prazosin 4 mg at bedtime Continue methadone 100 mg daily Continue Sertraline 100 mg daily Continue PRN Thorazine 50 mg and Propranolol 20 mg [id number] Continue inpatient psychiatric care, Continue 15 minute checks Nursing staff will provide education and mental status assessments every shift, vital signs, Social work to coordinate discharge plan and aftercare plans, Group therapy, Milieu therapy, Psychiatrist will meet with the patient daily
--- NOTE | 2017-11-01 12:44 | CP SOUTH PROGRESS NOTE PSYCH ---
Psych (Inpt) Progress Note Progress Note Addendum to previous treatment plan and progress note: I will increase Gabapentin to 600 mg Q1600 and Q2200 since it is possible that patient's complaints today may be due to the reduction Gabapentin as opposed to addition of Ritalin (or both factors combined)
--- NOTE | 2017-11-01 13:20 | SOCIAL WORKER PROG NOTE PSYCH ---
Social Work Progress Note Progress Note [facility] had a male opening for today. Met with Mark along with Dr. Day to discuss how he is currently doing. He immediately started talking about not feeling well physically. Reports feelings of upset stomach, dizziness, chills, and sweats. Dr. Day felt it could be a side effect of the Ritalin and that he should hold off on the second dose today. Mark requested some Zofran. We talked about there being an opening at [facility] again today. Mark said he didn't want to take the bed today due to not feeling well and his meds changing. He said he thought we were holding off until next week. I told him that was what we discussed, but it was not everyday that a bed comes up at the crisis and respite program and that I wanted to check in with him to see how he was doing today. He got very defensive and irritable about our attempts to have him leave today. Patient should anticipate taking the next available crisis and respite bed. Mark was told that he may be further evaluated by another psychiatrist next week if his symptoms or SI haven' t resolved. Called [facility] and left a message for Ricardo that Mark would not be taking the bed today and that we would remain in contact for the next opening.
[2017-11-01 16:11] VITALS: BP 126/77
[2017-11-01 19:55] VITALS: BP 136/77
[2017-11-02 07:49] VITALS: BP 124/71
--- NOTE | 2017-11-02 11:25 | CP SOUTH PROGRESS NOTE PSYCH ---
Psych (Inpt) Progress Note Progress Note Include the following elements, when applicable: Involvement in the active treatment of the patient with behavioral observations of the patient and the patient's response to the treatment. Review of the ongoing treatment process in the context of the treatment plan. Indication of how multi-disciplinary staff members are carrying out the treatment plan. Plans for future interventions and recommendations for revision of the treatment plan. Liaison with other physicians/providers. Progress Note: Pt notes that he feels dizzy but less so than yesterday. He denies SI or HI. Feels not sleeing well at times. Other than feeling dizzy denied other s/s. Current Medications Sig/Mike Start time Last Medication Dose Route Stop Time Status Admin Acetaminophen 650 MG .STK-MED ONE 11/01 2113 DC PO 11/01 211 Acetaminophen 650 MG Q6-PRN PRN 10/17 1100 AC 11/01 PO 2114 Bacitracin 1 AUSTIN TID 10/30 2200 AC 11/01 TOP 2113 Benzocaine 1 AUSTIN BID PRN 10/14 1600 AC 10/19 TOP 1147 Benzonatate 100 MG TID 10/30 1600 AC 11/02 PO 0928 Chlorpromazine 50 MG Q6P PRN 10/23 1145 AC 10/29 PO 1118 Gabapentin 600 MG 1600,2200 11/01 1600 AC 11/01 PO 2115 Gabapentin 600 MG AT BEDTIME 10/31 2200 DC 10/31 PO 2133 Guaifenesin 600 MG Q12 10/16 1115 AC 11/02 PO 0928 Ibuprofen 600 MG .STK-MED ONE 11/01 1609 DC PO 11/01 1610 Ibuprofen 600 MG Q6P PRN 10/14 1430 AC 11/01 PO 1609 Lidocaine 15 ML Q6-PRN PRN 10/14 1215 AC 10/15 PO 2200 Magnesium Hydroxide 30 ML AT BEDTIME NEED.. 10/22 1145 AC PO Methadone HCl 100 MG DAILY 10/15 1000 AC 11/02 PO 0929 Methylphenidate HCl 15 MG 0800,1300 10/31 1300 DC 11/01 PO 0739 Multivitamins 1 TAB DAILY 10/20 1000 AC 11/02 PO 0928 Nicotine 4 MG Q2 HRS NEEDED PRN 10/18 1115 AC 11/02 PO 0930 Nicotine 21 MG DAILY 10/14 1000 AC 11/02 TOP 0928 Omeprazole 40 MG DAILY AC 10/14 0700 AC 11/02 PO 0751 Ondansetron HCl 4 MG ONCE ONE 11/01 1845 DC 11/01 PO 11/01 1846 1858 Ondansetron HCl 4 MG ONCE ONE 11/01 1215 DC 11/01 PO 11/01 1216 1527 Prazosin HCl 4 MG AT BEDTIME 10/25 2200 AC 11/01 PO 2113 Propranolol HCl 20 MG Q6P PRN 10/23 1145 AC 10/29 PO 1119 Quetiapine Fumarate 200 MG AT BEDTIME 10/28 2200 AC 11/01 PO 2114 Senna 187 MG BID PRN 10/19 1630 AC 10/22 PO 1611 Sertraline HCl 100 MG DAILY 10/19 1000 AC 11/02 PO 0928 Sodium Chloride 2 SPRAY Q4P PRN 10/15 2215 AC 11/01 ROMERO 0806 Testosterone 5 GM DAILY 10/14 1209 AC 11/02 TOP 0929 Laboratory Tests 11/01 06 Serology HIV 1&2 Ab Western Blot Cancelled Vital Signs Date Time Temp Pulse Resp B/P B/P Pulse O2 O2 Flow FiO2 Mean Ox Delivery Rate 11/02 0749 97.7 76 124/71 11/01 2112 98.6 98 18 136/77 11/01 1955 98.6 98 136/77 11/01 1611 84 126/77 11/01 1223 74 136/77 MSE General appearance: good hygiene and grooming; Attitude: cooperative; Eye contact: appropriate; Movement: no psychomotor agitation or slowing; Speech: nl fluency, nl rate/rhythm, nl volume, nl prosody; Mood: "I'm not feeling good" Affect: irritable, flat, appropriate, constricted, non-labile, congruent; Thought process: linear and goal-directed; Thought content: denied SI or HI, no paranoid ideation; Perception: denied hallucinations- auditory, visual, does not appear to be responding to internal stimuli; I/J: limited A/P: Pt MDD and multiple psychosocial stressors with dizziness which is decreasing. If presistent or worsening may considering decreasing prazosin. -Continue current medication regimen -Encourage integration into the milieu
[2017-11-02 12:04] VITALS: BP 129/77
[2017-11-02 16:12] VITALS: BP 155/81
[2017-11-02 19:12] VITALS: BP 141/86
[2017-11-03 07:50] VITALS: BP 122/71
[2017-11-03 11:58] VITALS: BP 104/59
--- NOTE | 2017-11-03 12:28 | CP SOUTH PROGRESS NOTE PSYCH ---
Psych (Inpt) Progress Note Progress Note Include the following elements, when applicable: Involvement in the active treatment of the patient with behavioral observations of the patient and the patient's response to the treatment. Review of the ongoing treatment process in the context of the treatment plan. Indication of how multi-disciplinary staff members are carrying out the treatment plan. Plans for future interventions and recommendations for revision of the treatment plan. Liaison with other physicians/providers. Progress Note: Pt refused zoloft this morning as felt may be making dizziness worse. He noted no difference and plans to take it later in the day. He spoke at length about being dizzy with somewhat inconsistent reports of what brings it on. Denies SI or HI. Current Medications Sig/Mike Start time Last Medication Dose Route Stop Time Status Admin Acetaminophen 650 MG Q6-PRN PRN 10/17 1100 AC 11/01 PO 2114 Bacitracin 1 AUSTIN TID 10/30 2200 AC 11/01 TOP 2113 Benzocaine 1 AUSTIN BID PRN 10/14 1600 AC 10/19 TOP 1147 Benzonatate 100 MG TID 10/30 1600 AC 11/03 PO 0917 Chlorpromazine 50 MG Q6P PRN 10/23 1145 AC 10/29 PO 1118 Gabapentin 600 MG 1600,0 11/01 1600 AC 11/02 PO 2122 Guaifenesin 600 MG Q12 10/16 1115 AC 11/03 PO 0917 Ibuprofen 600 MG .STK-MED ONE 11/02 1703 DC PO 11/02 1704 Ibuprofen 600 MG Q6P PRN 10/14 1430 AC 11/02 PO 1703 Lidocaine 15 ML Q6-PRN PRN 10/14 1215 AC 10/15 PO 2200 Magnesium Hydroxide 30 ML AT BEDTIME NEED.. 10/22 1145 AC PO Methadone HCl 100 MG DAILY 10/15 1000 AC 11/03 PO 0922 Multivitamins 1 TAB DAILY 10/20 1000 AC 11/03 PO 0917 Nicotine 4 MG Q2 HRS NEEDED PRN 10/18 1115 AC 11/03 PO 0918 Nicotine 21 MG DAILY 10/14 1000 AC 11/03 TOP 0917 Omeprazole 40 MG DAILY AC 10/14 0700 AC 11/03 PO 0917 Ondansetron HCl 4 MG Q12P PRN 11/02 1715 AC 11/02 PO 1730 Prazosin HCl 4 MG AT BEDTIME 10/25 2200 AC 11/02 PO 2122 Propranolol HCl 20 MG Q6P PRN 10/23 1145 AC 10/29 PO 1119 Quetiapine Fumarate 200 MG AT BEDTIME 10/28 220 AC 11/02 PO 2125 Senna 187 MG BID PRN 10/19 1630 AC 10/22 PO 1611 Sertraline HCl 100 MG DAILY 10/19 1000 AC 11/02 PO 0928 Sodium Chloride 2 SPRAY Q4P PRN 10/15 2215 AC 11/03 ROMERO 0918 Testosterone 5 GM DAILY 10/14 1209 AC 11/03 TOP 0922 Laboratory Tests 11/02 11/01 0600 0600 Serology HIV 1&2 Ab Western Blot Cancelled Cancelled Vital Signs Date Time Temp Pulse Resp B/P B/P Pulse O2 O2 Flow FiO2 Mean Ox Delivery Rate 11/03 1158 89 104/59 11/03 0750 98.5 92 122/71 11/022 76 0 138/80 11/02 1912 98.0 78 141/86 11/02 1612 76 155/81 MSE General appearance: good hygiene and grooming; Attitude: cooperative; Eye contact: appropriate; Movement: no psychomotor agitation or slowing; Speech: nl fluency, nl rate/rhythm, nl volume, nl prosody; Mood: "I not good" Affect: irritable, flat, appropriate, constricted, non-labile, congruent; Thought process: linear and goal-directed; Thought content: denied SI or HI, no paranoid ideation; Perception: denied hallucinations- auditory, visual, does not appear to be responding to internal stimuli; I/J: limited A/P: Pt MDD and multiple psychosocial stressors with dizziness which is decreasing. If presistent or worsening may considering decreasing prazosin. -Continue current medication regimen -Encourage integration into the milieu
[2017-11-03 15:26] VITALS: BP 141/93
[2017-11-03 15:38] VITALS: BP 145/70
[2017-11-03 19:10] VITALS: BP 143/83
[2017-11-04 08:04] VITALS: BP 122/79
[2017-11-04 12:34] VITALS: BP 144/92
--- NOTE | 2017-11-04 15:06 | CP SOUTH PROGRESS NOTE PSYCH ---
Psych (Inpt) Progress Note Progress Note RN, Group Therapists, DRY WALL NAILER, and psychiatrist will discuss the patients progress , and review treatment/care plan team meeting Mental Status Examination: Patient reported that the dizziness and nausea and not feeling well continued until last night BP 144/92, Pulse 100/min, he was not tearful or labile today, mildly irritable, reported anxiety, denied thoughts of suicide in the past 24 hours, mood remains depressed, no evidence of delusional thought process, denied thoughts of violence or homicide, Mark has not experienced any hallucinations throughout this episode of care Treatment Plan update: Continue Gabapentin at same dose Resume Ritalin 10 mg BID Continue Seroquel 200mg Continue Prazosin 4 mg at bedtime Reduce Methadone to 90 mg daily Continue Sertraline 100 mg daily Continue PRN Thorazine 50 mg and Propranolol 20 mg [id number] Continue inpatient psychiatric care, Continue 15 minute checks Nursing staff will provide education and mental status assessments every shift, vital signs, Social work to coordinate discharge plan and aftercare plans, Group therapy, Milieu therapy, Psychiatrist will meet with the patient daily
[2017-11-04 15:53] VITALS: BP 124/67
--- NOTE | 2017-11-04 16:37 | SOCIAL WORKER PROG NOTE PSYCH ---
See Addendum Social Work Progress Note Progress Note Mark was told that Kelly the case repairer from [facility] was coming to the unit to meet with people and could meet with him to see if he would be appropriate for a bed at their program. Mark got irritated by my question and stated that he didn't want to [facility] because he would need to change his methadone provider to a provider that he doesn't like and it would only be temporary anyway since he would only be there a couple of weeks. He then stated that he thought the plan was to go [facility]? I told him that was something we were continuing to work on, but this opportunity became available and it was better than nothing. He refused.
--- NOTE | 2017-11-04 16:56 | SOCIAL WORKER PROG NOTE PSYCH ---
Social Work Progress Note Progress Note COMPLETED P REVIEW.
[2017-11-04 20:06] VITALS: BP 132/75
[2017-11-05 07:53] VITALS: BP 119/72
[2017-11-05 11:55] VITALS: BP 110/82
--- NOTE | 2017-11-05 12:11 | SOCIAL WORKER PROG NOTE PSYCH ---
Social Work Progress Note Progress Note Received a message from Nighat Kelly at [facility] that they will not accept Mark's referral to the 5th floor at [facility], because Mark hasn't demonstrated that he is committed and engaged in their outpatient services. Met with Mark and shared the above information. He stated that "they always seem to be coming up with some reason to keep me out of there." Reports sleep is better, no nightmares. Mood and anxiety seem improved. He denies SI. Looking towards discharging to [facility] when there is a bed available. Akilah from [facility] called and left a message that another peer review is being requested for today. Dr. Day should call their doctor by 11:40am. This message was given to the doctor. I later received a message that Mark was denied continued stay. Last cover day was 11/03.
--- NOTE | 2017-11-05 14:51 | CP SOUTH PROGRESS NOTE PSYCH ---
Psych (Inpt) Progress Note Progress Note RN, Group Therapists, STRATEGIC ANALYST, and psychiatrist will discuss the patients progress , and review treatment/care plan team meeting Mental Status Examination: Pt. reported that he no longer has dizziness or nausea Physically feeling well, Vitals Blood Pressure 110/82 11/05/17 1155 Pulse Rate 84 11/05/17 1155 Temperature 97.3 11/05/17 0753 he was not tearful or labile today, not irritable, reported anxiety, denied thoughts of suicide in the past 24 hours, mood remains depressed, no evidence of delusional thought process, denied thoughts of violence or homicide, Mark has not experienced any hallucinations throughout his stay at [facility] Treatment Plan update: Continue Gabapentin at same dose Continue Ritalin 10 mg BID Continue Seroquel 200mg Continue Prazosin 4 mg at bedtime Continue Methadone 90 mg daily Continue Sertraline 100 mg daily Continue PRN Thorazine 50 mg and Propranolol 20 mg [id number] Continue inpatient psychiatric care, Continue 15 minute checks Nursing staff will provide education and mental status assessments every shift, vital signs, Social work to coordinate discharge plan and aftercare plans, Group therapy, Milieu therapy, Psychiatrist will meet with the patient daily
[2017-11-05 15:49] VITALS: BP 153/90
[2017-11-05 20:14] VITALS: BP 161/90
[2017-11-06 07:53] VITALS: BP 125/84
[2017-11-06 12:02] VITALS: BP 123/81
--- NOTE | 2017-11-06 12:46 | CP SOUTH PROGRESS NOTE PSYCH ---
Psych (Inpt) Progress Note Progress Note RN, Group Therapists, MANAGER CAREER, and psychiatrist will discuss the patients progress , and review treatment/care plan team meeting Mental Status Examination: Pt. reported that he has dizziness and lightheadedness Vitals Blood Pressure 110/82 11/05/17 1155 Pulse Rate 84 11/05/17 1155 Temperature 97.3 11/05/17 0753 He may be describing possible Gabapentin withdrawal symptoms he was not labile today, not irritable, reported anxiety, denied thoughts of suicide in the past 24 hours, mood remains depressed, no evidence of delusional thought process, denied thoughts of violence or homicide, Mark has not experienced any hallucinations throughout his stay at [facility] Treatment Plan update: Resume Gabapentin at 600 mg TID Orthostatic vitals Reduce Seroquel to 150 mg at bedtime Continue Prazosin 4 mg at bedtime Continue Methadone 90 mg daily Continue Sertraline 100 mg daily Continue Ritalin 10 mg BID D/C PRN Thorazine 50 mg Continue Propranolol 20 mg [id number] Continue inpatient psychiatric care, Continue 15 minute checks, Nursing staff will provide education and mental status assessments every shift, vital signs, Social work to coordinate discharge plan and aftercare plans, Group therapy, Milieu therapy, Psychiatrist will meet with the patient daily
[2017-11-06 16:02] VITALS: BP 139/81
--- NOTE | 2017-11-06 16:25 | SOCIAL WORKER PROG NOTE PSYCH ---
Social Work Progress Note Progress Note Blocker Polishing met with Mark today in his room. He reported to be feeling "detached" and "foggy" due to his ongoing dizziness. He said he had not gone to groups because the dizziness was making it hard for him to focus. He stated that not knowing what was causing the dizziness was anxiety provoking. and Mark also spoke about his discharge plan. had called Ricardo at [facility] to check on the status of the available male bed. Ricardo informed that the bed had been filled, and that she anticipated that a male bed would be available late next week. shared this with Mark. Additionally told Mark that his insurance had stopped covering his hospitalization on Saturday, as the insurance felt like he no longer met inpatient criteria. Blocker Polishing asked Mark if he would be open to going to [facility] if he were able to continue to go to his Methadone clinic in [place] and to [facility] while staying there. Mark was agreeable to this plan. called [facility] in [place] to ask whether this would be allowed. was informed that in the past, [facility] has allowed clients to take public transportation to their appointments in [place]. As such, faxed referral to [facility]. Additionally, called and left a message for Elva Kim to set up Mark's [facility] appointments with Nighat Kelly and Dr. Chidi Sandoval.
[2017-11-06 19:46] VITALS: BP 143/89
[2017-11-07 08:13] VITALS: BP 131/85
--- NOTE | 2017-11-07 10:46 | CP SOUTH PROGRESS NOTE PSYCH ---
Psych (Inpt) Progress Note Progress Note RN, Group Therapists, WIRELESS OPERATOR, and psychiatrist will discuss the patients progress , and review treatment/care plan team meeting Vitals Blood Pressure Sitting 131/85 Standing 116/75 Pulse Rate 94 11/07/17 0813 Temperature 97.4 11/07/17 0813 Mental Status Examination: lightheadedness continues , seemed tired and withdrawn he was not labile today, not irritable, reported anxiety, denied thoughts of suicide in the past 24 hours, mood remains depressed, no evidence of delusional thought process, denied thoughts of violence or homicide, no hallucinations Treatment Plan update: D/C Propranolol 20 mg [id number] PRN Reduce Prazosin to 2 mg at bedtime Continue Gabapentin 600 mg TID Continue Seroquel 150 mg at bedtime Continue Methadone 90 mg daily Continue Sertraline 100 mg daily Continue Ritalin 10 mg BID Continue inpatient psychiatric care, Continue 15 minute checks, Nursing staff will provide education and mental status assessments every shift, vital signs, Social work to coordinate discharge plan and aftercare plans, Group therapy, Milieu therapy, Psychiatrist will meet with the patient daily
--- NOTE | 2017-11-07 10:50 | SOCIAL WORKER PROG NOTE PSYCH ---
Social Work Progress Note Progress Note Boat Puller spoke with Lucinda at [facility] in [place] today to do a screening. Lucinda stated that she would review the results of the screening with Dominique Gilliam, program paraprofessional, and see if a [id number] meeting is warranted. She stated that she will call newspaper writer back some time today. Boat Puller left a message for Elva Kim ([phone]) to schedule Mark's appointments at [facility]. UPDATE: Dominique Gilliam from [facility] called back and spoke with and Mark. Dominique stated that she would accept Mark and that they have a male bed available today. Additionally newspaper writer called Nighat Kelly ([phone]) to schedule appointments for Mark. Nighat scheduled Mark to see her at 1PM on November 14 and scheduled Mark to see Dr. Sandoval at 10AM on November 12. Boat Puller spoke with Mark. He reported to be feeling "okay" about going to [facility] today. He stated that he was not feeling to anxious, rating his anxiety at a 2 out of 10. He stated that he was feeling slightly less dizzy since he was focussing on other things at the moment. Mark stated that he would call both [facility] and [facility] to see where things stood with his waitlist status. Boat Puller called [facility] to setup a ride. Boat Puller gave explicit instructions for tour bus driver to come to the back fo the hospital on the corner of [address] and for the tour bus driver to call the nurse's station upon arrival. The confirmation number is [id number].
[2017-11-07 11:49] VITALS: BP 155/93
[2017-11-07] MEDS ORDERED: SEROQUEL50 M1 PO (12:11)
[2017-11-07] MEDS ORDERED: METHYLPHENIDATE5 M3 PO (12:11)
[2017-11-07] MEDS ORDERED: GABAPENTIN300 M2 PO (12:11)
[2017-11-07] MEDS ORDERED: METHADONE HCL10 M1 PO ×2 (12:11→12:42)
[2017-11-07] MEDS ORDERED: PRAZOSIN HCL2 M1 PO (12:11)
[2017-11-07] MEDS ORDERED: PROPRANOLOL HCL20 M1 PO (12:14)
[2017-11-07] MEDS ORDERED: ZOLOFT100 M1 PO (12:15)
[2017-11-07 12:26] VITALS: BP 155/93
--- NOTE | 2017-11-07 14:07 | DISCHARGE SUMMARY REPORT-PSYCH ---
Visit Information Visit Dates/Diagnosis' Admission Date: 10/13/2017 Discharge Date: 11/07/17 Reason for Admission: The patient was admitted reportedly for having bad reaction to synthetic cannabis (K2). He reportedly had panic attacks and presented to the emergency room with thoughts of suicide. It was elected that he lost consciousness after using K2 and there was a suspicion that he may have had a seizure Psy Discharge Primary Diag: F33.1: Major Depression Generalized Anxiety Disor Opioid Use Disorder Psy Discharge Secondary Diag: General Anxiety Disorder (Opioid Use Disorder) Hospital Course Significant Lab Findings: The patient's blood count was normal with normal hemoglobin and normal normal hematocrit and normal white and red blood cell counts and platelet count there were minor abnormalities in his biochemistry most of them were thought to be not clinically significant including a sodium of 146 and a slightly elevated carbon dioxide at 32. The BUN was elevated mildly at 2124 and 23 these were 3 different readings during the patient's stay in the hospital his creatinine was normal his estimated GFR was normal glucose and hemoglobin A1c cholesterol LDL cholesterol were normal Triglycerides were elevated at 429 and HDL cholesterol was marginally low at 39 Course Complications: The patient did not have any complications while he was on the inpatient psychiatric unit. He did complain about certain symptoms that were possibly due to some medication side effects or medication withdrawal specifically gabapentin withdrawal. These symptoms where mostly dizziness and lightheadedness and the strange sensation that the patient was not able to put into words. Consultations: The patient had a history and physical examination performed by an field crop harvest worker while he was on the inpatient psychiatric unit this was done on October [address] Kee, she noted that the patient has history significant for GERD and suggested continuing his Protonix she also noted the mouth lesions/sore that she requested Orajel for thyroid function was normal Allergies: Coded Allergies: fluphenazine (From PROLIXIN) (Severe, ANAPHYLAXIS 01/11/17) haloperidol (From HALDOL) (Severe, ANAPHYLAXIS 01/11/17) loxapine (ANAPHYLAXIS 01/11/17) risperidone (TUNNEL VISION 01/11/17) chlorpromazine (From THORAZINE) (Severe, ANAPHYLAXIS 10/23/17) I thoroughly discussed with Mark his reported allergy to Thorazine. It was apparent that the reference was to extrapyramidal side effects and in conjunction with prolixin (not bu itself) Hospital Course/TX Response: The patient ended up staying an extended period of time in the hospital. The patient continued to express thoughts of suicide for the bigger part of his stay in the hospital. It was not a coincidence that the patient is homeless. The patient was resumed on his methadone there was no change in the dose until the very last week of his stay in the hospital where he was agreeable to bring the dose down from 100 mg to 90 mg There were several medication changes while the patient was on the inpatient psychiatric unit mostly prompted by his complaints either of the medication not addressing symptoms adequately such as Remeron and Wellbutrin and Zyprexa for example Or the medication causing significant side effects and example would be as needed's of Thorazine and as needed doses of gabapentin and initially some side effects with the Ritalin at the higher dose which led to reducing it to just 10 mg twice daily from 15 mg twice daily The patient was presented with several opportunities to go to respite bed since he is homeless and there is no current viable housing options for him, including being kicked out of to shelters that would not take him back. In addition he was declined by rehabs partly because he is on methadone maintenance and there is limited rehab's who accepted patient's with methadone and also because of the ongoing threats of suicide whenever the issue of discharge was brought up to the patient. The patient declined an opening 3 separate times: Twice at the [facility] and once at [facility] There was a strong suspicion on the patient on the patient's treatment team's part that the patient has a lot of secondary gain and wanted to extend his stay in the hospital to avoid facing homelessness and therefore after the patient's third refusal of going to bed he was presented with a plan that if a bit comes up that he will be discharged regardless of what he says since his threats of suicide if he is discharged to this place or that were reviewed as a malingered attempts to control his discharge process and to avoid facing housing options that he did not agree with Finally a bed opened up on November 07, 2017 at the [facility] and the patient was informed that he will be discharged there. This time around the patient did not go back to threatening suicide if we are discharging him which was a relief. The patient begrudgingly admitted that he was there once before and he is familiar with the place he even knew which pharmacy [facility] uses off the top of his head. This prompted me to think that the patient was much more resourceful than we gave him credit for Progress Note for day of discharge 11/07/2017 RN, Group Therapists, TECHNICAL SERVICES REPRESENTATIVE, and psychiatrist will discuss the patients progress , and review treatment/care plan team meeting Vitals Blood Pressure Sitting 131/85 Standing 116/75 Pulse Rate 94 11/07/17 0813 Temperature 97.4 11/07/17 0813 Mental Status Examination: lightheadedness continues , seemed tired and withdrawn he was not labile today, not irritable, reported anxiety, denied thoughts of suicide in the past 24 hours, mood remains depressed, no evidence of delusional thought process, denied thoughts of violence or homicide, no hallucinations Discharge Plan: Discharge to respite see discharge medications below Discharge HBIPS - Tobacco Use Treatment Offered Post DC Medications Offered: Script Given-See Med List Post DC Tobacco Treatment Plan: Other Tobacco Tx Pgm - EtOH/Drug Use D/O Treatment Offered Post DC Medications Offered: Script Given-See Med List Post DC EtOH/SubAbuse TX Plan: Other SubAbuse/Dual Pgm Metabolic Screening - Screen if on a Neuroleptic Medication - Metabolic screening should include: - Blood Pressure, BMI, Glucose or Hgb A1c, & a - Lipid profile from within the past 365 days. Metabolic Screening ([X]) Not Applicable, patient not on a neuroleptic. Discharge Instructions General Discharge Information Multiple Neuroleptics: Not Applicable Discharge Diet Regular Discharge Activity Normal DC Disposition: Home Referrals Ordered Referrals Provider Referral 11/07/17 [facility] Groups: [facility] admission 11/07/[address] [place] [address] Provider Referral 11/14/17 For Groups: [[facility]] [facility] appt. with Nighat Kelly (clinician) 11/14/[address] [id number] Provider Referral 11/12/17 For Groups: [[facility] Dr. Sandoval] [facility] Dr. Sandoval appt. 11/12/17 [address]a [address] [place], [place] [phone] Provider Referral 11/08/17 For Groups: [[facility]] [facility] [address] [place] [address] Prescriptions Stop taking the following medications: Methadone HCl (Methadone HCl) 5 MG TABLET ORAL DAILY Bupropion HCl (Wellbutrin Sr) 100 MG TABLET.ER ORAL 0800,1200 Qty = 60 Fluoxetine HCl (Fluoxetine HCl) 20 MG CAPSULE ORAL DAILY Qty = 60 Olanzapine (Olanzapine) 10 MG TABLET ORAL 2200 Qty = 30 Prazosin HCl (Minipress) 2 MG CAPSULE ORAL Every night Mirtazapine (Remeron) 15 MG TABLET ORAL Every night Quetiapine Fumarate (Seroquel) 200 MG TABLET ORAL Every night Bupropion HCl (Wellbutrin Sr) 100 MG TABLET.ER ORAL TWICE DAILY Fluoxetine HCl (Prozac) 40 MG CAPSULE ORAL DAILY Methadone Hydrochloride (Methadone HCl) 10 MG TABLET ORAL DAILY Continue taking these medications: Testosterone (Androgel) (Unknown Strength) GEL..VEST MAKER 2 Application On the skin DAILY Comments: Last Taken:11/07/17 Time:929 Pantoprazole Sodium (Pantoprazole Sodium) 40 MG TABLET.DR 1 Tablet ORAL DAILY Comments: Last Taken:11/07/17 Time:929 Nicotine Polacrilex (Nicotine Lozenge) 4 MG LOZENGE 1 Lozenge ORAL Q2H as needed for SMOKING CESSATION Comments: Last Taken:TO START AT DISCHARGE Time: Start taking the following new medications: Prazosin HCl (Prazosin HCl) 2 MG CAPSULE 2 Milligram ORAL AT BEDTIME Qty = 15 No Refills Comments: Last Taken:NEW DOSE TO START TONIGHT Time:RECEIVED 4MG ON 11/06/17 AT 2130 Gabapentin (Gabapentin) 300 MG CAPSULE 600 Milligram ORAL THREE TIMES DAILY Qty = 90 No Refills Comments: Last Taken:11/07/17 Time:929 Quetiapine Fumarate (Seroquel) 50 MG TABLET 150 Milligram ORAL AT BEDTIME Qty = 45 No Refills Comments: Last Taken:11/06/17 Time:2129 Methylphenidate HCl (Methylphenidate HCl) 5 MG TABLET 10 Milligram ORAL 0800,1300 Qty = 30 No Refills Comments: Last Taken:11/07/17 Time:929 Sertraline HCl (Zoloft) 100 MG TABLET 100 Milligram ORAL DAILY Qty = 15 No Refills Comments: Last Taken:11/07/17 Time:929 Methadone Hydrochloride (Methadone HCl) 10 MG TABLET 90 Milligram ORAL DAILY Qty = 9 No Refills Comments: Last Taken:11/07/17 Time:0930 Propranolol HCl (Propranolol HCl) 20 MG TABLET 20 Milligram ORAL TWICE DAILY Qty = 30 No Refills Comments: Last Taken:11/07/17 Time:1230 Copies To: Aditya Ziegler
--- NOTE | 2017-11-07 16:03 | SOCIAL WORKER PROG NOTE PSYCH ---
Social Work Progress Note Faxed Referral(s) 1 Referred To: [facility] Documents sent: Health Summary Faxed to: [facility] Fax #: [phone] Faxed by: Ebonie Singh Date faxed: 11/07/17 Time Faxed: [phone] Faxed Referral(s) 2 Referred To: [facility] Documents sent: Health Summary Faxed to: [facility] Fax #: [phone] Faxed by: Ebonie Singh Date faxed: 11/07/17 Time Faxed: [phone] Faxed Referral(s) 3 Referred To: [facility] Transition of Care Documents sent: Health Summary Faxed to: [facility] Attn: Elva Kim Fax #: [phone] Faxed by: Ebonie Singh Date faxed: 11/07/17 Time Faxed: [phone]
== END 2017-11-07 13:55 | DRG 754 ==
LOC: ERH 17:09 → ERHI 20:28 → CP SOUTH 20:28 → ENTRNSPT 20:32 → EDTRNSPT 20:37 → EDTRNSPTSTS 20:39 → CP SOUTH 20:53 → CMPTRNSPT 21:22 → CP SOUTH 10-14 10:22
PROVIDERS: Emergency Medicine; Student in an Organized Health Care Education/Training Program
DX: F32.9 Major depressive disorder, single episode, unspecified (principal); F41.1 Generalized anxiety disorder; F11.90 Opioid use, unspecified, uncomplicated
CPT/HCPCS: 87184; 36415; 71046; 80307; 82436; 86803; 87070; 87147; 87389; 87804; 87804-59; 93005; 93010; G0480; J3101; J3230

== ENCOUNTER 2018-02-27 14:07 | Inpatient (IN) | payer OTHER ==
[~2018-02-27] VITALS: Ht 182.9 cm; Wt 104.5 kg
[~2018-02-27 14:07] MED LIST changes: +GABAPENTIN300 M2 PO; +METHYLPHENIDATE5 M3 PO; +PANTOPRAZOLE SO40 M1 PO; +PROPRANOLOL HCL20 M1 PO; +SEROQUEL50 M1 PO; +ZOLOFT100 M1 PO
--- NOTE | 2018-02-27 14:15 | ED PSYCHIATRIC COMPLAINT ---
History of Present Illness General Chief Complaint: Psychiatric Related Complaint Stated Complaint: + SI Source: patient, old records, EMS Exam Limitations: no limitations Vital Signs & Intake/Output Vital Signs & Intake/Output Vital Signs Date Time Temp Pulse Resp B/P B/P Pulse O2 O2 Flow FiO2 Mean Ox Delivery Rate 02/27 1922 96.4 68 20 118/60 99 Room Air 02/27 1544 Room Air 02/27 1536 88 114/82 02/27 1535 98.5 88 18 114/82 99 Room Air 02/27 1420 99.0 88 18 117/83 98 Room Air Allergies Coded Allergies: fluphenazine (From PROLIXIN) (Severe, ANAPHYLAXIS 01/11/17) haloperidol (From HALDOL) (Severe, ANAPHYLAXIS 01/11/17) loxapine (ANAPHYLAXIS 01/11/17) risperidone (TUNNEL VISION 01/11/17) chlorpromazine (From THORAZINE) (Severe, ANAPHYLAXIS 10/23/17) I thoroughly discussed with Mark his reported allergy to Thorazine. It was apparent that the reference was to extrapyramidal side effects and in conjunction with prolixin (not bu itself) Reconcile Medications Clonidine HCl 0.2 MG TABLET 1 TAB PO TID MENTAL HEALTH (Reported) Gabapentin 300 MG CAPSULE 600 MG PO TID anxiety Methadone HCl (Methadose) 10 MG/ML ORAL.CONC 90 MG PO DAILY OPIOD (Reported) Methylphenidate HCl (Ritalin) 5 MG TABLET 3 TAB PO BID MENTAL HEALTH ( Reported) Pantoprazole Sodium 40 MG TABLET.DR 1 TAB PO DAILY GI (Reported) Prazosin HCl 2 MG CAPSULE 2 MG PO AT BEDTIME nightmares Quetiapine Fumarate 300 MG TABLET 1 TAB PO QPM SLEEP (Reported) Sertraline HCl (Zoloft) 100 MG TABLET 100 MG PO DAILY depression and anxiety Testosterone (Androgel) (Unknown Strength) GEL..TRUCK 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 yes HPI: Patient was sent in on [facility] from [facility] or he went with suicidal ideations. Patient states that he has been off of his medications for approximately 1 month. Patient was seen at [facility] last night and was discharged this morning. Patient states he went to [facility] for his appointment. Patient states he is having suicidal thoughts of jumping off the parking garage. Patient states he is now having visual hallucinations which he has never had before. Patient denies any homicidal ideations. (Osbaldo Benedict MD) Past History Medical History Any Pertinent Medical History? see below for history Neurological: migraine, seizure, (WITHDRAWL TO BENZOS) EENT: sinusitis, HX MRSA Cardiovascular: NONE Respiratory: asthma Gastrointestinal: constipation, GERD, irritable bowel syndrome Hepatic: NONE Renal: NONE Musculoskeletal: NONE Psychiatric: anxiety, depression, opioid dependence, substance abuse, PTSD SI Endocrine: NONE Blood Disorders: NONE Cancer(s): NONE ACCOUNTING ADMINISTRATIVE ASSISTANT/Reproductive: LOW TESTOSTERONE History of MRSA: Yes History of VRE: No History of CDIFF: No Influenza Vaccine: 06/30/17 Surgical History Surgical History: non-contributory Psychosocial History Who do you live with Other (see notes) Services at Home None What is your primary language Pashto Tobacco Use: Current Daily Use Daily Tobacco Use Amount/Type: => 5 Cigarettes daily ETOH Use: denies use Illicit Drug Use: denies illicit drug use Family History Family History, If Any: Relation not specified for: *No pertinent family history Hx Contributory? No (Jak GERBER,Osbaldo Sanches) Review of Systems Review of Systems Constitutional: Reports: no symptoms. EENTM: Reports: no symptoms. Respiratory: Reports: no symptoms. Cardiovascular: Reports: no symptoms. GI: Reports: no symptoms. Genitourinary: Reports: no symptoms. Musculoskeletal: Reports: no symptoms. Skin: Reports: no symptoms. Neurological/Psychological: Reports: see HPI, depressed. Hematologic/Endocrine: Reports: no symptoms. Immunologic/Allergic: Reports: no symptoms. All Other Systems: Reviewed and Negative (Jak GERBER,Osbaldo Sanches) Physical Exam Physical Exam General Appearance: well developed/nourished, mild distress Head: atraumatic Eyes: Bilateral: PERRL, EOMI. Ears, Nose, Throat: normal pharynx, normal ENT inspection, hearing grossly normal Neck: normal inspection, supple Respiratory: normal breath sounds, chest non-tender, no respiratory distress, lungs clear Cardiovascular: regular rate/rhythm, normal peripheral pulses Gastrointestinal: soft, non-tender Extremities: normal range of motion Neurological/Psychiatric: no motor/sensory deficits, awake, alert, calm, oriented x 3 Appearance/Memory/Insight: appropriate appearance, appropriate insight Behavoir/Eye Contact/Speech: cooperative, normal speech, good eye contact Thoughts/Hallucinations: normal thought pattern, no apparent hallucination Skin: intact, normal color, warm/dry SAD PERSONS Done? CRISIS CONSULT OBTAINED (Jak GERBER,Osbaldo Sanches) Progress Differential Diagnosis: drug intoxication, drug overdose, drug withdrawal, electrolyte abnormality Plan of Care: Orders Procedure Date/time Status Regular Diet 02/27 D Active Admit to inpatient psych 02/27 2047 Active Continuous Observation Monitor 02/27 1413 Active URINE DRUGS OF ABUSE 02/27 1413 Complete ETHANOL 02/27 1413 Complete COMPREHENSIVE METABOLIC PANEL 02/27 1413 Complete CBC WITHOUT DIFFERENTIAL 02/27 1413 Complete ED CRISIS PSYCH CONSULT 02/27 141 Active Current Medications Sig/Mike Start time Last Medication Dose Stop Time Status Admin Doxazosin Mesylate 1 MG DAILY 02/28 0900 UNVr (Cardura) Sertraline HCl 100 MG DAILY 02/28 0900 UNVr (Zoloft) Quetiapine Fumarate 300 MG QPM 02/27 2100 UNVr 02/27 (Seroquel) 2028 Ibuprofen 600 MG ONCE ONE 02/27 2030 UNVr 02/27 (Motrin) 02/27 Nicotine 2 MG Q2P PRN 02/27 1830 UNVr (Nicotine) Clonidine 0.2 MG TID 02/27 1414 UNVr 02/27 (Catapres) 2027 Gabapentin 600 MG Q8 02/27 141 UNVr 02/27 (Neurontin) 1536 Laboratory Tests 02/27/18 1514: Urine Opiates Screen < 100, Methadone Screen > 735 H, Barbiturate Screen < 60, Ur Phencyclidine Scrn < 6.00, Amphetamines Screen < 100, U Benzodiazepines Scrn 568 H, Urine Cocaine Screen < 50, Urine Cannabis Screen 25.10 02/27/18 1501: Anion Gap 12, Estimated GFR > 60, BUN/Creatinine Ratio 16.3, Glucose 74, Calcium 9.8, Total Bilirubin 0.4, AST 22, ALT 28, Alkaline Phosphatase 71, Total Protein 7.9, Albumin 4.3, Globulin 3.6, Albumin/Globulin Ratio 1.2, CBC w Diff NO MAN DIFF REQ, RBC 5.22, MCV 90.5, MCH 30.5, MCHC 33.7, RDW 14.5, MPV 9.4, Gran % 61.0, Lymphocytes % 30.9, Monocytes % 6.8, Eosinophils % 1.0, Basophils % 0.3, Absolute Granulocytes 4.3, Absolute Lymphocytes 2.2, Absolute Monocytes 0.5, Absolute Eosinophils 0.1, Absolute Basophils 0, Serum Alcohol < 10.0 Hand-Off Endorsed To: Kofi Cedillo MD Endorsed Time: 1899 Pending: consult (Jak GERBER,Osbaldo Sanches) Comments: 02/27/2018 8:27:41 PM patient signed out to me by Dr. Benedict at shift change management analyst. Crisis evaluation pending. According to patient's nurse he has had chronic back pain and is requesting ibuprofen for this. 02/27/2018 8:47:32 PM patient is being admitted to the inpatient psychiatry service. (Nguyen GERBER,Kofi Jarrell) Departure Departure Disposition: STILL A PATIENT Condition: Stable Referrals: Unknown Departure Forms: Customer Survey General Discharge Information (Jak GERBER,Osbaldo Sanches) Departure Clinical Impression Primary Impression: Depression Qualifiers: Depression Type: unspecified Qualified Code: F32.9 - Major depressive disorder, single episode, unspecified Secondary Impressions: History of benzodiazepine use, Methadone use, Suicidal ideation Psych Admission Note Psychiatric Admission: I have seen and evaluated MARK ARAGON. I have also reviewed all the pertinent lab results and diagnostic results. MARK ARAGON will be admitted to our inpatient Psychiatric unit for treatment and care. (Nguyen GERBER,Kofi Jarrell)
[2018-02-27] MEDS ORDERED: QUETIAPINE FUM300 M1 PO (14:47)
[2018-02-27] MEDS ORDERED: RITALIN5 M2 PO (14:48)
[2018-02-27] MEDS ORDERED: CLONIDINE HCL0.2 M1 PO (14:48)
[2018-02-27] MEDS ORDERED: METHADOSE10 MG/1 ML PO (14:50)
[2018-02-27 15:17] LABS: ABSOLUTE BASOPHIL COUNT 0 /CUMM (0.0-0.2); ABSOLUTE EOSINOPHIL COUNT 0.1 /CUMM (0.0-0.7); ABSOLUTE GRANULOCYTE CT 4.3 /CUMM (1.4-6.5); ABSOLUTE LYMPH COUNT 2.2 /CUMM (1.2-3.4); ABSOLUTE MONOCYTE COUNT 0.5 /CUMM (0.10-0.60); BASOPHIL % 0.3 % (0.0-2.0); HEMATOCRIT 47.2 % (42-52); MEAN CORPUSCULAR HGB 30.5 PG (27.0-31.0); MEAN CORPUSCULAR HGB CONC 33.7 G/DL (33.0-37.0); MEAN CORPUSCULAR VOLUME 90.5 FL (80.0-94.0); MEAN PLATELET VOLUME 9.4 FL (7.4-10.4); PLATELET COUNT 167 /CUMM (130-400); RBC DISTRIBUTION WIDTH 14.5 % (11.5-14.5); RED BLOOD CELL CT 5.22 /CUMM (4.70-6.10)
--- NOTE | 2018-02-27 18:47 | ED PSYCH CRISIS CONSULTATION ---
Crisis Consult Basic Assessment Date of Consult: 02/27/18 Responsible Person/Accompanied By: SORIN and on a PEC Insurance Authorization: Insurance #1: Insurance name: KRISTOPHER CAUSEY Phone number: Policy number: [id number] Group number: Authorization number: ED Provider: Patient's ED Provider: Jak GERBER,Osbaldo Sanches Primary Care Physician: Patient's PCP: Patient Has No Primary Care Dr PCP's Phone Number: Current Psychiatrist: [facility] Chief Complaint: Psychiatric Related Complaint Patient's Quote: " I've been having a lot of trouble." Present Illness: The patient is a 32 year old, single, male presenting to the ED on a PEC from [facility], after he made suicidal statements. The patient presents as anxious and depressed becoming tearful during the evaluation. He had difficulty organizing his thoughts and had pressurred, hyperverbal speech. He states that he was doing well and was living in a new tent he bought, until the state took it out of the grossman and all of his belongings with it. He states that he his medications were in the tent and therefore he was not able to take them. He states that he told [facility] and they called more medication into the pharmacy, however the insurance stated it was too soon to fill them. He reports that after 20 days of no medications that he went to [place] to help with detox off of his benzodiazepines and stayed in the observation section of their ED from Saturday until this AM. He reports that they discharged him from the ED today, with no medications and he started to feel suicidal. He states that he went to the top of the [employer] parking garage with a plan to jump off. He states that he did not jump, as he was afraid of the pain and being paralyzed if he did not . He states that he chose this method, as a person that he knew from group, completed suicide by jumping off of the parking structure. He states that he went to [facility] and told them that he was going to jump and then placed him on a PEC and sent him to [place]. He reports that his anxiety and depression, are both an 8 out of 10, 10 being the most severe. He reports that he is feeling helpless, hopeless, worthless and useless. He reports decreased motivation, energy, concentration, and sleep disturbances. He continues to report feeling suicidal, noting his last attempt was in the Fall of 2016, when he took an overdose. He states that he has recently started to experience AH and VH, struggling to explain the specifics, however relates them back to his trauma at 15 years old. He reports that at 15 years old her experienced "Catatonia," and spent many weeks between the psychiatric unit and the hospital. He states that he has been seeing a bright light and hearing doctors and nurses talking, while walking down the street. He reports in addition to the "Catatonia," that "his fathers haunts him," noting that he passed in 2007. He states that he has been admitted to multiple hospitals throughout his life starting at 15 years old , with the last one being in the ED at [facility] this week. He denies any current HI. He receives glass assistance while he is trying to obtain Disability and states that he recently was given a housing voucher. He reports minimal supports, noting that his providers are his biggest support. He receives treatment at [facility] and [facility] [place]. He has a history of abusing Heroin, Cocaine, Benzodiazepines, and K2. He states that he has not used Heroin since 2008 and that he has not used Cocaine in a long period of time. He states that he has been abusing Benzodiazepines and K2, with his last use of both being last Saturday, prior to going to [place]. He is not sure what would be helpful at this time. Patient's Address: [address] [place] [address] Other Phone Number: Who Do You Live With? Other (see notes) Family/Informants Interviewed: no family/collateral ID'd, He states that there is no one to contact for collateral, except for his providers at [facility] and [facility]. Allergies - Coded Allergies: fluphenazine (From PROLIXIN) (Severe, ANAPHYLAXIS 01/11/17) haloperidol (From HALDOL) (Severe, ANAPHYLAXIS 01/11/17) loxapine (ANAPHYLAXIS 01/11/17) risperidone (TUNNEL VISION 01/11/17) chlorpromazine (From THORAZINE) (Severe, ANAPHYLAXIS 10/23/17) I thoroughly discussed with Mark his reported allergy to Thorazine. It was apparent that the reference was to extrapyramidal side effects and in conjunction with prolixin (not bu itself) Current Medications - Scheduled Medications Clonidine HCl 0.2 MG TABLET 1 TAB PO TID MENTAL HEALTH (Reported) Entered as Reported by Juan Hsieh on 02/27/18 1448 Gabapentin 300 MG CAPSULE 600 MG PO TID anxiety #90 CAP Prescribed by Michael Khan MD on 11/07/17 Methadone HCl (Methadose) 10 MG/ML ORAL.CONC 90 MG PO DAILY OPIOD (Reported) Entered as Reported by Juan Hsieh on 02/27/18 1450 Methylphenidate HCl (Ritalin) 5 MG TABLET 3 TAB PO BID MENTAL HEALTH ( Reported) Entered as Reported by Juan Hsieh on 02/27/18 1448 Pantoprazole Sodium 40 MG TABLET.DR 1 TAB PO DAILY GI (Reported) Entered as Reported by Courtney Toth on 10/13/17 1954 Prazosin HCl 2 MG CAPSULE 2 MG PO AT BEDTIME nightmares #15 TAB Prescribed by Michael Khan MD on 11/07/17 Quetiapine Fumarate 300 MG TABLET 1 TAB PO QPM SLEEP (Reported) Entered as Reported by Juan Hsieh on 02/27/18 1447 Sertraline HCl (Zoloft) 100 MG TABLET 100 MG PO DAILY depression and anxiety # 15 TAB Prescribed by Michael Khan MD on 11/07/17 Testosterone (Androgel) (Unknown Strength) 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 [place] TOP DAILY LOW TESTOSTERONE (Reported) Entered as Reported by Tracey Chaparro APRN on 01/28/17 1055 Laboratory Results: Laboratory Tests 02/27/18 1514: Urine Opiates Screen < 100, Methadone Screen > 735 H, Barbiturate Screen < 60, Ur Phencyclidine Scrn < 6.00, Amphetamines Screen < 100, U Benzodiazepines Scrn 568 H, Urine Cocaine Screen < 50, Urine Cannabis Screen 25.10 02/27/18 1501: Anion Gap 12, Estimated GFR > 60, BUN/Creatinine Ratio 16.3, Glucose 74, Calcium 9.8, Total Bilirubin 0.4, AST 22, ALT 28, Alkaline Phosphatase 71, Total Protein 7.9, Albumin 4.3, Globulin 3.6, Albumin/Globulin Ratio 1.2, CBC w Diff NO MAN DIFF REQ, RBC 5.22, MCV 90.5, MCH 30.5, MCHC 33.7, RDW 14.5, MPV 9.4, Gran % 61.0, Lymphocytes % 30.9, Monocytes % 6.8, Eosinophils % 1.0, Basophils % 0.3, Absolute Granulocytes 4.3, Absolute Lymphocytes 2.2, Absolute Monocytes 0.5, Absolute Eosinophils 0.1, Absolute Basophils 0, Serum Alcohol < 10.0 Past History Past Medical History Neurological: migraine, seizure, (WITHDRAWL TO BENZOS) EENT: sinusitis, HX MRSA Cardiovascular: NONE Respiratory: asthma Gastrointestinal: constipation, GERD, irritable bowel syndrome Hepatic: NONE Renal: NONE Musculoskeletal: NONE Psychiatric: anxiety, depression, opioid dependence, substance abuse, PTSD SI Endocrine: NONE Blood Disorders: NONE Cancer(s): NONE HOME DELIVERY DRIVER/Reproductive: LOW TESTOSTERONE Past Surgical History Surgical History: non-contributory Psychosocial History Strengths/Capabilities: Pt is motivated for treatment Pt participates in outpatient services at [facility] in [place]. Physical Limitations (Interventions): None reported Psychiatric Treatment History Psych Treatment Psychiatric Treatment Yes Inpatient Treatment Yes Outpatient Treatment Yes Location of Treatment [facility] and [facility]. 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 For how long "5 or 6 days." Substance Abuse Treatment Substance Abuse Treatment Past Substance Abuse [place] Yes Inpatient Treatment Yes Outpatient Treatment Yes Location of Treatment [facility] Reason for Treatment Heroin abuse Dates of Treatment Current with [facility] Comments: N/A Current Mental Status Mental Status Orientation: Person, Place, Situation Affect: Anxious, Depressed, Sad Speech: Hyper-verbal, Pressured Neuro-vegetative: Concentration Poor, Energy Decreased, Helpless, Sleep Disturbance Appearance Appearance- Dress/Hygiene: The patient was sitting in the chair, neat and clean and very anxious. Behaviors Thought Process: WNL Thought Content: Auditory Hallucinations, Visual Hallucinations, He states that he has been experiencing hallucinations where he is not able to see what is in front of him and he feels like he is in a hospital, with bright lights and nurses and doctors talking to him. Memory: WNL Insight: WNL SI/HI Risk Assessment Past Suicidal Ideation/Attempts Yes Current Suicidal Ideation/Att Yes Past Homicidal Ideation/Att: No Current Homicidal Ideation/Attempts No Degree of Intent: He reports that he had a self aborted suicide attempt today. He reports that he went to the [employer] parking garage and was going to jump off. He states that he did not jump, because he was afraid of being in pain and being paralyzed, if he did not . He has previous suicde attempts and states that the last one was via OD in the fall of 2016. Danger To: Self Gravely Disabled: N/A Risk Factors: access to lethal means, high anxiety/distress, history of suicide atmpts, SA/MH hospitalized, substance abuse, poor impulse control, lives alone, male, limited support Lethality Ratin PTSD Checklist PTSD Score: PTSD Score: Response Value Disturbing memories,thoughts,images of stressful experience? Extremely 5 Disturbing dreams of stressful experience from past? Extremely 5 Suddenly acting/feeling as if reliving stressful experience? Extremely 5 Unpleasant feeling when reminded of stressful experience? Extremely 5 Physical reactions when reminded of stressful experience? Extremely 5 Avoid thinking/talking of stressful exp. to avoid reactions? Extremely 5 Avoid activities/situations that remind of stressful exp.? Extremely 5 Trouble remembering important parts of stressful experience? Extremely 5 Loss of interest in things that you used to enjoy? Extremely 5 Feeling distant or cut off from other people? Extremely 5 Feeling emotionally numb/unable to love those close to you? Extremely 5 Feeling as if your future will somehow be cut short? Extremely 5 Trouble falling or staying asleep? Extremely 5 Feeling irritable or having angry outbursts? Extremely 5 Having difficulty concentrating? Extremely 5 Being super alert or watchful on guard? Extremely 5 Feeling jumpy or easily startled? 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, Hypnotic and Anxiolytic Use Disorder F16.20 Other Hallucinogen Use Disorder Medical: (By Hx)- Migraines, low Testerone, Seizures, GERD, Irritable Bowel Syndrome Stressors: Unemployment, finances, housing, limited supports Current GAF: 25 Comments: N/A Departure Disposition Psych Medical Clearance Date: 02/27/18 Medically Cleared at: 1600 Time Started: 1600 Time Ended: 1700 Psychiatrist Consulted: Ace Steve MD Disposition Established: 02/27/18 Time Disposition Established: 2037 Plan for Disposition - Modality: Inpatient Psychiatry Facility: [facility] Contact: N/A Telephone: N/A Rationale for Disposition: The patient presents on a PEC, after a self aborted suicide attempt, in which he was going to jump off of a parking structure. He reports feeling helpless, hopeless, useless and worthless. He reports decreased concentration, motivation, energy and sleep. Case discussed with Dr. Steve and he will admit him to [facility] on a voluntary basis. Type of IP Admission: Voluntary Additional Instructions: N/A Referrals Patient Has No Primary Care Dr (PCP/Family)
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
[2018-02-27 22:03] VITALS: BP 82/56
[2018-02-28 04:09] VITALS: BP 92/62
[2018-02-28 06:31] VITALS: BP 97/76
[2018-02-28 07:27] VITALS: BP 103/58
--- NOTE | 2018-02-28 09:17 | CPS PROVIDER INIT ASMT PSYCH ---
Psychiatric Admission Associate Sales's Note Reviewed: Yes Patient Seen and Examined: Yes Identifying Information: The patient is a 32 year old, single, male presenting to the ED on a PEC from [facility], Chief Complaint: made suicidal statements. Reaction to Hospitalization: Pt. was admitted voluntarily History of Present Illness Onset of Illness: patient was discharged from [facility]'s inpatient psychiatric unit on November 07, 2017 after long stay. The patient was referred to [facility] in [place] The patient was doing relatively well until recently when he reported that his tent and hold was confiscated by the state including his belongings and medications, he therefore went to the emergency room at [facility] he reportedly was discharged and he went to [facility] reporting that he was having thoughts of suicide and they sent him to [facility]'s emergency department on a. PEC Circumstances Leading to Admission: Voicing thoughts of suicide at [facility] Problem(s) Justifying Need for Admission: Voicing thoughts of suicide Past Psychiatric History Past Diagnosis(es)- if any: Generalized anxiety disorder Opioid use disorder, on agonist therapy Other substance use disorder (synthetic marijuana) Malingering Past Precipitating Factors- if any: homelessness - Include inpatient and outpatient treatment Treatment History: patient had an extended stay on the inpatient psychiatric unit No actual attempts but it looks like the patient has had multiple admissions for reportedly having thoughts of suicide mostly passive suicidal ideation The patient has been previously worked with [facility] in [place] he is still with the [email or web address] in [place] for his methadone maintenance and it looks like he previously was actually admitted inpatient at [facility] History of Suicide Attempts or Gestures No actual attempts but it looks like the patient has had multiple admissions for reportedly having thoughts of suicide mostly passive suicidal ideation Substance Abuse History: The patient still is on methadone maintenance in his urine toxicology screen was only positive for methadone and benzodiazepines. He explained to me the benzodiazepines because of her recent visit to the emergency department and here in [place] he reported that he was given Valium or diazepam then. History of alcohol, crack, cocaine, heroine, sedative hypnotics. Allergies: Coded Allergies: fluphenazine (From PROLIXIN) (Severe, ANAPHYLAXIS 01/11/17) haloperidol (From HALDOL) (Severe, ANAPHYLAXIS 01/11/17) loxapine (ANAPHYLAXIS 01/11/17) risperidone (TUNNEL VISION 01/11/17) chlorpromazine (From THORAZINE) (Severe, ANAPHYLAXIS 10/23/17) I thoroughly discussed with Mark his reported allergy to Thorazine. It was apparent that the reference was to extrapyramidal side effects and in conjunction with prolixin (not bu itself) Home Med List: Clonidine HCl 0.2 MG TABLET 1 TAB PO TID MENTAL HEALTH (Reported) Entered as Reported by Juan Hsieh on 02/27/18 1448 Gabapentin 300 MG CAPSULE 600 MG PO TID anxiety #90 CAP Prescribed by Michael Khan MD on 11/07/17 Methadone HCl (Methadose) 10 MG/ML ORAL.CONC 90 MG PO DAILY OPIOD (Reported) Entered as Reported by Juan Hsieh on 02/27/18 1450 Methylphenidate HCl (Ritalin) 5 MG TABLET 3 TAB PO BID MENTAL HEALTH ( Reported) Entered as Reported by Juan Hsieh on 02/27/18 1448 Pantoprazole Sodium 40 MG TABLET.DR 1 TAB PO DAILY GI (Reported) Entered as Reported by Courtney Toth on 10/13/17 1954 Prazosin HCl 2 MG CAPSULE 2 MG PO AT BEDTIME nightmares #15 TAB Prescribed by Michael Khan MD on 11/07/17 Quetiapine Fumarate 300 MG TABLET 1 TAB PO QPM SLEEP (Reported) Entered as Reported by Juan Hsieh on 02/27/18 1447 Sertraline HCl (Zoloft) 100 MG TABLET 100 MG PO DAILY depression and anxiety # 15 TAB Testosterone (Androgel) (Unknown Strength) 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[place] TOP DAILY LOW TESTOSTERONE (Reported) Entered as Reported by Tracey Chaparro APRN on 01/28/17 1055 - Include any medical condition(s) that may - impact the patient's recovery/remission Past Medical History: Gynecomastia Past History Medical History Neurological: migraine, seizure, (WITHDRAWL TO BENZOS) EENT: sinusitis, HX MRSA Cardiovascular: NONE Respiratory: asthma Gastrointestinal: constipation, GERD, irritable bowel syndrome Hepatic: NONE Renal: NONE Musculoskeletal: NONE Psychiatric: anxiety, depression, opioid dependence, substance abuse, PTSD SI Endocrine: NONE Blood Disorders: NONE Cancer(s): NONE GENERAL INTERNIST/Reproductive: LOW TESTOSTERONE History of MRSA: Yes History of VRE: No History of CDIFF: No Isolation History: Standard Influenza Vaccine: 06/30/17 Surgical History Surgical History: NONE Psychiatric Family/Social Hx Family History Psychiatric Illness: Patient reported that there is family history of depression and anxiety Substance Use: The patient reported that it is some history of substance use on his paternal side Suicides: Patient denied completed suicides among his blood relations Social History Living Situation: The patient was homeless, staying in his tent until it was confiscated by the state authorities Significant Relationships (family/friends): The patient has little contact with his mother or sister patient reportedly who has a son but he has no contact with him Education: High school diploma Vocation/Occupation: Unemployed Legal: Denied current legal entanglements Healthly Behaviors Screening Tobacco Screening Tobacco Use from ED Docu: Current Daily Use Daily Tobacco Use Amount/Type: => 5 Cigarettes daily - If tobacco counseling indicated - the following topics are required. - #1 Recognizing dangerous situations. - #2 Coping Skills. - #3 Basic information about quitting. Status of Tobacco Cessation Counseling: #1, #2 AND #3 Completed Cessation Med Status Nicotine Patch Ordered Alcohol Screening - ETOH screen POS if BAL >=80 or Audit-C>= M4/F3 Audit-C Score from Diag Assess: 0 Blood Alcohol Level: Laboratory Tests 02/27 1501 Toxicology Serum Alcohol (<10 MG/DL) < 10.0 Alcohol Use Screening Results: Neg per Audit C &/or BAL - If ETOH counseling indicated - the following topics are required. - #1 Express concern about the patient's - drinking at unhealthy levels, include informing - of national norms for moderate drinking: - men <= 14 drinks/week, max 4 drinks/occasion - women <= 7 drinks/week, max 3 drinks/occasion - #2 Providing feedback, including linking alcohol to - negative physical effects (liver injury, hypertension) - negative emotional effects (relationship problems and - depression) - negative occupational consequences (reduced work - performance) - #3 Advising the patient to abstain from alcohol or - to drink below national norms for moderate drinking - (as listed above). Status of ETOH Use Counseling: N/A B/C NO ETOH Use Metabolic Screening - Screen if on a Neuroleptic Medication - Metabolic screening should include: - Blood Pressure, BMI, Glucose or Hgb A1c, & a - Lipid profile from within the past 365 days. Metabolic Screening Patient on a neuroleptic(s) . Enter below results for Hemoglobin A1C, and lipid panel if obtained during the last 365 days. BMI: 31.200 Blood Pressure: 129/56 Laboratory Results From [facility] (If applicable): Lab Cholesterol 187 MG/DL 10/14/17604 Cholesterol/HDL Ratio 5 % H 10/14/17604 HDL Cholesterol 39 mg/dL L 10/14/17604 Hemoglobin A1c 5.7 % 10/14/17604 LDL Cholesterol Direct 98.50 mg/dL 10/14/17 06 LDL Cholesterol, Calc ND mg/dL 10/14/17 06 Triglycerides 429 mg/dL H 10/14/17604 Exam and Plan Mental Status Examination Ambulation Status: Steady gait Appearance: Young white male with gynecomastia Attitude towards examiner: Calm and cooperative Psychomotor activity: Some fidgetiness Behavior: No bizarre behaviors Quality of speech: Talkative with tangents and circumstantiality Affect: Constricted affect Mood: Depressed and anxious Suicidal Ideation: Reports thoughts of suicide Homicidal Ideation: Denies violent thoughts or thoughts of homicide Hallucinations: Denied hallucinations but describes what seemed like dissociative episodes related to past traumas, patient's reliability regarding hallucinations is questionable from my previous experience with him on this unit Paranoid/Delusional Material: Denies feeling paranoid, there were no delusions during the interview Difficulties with thought organization: Some tangents and circumstantial thoughts but all in all coherent Insight: Impaired insight Judgment: Impaired judgment Orientation: Alert and oriented to time, place, and person Cognition: May have learning disabilities Memory Function: No impairment in short-term memory Estimate of intellectual functioning: Low average Assets/Strengths Patient Identified Assets/Strengths: The patient seems to be resilient, and does take advantage of community resources available to him Impression/Plan Impression and Plan: A 32-year-old single white male with chronic homelessness presented to our emergency room on a physician emergency certificate referred by [facility] after he presented there reporting thoughts of suicide. The patient is on methadone maintenance, he did have past history of abusing multiple substances including K2. He does have history of significant psychological trauma in the past. And he does have history of saying that he is suicidal in order to solve his homelessness problem. - Include all active medical diagnosis that require tx DSM 5 Diagnosis(es): Unspecified depressive disorder Generalized anxiety disorder Opioid use disorder, on maintenance methadone Other substance use disorder and (K2) - Initial Tx Plan for Active Psych & Medical Conditions Treatment Plan: Inpatient psychiatric care with safety checks every 15 minutes Reduce methadone by 5 mg every other day Resume methylphenidate 10 mg twice daily starting at 1 PM today Discontinue prazosin Continue clonidine 0.2 three times daily - Factors that would help patient function - in a less restrictive setting. Factors: The patient would be discharged next Saturday hopefully after he denies thoughts of suicide. However the patient will not would be most likely discharge on Saturday even if he continues to threaten or talk about suicide because this was his modus operandi and his previous long admission in order to extend his stay in the hospital as long as possible to avoid going to a intermediate
[2018-02-28 09:43] VITALS: BP 129/56
[2018-02-28 12:05] VITALS: BP 136/71
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
[2018-02-28 15:40] VITALS: BP 130/77
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
[2018-03-01 07:52] VITALS: BP 123/74
--- NOTE | 2018-03-01 11:11 | CP SOUTH PROGRESS NOTE PSYCH ---
Psych (Inpt) Progress Note Progress Note Include the following elements, when applicable: Involvement in the active treatment of the patient with behavioral observations of the patient and the patient's response to the treatment. Review of the ongoing treatment process in the context of the treatment plan. Indication of how multi-disciplinary staff members are carrying out the treatment plan. Plans for future interventions and recommendations for revision of the treatment plan. Liaison with other physicians/providers. Progress Note: Pt notes that having poor sleep recently with increaing trauma-related NMs. He denies SI or HI. Spoke at length about previous treatment. Current Medications Sig/Mike Start time Last Medication Dose Route Stop Time Status Admin Acetaminophen 650 MG Q6P PRN 02/27 2115 AC 02/28 PO 0810 Al Hydroxide/Mg 30 ML Q4-6 PRN PRN 02/27 211 AC Hydroxide PO Clonidine 0.2 MG 0800,1400 02/28 1600 AC 03/01 PO 1032 Clonidine 0.1 MG ONCE ONE 02/28 1515 DC 02/28 PO 02/28 1516 1545 Clonidine 0.2 MG TID 02/27 1414 DC 02/28 PO 1726 Docusate Sodium 100 MG BID 03/01 1052 UNVr PO Gabapentin 600 MG Q4P PRN 02/28 1200 AC PO Gabapentin 600 MG TID 02/28 0900 AC 03/01 PO 1032 Ibuprofen 600 MG TID 02/28 1400 AC 03/01 PO 03/05 0800 1032 Lorazepam 2 MG Q6P PRN 02/27 2115 AC IM Magnesium Hydroxide 30 ML .STK-MED ONE 02/28 2122 DC PO 02/28 2123 Magnesium Hydroxide 30 ML AT BEDTIME PRN 02/27 2115 AC 03/01 PO 1041 Methadone HCl 80 MG 0800 03/01 0800 AC 03/01 PO 0712 Methylphenidate HCl 10 MG 0800 & 1300 02/28 1300 DC PO Methylphenidate HCl 15 MG 0800 & 1300 02/28 1300 AC 03/01 PO 1034 Nicotine 21 MG DAILY 02/28 1104 AC 03/01 TOP 1032 Nicotine 4 MG Q2P PRN 02/27 2130 AC 03/01 PO 1033 Omeprazole 40 MG DAILY AC 02/28 0700 AC 03/01 PO 0712 Polyethylene Glycol 17 GM DAILY PRN 03/01 1100 UNVr PO Prazosin HCl 2 MG AT BEDTIME 062099 AC 02/28 PO 2119 Propranolol HCl 20 MG BID 02/28 2120 DC PO Quetiapine Fumarate 300 MG QPM 02/27 2100 AC 02/28 PO 2119 Senna 187 MG BID 03/01 1052 UNVr PO Sertraline HCl 100 MG DAILY 02/28 900 AC 03/01 PO 1032 Testosterone 5 GM DAILY 02/28 900 AC 03/01 TOP 1034 Laboratory Tests 02/27 02/27 1514 1501 Chemistry Sodium (137 - 145 mmol/L) 141 Potassium (3.5 - 5.1 mmol/L) 5.0 Chloride (98 - 107 mmol/L) 97 L Carbon Dioxide (22 - 30 mmol/L) 31 H Anion Gap (5 - 16) 12 BUN (9 - 20 mg/dL) 13 Creatinine (0.7 - 1.2 mg/dL) 0.8 Estimated GFR (>60 ml/min) > 60 BUN/Creatinine Ratio (7 - 25 %) 16.3 Glucose (65 - 99 mg/dL) 74 Calcium (8.4 - 10.2 mg/dL) 9.8 Total Bilirubin (0.2 - 1.3 mg/dL) 0.4 AST (17 - 59 U/L) 22 ALT (21 - 72 U/L) 28 Alkaline Phosphatase (< 127 U/L) 71 Total Protein (6.3 - 8.2 g/dL) 7.9 Albumin (3.5 - 5.0 g/dL) 4.3 Globulin (1.9 - 4.2 gm/dL) 3.6 Albumin/Globulin Ratio (1.1 - 2.2 %) 1.2 TSH &T3 &Free T4 Intrp (0.27 - 4.20 uIU/mL) 0.987 Hematology CBC w Diff NO MAN DIFF REQ WBC (4.8 - 10.8 /CUMM) 7.0 RBC (4.70 - 6.10 /CUMM) 5.22 Hgb (14.0 - 18.0 G/DL) 15.9 Hct (42 - 52 %) 47.2 MCV (80.0 - 94.0 FL) 90.5 MCH (27.0 - 31.0 PG) 30.5 MCHC (33.0 - 37.0 G/DL) 33.7 RDW (11.5 - 14.5 %) 14.5 Plt Count (130 - 400 /CUMM) 167 MPV (7.4 - 10.4 FL) 9.4 Gran % (42.2 - 75.2 %) 61.0 Lymphocytes % (20.5 - 51.1 %) 30.9 Monocytes % (1.7 - 9.3 %) 6.8 Eosinophils % (0 - 5 %) 1.0 Basophils % (0.0 - 2.0 %) 0.3 Absolute Granulocytes (1.4 - 6.5 /CUMM) 4.3 Absolute Lymphocytes (1.2 - 3.4 /CUMM) 2.2 Absolute Monocytes (0.10 - 0.60 /CUMM) 0.5 Absolute Eosinophils (0.0 - 0.7 /CUMM) 0.1 Absolute Basophils (0.0 - 0.2 /CUMM) 0 Toxicology Urine Opiates Screen (>2000 NG/ML) < 100 Methadone Screen (>300 NG/ML) > 735 H Barbiturate Screen (>200 NG/ML) < 60 Ur Phencyclidine Scrn (>25 NG/ML) < 6.00 Amphetamines Screen (>1000 NG/ML) < 100 U Benzodiazepines Scrn (>200 NG/ML) 568 H Urine Cocaine Screen (>300 NG/ML) < 50 Urine Cannabis Screen (>50 NG/ML) 25.10 Serum Alcohol (<10 MG/DL) < 10.0 Vital Signs Date Time Temp Pulse Resp B/P B/P Pulse O2 O2 Flow FiO2 Mean Ox Delivery Rate 03/01 1032 97.3 82 20 123/74 03/01 0752 97.3 82 123/74 02/28 2119 64 113/74 02/28 1545 86 130/77 02/28 1540 86 130/77 02/28 1205 88 136/71 MSE General appearance: good hygiene and grooming; Attitude: cooperative; Eye contact: appropriate; Movement: no psychomotor agitation or slowing; Speech: nl fluency, nl rate/rhythm, nl volume, nl prosody; Mood: "OK" Affect: very irritable, flat, appropriate, constricted, non-labile, congruent; Thought process: linear and goal-directed; Thought content: denied SI or HI, no paranoid ideation; Perception: denied hallucinations- auditory, visual, does not appear to be responding to internal stimuli; I/J: limited A/P: Pt with MDD now with improved mood though issues around TRS of NM. - Increase seroquel to 350mg and prazosin to 4mg - Monitor BPs and orthostatics BID -Otherwise continue current medication regimen -Encourage integration into the milieu
[2018-03-01 11:54] VITALS: BP 128/71
[2018-03-01 15:55] VITALS: BP 106/63; BP 125/70
[2018-03-01 19:55] VITALS: BP 109/77
[2018-03-02 07:39] VITALS: BP 134/59
--- NOTE | 2018-03-02 11:10 | CP SOUTH PROGRESS NOTE PSYCH ---
Psych (Inpt) Progress Note Progress Note Include the following elements, when applicable: Involvement in the active treatment of the patient with behavioral observations of the patient and the patient's response to the treatment. Review of the ongoing treatment process in the context of the treatment plan. Indication of how multi-disciplinary staff members are carrying out the treatment plan. Plans for future interventions and recommendations for revision of the treatment plan. Liaison with other physicians/providers. Pt reports no bowel movement as of yet. Per report, none for the past 9d. Denies abd pain or discomfort. Amenable to mag citrate today. Denies SI or HI. Slept much better overnight. Current Medications Sig/Mike Start time Last Medication Dose Route Stop Time Status Admin Acetaminophen 650 MG Q6P PRN 02/27 211 AC 02/28 PO 0810 Al Hydroxide/Mg 30 ML Q4-6 PRN PRN 02/27 211 AC Hydroxide PO Clonidine 0.2 MG 0800,1400 02/28 1600 AC 03/02 PO 1009 Docusate Sodium 100 MG BID 03/01 1052 AC 03/02 PO 1009 Gabapentin 600 MG Q4P PRN 02/28 1200 AC PO Gabapentin 600 MG TID 02/28 0900 AC 03/02 PO 1008 Ibuprofen 600 MG TID 02/28 1400 AC 03/02 PO 03/05 0800 1009 Lorazepam 2 MG Q6P PRN 02/27 2115 AC IM Lubiprostone 24 MCG BID 03/01 1148 AC 03/02 PO 1010 Magnesium Hydroxide 30 ML AT BEDTIME PRN 02/27 2115 AC 03/01 PO 1041 Methadone HCl 80 MG 0800 03/01 0800 AC 03/02 PO 1007 Methylphenidate HCl 15 MG 0800 & 1300 02/28 1300 AC 03/02 PO 1007 Nicotine 21 MG DAILY 02/28 1104 AC 03/02 TOP 1010 Nicotine 4 MG Q2P PRN 02/27 2130 AC 03/02 PO 1010 Omeprazole 40 MG DAILY AC 02/28 0700 AC 03/02 PO 0626 Polyethylene Glycol 17 GM DAILY PRN 03/01 1100 AC 03/02 PO 1016 Prazosin HCl 4 MG AT BEDTIME 03/01 2100 AC 03/01 PO 2141 Prazosin HCl 2 MG AT BEDTIME 02/28 2100 DC 02/28 PO 2119 Quetiapine Fumarate 350 MG QPM 03/01 2100 AC 03/01 PO 2143 Quetiapine Fumarate 300 MG QPM 02/27 2100 DC 02/28 PO 2120 Senna 187 MG BID 03/01 1052 AC 03/02 PO 1008 Sertraline HCl 100 MG DAILY 02/28 09 AC 03/02 PO 1008 Testosterone 5 GM DAILY 02/28 09 AC 03/02 TOP 1010 Laboratory Tests 02/27 02/27 1514 1501 Chemistry Sodium (137 - 145 mmol/L) 141 Potassium (3.5 - 5.1 mmol/L) 5.0 Chloride (98 - 107 mmol/L) 97 L Carbon Dioxide (22 - 30 mmol/L) 31 H Anion Gap (5 - 16) 12 BUN (9 - 20 mg/dL) 13 Creatinine (0.7 - 1.2 mg/dL) 0.8 Estimated GFR (>60 ml/min) > 60 BUN/Creatinine Ratio (7 - 25 %) 16.3 Glucose (65 - 99 mg/dL) 74 Calcium (8.4 - 10.2 mg/dL) 9.8 Total Bilirubin (0.2 - 1.3 mg/dL) 0.4 AST (17 - 59 U/L) 22 ALT (21 - 72 U/L) 28 Alkaline Phosphatase (< 127 U/L) 71 Total Protein (6.3 - 8.2 g/dL) 7.9 Albumin (3.5 - 5.0 g/dL) 4.3 Globulin (1.9 - 4.2 gm/dL) 3.6 Albumin/Globulin Ratio (1.1 - 2.2 %) 1.2 TSH &T3 &Free T4 Intrp (0.27 - 4.20 uIU/mL) 0.987 Hematology CBC w Diff NO MAN DIFF REQ WBC (4.8 - 10.8 /CUMM) 7.0 RBC (4.70 - 6.10 /CUMM) 5.22 Hgb (14.0 - 18.0 G/DL) 15.9 Hct (42 - 52 %) 47.2 MCV (80.0 - 94.0 FL) 90.5 MCH (27.0 - 31.0 PG) 30.5 MCHC (33.0 - 37.0 G/DL) 33.7 RDW (11.5 - 14.5 %) 14.5 Plt Count (130 - 400 /CUMM) 167 MPV (7.4 - 10.4 FL) 9.4 Gran % (42.2 - 75.2 %) 61.0 Lymphocytes % (20.5 - 51.1 %) 30.9 Monocytes % (1.7 - 9.3 %) 6.8 Eosinophils % (0 - 5 %) 1.0 Basophils % (0.0 - 2.0 %) 0.3 Absolute Granulocytes (1.4 - 6.5 /CUMM) 4.3 Absolute Lymphocytes (1.2 - 3.4 /CUMM) 2.2 Absolute Monocytes (0.10 - 0.60 /CUMM) 0.5 Absolute Eosinophils (0.0 - 0.7 /CUMM) 0.1 Absolute Basophils (0.0 - 0.2 /CUMM) 0 Toxicology Urine Opiates Screen (>2000 NG/ML) < 100 Methadone Screen (>300 NG/ML) > 735 H Barbiturate Screen (>200 NG/ML) < 60 Ur Phencyclidine Scrn (>25 NG/ML) < 6.00 Amphetamines Screen (>1000 NG/ML) < 100 U Benzodiazepines Scrn (>200 NG/ML) 568 H Urine Cocaine Screen (>300 NG/ML) < 50 Urine Cannabis Screen (>50 NG/ML) 25.10 Serum Alcohol (<10 MG/DL) < 10.0 Vital Signs Date Time Temp Pulse Resp B/P B/P Pulse O2 O2 Flow FiO2 Mean Ox Delivery Rate 03/02 1009 97.2 91 134/59 0603 0739 97.2 91 134/59 /02 2141 81 109/77 03/01 1955 98.3 81 109/77 /02 1555 98 106/63 06/02 1436 97.3 92 20 128/71 0602 1154 92 128/71 MSE General appearance: good hygiene and grooming; Attitude: cooperative; Eye contact: appropriate; Movement: no psychomotor agitation or slowing; Speech: nl fluency, nl rate/rhythm, nl volume, nl prosody; Mood: "OK" Affect: less irritable, flat, appropriate, constricted, non-labile, congruent; Thought process: linear and goal-directed; Thought content: denied SI or HI, no paranoid ideation; Perception: denied hallucinations- auditory, visual, does not appear to be responding to internal stimuli; I/J: limited A/P: Pt with MDD now with improved mood though issues around TRS of NM. -Otherwise continue current medication regimen -Encourage integration into the milieu
[2018-03-02 11:55] VITALS: BP 113/66
[2018-03-02 15:33] VITALS: BP 129/74
[2018-03-02 20:01] VITALS: BP 136/74
[2018-03-03 07:49] VITALS: BP 113/70
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
--- NOTE | 2018-03-03 11:09 | SOCIAL WORKER PROG NOTE PSYCH ---
Social Work Progress Note Progress Note Determination Status: PENDED The services requested require additional review. You will be contacted regarding the status of this request if further information is needed. An authorization decision will be made within the required timeframes and details of that decision may be found under the member's authorization history. Member Name Member ID Member Subscriber Name Subscriber ID CRISTHIAN ARAGON [id number] CRISTHIAN [employer] [id number] Pended Authorization # Client Authorization # Type of Request [id number] CONCURRENT Date of Admission/ Start of Services Requested From Submission Date 02/27/2018 03/02/2018 03/03/2018 Level of Service Type of Service Level of Care Type of Care INPATIENT/[facility] Reason Code P75 Provider Name & Address Provider ID Provider Alternate ID NPI # for Authorization YESSY ASKEW [facility] [id number] N/A
[2018-03-03 12:15] VITALS: BP 130/60
--- NOTE | 2018-03-03 14:54 | SOCIAL WORKER PROG NOTE PSYCH ---
Social Work Progress Note Progress Note DOLORES met with the patient for his daily assessment. The patient presented with mood lability and became tearful about the possibilty of being discharged tomorrow. The patient states that his depression is an 8 out of 10 and his anxiety is a 7 out of 10, 10 being the most severe. He denies any current suicidal or homicidal ideations. He states that he is concerned about housing and not having his medications, if he is discharged. He is working with [employer] for his housing voucher and he signed a release for SW to speak with them( placed in chart). [employer] called and stated that they have a potential apartment for him and he called them back to discuss further. He will set up an appointment to see the apartment, after he is discharged. He also signed a release and the application for [facility], which was completed and faxed to Fergus and Karlie and is in the chart. He would like to return to [facility] and his therapist, Nighat Kelly ([phone]) was contacted. Nighat states that the patient is welcome to return there for treatment after discharge and she will provider a follow up appointment, when his discharge date has been determined. Nighat also reports that the patient can attend two drop in groups that she runs with no appointment; Wednesdays at 9am and at 1pm. The patient does not feel that he is ready for discharge at this time and still feels hopeless and worthless. He is very concerned about being discharged without this plan being clear. The patient will continue to work with the provider on mediation management and the treatment team re: transition back to care in the community.
[2018-03-03 15:51] VITALS: BP 116/60
[2018-03-03 19:47] VITALS: BP 134/70
--- NOTE | 2018-03-03 22:00 | RADIOLOGY REPORT ---
EXAMINATION: XR ABDOMEN CLINICAL INDICATION: Severe constipation. COMPARISON: None TECHNIQUE: AP view of the abdomen. FINDINGS: Moderate amount of stool throughout the colon. The bowel gas pattern is normal with no evidence of ileus or obstruction. No unusual soft tissue calcifications are noted. The bones are unremarkable IMPRESSION: Moderate amount of stool in colon. Nonobstructive bowel pattern.
--- NOTE | 2018-03-03 22:00 | RADIOLOGY REPORT ---
EXAMINATION: XR CHEST CLINICAL INFORMATION: Tuberculosis. COMPARISON: Chest x-ray 10/30/2017 TECHNIQUE: PA and lateral views of the chest were obtained. FINDINGS: The cardiac and mediastinal contours is normal. There is no pulmonary vascular congestion. There is no infiltrate or pleural effusion. IMPRESSION: Normal chest.
[2018-03-04 06:38] VITALS: BP 136/64
--- NOTE | 2018-03-04 09:52 | CP SOUTH PROGRESS NOTE PSYCH ---
Psych (Inpt) Progress Note Progress Note Vital Signs Date Time Temp Pulse Resp B/P Pulse FiO2 Ox 03/04 1233 97.4 92 20 139/88 06/ 1231 97.4 92 20 139/88 03/04 1230 97.4 06/ 1156 92 139/88 / 0957 97.4 75 20 136/64 06/05 0950 97.4 06/05 0638 75 136/64 03/03 2138 72 134/78 06/ 1947 97.4 62 134/70 Mental Status Examination: Mark seem to be in better spirits today. He was not resisting the discharge today. He denied thinking of suicide or hallucinations in the past 24 hours. Pt reported ongoing constipation. He did not make any provocative or threatening statements regarding suicide if discharged. He tolerated the increase in the prazosin last night and reported that he did not have nightmares and denied having dissociative experiences today or hallucinations. Seemed to be in better spirits and was not tearful Mark did not exhibit any psychomotor agitation or retardation. His speech was normal/not pressured and not slurred. He reported that his mood is better today "okay" he was not irritable and he was not tearful He denied hallucinations and his thought process was linear and goal-directed; no paranoid ideation; does not appear to be responding to internal stimuli Assessment: Mark is a 32-year-old Single White Male who presented to the emergency department on February 27, 2018 reporting that he was having thoughts of suicide. The patient reported that his stent was confiscated by the state. He initially presented to [facility]'s emergency department and may have been discharged from there are admitted very briefly and then discharged 3 days later, he then presented himself to [facility] claiming that he was having thoughts of suicide and that is when they sent him to [facility]'s emergency department. Because Mark has finally found housing, he seemed to be in much better better spirits and more hopeful and less depressed. He denied thinking of suicide or wishing and did not make in a provocative threats regarding killing himself if discharged (this was his modus operandi and previous admissions) He seem to be in good spirits pleasant and agreeable to the discharge plan today. 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
[2018-03-04] MEDS ORDERED: CLONIDINE HCL0.1 MG PO (11:46)
[2018-03-04] MEDS ORDERED: IBUPROFEN600 M1 PO (11:46)
[2018-03-04] MEDS ORDERED: NICORELIEF4 MG PO (11:46)
[2018-03-04] MEDS ORDERED: NICOTINE PATCH1 EAC3 TOP (11:46)
[2018-03-04] MEDS ORDERED: PRAZOSIN HCL2 M1 PO (11:46)
[2018-03-04] MEDS ORDERED: NEURONTIN400 M1 PO (11:46)
[2018-03-04] MEDS ORDERED: SEROQUEL100 M1 PO (11:49)
[2018-03-04] MEDS ORDERED: SERTRALINE HCL50 MG PO (11:49)
[2018-03-04] MEDS ORDERED: PANTOPRAZOLE SO40 M1 PO (11:54)
[2018-03-04] MEDS ORDERED: ANDROGEL75 G1 TOP (11:54)
[2018-03-04] MEDS ORDERED: AMITIZA24 MC1 PO (11:54)
[2018-03-04 11:56] VITALS: BP 139/88
--- NOTE | 2018-03-04 12:04 | Patient Discharge Instructions ---
Psych Discharge Inst General Discharge Information Reason for Admission: threats of suicide Psy Discharge Primary Diag+ MDD (F33.1) Psy Discharge Secondary Diag+ Opioid Use Disorder Summary Tests/Major Procedures u Tox was only positive for Methadone and Benzodiazepines Studies Pending at DC: none Patient Instructions Contact Information Your Psychiatrist on [facility] was Michael Khan MD * If you are experiencing an emergency related to this hospitalization, please call [phone] to contact the treating psychiatrist or the psychiatrist-on- call. * To Request a copy of your medical records, please contact the Medical Records Department at [phone]. * To request results of studies pending at the time of discharge, please call [phone]. * Continue your Medications until directed to stop by your Healthcare provider. General Medication Information Please continue to take your new medications and your continued home medications , unless otherwise indicated on your discharge medication list, or unless directed by your MD or STOCK DR[employer] to stop them. Special Instructions Diet Regular Activity Normal - Tobacco Use Treatment Offered Post DC Medications Offered: Script Given-See Med List Post DC Tobacco Treatment Plan: Refused Tobacco Tx Pgm - EtOH/Drug Use D/O Treatment Offered Post DC Medications Offered: Script Given-See Med List Post DC EtOH/SubAbuse TX Plan: Other SubAbuse/Dual Pgm Advance Directives Does the Patient have Medical Advance Directives No/Refused further info Does Pt have Psychiatric Advance Directives? No/Refused further info Does Patient have a Designated Surrogate Decision Maker: No Information About Psychiatric Advance Directives Provided? Refused Discharge Plan Post Hospital Treatment Plan: [facility], and [facility]T
[2018-03-04] MEDS ORDERED: METHADONE HCL10 M1 PO (12:06)
[2018-03-04] MEDS ORDERED: RITALIN20 M1 PO (12:08)
[2018-03-04] MEDS ORDERED: QUETIAPINE FUMA50 M1 PO (12:18)
--- NOTE | 2018-03-04 12:32 | SOCIAL WORKER PROG NOTE PSYCH ---
Social Work Progress Note Progress Note Patient's [place] ride to [facility] was set up by Dyan Gonzalez. Confirmation #[id number].
[2018-03-04 12:33] VITALS: BP 139/88
== END 2018-03-04 13:14 | DRG 754 ==
LOC: ERH 14:07 → CP SOUTH 20:47 → ERHI 20:47 → ENTRNSPT 21:26 → EDTRNSPTSTS 21:43 → EDTRNSPT 21:43 → CP SOUTH 21:50 → CMPTRNSPT 21:52 → CP SOUTH 02-28 13:56
PROVIDERS: Emergency Medicine
DX: F32.9 Major depressive disorder, single episode, unspecified (principal); F11.90 Opioid use, unspecified, uncomplicated
CPT/HCPCS: 71046; 74018; 80307; 93005; 93010; G0480